=== PATIENT | male | born 1945 | race Caucasian/White ===

== ENCOUNTER 2019-02-20 10:28 | Inpatient (IN) | payer MEDICARE, BC ==
--- NOTE | 2019-02-20 13:01 | PCM.HP.2 ---
H&P History of Present Illness - General Date of Service: 02/20/19 Admit Problem/Dx: Left Shoulder Arthroplasty, Rehab with PT/OT Source of Information: Patient History Limitations: Reports: No Limitations - History of Present Illness Initial Comments - Free Text/Narative: Patient is here for SW[facility] admission for PT/OT after left shoulder reverse arthroplasty. He is here and has no complaints of pain. He is to wear immobilizer until further notice. No lifting with his left arm. He had an exacerbation of his Heart Failure while in the hospital. This may be related to the increased sedentary lifestyle since surgery. He is having increased fluid on lower extremities. We will monitor this as well as BP for elevation. - Related Data Allergies/Adverse Reactions: Allergies Allergy/AdvReac Type Severity Reaction Status Date / Time No Known Allergies Allergy Verified 02/20/19 12:22 Home Medications: Home Meds Acetaminophen [Acetaminophen Extra Strength] 1,000 mg PO Q6HR PRN 02/20/19 [ History] Bumetanide [Bumex] 2 mg PO BID@08,14 02/20/19 [History] Calcium Carbonate [Calcium] 600 mg PO DAILY 02/20/19 [History] Cholecalciferol (Vitamin D3) [Vitamin D3] 400 unit PO DAILY 02/20/19 [History] Cyanocobalamin (Vitamin B-12) [Vitamin B-12] 100 mcg PO DAILY 02/20/19 [History] Ferrous Sulfate 325 mg PO DAILY 02/20/19 [History] Folic Acid 1 mg PO DAILY 02/20/19 [History] Levothyroxine 150 mcg PO ACBREAKFAST 02/20/19 [History] Omeprazole 40 mg PO DAILY 02/20/19 [History] Sennosides/Docusate Sodium [Senna-Docusate Sodium Tablet] 1 each PO BID [History] Spironolactone [Aldactone] 100 mg PO DAILY 02/20/19 [History] Past Medical History Cardiovascular History: Reports: Heart Failure, Hypertension Gastrointestinal History: Reports: Cirrhosis, GI Bleed, Other (See Below) Other Gastrointestinal History: gastric varices Musculoskeletal History: Reports: Back Pain, Chronic, Osteoarthritis, Other ( See Below) Other Musculoskeletal History: closed compressed fracture of thoracic vertebra Psychiatric History: Reports: Addiction, Other (See Below) Other Psychiatric History: alcohol abuse Endocrine/Metabolic History: Reports: Hypothyroidism, Obesity/BMI 30+, Osteopenia Hematologic History: Reports: Anemia, Other (See Below) Other Hematologic History: thrombocytopenia - Past Surgical History HEENT Surgical History: Reports: Cataract Surgery GI Surgical History: Reports: Appendectomy, Colonoscopy, EGD Musculoskeletal Surgical History: Reports: Other (See Below) Other Musculoskeletal Surgeries/Procedures:: left ankle open reduction internal fixation H&P Review of Systems - Review of Systems: Review Of Systems: See Below General: Reports: No Symptoms HEENT: Reports: No Symptoms Pulmonary: Reports: No Symptoms (He states he had a dry cough in the hospital, but this has resolved) Cardiovascular: Reports: Edema Gastrointestinal: Reports: Constipation (Had constipation in hospital, probably secondary to narcotic pain medication use. We will watch this.) Genitourinary: Reports: No Symptoms Musculoskeletal: Reports: Shoulder Pain (occasional) Skin: Reports: Wound Psychiatric: Reports: No Symptoms Neurological: Reports: No Symptoms Hematologic/Lymphatic: Reports: No Symptoms Immunologic: Reports: No Symptoms Exam - Exam Exam: See Below - Vital Signs Vital Signs: Last Vital Signs Temp 98.2 F 02/20/19 12:22 Pulse 91 02/20/19 12:22 Resp 20 02/20/19 12:22 BP 134/74 02/20/19 12:22 Pulse Ox 98 02/20/19 12:22 Weight: 254 lb 3.088 oz - Exam General: Alert, Oriented, Cooperative HEENT: Conjunctiva Clear, EACs Clear, Mucosa Moist & [place], Pupils Equal, Pupils Reactive Neck: Supple, Trachea Midline Lungs: Clear to Auscultation, Normal Respiratory Effort Cardiovascular: Regular Rate, Regular Rhythm GI/Abdominal Exam: Normal Bowel Sounds, Soft, Non-Tender (Male) Exam: Deferred Rectal (Males) Exam: Deferred Back Exam: Normal Inspection, Full Range of Motion Extremities: Normal Capillary Refill, Pedal Edema (3+, not wearing compression stockings at time of exam), Limited Range of Motion (to left arm/immobilized) Skin: Warm, Dry, Wound Neuro Extensive - Mental Status: Alert, Oriented x3, Normal Mood/Affect Psychiatric: Alert, Normal Affect, Normal Mood - Problem List (1) Status post reverse arthroplasty of left shoulder SNOMED Code(s): [id number], [id number] ICD Code: Z96.612 - PRESENCE OF LEFT ARTIFICIAL SHOULDER JOINT Status: Acute Current Visit: Yes Problem Details: Patient to wear immobilizer at all times until follow up appointment on 03/05. He is not having any pain to area at this time. Incision is healing and intact. No drainage/redness noted. Dressing will be kept in place and changed per [facility] instructions (2) Heart failure SNOMED Code(s): 81299338 ICD Code: I50.9 - HEART FAILURE, UNSPECIFIED Status: Acute Current Visit : Yes Problem Details: patient received a new diagnosis of heart failure when in hospital. He will follow a HF diet, monitor weight and pedal edema. BP will be monitored as well. (3) Hypertension SNOMED Code(s): 64991338 ICD Code: I10 - ESSENTIAL (PRIMARY) HYPERTENSION Status: Acute Current Visit: Yes Problem Details: Patient is having increased pedal edema due to HF. We will monitor BP. He was switched from Lasix to Bumex in the hospital. Monitor weight daily, pedal edema and increased SOB. Problem List Initiated/Reviewed/Updated: Yes
--- OUTSIDE RECORDS SUMMARY | 2019-02-20 14:36 | XMSREPORT ---
:[address] [facility] Address [address] [place] [address] Care Team Providers Name Role Phone Martir Robles MD Primary Care Provider Martir Robles MD Attributed Provider Reason for Visit Reason Comments Auth/Cert (Routine) Status Reason Specialty Diagnoses / Referred By Referred To Procedures Contact Contact Continuity of Care Diagnoses Unspecified rotator cuff tear or rupture of left shoulder, not specified as traumatic Other specific arthropathies, not elsewhere classified, left shoulder Se Hernandez, Procedures ARTHROPLASTY GLENOHUMERAL JOINT TOTAL URSULAR [address] [place] [address] Encounter Details Date Type Department Care Team Description 02/07/2019 - Hospital Encounter [facility] Se Hernandez MD [address] [place] [address] [phone] Low back pain 02/20/2019 Center [facility] Surgical Cesar Stanley MD [address] [place], [place] [id number] [address] [place] [address] Malorie Schroeder MD [address] [place], [place] [id number] [place], [place] [id number] Allergies No Known Allergiesdocumented as of this encounter (statuses as of 02/20/2019) Medications Medication Sig Dispensed Refills Start Date End Date Status cyanocobalamin, Take 1 90 tablet 4 05/19/2016 Active vitamin B-12, 100 mcg tablet (100 tabletIndications: mcg total) Anemia, unspecified by mouth 1 type time per day acetaminophen Take 1,000 0 Active (TYLENOL) 500 mg mg by mouth tablet every 6 hours as needed for mild pain vitamin D3, Take 400 0 Active cholecalciferol, 400 Units by units tablet mouth 1 time per day calcium 600 MG TABS Take 600 mg 0 Active tablet by mouth 1 time per day levothyroxine 150 mcg Take 1 30 tablet 0 02/02/2019 Active tabletIndications: tablet (150 Acquired mcg total) hypothyroidism by mouth 1 time per day ferrous sulfate (65 Take 325 mg 0 Active MG FE PER 325 MG by mouth 1 TABLET) 325 mg tablet time a day in the morning folic acid 1 mg Take 1 mg by 0 Active tablet mouth 1 time a day in the morning omeprazole (PRILOSEC) Take 40 mg 0 Active 40 mg capsule by mouth 1 time a day in the morning spironolactone Take 100 mg 0 Active (ALDACTONE) 100 mg by mouth 1 tablet time a day in the morning senna-docusate sodium Take 1 20 tablet 0 02/20/2019 Active (SENOKOT-S;PERICOLACE tablet by ) 8.6-50 MG mouth 2 tabletIndications: times a day Constipation, unspecified constipation type bumetanide (BUMEX) 2 Take 1 180 tablet 4 02/20/2019 Active mg tabletIndications: tablet (2 0 Chronic diastolic mg) by mouth heart failure (HCC) two times a day (in the morning and mid-afternoo n). Thiamine HCl Take 1 90 tablet 3 02/13/2015 Discontinued (THIAMINE, VITAMIN tablet by 9 B-1,) 100 mg tablet mouth 1 time per day. omeprazole (PRILOSEC) TAKE 1 180 capsule 0 08/30/2018 Discontinued 40 mg CAPSULE 2 9 capsuleIndications: TIMES DAILY Gastroesophageal BEFORE MEALS reflux disease without esophagitis furosemide (LASIX) 40 Take 1 90 tablet 0 10/17/2018 Discontinued mg tabletIndications: tablet (40 9 Chronic diastolic mg) by mouth heart failure (HCC), 1 time per Alcoholic cirrhosis day of liver without ascites (HCC) folic acid 1 mg TAKE (1) 90 tablet 0 11/10/2018 Discontinued tabletIndications: TABLET BY 9 History of alcohol MOUTH DAILY. abuse levothyroxine 150 mcg Take 1 90 tablet 0 11/10/2018 Discontinued tabletIndications: tablet (150 9 Acquired mcg total) hypothyroidism by mouth 1 time per day spironolactone TAKE 1 90 tablet 0 11/10/2018 Discontinued (ALDACTONE) 100 mg TABLET BY 9 tabletIndications: MOUTH DAILY. Chronic diastolic heart failure (HCC), Alcoholic cirrhosis of liver without ascites (HCC) ferrous sulfate (65 TAKE (1) 90 tablet 0 01/02/2019 Discontinued MG FE PER 325 MG TABLET BY 9 TABLET) 325 mg MOUTH DAILY. tabletIndications: Anemia, unspecified type folic acid 1 mg TAKE (1) 30 tablet 0 02/02/2019 Discontinued tabletIndications: TABLET BY 9 History of alcohol MOUTH DAILY. abuse furosemide (LASIX) 40 Take 1 90 tablet 4 02/02/2019 Discontinued mg tabletIndications: tablet (40 9 Chronic diastolic mg) by mouth heart failure (HCC), 1 time per Alcoholic cirrhosis day of liver without ascites (HCC) documented as of this encounter (statuses as of 02/20/2019) Active Problems Problem Noted Date Obesity, morbid, BMI 40.0-49.9 02/07/2019 Thrombocytopenia 02/07/2019 H/O compression fracture of spine 10/31/2017 Overview: Hx of chronic compression fracture to T8 10/19/2017 s/p vertebroplasty to T [address] Mckinney Primary osteoarthritis of left shoulder 09/07/2017 IFG (impaired fasting glucose) 08/24/2017 Osteopenia 06/22/2017 Overview: Declined treatment - 06/2017 Treatment options complicated by recent GI bleed GI bleed 06/08/2017 Closed compression fracture of thoracic vertebra 04/30/2017 Gastric varices 05/06/2014 Chronic diastolic heart failure 04/11/2014 Anemia 01/17/2014 Cirrhosis of liver 01/09/2014 Alcohol abuse 12/12/2013 Acquired hypothyroidism Low back pain documented as of this encounter (statuses as of 02/20/2019) Resolved Problems Problem Noted Date Resolved Date Obesity (BMI 30-39.9) 08/23/2017 02/07/2019 Acute mid back pain 04/30/2017 06/22/2017 Pneumonia 03/31/2014 02/13/2015 Ascites 01/17/2014 05/19/2016 Encephalopathy acute 12/04/2013 02/13/2015 Asthma 09/03/2013 02/13/2015 Effusion of lower leg joint 07/27/2011 02/13/2015 documented as of this encounter (statuses as of 02/20/2019) Immunizations Name Dates Previously Given Next Due FLU VACCINE HIGH DOSE 65YR+(Fluzone) 03/31/2014 Pneumococcal Conj PCV13 08/06/2015 Pneumococcal Polysaccharide PPSV23 05/10/2017 TDAP 11/25/2009 Zoster Live(Zostavax) 06/22/2017 documented as of this encounter Social History Tobacco Use Types Packs/Day Years Used Date Former Smoker Quit: 06/20/1968 Smokeless Tobacco: Never Used Comments: Never bought a pack of cigarettes Alcohol Use Drinks/Week oz/Week Comments Yes 6 Cans of beer 3.6 6 per week Sexually Active Control Partners Comments Yes Female Sex Assigned at Date Recorded Not on file Job Start Date Occupation Industry Not on file Not on file Not on file Travel History Travel Start Travel End No recent travel history available. documented as of this encounter Last Filed Vital Signs Vital Sign Reading Time Taken Blood Pressure 120/38 02/20/2019 7:41 AM CDT Pulse 83 02/20/2019 7:41 AM CDT Temperature 36.8 C (98.2 F) 02/20/2019 7:41 AM CDT Respiratory Rate 18 02/20/2019 7:41 AM CDT Oxygen Saturation 95% 02/20/2019 7:41 AM CDT Inhaled Oxygen Concentration - - Weight 117.1 kg (258 lb 3.2 oz) 02/20/2019 3:27 AM CDT Height 167.6 cm (5' 6") 02/07/2019 9:06 AM CDT Body Mass Index 41.67 02/07/2019 9:06 AM CDT documented in this encounter Functional Status Functional Status Response Date of Assessment Is the person deaf or does he/she have serious difficulty No 01/31/2019 hearing? Is this person blind or does he/she have difficulty No 01/31/2019 seeing even when wearing glasses? Do you have difficulty with walking, balance, climbing Yes 01/31/2019 stairs, or had a fall in the last 3 months? Does the patient have difficulty dressing or bathing? No 01/31/2019 Because of a physical, mental, or emotional condition; No 01/31/2019 does this person have difficulty doing errands alone such as visiting a doctor's office or shopping? Cognitive Status Response Date of Assessment Because of a physical, mental, or emotional condition; No 01/31/2019 does this person have serious difficulty concentrating, remembering, or making decisions? documented as of this encounter Discharge Summaries Not on filedocumented in this encounter Discharge Instructions InstructionsJessica Callaway RN - 02/12/2019[facility] Nurse: or Heart Failure Discharge Instructions Diet: Diet as ordered Follow instructions from our dietitian if one visited you Activity: Plan time every day for walking or other activity. If you feel tired and short of breath, stop and rest. Continue activity when ready. Follow guidelines given by cardiac rehab and nursing staff. Treatments/Self Care: Weigh yourself daily at the same time of the day and with the same amount of clothing. Write down your weight every day and keep this record. Avoid NSAIDs or Non-Steroidal Anti-Inflammatory Drugs (ie: Advil, Ibuprofen, Motrin, etc.) Contact Your Doctor If You Have Any of These Symptoms: Sudden weight gain of 2 pounds in a day or 5 pounds in a week. This is a sign of fluid build-up. Increased swelling in feet, ankles or legs. Worsening shortness of breath or trouble breathing at rest Having to sleep with more pillows or sitting up Frequent or worsening cough A decrease in amount of urine. Chest pain Confusion Questions about medications or other problems Review the Living Well with Heart Failure booklet for more information on caring for yourself or your loved one at home. Shoulder Pain and Problems What are shoulder problems? Shoulder pain and problems are common. There are many types of shoulder problems that are caused by injuries and sudden (acute) or long-lasting (chronic ) inflammation of the shoulder joint. The shoulder is a complex joint that has great mobility. This ability to move also increases the chances that itcan be injured. The shoulder is made up of several layers, including the following: Bones. The collarbone (clavicle), the shoulder blade (scapula), and the upper arm bone (humerus). Joints. These help with movement, including the following: ? Sternoclavicular joint (where the clavicle meets the sternum) ? Acromioclavicular (AC) joint (where the clavicle meets the acromion) ? Shoulder joint (glenohumeral joint). A [id number] joint that aids forward , circular, and backward movement of the shoulder. Ligaments. A white, shiny, flexible band of fibrous tissue that binds joints together and connects bones and cartilage, including the following: ? Joint capsule. A group of ligaments that connect the humerus to the socket of the shoulder joint on the scapula to stabilize the shoulder and keep it from dislocating. ? Ligaments that attach the clavicle to the acromion ? Ligaments that connect the clavicle to the scapula by attaching to the coracoid process Acromion. The highest point (roof) of the shoulder that is formed by a part of the scapula. Tendons. The tough cords of tissue that connect muscles to bones. The rotator cuff tendons are a group of tendons that connect the deepest layer of muscles to the humerus. Muscles. These help support and rotate the shoulder in many directions. Bursa. A closed space between 2 moving surfaces that has a small amount of lubricating fluid inside. It is located between the rotator cuff muscle layer and the outer layer of large, bulky muscles. Rotator cuff. Made up of tendons, the rotator cuff (and related muscles) holds the ball of the glenohumeral joint at the top of the upper arm bone ( humerus). What causes shoulder problems? The shoulder is the most movable joint in the body. But it is also an unstable joint because of its range of motion. Because the ball of the upper arm is larger than the socket of the shoulder, it is at risk of injury. The shoulder joint is supported by soft tissues. These are the muscles, tendons, and ligaments. They are also subject to injury, overuse, and degeneration. Progressive diseases that break down tissues in the body over time may also play a role in shoulder problems. Or they may cause pain that travels along nerves to the shoulder. Common causes of shoulder problems include the following: Dislocation. The shoulder joint is the most often dislocated major joint of the body. This is often caused by a strong force that separates the shoulder joint's ball away from the joint's socket. The ball is the top rounded part of the upper arm bone (humerus). The socket is called the glenoid. Separation. The AC joint becomes when the ligaments attached to the collarbone (clavicle) are torn, or partly torn, away from the shoulder blade (scapula). Shoulder separation may be caused by a strong blow to the shoulder, or a fall. Bursitis. Bursitis often occurs when tendonitis and impingement syndrome cause inflammation of the bursa sac that protects the shoulder. Impingement syndrome. This is caused by the excessive squeezing or rubbing of the rotator cuff and shoulder blade. The pain is from an inflamed bursa ( lubricating sac) over the rotator cuff. Or it may be due to inflammation of the rotator cuff tendons. And it may be due to calcium deposits in tendons due to wear and tear. Impingement syndrome can lead to a torn rotator cuff. Tendinosis. Tendinosis of the shoulder is caused when the rotator cuff or biceps tendon become worn out and inflamed. This is often a result of being pinched by nearby tissues. The injury may vary from mild inflammation to most of the rotator cuff. When the rotator cuff tendon becomes inflamed and thickened , it may become trapped under the acromion. Rotator cuff tear. A rotator cuff tear involves 1 or more rotator cuff tendons becoming inflamed and torn from overuse, aging, a fall on an outstretched hand, or a collision. Adhesive capsulitis (frozen shoulder). This condition is often caused by injury that leads to lack of use due to pain. Not enough use may cause inflammation and scar tissue to grow between the jointsurfaces. This further limits motion. There is also a lack of synovial fluid to lubricate the gap between the arm bone and socket. This fluid normally helps the shoulder joint to move. Fracture. A fracture is a partial or total crack or break through a bone. It often occurs due to an impact injury. What are the symptoms of shoulder problems? Shoulder pain may be only in 1 area. Or it may spread to areas around the shoulder or down the arm. The location and type of symptoms depend on the injury or the location of the inflammation. Below aresymptoms of some common shoulder problems. A rotator cuff injury will often cause pain in the front or outside of the shoulder. The pain gets worse when you raise your arm or try to lift an object over your head. Rotator cuff pain can be severe. It can make even simple tasks impossible and wake you up at night. If you have shoulder instability, pain can start suddenly, for example just as you throw a ball. Youmay have numbness all the way down your arm. If the instability happens slowly, you may have mild pain only at certain times. Your shoulder might feel weak, sore when you move it, or loose in your joint. Shoulder instability is different than a shoulder dislocation. The symptoms of a dislocated shoulder include intense pain, inability to move the joint, a visibly out of place shoulder, and swelling or bruising. The dislocation can cause numbness, tingling, or weakness near the injury or down your arm. A dislocated shoulder requires immediate medical care. If shoulder pain is caused by inflammation, such as bursitis, it may feel stiff , achy, and hurt morewhen you move it. Sometimes it can look swollen or red. How are shoulder problems diagnosed? A healthcare provider will ask about health history. He or she will give you a physical exam. The exam is to look at the vajyw-nb-sglyps, area of pain, and level of joint stability. You may have tests such as: X-ray. This imaging test uses a small amount of radiation to make images of tissues, bones, and organs onto film. MRI. This imaging test uses large magnets, radio waves, and a computer to make detailed images oftissues in the body. It can often find damage or disease in around ligament, tendon, or muscle. CT scan. This imaging test uses a series of X-rays and a computer to make horizontal images of the body. A CT scan shows detailed images of any part of the body, including the bones, muscles, fat, and organs. CT scans are more detailed than general X-rays. Electromyogram (EMG). This is a test to evaluate nerve and muscle function. Ultrasound. This imaging test uses high-frequency sound waves to create an image of the internal organs. Laboratory tests. These can help to figure out if other problems may be the cause. Arthroscopy. This is a minimally-invasive procedure used for joint conditions. This procedure uses a small, lighted, optic tube (arthroscope) that is put into the joint through a small cut (incision). Images of the inside of the joint are projected onto a screen. It is used to look at any changes in the joint, to find bone diseases and tumors, and to figure out the cause of bone pain and inflammation. How are shoulder problems treated? The goals of treatment are to ease pain and restore your shoulder to normal function. To do this, a variety of treatments may be used such as: Changing how you do some daily activities (activity modification) Rest Physical therapy Medicines such as ibuprofen, naproxen, and other nonsteroidal anti- inflammatory medicines (NSAIDs) An injection of anti-inflammatory steroids Surgery (when other options fail or are not advised for the injury or condition) Herrera points about shoulder problems Shoulder pain and problems are common. The shoulder is the most movable joint in the body. But its ability to move increases the chancesthat it can be injured or damaged. Common causes of shoulder problems include dislocation, separation, and fracture. Shoulder pain may be localized in a specific area. Or it may spread to areas around the shoulder or down the arm. Treatment may include medicines, rest, physical therapy, surgery, and changing how you do some daily activities. Next steps Tips to help you get the most from a visit to your healthcare provider: Know the reason for your visit and what you want to happen. Before your visit, write down questions you want answered. Bring someone with you to help you ask questions and remember what your provider tells you. At the visit, write down the name of a new diagnosis, and any new medicines, treatments, or tests. Also write down any new instructions your provider gives you. Know why a new medicine or treatment is prescribed, and how it will help you. Also know what the side effects are. Ask if your condition can be treated in other ways. Know why a test or procedure is recommended and what the results could mean. Know what to expect if you do not take the medicine or have the test or procedure. If you have a follow-up appointment, write down the date, time, and purpose for that visit. Know how you can contact your provider if you have questions. [id number] [employer]. [address] [place] [address], [place] [address]. All rights reserved. This information is not intended as a substitute for professional medical care. Always follow your healthcare professional's instructions. documented in this encounter Medications at Time of Discharge Medication Sig Dispensed Refills Start Date End Date senna-docusate sodium Take 1 tablet by 20 tablet 0 02/20/2019 (SENOKOT-S;PERICOLACE) mouth 2 times a 8.6-50 MG day tabletIndications: Constipation, unspecified constipation type bumetanide (BUMEX) 2 mg Take 1 tablet (2 180 tablet 4 02/20/20192019 tabletIndications: Chronic mg) by mouth two diastolic heart failure times a day (in (HCC) the morning and mid-afternoon). ferrous sulfate (65 MG FE Take 325 mg by 0 PER 325 MG TABLET) 325 mg mouth 1 time a day tablet in the morning folic acid 1 mg tablet Take 1 mg by mouth 0 1 time a day in the morning omeprazole (PRILOSEC) 40 Take 40 mg by 0 mg capsule mouth 1 time a day in the morning spironolactone (ALDACTONE) Take 100 mg by 0 100 mg tablet mouth 1 time a day in the morning levothyroxine 150 mcg Take 1 tablet (150 30 tablet 0 02/02/2019 tabletIndications: mcg total) by Acquired hypothyroidism mouth 1 time per day calcium 600 MG TABS tablet Take 600 mg by 0 mouth 1 time per day acetaminophen (TYLENOL) Take 1,000 mg by 0 500 mg tablet mouth every 6 hours as needed for mild pain vitamin D3, Take 400 Units by 0 cholecalciferol, 400 units mouth 1 time per tablet day cyanocobalamin, vitamin Take 1 tablet (100 90 tablet 4 05/19/2016 B-12, 100 mcg mcg total) by tabletIndications: Anemia, mouth 1 time per unspecified type day documented as of this encounter Progress Notes Malorie Schroeder MD - 02/19/2019 3:21 PM CDT Hospital Progress Note Patient Name: Lazara Orozco Jr. 02/07/2019 02/19/2019 CSN: [id number] Date of service:02/19/2019 Interval History: Denies acute complaints. Pain well controlled. Having decent urine output. Creatinine slightly elevated from yesterday. Will continue Bumex. We'll monitor BMP. Plan for tomorrow. Assessment and Plan: Acute on chronic kidney disease stage III: Creatinine close to baseline. We'll monitor BMP with diuresis. Status post left reverse shoulder arthroplasty: Currently pain well controlled. Continue when necessary tramadol and scheduled Tylenol Will need outpatient follow-up with orthopedic surgery History of GI bleed: Continue PPI. Concern for alcohol withdrawal: Currently not having any withdrawals. Not needing benzodiazepine. Chronic diastolic CHF: Continue Bumex. Had volume overload requiring IV diuresis with Lasix drip which was stopped. Weight remains stable and slightly up from before. Continue low-sodium and fluid restricted diet. Hypothyroidism: Continue levothyroxine Constipation: Continue current bowel regimen Debility: Patient seen by therapy and plan for TCU placement. Case management on board. History of liver cirrhosis: Currently Lasix and spironolactone on hold. Plan to resume his for nocturnal discharge and switch Lasix to Bumex. Will need outpatient follow-up with GI. Propranolol on hold and reviewed previous EGD at 08/07 showing gastric varices Macrocytic anemia, thrombocytopenia: Chronic in nature. Secondary to underlying alcohol use. Review of Systems: Constitutional: No fever. No chills. HE: No headache. No red eye or discharge. Neck: No neck swelling. ENT: No ear discharge. No rhinorrhea. No trouble swallowing. Respiratory: No cough. No SOB. Cardiovascular: No chest pain, No palpitation. GI: No abdominal pain. No nausea or vomiting. : No dysuria. No testicular pain. Musc: No arthralgia, No back pain. Skin: No skin rash or pallor. Neuro: No headache. No dizziness. Pshyciatry: No confusion. No mood swings. Endo: No polyuria. No cold intolerance. Physical Exam: Current Vital Signs: Temp: 98 F (36.7 C) BP: 104/49 Pulse: 95 O2 Device: Room Air O2 Flow Rate (L/min): 2 l/min Resp: 20 Pain Ratin (out of 10) Weight: 117.3 kg (258 lb 11.2 oz) SpO2: 95 % Vitals Min/Max Last 24 Hours: Vital Signs Min/Max (last 24 hours) Flowsheet Row Name Min Max Temp 98 F (36.7 C) 98.5 F (36.9 C) BP: Systolic 98 117 BP: Diastolic 45 50 Pulse 72 95 Resp 16 20 SpO2 93 % 96 % MAP (mm Hg) 66 mm Hg 66 mm Hg Intake and Output Last 24 Hours: 02/18 0700 02/19 0659 In: 1290 Out: 1770 General: A obese male reclining in bed without any distress. HE: Head atraumatic, normocephalic. PERRLA. EOMI. No scleral icterus or conjunctival paleness present. Neck: No lymphadenopathy present ENT: No nasal discharge, sinus tenderness, ear discharge, palatal erythema present. No cyanosis present. Hearing intact. Chest: No chest wall deformity present. Symmetric chest wall movement present. Clear to auscultate bilaterally with vesicular breath sound. No rales or rhonchi present. Heart: Non displaced PMI.No thrill or heave present. Normal rate and regular rhythm S1,S2 present and no murmur, gallop or rub present. Abdomen: Soft, non tender, non distended. No organomegaly appreciated and bowel sounds normoactive in all four quadrants.No inguinal hernia present. Neuro: Alert, awake and oriented to time, place and person.Motor function 5/5 in all four extremities. Bilaterally plantar downgoing . Reflexes 1+. No clonus present. All sensory modalities intact. No cerebellar dysfunction present. Gait intact. Extremity: No gross deformity present. No joint swelling present. Bilateral brachialis and dorsalis pedis pulses intact. No evidence of bipedal edema. Skin: No skin rash present. Medications: Current Facility-Administered Medications Medication Dose Route Frequency bumetanide (BUMEX) tablet 2 mg 2 mg Oral 2 times a day diuretic tetrahydrozoline (VISINE) 0.05 % ophthalmic solution 1 drop 1 drop Both eyes Every 4 hours prn oxyCODONE (OXY-IR) tablet 5 mg 5 mg Oral Every 4 hours prn oxyCODONE (OXY-IR) tablet 10 mg 10 mg Oral Every 4 hours prn acetaminophen (TYLENOL) tablet 1,000 mg 1,000 mg Oral 3 times a day traMADol (ULTRAM) tablet 50 mg 50 mg Oral Every 6 hours albuterol (PROVENTIL) 0.5% (5 mg/mL) inhalation soln 10 mg 10 mg Nebulization Now folic acid tablet 1 mg 1 mg Oral Daily thiamine (vitamin B-1) tablet 100 mg 100 mg Oral Daily cyanocobalamin (vitamin B-12) (Vitamin B-12) tablet 250 mcg 250 mcg Oral Daily sodium chloride 0.9% flush (adult) 10 mL 10 mL IV 2 times a day and prn senna-docusate sodium (SENOKOT-S;PERICOLACE) tablet 1 tablet 1 tablet Oral 2 times a day polyethylene glycol (MIRALAX) packet 1 packet 1 packet Oral Daily ondansetron (ZOFRAN) injection solution 4 mg 4 mg IV Every 4 hours prn benzocaine-menthol (CEPACOL w/ BENZOCAINE) lozenge 1 lozenge 1 lozenge Mouth/Throat Every 4 hours prn levothyroxine tablet 150 mcg 150 mcg Oral 1 time a day before breakfast omeprazole (priLOSEC) capsule 40 mg 40 mg Oral Every morning vitamin D3 (cholecalciferol) tablet 400 Units 400 Units Oral daily artificial tears ophthalmic solution 2 drop 2 drop Both eyes Every 2 hours prn Labs: Labs and imaging reviewed Labs (Last day) 02/19/19650 - 02/19/19650 CHEMISTRY 02/19/19650 CHEMISTRY Glucose 70-100 (mg/dL) 120 Sodium 135-145 (meq/L) 134 Potassium 3.5-5.3 (meq/L) 4.2 Chloride 99-110 (meq/L) 99 CO2 20-29 (meq/L) 28 Anion Gap with K 6-20 (meq/L) 11 BUN 6-22 (mg/dL) 23 Creatinine 0.80-1.30 (mg/dL) 1.48 BUN/Creatinine Ratio 10.0-25.0 15.5 Calcium 8.5-10.5 (mg/dL) 8.5 Corrected Calcium 8.5-10.5 (mg/dL) 9.8 Phosphorus 2.5-4.5 (mg/dL) 3.3 Albumin 3.5-5.0 (g/dL) 2.4 eGFR >=60 (mL/min/1.73m2) 57 eGFR Non- >=60 (mL/min/1.73m2) 47 02/19/19650 - 02/19/19650 OTHER 02/19/19650 OTHER Age (Years) 73 Malorie Schroeder MD This note was prepared, at least in part, with the help of a voice recognition software. Attempts were made to mitigate any errors in appliance servicer. If any remain, they are purely incidental. Cesar Davalos MD - 02/18/2019 10:28 PM CDT Hospital Progress Note Lazara Orozco Jr. is a 73yr old male admitted on 02/07/2019. Assessment / Plan Active Problems: Acquired hypothyroidism Low back pain Alcohol abuse Cirrhosis of liver (HCC) Anemia Chronic diastolic heart failure (HCC) Gastric varices Closed compression fracture of thoracic vertebra (HCC) GI bleed Osteopenia Primary osteoarthritis of left shoulder Obesity, morbid, BMI 40.0-49.9 (HCC) Thrombocytopenia (HCC) Resolved Problems: * No resolved hospital problems. * 73-year-old male who presents to the hospital for an elective left shoulder reverse arthroplasty. Patient was doing very well but he does have a history of extensive alcohol use. When the patient wasseen in the hospital he was noted to have some leg edema. He does take chronic diuretics due to legedema and chronic diastolic heart failure. Postop unfortunately he developed acute kidney injury. It was felt that it was likely due to intraoperative hypotension , blood loss, Toradol. Patient was started on IV fluids. Initially the concern with hyperkalemia, the patient was transferred to [facility] in case he needed emergent dialysis. Fortunately the patient potassium did improve and he did significantly better. While at the [facility] it was noted that he did have some withdrawal symptoms and he was started on alcohol withdrawal protocol. Interval history 1. Anasarca is improving 2. Interesting standing weight has not improved- but patient has sling/ telemetry/clothes on while taking it. Clinically his edema has reduced 3. Lasix IV infusion stopped- switch to oral bumex. 4. Patient is adament about no fluid restriction - discussed this with patient Assessment plan Acute on chronic kidney injury - likely has stage 3: Patient's creatinine is stable Lab Results Component Value Date CREATSERUM 1.10 02/18/2019 Acute on chronic diastolic heart failure: bumex. Hyperkalemia secondary to acute kidney injury - improved. Lab Results Component Value Date POTASSIUM 4.1 02/18/2019 Thrombocytopenia this is chronic Lab Results Component Value Date PLTCOUNT 102 (L) 02/12/2019 Status post a left reverse shoulder arthroplasty. Pain well controlled History of GI bleed on PPI Hyponatremia: Chronic. Watch while on diuretics. Fluid restriction. Improved. Concern for alcohol withdrawal - this concern was brought by family. Patient is refusing any treatment options. Withdrawals are resolved. CIWA d/c. Plan for d/c to SNF HPI / History / ROS HPI Review of Systems Constitutional: Negative. HENT: Negative. Respiratory: Negative. Cardiovascular: Negative. Gastrointestinal: Negative. Endocrine: Positive for polyuria. Musculoskeletal: Positive for arthralgias, joint swelling and myalgias. Skin: Negative. Neurological: Positive for weakness. Hematological: Negative. Psychiatric/Behavioral: Negative. Physical / Results Physical Exam Constitutional: He is oriented to person, place, and time. HENT: Head: Normocephalic. Eyes: Pupils are equal, round, and reactive to light. Conjunctivae are normal. Cardiovascular: Normal rate. Pulmonary/Chest: Effort normal and breath sounds normal. Abdominal: Soft. Bowel sounds are normal. Musculoskeletal: He exhibits tenderness. He exhibits no edema. Neurological: He is alert and oriented to person, place, and time. Skin: He is not diaphoretic. Psychiatric: He has a normal mood and affect. Medical Decision Making I have: Independently visualized and interpreted an image, tracing or specimen previously or subsequently interpreted by another provider. Discussed results of laboratory, radiology or other diagnostic tests with the physician who performed or interpreted the study. Obtained/reviewed old records from [place] or elsewhere (details outlined elsewhere in note). Obtained history from a person other than the patient (details outlined elsewhere in note). Discussed case with another provider (details outlined elsewhere in note). A total of 35 minutes was spent with the patient or on the floor today, greater than 50% of which was spent in counseling regarding today's findings/assessment/ plan and in coordination of care, chart review, medical decision making, and documentation Cesar Davalos MD - 02/17/2019 11:18 AM CDT Hospital Progress Note Lazara Orozco Jr. is a 73yr old male admitted on 02/07/2019. Assessment / Plan Active Problems: Acquired hypothyroidism Low back pain Alcohol abuse Cirrhosis of liver (HCC) Anemia Chronic diastolic heart failure (HCC) Gastric varices Closed compression fracture of thoracic vertebra (HCC) GI bleed Osteopenia Primary osteoarthritis of left shoulder Obesity, morbid, BMI 40.0-49.9 (HCC) Thrombocytopenia (HCC) Resolved Problems: * No resolved hospital problems. * 73-year-old male who presents to the hospital for an elective left shoulder reverse arthroplasty. Patient was doing very well but he does have a history of extensive alcohol use. When the patient wasseen in the hospital he was noted to have some leg edema. He does take chronic diuretics due to legedema and chronic diastolic heart failure. Postop unfortunately he developed acute kidney injury. It was felt that it was likely due to intraoperative hypotension , blood loss, Toradol. Patient was started on IV fluids. Initially the concern with hyperkalemia, the patient was transferred to [facility] in case he needed emergent dialysis. Fortunately the patient potassium did improve and he did significantly better. While at the [facility] it was noted that he did have some withdrawal symptoms and he was started on alcohol withdrawal protocol. Interval history 1. ansarca improving 2. Weight is not changing - suspect bed weight 3. Diuresis continues aggressively 4. Edema improved 5. Replaced K 6. Walk in the hallway x 3 order placed 7. Complaining of back pain - provided pRN Assessment plan Acute on chronic kidney injury - likely has stage 3: Patient's creatinine is stable Lab Results Component Value Date CREATSERUM 1.21 02/17/2019 Acute on chronic diastolic heart failure: continue lasix infusoin. Has severe edema. Have severe edema/anasarca. Hyperkalemia secondary to acute kidney injury - improved. Now actually hypokalemic Lab Results Component Value Date POTASSIUM 3.3 (L) 02/17/2019 Thrombocytopenia this is chronic Lab Results Component Value Date PLTCOUNT 102 (L) 02/12/2019 Status post a left reverse shoulder arthroplasty. Pain well controlled History of GI bleed on PPI Hyponatremia: Chronic. Watch while on diuretics. Fluid restriction. Improved. Concern for alcohol withdrawal - this concern was brought by family. Patient is refusing any treatment options. Withdrawals are resolved. CIWA d/c. Intake/Output Summary (Last 24 hours) at 02/17/2019 1120 Last data filed at 02/17/2019 1000 Gross per 24 hour Intake 2286 ml Output 3550 ml Net -1264 ml HPI / History / ROS HPI Review of Systems Constitutional: Negative. HENT: Negative. Respiratory: Negative. Cardiovascular: Negative. Gastrointestinal: Negative. Endocrine: Positive for polyuria. Musculoskeletal: Positive for arthralgias, joint swelling and myalgias. Skin: Negative. Neurological: Positive for weakness. Hematological: Negative. Psychiatric/Behavioral: Negative. Physical / Results Physical Exam Constitutional: He is oriented to person, place, and time. HENT: Head: Normocephalic. Eyes: Pupils are equal, round, and reactive to light. Conjunctivae are normal. Cardiovascular: Normal rate. Pulmonary/Chest: Effort normal and breath sounds normal. Abdominal: Soft. Bowel sounds are normal. Musculoskeletal: He exhibits tenderness. He exhibits no edema. Neurological: He is alert and oriented to person, place, and time. Skin: He is not diaphoretic. Psychiatric: He has a normal mood and affect. Medical Decision Making I have: Independently visualized and interpreted an image, tracing or specimen previously or subsequently interpreted by another provider. Discussed results of laboratory, radiology or other diagnostic tests with the physician who performed or interpreted the study. Obtained/reviewed old records from [place] or elsewhere (details outlined elsewhere in note). Obtained history from a person other than the patient (details outlined elsewhere in note). Discussed case with another provider (details outlined elsewhere in note). A total of 35 minutes was spent with the patient or on the floor today, greater than 50% of which was spent in counseling regarding today's findings/assessment/ plan and in coordination of care, chart review, medical decision making, and documentation Cesar sellers MD - 02/16/2019 8:54 AM CDospital Progress Note Lazara Orozco Jr. is a 73yr old male admitted on 02/07/2019. Assessment / Plan Active Problems: Acquired hypothyroidism Low back pain Alcohol abuse Cirrhosis of liver (HCC) Anemia Chronic diastolic heart failure (HCC) Gastric varices Closed compression fracture of thoracic vertebra (HCC) GI bleed Osteopenia Primary osteoarthritis of left shoulder Obesity, morbid, BMI 40.0-49.9 (HCC) Thrombocytopenia (HCC) Resolved Problems: * No resolved hospital problems. * 73-year-old male who presents to the hospital for an elective left shoulder reverse arthroplasty. Patient was doing very well but he does have a history of extensive alcohol use. When the patient wasseen in the hospital he was noted to have some leg edema. He does take chronic diuretics due to legedema and chronic diastolic heart failure. Postop unfortunately he developed acute kidney injury. It was felt that it was likely due to intraoperative hypotension , blood loss, Toradol. Patient was started on IV fluids. Initially the concern with hyperkalemia, the patient was transferred to [facility] in case he needed emergent dialysis. Fortunately the patient potassium did improve and he did significantly better. While at the [facility] it was noted that he did have some withdrawal symptoms and he was started on alcohol withdrawal protocol. Interval history 1. Patient continues to have severe anasarca 2. Continue IV lasix infusion over the weekend. 3. K replaced. Assessment plan Acute on chronic kidney injury - likely has stage 3: Patient's creatinine is stable Acute on chronic diastolic heart failure: continue lasix infusoin. Has severe edema. Have severe edema/anasarca. Hyperkalemia secondary to acute kidney injury - improved. Now actually hypokalemic Thrombocytopeniathis is chronic Status post a left reverse shoulder arthroplasty. Pain well controlled History of GI bleed on PPI Hyponatremia: Chronic. Watch while on diuretics. Fluid restriction. Improved. Concern for alcohol withdrawal - this concern was brought by family. Patient is refusing any treatment options. Withdrawals are resolved. CIWA d/c. HPI / History / ROS HPI Review of Systems Constitutional: Negative. HENT: Negative. Respiratory: Negative. Cardiovascular: Negative. Gastrointestinal: Negative. Endocrine: Positive for polyuria. Musculoskeletal: Positive for arthralgias, joint swelling and myalgias. Skin: Negative. Neurological: Positive for weakness. Hematological: Negative. Psychiatric/Behavioral: Negative. Physical / Results Physical Exam Constitutional: He is oriented to person, place, and time. HENT: Head: Normocephalic. Eyes: Pupils are equal, round, and reactive to light. Conjunctivae are normal. Cardiovascular: Normal rate. Pulmonary/Chest: Effort normal and breath sounds normal. Abdominal: Soft. Bowel sounds are normal. Musculoskeletal: He exhibits tenderness. He exhibits no edema. Neurological: He is alert and oriented to person, place, and time. Skin: He is not diaphoretic. Psychiatric: He has a normal mood and affect. Medical Decision Making I have: Independently visualized and interpreted an image, tracing or specimen previously or subsequently interpreted by another provider. Discussed results of laboratory, radiology or other diagnostic tests with the physician who performed or interpreted the study. Obtained/reviewed old records from [place] or elsewhere (details outlined elsewhere in note). Obtained history from a person other than the patient (details outlined elsewhere in note). Discussed case with another provider (details outlined elsewhere in note). A total of 45 minutes was spent with the patient or on the floor today, greater than 50% of which was spent in counseling regarding today's findings/assessment/ plan and in coordination of care, chart review, medical decision making, and documentation Cesar Davalos MD - 02/15/2019 9:25 AM CDT Hospital Progress Note Lazara Orozco Jr. is a 73yr old male admitted on 02/07/2019. Assessment / Plan Active Problems: Acquired hypothyroidism Low back pain Alcohol abuse Cirrhosis of liver (HCC) Anemia Chronic diastolic heart failure (HCC) Gastric varices Closed compression fracture of thoracic vertebra (HCC) GI bleed Osteopenia Primary osteoarthritis of left shoulder Obesity, morbid, BMI 40.0-49.9 (HCC) Thrombocytopenia (HCC) Resolved Problems: * No resolved hospital problems. * 73-year-old male who presents to the hospital for an elective left shoulder reverse arthroplasty. Patient was doing very well but he does have a history of extensive alcohol use. When the patient wasseen in the hospital he was noted to have some leg edema. He does take chronic diuretics due to legedema and chronic diastolic heart failure. Postop unfortunately he developed acute kidney injury. It was felt that it was likely due to intraoperative hypotension , blood loss, Toradol. Patient was started on IV fluids. Initially the concern with hyperkalemia, the patient was transferred to [facility] in case he needed emergent dialysis. Fortunately the patient potassium did improve and he did significantly better. While at the [facility] it was noted that he did have some withdrawal symptoms and he was started on alcohol withdrawal protocol. Interval history 1. Patient continues to have severe anasarca 2. Stopped iV lasix - and started on IV lasix infusoin 3. Creatinine is stable, but elevated. Has a history of CKD 3 4. Discussed with nursing- want standing weights and strict IO Assessment plan Acute on chronic kidney injury - likely has stage 3: Patient's creatinine is stable Lab Results Component Value Date CREATSERUM 1.43 (H) 02/15/2019 Acute on chronic diastolic heart failure: now started on lasix infusoin. Has severe edema. Have severe edema/anasarca. Hyperkalemia secondary to acute kidney injury - improved. While on lasix infusion,will need to monitor K closely. Lab Results Component Value Date POTASSIUM 3.9 02/15/2019 Thrombocytopenia this is chronic Status post a left reverse shoulder arthroplasty. Patient is requesting a little bit more pain relief. I have adjusted his medications accordingly History of GI bleed on PPI Hyponatremia: Chronic. Watch while on diuretics. Fluid restriction. Improved. Concern for alcohol withdrawal - this concern was brought by family. Patient is refusing any treatment options. Withdrawals are resolved. CIWA d/c. HPI / History / ROS HPI Review of Systems Constitutional: Negative. HENT: Negative. Respiratory: Negative. Cardiovascular: Negative. Gastrointestinal: Negative. Endocrine: Positive for polyuria. Musculoskeletal: Positive for arthralgias, joint swelling and myalgias. Skin: Negative. Neurological: Positive for weakness. Hematological: Negative. Psychiatric/Behavioral: Negative. Physical / Results Physical Exam Constitutional: He is oriented to person, place, and time. HENT: Head: Normocephalic. Eyes: Pupils are equal, round, and reactive to light. Conjunctivae are normal. Cardiovascular: Normal rate. Pulmonary/Chest: Effort normal and breath sounds normal. Abdominal: Soft. Bowel sounds are normal. Musculoskeletal: He exhibits tenderness. He exhibits no edema. Neurological: He is alert and oriented to person, place, and time. Skin: He is not diaphoretic. Psychiatric: He has a normal mood and affect. Medical Decision Making I have: Independently visualized and interpreted an image, tracing or specimen previously or subsequently interpreted by another provider. Discussed results of laboratory, radiology or other diagnostic tests with the physician who performed or interpreted the study. Obtained/reviewed old records from [place] or elsewhere (details outlined elsewhere in note). Obtained history from a person other than the patient (details outlined elsewhere in note). Discussed case with another provider (details outlined elsewhere in note). A total of 45 minutes was spent with the patient or on the floor today, greater than 50% of which was spent in counseling regarding today's findings/assessment/ plan and in coordination of care, chart review, medical decision making, and documentation Cesar Davalos MD - 02/14/2019 4:32 AM CDT Hospital Progress Note Lazara Orozco Jr. is a 73yr old male admitted on 02/07/2019. Assessment / Plan Active Problems: Acquired hypothyroidism Low back pain Alcohol abuse Cirrhosis of liver (HCC) Anemia Chronic diastolic heart failure (HCC) Gastric varices Closed compression fracture of thoracic vertebra (HCC) GI bleed Osteopenia Primary osteoarthritis of left shoulder Obesity, morbid, BMI 40.0-49.9 (HCC) Thrombocytopenia (HCC) Resolved Problems: * No resolved hospital problems. * 73-year-old male who presents to the hospital for an elective left shoulder reverse arthroplasty. Patient was doing very well but he does have a history of extensive alcohol use. When the patient wasseen in the hospital he was noted to have some leg edema. He does take chronic diuretics due to legedema and chronic diastolic heart failure. Postop unfortunately he developed acute kidney injury. It was felt that it was likely due to intraoperative hypotension , blood loss, Toradol. Patient was started on IV fluids. Initially the concern with hyperkalemia, the patient was transferred to [facility] in case he needed emergent dialysis. Fortunately the patient potassium did improve and he did significantly better. While at the [facility] it was noted that he did have some withdrawal symptoms and he was started on alcohol withdrawal protocol. Interval history 1. Increased lasix today to 40 q 8 2. Pain is better controlled. 3. Creatinine and K are stable 4. Once stable, can consider discharge - hopefully /Tuesday Assessment plan Acute kidney injury: Patient's creatinine is improving. Patient is making urine output. Lab Results Component Value Date CREATSERUM 1.37 (H) 02/14/2019 Acute on chronic diastolic heart failure: acute pulm edema/lower extremity edema. Started on lasix q 8. Continues to have severe edema. Continue Hyperkalemia secondary to acute kidney injury - improved Lab Results Component Value Date POTASSIUM 4.4 02/14/2019 Thrombocytopenia this is chronic Status post a left reverse shoulder arthroplasty. Patient is requesting a little bit more pain relief. I have adjusted his medications accordingly History of GI bleed on PPI Hyponatremia: Chronic. Watch while on diuretics. Fluid restriction. Improved. Concern for alcohol withdrawal - this concern was brought by family. Patient is refusing any treatment options. Withdrawals are resolved. CIWA d/c. HPI / History / ROS HPI Review of Systems Constitutional: Negative. HENT: Negative. Respiratory: Negative. Cardiovascular: Negative. Gastrointestinal: Negative. Endocrine: Positive for polyuria. Musculoskeletal: Positive for arthralgias, joint swelling and myalgias. Skin: Negative. Neurological: Positive for weakness. Hematological: Negative. Psychiatric/Behavioral: Negative. Physical / Results Physical Exam Constitutional: He is oriented to person, place, and time. HENT: Head: Normocephalic. Eyes: Pupils are equal, round, and reactive to light. Conjunctivae are normal. Cardiovascular: Normal rate. Pulmonary/Chest: Effort normal and breath sounds normal. Abdominal: Soft. Bowel sounds are normal. Musculoskeletal: He exhibits tenderness. He exhibits no edema. Neurological: He is alert and oriented to person, place, and time. Skin: He is not diaphoretic. Psychiatric: He has a normal mood and affect. Medical Decision Making I have: Independently visualized and interpreted an image, tracing or specimen previously or subsequently interpreted by another provider. Discussed results of laboratory, radiology or other diagnostic tests with the physician who performed or interpreted the study. Obtained/reviewed old records from [place] or elsewhere (details outlined elsewhere in note). Obtained history from a person other than the patient (details outlined elsewhere in note). Discussed case with another provider (details outlined elsewhere in note). A total of 25 minutes was spent with the patient or on the floor today, greater than 50% of which was spent in counseling regarding today's findings/assessment/ plan and in coordination of care, chart review, medical decision making, and documentation Cesar Davalos MD - 02/13/2019 4:13 AM CDT Hospital Progress Note Lazara Orozco Jr. is a 73yr old male admitted on 02/07/2019. Assessment / Plan Active Problems: Acquired hypothyroidism Low back pain Alcohol abuse Cirrhosis of liver (HCC) Anemia Chronic diastolic heart failure (HCC) Gastric varices Closed compression fracture of thoracic vertebra (HCC) GI bleed Osteopenia Primary osteoarthritis of left shoulder Obesity, morbid, BMI 40.0-49.9 (HCC) Thrombocytopenia (HCC) Resolved Problems: * No resolved hospital problems. * 73-year-old male who presents to the hospital for an elective left shoulder reverse arthroplasty. Patient was doing very well but he does have a history of extensive alcohol use. When the patient wasseen in the hospital he was noted to have some leg edema. He does take chronic diuretics due to legedema and chronic diastolic heart failure. Postop unfortunately he developed acute kidney injury. It was felt that it was likely due to intraoperative hypotension , blood loss, Toradol. Patient was started on IV fluids. Initially the concern with hyperkalemia, the patient was transferred to [facility] in case he needed emergent dialysis. Fortunately the patient potassium did improve and he did significantly better. While at the [facility] it was noted that he did have some withdrawal symptoms and he was started on alcohol withdrawal protocol. Interval history 1. Patient is doing significantly better on IV lasix 2. Weight is trending lower 3. Creatinine is better 4. K has stabilized. Assessment plan Acute kidney injury: Patient's creatinine is improving. Patient is making urine output. Lab Results Component Value Date CREATSERUM 1.21 02/13/2019 Acute on chronic diastolic heart failure: acute pulm edema/lower extremity edema. Started on lasix BID. Continues to have severe edema. Continue Hyperkalemia secondary to acute kidney injury - improved Lab Results Component Value Date POTASSIUM 4.7 02/13/2019 Thrombocytopenia this is chronic Status post a left reverse shoulder arthroplasty. Patient is requesting a little bit more pain relief. I have adjusted his medications accordingly History of GI bleed on PPI Hyponatremia: Chronic. Watch while on diuretics. Fluid restriction. Improved. Concern for alcohol withdrawal - this concern was brought by family. Patient is refusing any treatment options. Withdrawals are resolved. CIWA d/c. HPI / History / ROS HPI Review of Systems Constitutional: Negative. HENT: Negative. Respiratory: Negative. Cardiovascular: Negative. Gastrointestinal: Negative. Endocrine: Positive for polyuria. Musculoskeletal: Positive for arthralgias, joint swelling and myalgias. Skin: Negative. Neurological: Positive for weakness. Hematological: Negative. Psychiatric/Behavioral: Negative. Physical / Results Physical Exam Constitutional: He is oriented to person, place, and time. HENT: Head: Normocephalic. Eyes: Pupils are equal, round, and reactive to light. Conjunctivae are normal. Cardiovascular: Normal rate. Pulmonary/Chest: Effort normal and breath sounds normal. Abdominal: Soft. Bowel sounds are normal. Musculoskeletal: He exhibits tenderness. He exhibits no edema. Neurological: He is alert and oriented to person, place, and time. Skin: He is not diaphoretic. Psychiatric: He has a normal mood and affect. Medical Decision Making I have: Independently visualized and interpreted an image, tracing or specimen previously or subsequently interpreted by another provider. Discussed results of laboratory, radiology or other diagnostic tests with the physician who performed or interpreted the study. Obtained/reviewed old records from [place] or elsewhere (details outlined elsewhere in note). Obtained history from a person other than the patient (details outlined elsewhere in note). Discussed case with another provider (details outlined elsewhere in note). A total of 25 minutes was spent with the patient or on the floor today, greater than 50% of which was spent in counseling regarding today's findings/assessment/ plan and in coordination of care, chart review, medical decision making, and documentation Cesar Davalos MD - 02/12/2019 10:57 PM CDT Hospital Progress Note Lazara Orozco Jr. is a 73yr old male admitted on 02/07/2019. Assessment / Plan Active Problems: Acquired hypothyroidism Low back pain Alcohol abuse Cirrhosis of liver (HCC) Anemia Chronic diastolic heart failure (HCC) Gastric varices Closed compression fracture of thoracic vertebra (HCC) GI bleed Osteopenia Primary osteoarthritis of left shoulder Obesity, morbid, BMI 40.0-49.9 (HCC) Thrombocytopenia (HCC) Resolved Problems: * No resolved hospital problems. * 73-year-old male who presents to the hospital for an elective left shoulder reverse arthroplasty. Patient was doing very well but he does have a history of extensive alcohol use. When the patient wasseen in the hospital he was noted to have some leg edema. He does take chronic diuretics due to legedema and chronic diastolic heart failure. Postop unfortunately he developed acute kidney injury. It was felt that it was likely due to intraoperative hypotension , blood loss, Toradol. Patient was started on IV fluids. Initially the concern with hyperkalemia, the patient was transferred to [facility] in case he needed emergent dialysis. Fortunately the patient potassium did improve and he did significantly better. While at the [facility] it was noted that he did have some withdrawal symptoms and he was started on alcohol withdrawal protocol. Assessment plan Acute kidney injury: Patient's creatinine is improving. Patient is making urine output. Holding fluids to prevent fluid overload. Lab Results Component Value Date CREATSERUM 1.30 02/12/2019 Acute on chronic diastolic heart failure: acute pulm edema/lower extremity edema. Started on lasix BID Hyperkalemia secondary to acute kidney injury - unclear why it is going up again. Looked through meds, not on anything that would cause it to jump up. This is also not a chronic issue. Will see how he does on lasix. ?hemolysis during lab draw. Lab Results Component Value Date POTASSIUM 5.9 (H) 02/12/2019 Thrombocytopenia this is chronic Status post a left reverse shoulder arthroplasty. Patient is requesting a little bit more pain relief. I have adjusted his medications accordingly History of GI bleed on PPI Hyponatremia: Chronic. Watch while on diuretics. Fluid restriction Concern for alcohol withdrawal - this concern was brought by family. Patient is refusing any treatment options. Withdrawals are resolved. CIWA d/c. HPI / History / ROS HPI Review of Systems Constitutional: Negative. HENT: Negative. Respiratory: Negative. Cardiovascular: Negative. Gastrointestinal: Negative. Endocrine: Positive for polyuria. Musculoskeletal: Positive for arthralgias, joint swelling and myalgias. Skin: Negative. Neurological: Positive for weakness. Hematological: Negative. Psychiatric/Behavioral: Negative. Physical / Results Vitals: 02/12/191947 BP: 117/43 Pulse: 65 Resp: 16 Temp: 97.2 F (36.2 C) SpO2: 94% Physical Exam Constitutional: He is oriented to person, place, and time. HENT: Head: Normocephalic. Eyes: Pupils are equal, round, and reactive to light. Conjunctivae are normal. Cardiovascular: Normal rate. Pulmonary/Chest: Effort normal and breath sounds normal. Abdominal: Soft. Bowel sounds are normal. Musculoskeletal: He exhibits tenderness. He exhibits no edema. Neurological: He is alert and oriented to person, place, and time. Skin: He is not diaphoretic. Psychiatric: He has a normal mood and affect. Medical Decision Making I have: Independently visualized and interpreted an image, tracing or specimen previously or subsequently interpreted by another provider. Discussed results of laboratory, radiology or other diagnostic tests with the physician who performed or interpreted the study. Obtained/reviewed old records from [place] or elsewhere (details outlined elsewhere in note). Obtained history from a person other than the patient (details outlined elsewhere in note). Discussed case with another provider (details outlined elsewhere in note). A total of 25 minutes was spent with the patient or on the floor today, greater than 50% of which was spent in counseling regarding today's findings/assessment/ plan and in coordination of care, chart review, medical decision making, and documentation Cesar Davalos MD - 02/11/2019 10:07 PM CDT Hospital Progress Note Lazara Orozco Jr. is a 73yr old male admitted on 02/07/2019. Assessment / Plan Active Problems: Acquired hypothyroidism Low back pain Alcohol abuse Cirrhosis of liver (HCC) Anemia Chronic diastolic heart failure (HCC) Gastric varices Closed compression fracture of thoracic vertebra (HCC) GI bleed Osteopenia Primary osteoarthritis of left shoulder Obesity, morbid, BMI 40.0-49.9 (HCC) Thrombocytopenia (HCC) Resolved Problems: * No resolved hospital problems. * 73-year-old male who presents to the hospital for an elective left shoulder reverse arthroplasty. Patient was doing very well but he does have a history of extensive alcohol use. When the patient wasseen in the hospital he was noted to have some leg edema. He does take chronic diuretics due to legedema and chronic diastolic heart failure. Postop unfortunately he developed acute kidney injury. It was felt that it was likely due to intraoperative hypotension , blood loss, Toradol. Patient was started on IV fluids. Initially the concern with hyperkalemia, the patient was transferred to [facility] in case he needed emergent dialysis. Fortunately the patient potassium did improve and he did significantly better. While at the [facility] it was noted that he did have some withdrawal symptoms and he was started on alcohol withdrawal protocol. Assessment plan Acute kidney injury: Patient's creatinine is improving. Patient is making urine output. Holding fluids to prevent fluid overload. History of chronic diastolic heart failure: Patient appears to be euvolemic however his weight has increased by 3 kg. I will keep a very close eye on this. Denies shortness of breath. No edema Hyperkalemia secondary to acute kidney injury this resolved- K is 5.5. Check K in the am. No nsaids/PRIETO/ARB- was given toradol prior. Thrombocytopenia this is chronic Status post a left reverse shoulder arthroplasty. Patient is requesting a little bit more pain relief. I have adjusted his medications accordingly History of GI bleed on PPI Hyponatremia: Chronic. Will hold off on IVF and monitor. Fluid restriction Concern for alcohol withdrawal - this concern was brought by family. Patient is refusing any treatment options. HPI / History / ROS HPI Review of Systems Constitutional: Negative. HENT: Negative. Respiratory: Negative. Cardiovascular: Negative. Gastrointestinal: Negative. Endocrine: Positive for polyuria. Musculoskeletal: Positive for arthralgias, joint swelling and myalgias. Skin: Negative. Neurological: Positive for weakness. Hematological: Negative. Psychiatric/Behavioral: Negative. Physical / Results Vitals: 02/11/192010 BP: 102/46 Pulse: 85 Resp: 16 Temp: 98.2 F (36.8 C) SpO2: 94% Physical Exam Constitutional: He is oriented to person, place, and time. HENT: Head: Normocephalic. Eyes: Pupils are equal, round, and reactive to light. Conjunctivae are normal. Cardiovascular: Normal rate. Pulmonary/Chest: Effort normal and breath sounds normal. Abdominal: Soft. Bowel sounds are normal. Musculoskeletal: He exhibits tenderness. He exhibits no edema. Neurological: He is alert and oriented to person, place, and time. Skin: He is not diaphoretic. Psychiatric: He has a normal mood and affect. Medical Decision Making I have: Independently visualized and interpreted an image, tracing or specimen previously or subsequently interpreted by another provider. Discussed results of laboratory, radiology or other diagnostic tests with the physician who performed or interpreted the study. Obtained/reviewed old records from [place] or elsewhere (details outlined elsewhere in note). Obtained history from a person other than the patient (details outlined elsewhere in note). Discussed case with another provider (details outlined elsewhere in note). A total of 25 minutes was spent with the patient or on the floor today, greater than 50% of which was spent in counseling regarding today's findings/assessment/ plan and in coordination of care, chart review, medical decision making, and documentation Cesar Davalos MD - 02/10/2019 12:23 PM CDT Hospital Progress Note Lazara Orozco Jr. is a 73yr old male admitted on 02/07/2019. Assessment / Plan Active Problems: Acquired hypothyroidism Low back pain Alcohol abuse Cirrhosis of liver (HCC) Anemia Chronic diastolic heart failure (HCC) Gastric varices Closed compression fracture of thoracic vertebra (HCC) GI bleed Osteopenia Primary osteoarthritis of left shoulder Obesity, morbid, BMI 40.0-49.9 (HCC) Thrombocytopenia (HCC) Resolved Problems: * No resolved hospital problems. * 73-year-old male who presents to the hospital for an elective left shoulder reverse arthroplasty. Patient was doing very well but he does have a history of extensive alcohol use. When the patient wasseen in the hospital he was noted to have some leg edema. He does take chronic diuretics due to legedema and chronic diastolic heart failure. Postop unfortunately he developed acute kidney injury. It was felt that it was likely due to intraoperative hypotension , blood loss, Toradol. Patient was started on IV fluids. Initially the concern with hyperkalemia, the patient was transferred to [facility] in case he needed emergent dialysis. Fortunately the patient potassium did improve and he did significantly better. While at the [facility] it was noted that he did have some withdrawal symptoms and he was started on alcohol withdrawal protocol. Assessment plan Acute kidney injury: Patient's creatinine is improving. Patient is making urine output. We will follow-up renal panel today. We will hold off and fluids and monitor History of chronic diastolic heart failure: Patient appears to be euvolemic however his weight has increased by 6 kg. I will keep a very close eye on this. He does not complain of shortness of breath. He does not have any edema. Hyperkalemia secondary to acute kidney injury this resolved Thrombocytopenia this is chronic Status post a left reverse shoulder arthroplasty. Patient is requesting a little bit more pain relief. I have adjusted his medications accordingly History of GI bleed on PPI Hyponatremia: Chronic. Will hold off on IVF and monitor. Fluid restriction Concern for alcohol withdrawal - this concern was brought by family. Patient does not seem to have severe withdrawals. Will monitor on CIWA. HPI / History / ROS HPI Review of Systems Constitutional: Negative. HENT: Negative. Respiratory: Negative. Cardiovascular: Negative. Gastrointestinal: Negative. Endocrine: Positive for polyuria. Musculoskeletal: Positive for arthralgias, joint swelling and myalgias. Skin: Negative. Neurological: Positive for weakness. Hematological: Negative. Psychiatric/Behavioral: Negative. Physical / Results Current Vital Signs Temp: 98.6 F (37 C) BP: 109/57 Weight: 121.3 kg (267 lb 6.4 oz) SpO2: 100 % Resp: 16 Pulse: 89 Current BMI (>50=increased risk): (!) 41.05 O2 Device: Room Air O2 Flow Rate (L/min): 2 l/min Pain Ratin(Pain while moving arm only) Physical Exam Constitutional: He is oriented to person, place, and time. HENT: Head: Normocephalic. Eyes: Pupils are equal, round, and reactive to light. Conjunctivae are normal. Cardiovascular: Normal rate. Pulmonary/Chest: Effort normal and breath sounds normal. Abdominal: Soft. Bowel sounds are normal. Musculoskeletal: He exhibits tenderness. He exhibits no edema. Neurological: He is alert and oriented to person, place, and time. Skin: He is not diaphoretic. Psychiatric: He has a normal mood and affect. Medical Decision Making I have: Independently visualized and interpreted an image, tracing or specimen previously or subsequently interpreted by another provider. Discussed results of laboratory, radiology or other diagnostic tests with the physician who performed or interpreted the study. Obtained/reviewed old records from [place] or elsewhere (details outlined elsewhere in note). Obtained history from a person other than the patient (details outlined elsewhere in note). Discussed case with another provider (details outlined elsewhere in note). A total of 45 minutes was spent with the patient or on the floor today, greater than 50% of which was spent in counseling regarding today's findings/assessment/ plan and in coordination of care, chart review, medical decision making, and documentation Ashkan Orozco MD - 02/09/2019 9:55 AM CDT DAILY PROGRESS NOTE Lazara Henry Orozco Jr. is a 73yr old male admitted on 02/07/2019 8:31 AM. Impression / Plan MALACHI - ivf. Hold diuretics. See below. Acute hyperkalemia - tx orders in, see below. Cirrhosis. We will have to carefully watch his Tylenol use. Thrombocytopenia, chronic. 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 Morbid obesity with BMI of 41. Leg edema, possibly secondary to CHF, liver disease and low albumin. status post left reverse shoulder reverse arthroplasty. Per orthopedics. Stable for d/c from [facility]. History of GI bleed. We will continue with empiric PPI. Chronic diastolic chf - Active Problems: Acquired hypothyroidism Low back pain Alcohol abuse Cirrhosis of liver (HCC) Anemia Chronic diastolic heart failure (HCC) Gastric varices Closed compression fracture of thoracic vertebra (HCC) GI bleed Osteopenia Primary osteoarthritis of left shoulder Obesity, morbid, BMI 40.0-49.9 (HCC) Thrombocytopenia (HCC) With worsening acute kidney injury and hyperkalemia, I believe patient will require transfer to medical floor. I have discussed this with orthopedic teams and they are supportive of that as well. Bam contacted [facility] to make the transfer later today. Meanwhile will provide IV fluids, IV insulin, Kayexalate, and nebulizers to treat his hyperkalemia. We will start him on telemetry. I have obtained an EKG and since it shows no T wave changes we will not give calcium gluconate. He will need a repeat BMP sometime later today after transfer. I suspect the etiology was IV Toradol dose and intraop hypotension as noted in Anesthesia record - as pt was having blood pressure around 90/50 for a while and required albumin infusion, and 1640 mcg of phenylephrine as an infusion and a dose ofephedrine, 40 mg intraoperatively by anesthesia. He also appeared to have dropped hgb considerably.I suspect that patient's blood pressure went down as part of his cirrhosis related vasodilation and from anesthetics, blood loss. Hopefully, this will recover with time. Another possibility is acute interstitial nephritis from something like Ancef that he received as well. We will get UA and urinary eosinophil to check for that possibility. Plan of care has been discussed with patient and he is in agreement with transfer. 35 minutes floor time, more than half spent in discussions with patient, orthopedics, case management Interval History HPI .Patient denies any concerns. He has been eating and drinking well. Pain controlled. Review of Systems Review of Systems Cardiovascular: Negative for chest pain. Gastrointestinal: Negative for abdominal pain. Musculoskeletal: Positive for arthralgias. Physical Exam Vital Signs: Temp: 97.3 F (36.3 C) | BP: 120/56 | Pulse: 88 | Resp: 16 | Pain Ratin (out of 10) | Weight: 117.6 kg (259 lb 4.2 oz) | O2 Device: Room Air O2 Flow Rate (L/min): 2 l/min | SpO2: 94 % Maximum Temperatures (last 24 hours) Temperature Maximum Max Temp 98.1 F (36.7 C) Intake and Output: 02/08 0700 - 02/09 0659 In: 1964 [Oral:500] Out: 800 [Urine:800] Physical Exam Constitutional: He is oriented to person, place, and time. He appears well- nourished. HENT: Head: Normocephalic. Cardiovascular: Normal rate. Pulmonary/Chest: Effort normal. No stridor. Abdominal: Soft. There is no tenderness. Musculoskeletal: Normal range of motion. Slight tremor hands Left shoulder covered by dressing Neurological: He is alert and oriented to person, place, and time. Skin: Skin is warm. Psychiatric: He has a normal mood and affect. Nursing note and vitals reviewed. Labs Labs (Last day) 02/09/19 0540 - 02/09/19 0540 CBC 02/09/19 0540 CBC WBC 4.0-11.0 (K/uL) 13.5 RBC 4.40-5.80 (M/uL) 2.38 Hemoglobin 13.5-17.5 (g/dL) 10.0 Hematocrit 40.0-50.0 (%) 28.2 MCV 80.0-98.0 (fL) 118.5 MCH 25.5-34.0 (pg) 42.0 MCHC 31.5-36.5 (g/dL) 35.5 RDW-CV 11.5-15.5 (%) 14.0 RDW-SD 35.5-50.0 (fl) 58.0 Platelet Count 140-400 (K/uL) 91 MPV 8.5-12.0 (fL) 10.2 02/09/19 0540 - 02/09/19 0540 CHEMISTRY 02/09/19 05 CHEMISTRY Glucose 70-100 (mg/dL) 180 Sodium 135-145 (meq/L) 132 Potassium 3.5-5.3 (meq/L) 5.8 Chloride 99-110 (meq/L) 104 CO2 20-29 (meq/L) 22 Anion Gap with K 6-20 (meq/L) 12 BUN 6-22 (mg/dL) 37 Creatinine 0.80-1.30 (mg/dL) 2.15 BUN/Creatinine Ratio 10.0-25.0 17.2 Calcium 8.5-10.5 (mg/dL) 8.3 eGFR >=60 (mL/min/1.73m2) 37 eGFR Non- >=60 (mL/min/1.73m2) 30 02/09/19 0540 - 02/09/19 05 DIFFERENTIAL 02/09/19539 DIFFERENTIAL Seg Neut Absolute 1.8-8.0 (K/uL) 11.2 Band Absolute 0.0-0.7 (K/uL) 0.5 Lymphocytes Absolute 0.8-4.1 (K/uL) 0.8 Monocytes Absolute 0.0-1.0 (K/uL) 0.9 Neutrophils Abs. (Segs and Bands) (/uL) 11,745 Neutrophils Percent (%) 83.0 Band Percent (%) 4.0 Lymphocytes Percent (%) 6.0 Monocytes Percent (%) 7.0 Platelet Estimate Decreased Platelet Morphology Normal Polychromasia 1+ 02/09/19 09 - 02/09/19900 ECG/EKG 02/09/19900 ECG/EKG EKG WAVEFORM Sinus rhythm with 1st degree A-V block Inferior infarct , age undetermined Cannot rule out Anterior infarct , age undetermined Abnormal ECG Ventricular Rate: 91 BPM Atrial Rate: 91 BPM P-R Interval: 230 ms QRS Duration: 96 ms Q-T Interval: 368 ms QTc Calculation(Bazett): 452 ms Calculated P Alexander: 31 degrees Calculated R Alexander: -15 degrees Calculated T Alexander: 4 degrees [birth year]1940 - 02/09/19 05 OTHER 02/09/19539 OTHER Age (Years) 73 Medical Decision making MDM Reviewed: vitals and nursing note Reviewed previous: labs Interpretation: labs Annie Reyna PA-C - 02/09/2019 7:54 AM CDT Orthopedic Daily Progress Note: Assessment: Lazara Orozco Jr. is a 73yr old male 2 Days Post-Op, S/P: Procedure(s): LEFT SHOULDER REVERSE ARTHROPLASTY by Dr. Hernandez on 02/07/19 Subjective: He is doing well. Pain is well controlled on oral medications, but patient states that the pain medications do make him sleepy. Feels ready to leave, but case management has been working ongetting TCU placement in [place] before transitioning home with his [place]. Patient upper extremity tremors were not observed today during exam. Appetite is good, urinating without difficulty, positive flatus, negative still for bowel movement since surgery. Denies: F/C, N/V, CP/SOB. Objective: Current Vital Signs Temp: 97.1 F (36.2 C) BP: 127/61 Pulse: 92 O2 Device: Room Air O2 Flow Rate (L/min): 2 l/min Resp: 16 Pain Ratin (out of 10) Weight: 117.6 kg (259 lb 4.2 oz) SpO2: 94 % Maximum Temperatures (last 24 hours) Temperature Maximum Max Temp 98.1 F (36.7 C) Dressing and incision clean, dry and intact. Closed with stratafix and covered with prineo mesh. Neurovascular intact. LUE and BLE, denies any calf pain, sensation intact to light touch. Lab Results Component Value Date HEMOGLOBIN 10.0 (L) 02/09/2019 , Lab Results Component Value Date INR 1.4 (L) 01/25/2019 PT 17.4 (H) 01/25/2019 Plan: Continue PT, Pain Meds. Okay to discharge to TCU later if ambulate well with PT and meeting OTgoals. Discussed calling the office with any problems. Ashkan Orozco MD - 02/08/2019 5:03 PM CDT DAILY PROGRESS NOTE Lazara Orozco Jr. is a 73yr old male admitted on 02/07/2019 8:31 AM. Impression / Plan MALACHI Cirrhosis. We will have to carefully watch his Tylenol use. Thrombocytopenia, chronic. 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 Morbid obesity with BMI of 41. Leg edema, possibly secondary to CHF, liver disease and low albumin. status post left reverse shoulder reverse arthroplasty. Per orthopedics. D/c IVF tonight. History of GI bleed. We will continue with empiric PPI. Chronic diastolic chf - d/c ivf soon. Resume diuretics. Active Problems: Acquired hypothyroidism Low back pain Alcohol abuse Cirrhosis of liver (HCC) Anemia Chronic diastolic heart failure (HCC) Gastric varices Closed compression fracture of thoracic vertebra (HCC) GI bleed Osteopenia Primary osteoarthritis of left shoulder Obesity, morbid, BMI 40.0-49.9 (HCC) Thrombocytopenia (HCC) With acute kidney injury of unclear etiology probably related to the stress of surgery, some blood loss with 3 g hemoglobin drop, will stophis diuretics and provide IV fluids with a creatinine recheck. We will also monitor his pain level and his mild upper extremity tremors. He might need another day in the hospital to improve on those issues. Plan of care has been discussed with patient his at the bedside. They had no concerns and are in agreement with the above plan. Interval History HPI Patient is complaining of some left shoulder pain. He did okay in occupational therapy though. He does complain of some hand shakes. He does not feel like it could be related to alcohol withdrawal as he stopped drinking about 3 weeks prior to surgery and reports not drinking at all lately. Review of Systems Review of Systems Cardiovascular: Negative for chest pain. Gastrointestinal: Negative for abdominal pain. Musculoskeletal: Positive for arthralgias. Physical Exam Vital Signs: Temp: 97.8 F (36.6 C) | BP: 123/35 | Pulse: 89 | Resp: 16 | Pain Ratin (out of 10) | Weight: 115.3 kg (254 lb 3.1 oz) | O2 Device: Room Air O2 Flow Rate (L/min): 2 l/min | SpO2: 93 % Maximum Temperatures (last 24 hours) Temperature Maximum Max Temp 98.2 F (36.8 C) Intake and Output: 02/07 0700 - 02/08 0659 In: 2220 [Oral:510] Out: 600 [Urine:200] Physical Exam Constitutional: He is oriented to person, place, and time. He appears well- nourished. HENT: Head: Normocephalic. Cardiovascular: Normal rate. Pulmonary/Chest: Effort normal. No stridor. Abdominal: Soft. There is no tenderness. Musculoskeletal: Normal range of motion. Slight tremor hands Left shoulder covered by dressing Neurological: He is alert and oriented to person, place, and time. Skin: Skin is warm. Psychiatric: He has a normal mood and affect. Nursing note and vitals reviewed. Labs Labs (Last day) 02/08/19601 - 02/08/19601 CBC 02/08/19601 CBC WBC 4.0-11.0 (K/uL) 8.9 RBC 4.40-5.80 (M/uL) 2.62 Hemoglobin 13.5-17.5 (g/dL) 10.9 Hematocrit 40.0-50.0 (%) 31.4 MCV 80.0-98.0 (fL) 119.8 MCH 25.5-34.0 (pg) 41.6 MCHC 31.5-36.5 (g/dL) 34.7 RDW-CV 11.5-15.5 (%) 13.7 RDW-SD 35.5-50.0 (fl) 59.0 Platelet Count 140-400 (K/uL) 88 MPV 8.5-12.0 (fL) 9.8 02/08/19601 - 02/08/19601 CHEMISTRY 02/08/1960102/08/19 0602 02/08/19601 CHEMISTRY Glucose 70-100 (mg/dL) 241 Sodium 135-145 (meq/L) 133 Potassium 3.5-5.3 (meq/L) 5.2 Chloride 99-110 (meq/L) 105 CO2 20-29 (meq/L) 22 Anion Gap with K 6-20 (meq/L) 11 BUN 6-22 (mg/dL) 26 Creatinine 0.80-1.30 (mg/dL) 1.66 BUN/Creatinine Ratio 10.0-25.0 15.7 Calcium 8.5-10.5 (mg/dL) 8.3 Corrected Calcium 8.5-10.5 (mg/dL) 9.5 Phosphorus 2.5-4.5 (mg/dL) 3.3 Magnesium 1.8-2.4 (mg/dL) 1.8 Bilirubin Total 0.2-1.2 (mg/dL) 3.3 Alkaline Phosphatase 30-150 (U/L) 81 ALT - SGPT 0-55 (U/L) 33 AST - SGOT 0-35 (U/L) 40 Protein Total 6.0-8.2 (g/dL) 6.4 Albumin 3.5-5.0 (g/dL) 2.5 eGFR >=60 (mL/min/1.73m2) 50 eGFR Non- >=60 (mL/min/1.73m2) 41 02/08/19 0602 - 02/08/19 0602 DIFFERENTIAL 02/08/19601 DIFFERENTIAL Seg Neut Absolute 1.8-8.0 (K/uL) 7.6 Lymphocytes Absolute 0.8-4.1 (K/uL) 0.8 Monocytes Absolute 0.0-1.0 (K/uL) 0.5 Eosinophils Absolute 0.0-0.7 (K/uL) 0.0 Basophil Absolute 0.0-0.2 (K/uL) 0.0 Neutrophils Abs. (Segs and Bands) (/uL) 7,600 Neutrophils Percent (%) 85.1 Lymphocytes Percent (%) 9.0 Monocytes Percent (%) 5.8 Eosinophils Percent (%) 0.0 Basophil Percent (%) 0.0 02/08/19 0602 - 02/08/19 0602 OTHER 02/08/19 06 OTHER Age (Years) 73 Medical Decision making MDM Reviewed: vitals and nursing note Reviewed previous: labs Interpretation: labs Se Sarkar MD - 02/08/2019 8:09 AM CDT Orthopedic Daily Progress note: UE: S: POD #1, s/p left reverse TSA doing well without complaints O: Current Vital Signs Temp: 98.2 F (36.8 C) BP: 119/71 Pulse: 90 O2 Device: Room Air O2 Flow Rate (L/min): 2 l/min Resp: 16 Pain Ratin (out of 10) Weight: 115.3 kg (254 lb 3.1 oz) SpO2: 92 % Pain Ratin Pain Location: Shoulder Specify: Left Pain character: Aches Intake/Output Summary (Last 24 hours) at 02/08/2019 08 Last data filed at 02/07/2019 2100 Gross per 24 hour Intake 2220 ml Output 600 ml Net 1620 ml Lab Results Component Value Date HEMOGLOBIN 10.9 (L) 02/08/2019 Lab Results Component Value Date NA 133 (L) 02/08/2019 Lab Results Component Value Date INR 1.4 (L) 01/25/2019 PT 17.4 (H) 01/25/2019 Lab review: labs are reviewed, up to date and normal, labs reviewed, I note that hgb is stable and the others will be addressed by hospitalists Awake and alert. Radial, ulnar and median nerve motor and sensory function functional. Assessment/Plan: 1 Day Post-Op, Procedure(s): LEFT SHOULDER REVERSE ARTHROPLASTY 1. Analgesia: on po analgesia 2. Disposition/Planning: start PT/OT today and d/c to home when cleared medically. Annie Reyna PA-C - 02/08/2019 7:46 AM CDT Orthopedic Daily Progress Note: Assessment: Lazara Orozco Jr. is a 73yr old male 1 Day Post-Op, S/P: Procedure(s): LEFT SHOULDER REVERSE ARTHROPLASTY by Dr. Hernandez on 02/07/19 Subjective: He is doing well. Pain is well controlled on oral medications. Feels he can go home today. Patient is resting comfortably in his immobilizer in bed. Patient states that his hands have started shaking since waking up from surgery, and his hands are observed with tremor-like movements. Patient does have a pertinent history of alcohol abuse and cirrhosis of the liver. Appetite is good, urinating without difficulty, positive flatus, negative for bowel movement. Objective: Current Vital Signs Temp: 97.8 F (36.6 C) BP: 112/62 Pulse: 80 O2 Device: Room Air O2 Flow Rate (L/min): 2 l/min Resp: 16 Pain Ratin (out of 10) Weight: 115.3 kg (254 lb 3.1 oz) SpO2: 100 % Maximum Temperatures (last 24 hours) Temperature Maximum Max Temp 98.6 F (37 C) Dressing and incision clean, dry and intact. Closed with stratafix and covered with prineo mesh. Neurovascular intact. LUE and BLE, denies any calf pain, sensation intact to light touch. Lab Results Component Value Date HEMOGLOBIN 10.9 (L) 02/08/2019 , Lab Results Component Value Date INR 1.4 (L) 01/25/2019 PT 17.4 (H) 01/25/2019 Plan: Continue PT, Pain Meds. Okay to discharge home later if ambulate well with PT and meeting OT goals. Discussed calling the office with any problems. documented in this encounter Plan of Treatment Date Type Specialty Care Team Description 03/05/2019 Office Visit Orthopedics Kenn Perry PA [address] [place] [address] [phone] 03/22/2019 Office Visit Orthopedics Se Hernandez MD [address] [place], [place] [phone] Name Priority Associated Diagnoses Order Schedule RENAL FUNCTION PANEL Routine Early AM draw for labs until discontinued starting 02/10/2019, 11 completed documented as of this encounter Implants Implanted Type Area Overhead Garage Door Hanger Device Shelf Model / Identifier Expiration Serial / Date Lot Screw Cncls Full Thrd 4x20mm N 206.020 Ea - Sn/A Ortho Other Left: FIBULA [employer] 206.020 / Implanted: Qty: 1 on 09/23/2014 by Jeffry Zamorano MD tydy N/A / N/A Screw Cncls Full Thrd 4x20mm N 206.020 Ea - Sn/A Ortho Other Left: [employer]A [employer] 206.020 / Implanted: Qty: 1 on 09/23/2014 by Jeffry Zamorano MD SYNTHES N/A / N/A Screw Cncls Full Thrd 4x20mm N 206.020 Ea - Sn/A Ortho Other Left: [employer]ULA [employer] 206.020 / Implanted: Qty: 1 on 09/23/2014 by Jeffry Zamorano MD SYNTHES N/A / N/A Screw Cncls Full Thrd 4x24mm N 206.024 Ea - Sn/A Ortho Other Left: [employer] 206.024 / Implanted: Qty: 1 on 09/23/2014 by Jeffry Zamorano MD SYNTHES N/A / N/A Screw Collin Slftp 3.5x14mm N 204.814 Ea - Sn/A Ortho Other Left: F[employer]ULA [employer] 204.814 / Implanted: Qty: 1 on 09/23/2014 by Jeffry Zamorano MD SYNTHES N/A / N/A Screw Collin Slftp 3.5x14mm N 204.814 Ea - Sn/A Ortho Other Left: F[employer]ULA [employer] 204.814 / Implanted: Qty: 1 on 09/23/2014 by Jeffry Zamorano MD SYNTHES N/A / N/A Screw Collin Slftp 3.5x14mm N 204.814 Ea - Sn/A Ortho Other Left: [employer]A [employer] 204.814 / Implanted: Qty: 1 on 09/23/2014 by Jeffry Zamorano MD SYNTHES N/A / N/A Plate Tublr Synt 7hl 81mm N 241.371 Ea - Sn/A Ortho Other Left: [employer]IBULA [employer] 241.371 / Implanted: Qty: 1 on 09/23/2014 by Jeffry Zamorano MD SYNTHES N/A / N/A Shldr Metaglene Depu N [id number] Ea1 - Sn/A Total Jt Left: [employer] 04/19/2023 [id number] / Implanted: Qty: 1 on 02/07/2019 by Se Hernandez MD Shoulder SHOULDER N/A / [id number] Shldr Screw Metaglene Lk4.5x36 N 130036 Ea1 - Sn/A Total Jt Left: [employer] 04/19/2023 [id number] / Implanted: Qty: 1 on 02/07/2019 by Se Hernandez MD Shoulder SHOULDER N/A / [id number] Shldr Screw Metaglene Lk4.5x36 N Ea1 - Sn/A Total Jt Left: [employer] 02/17/2023 / Implanted: Qty: 1 on 02/07/2019 by Se Hernandez MD Shoulder SHOULDER N/A / [id number] Shldr Screw Metaglene Nl4.5x18 N 018 Ea1 - Sn/A Total Jt Left: [employer] 03/19/2023 / Implanted: Qty: 1 on 02/07/2019 by Se Hernandez MD Shoulder SHOULDER N/A / [id number] Shldr Screw Metaglene Nl4.5x18 N Ea1 - Sn/A Total Jt Left: [employer] 03/19/2023 / Implanted: Qty: 1 on 02/07/2019 by Se Hernandez MD Shoulder SHOULDER N/A / [id number] Shldr Glenospher Std Depu 42mm N Ea1 - Sn/A Total Jt Left: [employer] 02/17/2023 / Implanted: Qty: 1 on 02/07/2019 by Se Hernandez MD Shoulder SHOULDER N/A / [id number] Shldr Epip Depu Lft Sz2 N Ea1 - Sn/A Total Jt Left: [employer] 03/19/2022 / Implanted: Qty: 1 on 02/07/2019 by Se Hernandez MD Shoulder SHOULDER N/A / [id number] Shldr Humr Stem Kraus 14mm N Ea1 - Sn/A Total Jt Left: [employer] 03/19/2023 / Implanted: Qty: 1 on 02/07/2019 by Se Hernandez MD Shoulder SHOULDER N/A / [id number] Shldr Humr Cup Depu +6 42mm N Ea1 - Sn/A Total Jt Left: [employer] 12/17/202242-206 / Implanted: Qty: 1 on 02/07/2019 by Se Hernandez MD Shoulder SHOULDER N/A / [id number] Vertaplex Hv-10/19/2017 VERTEBRAE 02/17/2019 [id number] / Implanted: Qty: 1 on 10/19/2017 by Jg Mckinney MD / [id number] documented as of this encounter Procedures Procedure Name Priority Date/Time Associated Comments Diagnosis RENAL FUNCTION PANEL Routine 02/20/2019 7:05 Results for this AM CDT procedure are in the results section. RENAL FUNCTION PANEL Routine 02/19/2019 6:51 Results for this AM CDT procedure are in the results section. RENAL FUNCTION PANEL Routine 02/18/2019 7:22 Results for this AM CDT procedure are in the results section. RENAL FUNCTION PANEL Routine 02/17/2019 5:58 Results for this AM CDT procedure are in the results section. RENAL FUNCTION PANEL Routine 02/16/2019 7:03 Results for this AM CDT procedure are in the results section. RENAL FUNCTION PANEL Routine 02/15/2019 7:36 Results for this AM CDT procedure are in the results section. RENAL FUNCTION PANEL Routine 02/14/2019 7:06 Results for this AM CDT procedure are in the results section. RENAL FUNCTION PANEL Routine 02/13/2019 6:34 Results for this AM CDT procedure are in the results section. RENAL FUNCTION PANEL Routine 02/12/2019 11:09 Results for this PM CDT procedure are in the results section. COMPLETE BLOOD COUNT Routine 02/12/2019 12:35 Results for this WITHOUT DIFFERENTIAL PM CDT procedure are in the results section. RENAL FUNCTION PANEL Routine 02/12/2019 9:05 Results for this AM CDT procedure are in the results section. RENAL FUNCTION PANEL Routine 02/11/2019 6:46 Results for this AM CDT procedure are in the results section. ANESTHESIA MISC Routine 02/10/2019 4:31 Results for this PROCEDURE PM CDT procedure are in the results section. RENAL FUNCTION PANEL Routine 02/10/2019 1:02 Results for this PM CDT procedure are in the results section. GLUCOSE BY METER, POCT Routine 02/10/2019 12:30 Results for this AM CDT procedure are in the results section. GLUCOSE BY METER, POCT Routine 02/09/2019 10:24 Results for this PM CDT procedure are in the results section. GLUCOSE BY METER, POCT Routine 02/09/2019 7:53 Results for this PM CDT procedure are in the results section. BASIC METABOLIC PANEL Routine 02/09/2019 6:12 Results for this PM CDT procedure are in the results section. GLUCOSE BY METER, POCT Routine 02/09/2019 5:57 Results for this PM CDT procedure are in the results section. GLUCOSE BY METER, POCT Routine 02/09/2019 4:24 Results for this PM CDT procedure are in the results section. GLUCOSE BY METER, POCT Routine 02/09/2019 3:06 Results for this PM CDT procedure are in the results section. GLUCOSE BY METER, POCT Routine 02/09/2019 11:25 Results for this AM CDT procedure are in the results section. GLUCOSE BY METER, POCT Routine 02/09/2019 10:12 Results for this AM CDT procedure are in the results section. EOSINOPHIL SMEAR, Routine 02/09/2019 9:50 Results for this NON-NASAL AM CDT procedure are in the results section. URINALYSIS MICROSCOPIC Routine 02/09/2019 9:50 Results for this AM CDT procedure are in the results section. EKG STAT 02/09/2019 9:01 Results for this AM CDT procedure are in the results section. LAB ONLY-MANUAL Routine 02/09/2019 5:40 Results for this DIFFERENTIAL AM CDT procedure are in the results section. LAB ONLY-COMPLETE Routine 02/09/2019 5:40 Results for this BLOOD COUNT WITH AM CDT procedure are in DIFFERENTIAL the results section. BASIC METABOLIC PANEL Routine 02/09/2019 5:40 Results for this AM CDT procedure are in the results section. COMPLETE BLOOD COUNT Routine 02/09/2019 5:40 Results for this WITH DIFFERENTIAL AM CDT procedure are in the results section. LAB ONLY-COMPLETE Routine 02/08/2019 6:02 Results for this BLOOD COUNT WITH AM CDT procedure are in DIFFERENTIAL the results section. PHOSPHORUS Routine 02/08/2019 6:02 Results for this AM CDT procedure are in the results section. MAGNESIUM Routine 02/08/2019 6:02 Results for this AM CDT procedure are in the results section. COMPREHENSIVE Routine 02/08/2019 6:02 Results for this METABOLIC PANEL AM CDT procedure are in the results section. COMPLETE BLOOD COUNT Routine 02/08/2019 6:02 Results for this WITH DIFFERENTIAL AM CDT procedure are in the results section. XRAY SHOULDER 1 VIEW Routine 02/07/2019 5:07 Results for this LT PM CDT procedure are in the results section. TISSUE EXAM Routine 02/07/2019 3:16 Left rotator cuff Results for this PM CDT tear arthropathy procedure are in the results section. ARTHROPLASTY SHOULDER 02/07/2019 10:40 Left rotator cuff AM CDT tear arthropathy Special Needs *X* POTASSIUM STAT 02/07/2019 9:04 AM CDT documented in this encounter Results RENAL FUNCTION PANEL (02/20/2019 7:05 AM CDT)Only the most recent of12 resultswithin the time period is included. Glucose 108 (H) 70 - 100 mg/dL [facility] BUN 21 6 - 22 mg/dL [facility] Creatinine 1.21 0.80 - 1.30 [facility] mg/dL [facility] BUN/Creatinine Ratio 17.4 10.0 - 25.0 [facility] Sodium 136 135 - 145 meq/L [facility] Potassium 3.5 3.5 - 5.3 meq/L [facility] Chloride 98 (L) 99 - 110 meq/L [facility] CO2 32 (H) 20 - 29 meq/L [facility] Anion Gap with K 10 6 - 20 meq/L [facility] Calcium 8.7 8.5 - 10.5 mg/dL [facility] Phosphorus 2.9 2.5 - 4.5 mg/dL [facility] Albumin 2.3 (L) 3.5 - 5.0 g/dL [facility] Corrected Calcium 10.1 8.5 - 10.5 mg/dL [facility] Age 73 Years [facility] eGFR Non- 59 (L) >=60 [facility] [place] mL/min/1.73m2 [facility] eGFR 72 >=60 [facility] mL/min/1.73m2 [facility] Specimen Blood Performing Organization Address City/State/Zipcode Phone Number [facility] [address] [place] [address] COMPLETE BLOOD COUNT WITHOUT DIFFERENTIAL (02/12/2019 12:35 PM CDT) Pathologist [facility] WBC 5.5 4.0 - 11.0 [facility] K/uL [facility] RBC 2.46 (L) 4.40 - 5.80 [facility] M/uL [facility] Hemoglobin 10.2 (L) 13.5 - 17.5 [facility] g/dL [facility] Hematocrit 29.2 (L) 40.0 - 50.0 % [facility] MCV 118.7 (H)Comment: 80.0 - 98.0 [facility] Macrocytosis present. [facility] MCH 41.5 (H) 25.5 - 34.0 [facility] MCHC 34.9 31.5 - 36.5 [facility] g/dL [facility] RDW-CV 15.0 11.5 - 15.5 % [facility] RDW-SD 63.4 (H) 35.5 - 50.0 [facility] Platelet Count 102 (L) 140 - 400 [facility] MPV 9.3 8.5 - 12.0 [facility] Specimen Blood Performing Organization Address [facility] Cent[facility] Phone Number [address] [address] MISC PROCEDURE (02/10/2019 4:31 PM CDT) Narrative Performed At Sujatha Mccallum APRN-CRNA 02/10/20194:31 PM [facility] PROCEDURE Comments: Title of Procedure: Difficult IV Start Date/Time Performed: 02/10/2019 4:31 PM Performed by: MARY GRACE Gutiérrez Anesthesia was contacted for placement of difficult IV start on Lazarabo Orozco Jr..A 20 ga IV was inserted after 3 attempts in right AC using aseptic technique.IV charted in LDA record. Complications: none GLUCOSE BY METER, POCT (02/10/2019 12:30 AM CDT)Only the most recent of8 resultswithin the time period is included. Pathologist [facility] Glucose POC 169 (H) 70 - 100 mg/dL [facility] Specimen Blood Performing Organization Address [facility] Cent[facility]ode Phone Number [address] [address] BASIC METABOLIC PANEL (02/09/2019 6:12 PM CDT)Only the most recent of2 resultswithin the time period is included. Glucose 153 (H) 70 - 100 mg/dL [facility] BUN 40 (H) 6 - 22 mg/dL [facility] Creatinine 1.92 (H) 0.80 - 1.30 [facility] mg/dL [facility] BUN/Creatinine Ratio 20.8 10.0 - 25.0 [facility] Sodium 128 (L) 135 - 145 meq/L [facility] Potassium 5.1 3.5 - 5.3 meq/L [facility] Chloride 99 99 - 110 meq/L [facility] CO2 22 20 - 29 meq/L [facility] Anion Gap with K 12 6 - 20 meq/L [facility] Calcium 8.3 (L) 8.5 - 10.5 [facility] mg/dL [facility] Age 73 Years [facility] eGFR Non- 35 (L) >=60 [facility] mL/min/1.73m2 [facility] eGFR 42 (L) >=60 [facility] mL/min/1.73m2 [facility] Specimen Blood Narrative Performed At For patients with a GFR <45 a referral to Nephrology is [facility] recommended. Performing Organization Address City/[facility]/Zipcode Phone Number [address] [phone] EOSINOPHIL SMEAR, NON-NASAL (02/09/2019 9:50 AM CDT) Eosin Smear Source Urine [facility] Epithelial Cells Smear Mod [facility] Eosin's Smear None seen None seen [facility] PMN's Smear Rare [facility] Specimen Not Applicable Performing Organization Address City/[facility]/Zipcode Phone Number [address] [phone] URINALYSIS MICROSCOPIC (02/09/2019 9:50 AM CDT) WBC Urine 0-5 /hpf Negative, 0-5 [facility] /hpf [facility] RBC Urine 0-2 /hpf Negative, 0-2 [facility] Squamous Epithelial Occ (0-10) Negative, Occ [facility] Cells /lpf (0-10) /lpf, Few [facility] (11-20) /lpf Bacteria Few (11-20) Negative [facility] /hpf (A) [place] Hyaline Cast 11-20 /lpf 0-2 /lpf [facility] (A) [place] Specimen Urine Performing Organization Address [facility]/Zipcode Phone Number [facility] [address] [place] [address] EKG (02/09/2019 9:01 AM CDT) EKG [facility] Sinus rhythm with 1st degree A-V block Inferior infarct , age undetermined Cannot rule out Anterior infarct , age undetermined Abnormal ECG Ventricular Rate: 91 BPM Atrial Rate: 91 BPM P-R Interval: 230 ms QRS Duration: 96 ms Q-T Interval: 368 ms QTc Calculation(Bazett): 452 ms Calculated P Alexander: 31 degrees Calculated R Alexander: -15 degrees Calculated T Alexander: 4 degrees Specimen Narrative Performed At Performing Organization Address [facility] Phone Number [facility] LAB ONLY-MANUAL DIFFERENTIAL (02/09/2019 5:40 AM CDT) Pathologist [facility] Neutrophils Abs. (Segs 11,745 /uL [facility]) [place] Seg Neut Absolute 11.2 (H) 1.8 - 8.0 K/uL [facility] Band Absolute 0.5 0.0 - 0.7 K/uL [facility] Lymphocytes Absolute 0.8 0.8 - 4.1 K/uL [facility] Monocytes Absolute 0.9 0.0 - 1.0 K/uL [facility] Neutrophils Percent 83.0 % [facility] Band Percent 4.0 % [facility] Lymphocytes Percent 6.0 % [facility] Monocytes Percent 7.0 % [facility] Platelet Estimate Decreased [facility] Platelet Morphology Normal [facility] Polychromasia 1+ [facility] Specimen Blood Performing Organization Address [facility]/Zipcode Phone Number [facility] [address] [place], [place] [phone] LAB ONLY-COMPLETE BLOOD COUNT WITH DIFFERENTIAL (02/09/2019 5:40 AM CDT)Only the most recent of2 resultswithin the time period is included. [facility] WBC 13.5 (H) 4.0 - 11.0 [facility] RBC 2.38 (L) 4.40 - 5.80 [facility] Hemoglobin 10.0 (L) 13.5 - 17.5 [facility] gdL [place] Hematocrit 28.2 (L) 40.0 - 50.0 % [facility] MCV 118.5 (H)Comment: 80.0 - 98.0 [facility] Macrocytosis [facility] present. MCH 42.0 (H) 25.5 - 34.[address] [facility] MCHC 35.5 31.5 - 36.5 [facility] gdL [place] RDW-CV 14.0 11.5 - 15.5 % [facility] RDW-SD 58.0 (H) 35.5 - 50.0 [facility] Platelet Count 91 (L) 140 - 400 [facility] MPV 10.2 8.5 - 12.[address] [facility] Specimen Blood Performing Organization Address City/State/Zipcode Phone Number [facility] [address] [place] [address] COMPREHENSIVE METABOLIC PANEL (02/08/2019 6:02 AM CDT) [facility] Glucose 241 (H) 70 - 100 mg/dL [facility] BUN 26 (H) 6 - 22 mg/dL [facility] Creatinine 1.66 (H) 0.80 - 1.30 [facility] mg/dL [place] BUN/Creatinine Ratio 15.7 10.0 - 25.0 [facility] Sodium 133 (L) 135 - 145 meq/L [facility] Potassium 5.2 3.5 - 5.3 meq/L [facility] Chloride 105 99 - 110 meq/L [facility] CO2 22 20 - 29 meq/L [facility] Anion Gap with K 11 6 - 20 meq/L [facility] Calcium 8.3 (L) 8.5 - 10.5 [facility] mg/dL [place] Protein Total 6.4 6.0 - 8.2 g/dL [facility] Albumin 2.5 (L) 3.5 - 5.0 g/dL [facility] Alkaline Phosphatase 81 30 - 150 U/L [facility] AST - SGOT 40 (H) 0 - 35 U/L [facility] ALT - SGPT 33 0 - 55 U/L [facility] Bilirubin Total 3.3 (H) 0.2 - 1.2 mg/dL [facility] Corrected Calcium 9.5 8.5 - 10.5 [facility] mg/dL [place] Age 73 Years [facility] eGFR Non- 41 (L) >=60 [facility] mL/min/1.73m2 [place] eGFR 50 (L) >=60 [facility] mL/min/1.73m2 [place] Specimen Blood Narrative Performed At For patients with a GFR <45 a referral to Nephrology is [facility] recommended. Performing Organization Address City/[facility]ercode Phone Number [facility] [address] [place] [address] PHOSPHORUS (02/08/2019 6:02 AM CDT) Phosphorus 3.3 2.5 - 4.5 mg/dL [facility] Specimen Blood Performing Organization Address City/[facility]/Zipcode Phone Number [facility] [address] [place] [address] MAGNESIUM (02/08/2019 6:02 AM CDT) Magnesium 1.8 1.8 - 2.4 mg/dL [facility] Specimen Blood Performing Organization Address [facility] [facility] Phone Number [facility] [address] [place] [address] XRAY SHOULDER 1 VIEW LT (02/07/2019 5:07 PM CDT) Specimen Narrative Performed At [facility] Patient Name: LAZARA OROZCO Date of :1945 Procedure: XRAY SHOULDER 1 VIEW LT Date of Service: 02/07/2019 EXAM: XRAY SHOULDER 1 VIEW LT INDICATION:S/P L reverse total shoulder COMPARISON(S): 01/08/2019 FINDINGS/IMPRESSION: Reverse total shoulder arthroplasty without evidence of immediate postoperative hardware complication. Finalized by: Shola Rogers MD on 02/08/2019 1:25 AM CDT Patient/Procedure Information: [facility] MRN/HEIDY: [id number] Order Number: [id number] Accession Number: [id number] Ordering Provider: ANNIE RIGGINS Authorizing Provider: ANNIE RIGGINS Procedure Note Milton Navarro - 02/08/2019 1:27 AM CDT Patient Name: LAZARA OROZCO Date of : 1945 Procedure: XRAY SHOULDER 1 VIEW LT Date of Service: 02/07/2019 EXAM: XRAY SHOULDER 1 VIEW LT INDICATION:S/P L reverse total shoulder COMPARISON(S): 01/08/2019 FINDINGS/IMPRESSION: Reverse total shoulder arthroplasty without evidence of immediate postoperative hardware complication. Finalized by: Shola Rogers MD on 02/08/2019 1:25 AM CDT Patient/Procedure Information: [facility] MRN/HEIDY: [id number] Order Number: [id number] Accession Number: [id number] Ordering Provider: ANNIE RIGGINS Authorizing Provider: ANNIE RIGGINS Performing Organization Address City/State/Zipcode Phone Number [facility] TISSUE EXAM (02/07/2019 3:16 PM CDT) FINAL DIAGNOSIS Left shoulder tissue and bone: [facility] :pf AM GROSS DESCRIPTION Received in formalin labeled "left shoulder tissue and bone " is a 5.7 x 5.1 x 2.2 cm intact humeral head with a smooth margin of resection. The articular surface is jang-yellow with large areas of eburna [facility] tion containing focal pitting. Marginal osteophyte formation is identified. Also within the container is a 5.5 x 3.5 x 1.5 cm additional fragment of bone with adherent jang-yellow soft tissue. [facility] cimen is for gross examination only; no tissue is submitted. SM:pf CASE REPORT Surgical Pathology Report Case: [id number] [facility] Authorizing Provider:Se Hernandez MD Collected: 02/07/2019 1516 CLINIC Ordering Location: [facility] Received: 02/07/2019 1712 Pathologist: Huong Hampton MD Specimen:Shoulder, Left shoulder tissue and bone EMBEDDED IMAGES [facility] Specimen Tissue Performing Organization Address City/State/Zipcode Phone Number [facility] [address] [place] [address] POTASSIUM (02/07/2019 9:04 AM CDT) Potassium 4.0 3.5 - 5.3 meq/L [facility] Specimen Blood Performing Organization Address City/State/Zipcode Phone Number [facility] [address] [place], [place] [address] documented in this encounter Visit Diagnoses Diagnosis Status post reverse total replacement of left shoulder - Primary Left rotator cuff tear arthropathy Constipation, unspecified constipation type Chronic diastolic heart failure (HCC) Chronic diastolic heart failure Low back pain Lumbago Gastric varices Varices of other sites Acquired hypothyroidism Unspecified hypothyroidism Alcohol abuse Alcohol abuse, unspecified Cirrhosis of liver (HCC) Cirrhosis of liver without mention of alcohol Anemia Anemia, unspecified Closed compression fracture of thoracic vertebra (HCC) GI bleed Hemorrhage of gastrointestinal tract, unspecified Osteopenia Disorder of bone and cartilage, unspecified Primary osteoarthritis of left shoulder Primary localized osteoarthrosis, shoulder region Obesity, morbid, BMI 40.0-49.9 (HCC) Thrombocytopenia (HCC) Thrombocytopenia, unspecified documented in this encounter Discharge Diagnoses Not on filedocumented in this encounter Administered Medications Medication Order MAR Action Action Date Dose Rate Site acetaminophen (TYLENOL) tablet Given 02/20/2019 9:20 AM CDT 1,000 mg 1,000 mg 1,000 mg, Oral, Three times a day, First dose on 02/10/19 at 1500, Until Discontinued, Total dose of acetaminophen from all acetaminophen containing products should not exceed 4 grams (4000 mg) per day., Given 02/19/2019 8:22 PM CDT 1,000 mg Given 02/19/2019 2:53 PM CDT 1,000 mg artificial tears ophthalmic solution 2 drop Given 02/17/2019 5:06 PM CDT 2 drops 2 drop, Both eyes, Every two hours prn, Starting 02/07/19 at 2135, Until Discontinued, dry eyes, 15 mL, To either or both eyes, Given 02/16/2019 9:49 PM CDT 2 drops Given 02/15/2019 7:48 AM CDT 2 drops bumetanide (BUMEX) tablet 2 mg Given 02/20/2019 9:19 AM CDT 2 mg 2 mg, Oral, Two times a day diuretic, First dose on 02/18/19 at 2235, Until Discontinued Given 02/19/2019 4:21 PM CDT 2 mg Given 02/19/2019 8:55 AM CDT 2 mg cyanocobalamin (vitamin B-12) (Vitamin Given 02/20/2019 9:20 AM CDT 250 mcg B-12) tablet 250 mcg 250 mcg, Oral, Daily, First dose on 02/10/19 at 0900, Until Discontinued, If alert and NOT vomiting, Given 02/19/2019 8:54 AM CDT 250 mcg Given 02/18/2019 10:07 AM CDT 250 mcg folic acid tablet 1 mg Given 02/20/2019 9:20 AM CDT 1 mg 1 mg, Oral, Daily, First dose on 02/10/19 at 0900, Until Discontinued, If alert and NOT vomiting, Given 02/19/2019 8:54 AM CDT 1 mg Given 02/18/2019 10:07 AM CDT 1 mg levothyroxine tablet 150 mcg Given 02/20/2019 5:43 AM CDT 150 mcg 150 mcg, Oral, One time a day before breakfast, First dose on Irene 02/08/19 at 0700, Until Discontinued Given 02/19/2019 4:17 AM CDT 150 mcg Given 02/18/2019 6:19 AM CDT 150 mcg omeprazole (priLOSEC) capsule 40 mg Given 02/20/2019 5:43 AM CDT 40 mg 40 mg, Oral, Every morning, First dose on Irene 02/08/19 at 0730, Until Discontinued, Swallow cap whole. Do not crush, chew or open., Given 02/19/2019 4:16 AM CDT 40 mg Given 02/18/2019 6:21 AM CDT 40 mg oxyCODONE (OXY-IR) tablet 5 mg Given 02/14/2019 6:40 AM CDT 5 mg 5 mg, Oral, Every four hours prn, Starting 02/10/19 at 1038, Until Discontinued, moderate pain, Post - Op, For patients with moderate pain, pain rating of 4-6, give Oxycodone 5mg PO every 4 hours PRN. For patients with severe pain, pain rating of 7-10, give Oxycodone 10mg PO every 4 hours PRN., polyethylene glycol (MIRALAX) packet 1 Given 02/13/2019 8:01 AM CDT 1 packet packet 1 packet, Oral, Daily, First dose on Irene 02/08/19 at 0900, Until Discontinued, Post - Op, Hold if 2 loose stools occur in the last 24 hours., Given 02/12/2019 9:08 AM CDT 1 packet Given 02/11/2019 9:42 AM CDT 1 packet senna-docusate sodium Given 02/20/2019 9:19 AM CDT 1 tablet (SENOKOT-S;PERICOLACE) tablet 1 tablet 1 tablet, Oral, Two times a day, First dose on Tue02/07/19 at 2100, Until Discontinued, Post - Op, Hold if 2 loose stools occur in the last 24 hours., Given 02/19/2019 8:23 PM CDT 1 tablet Given 02/19/2019 8:55 AM CDT 1 tablet tetrahydrozoline (VISINE) 0.05 % ophthalmic Given 02/18/2019 2:49 PM CDT 1 drop solution 1 drop 1 drop, Both eyes, Every four hours prn, Starting 02/17/19 at 0937, Until Discontinued, redness, 15 mL Given 02/18/2019 10:08 AM CDT 1 drop thiamine (vitamin B-1) tablet 100 mg Given 02/20/2019 9:22 AM CDT 100 mg 100 mg, Oral, Daily, First dose on 02/10/19 at 0900, Until Discontinued, If alert and NOT vomiting, Given 02/19/2019 8:58 AM CDT 100 mg Given 02/18/2019 10:07 AM CDT 100 mg traMADol (ULTRAM) tablet 50 mg 50 mg, Oral, Every six hours prn, Starting 02/19/19 at 1525, Until Discontinued, severe pain, Post - Op, Alternate with acetaminophen (TYLENOL). Recommended maximum daily dose of ubcCGFzj=078 mg. Recommended maximum daily dose in patients greater than 75 years of age=300 mg, vitamin D3 (cholecalciferol) tablet 400 Given 02/20/2019 9:20 AM CDT 400 Units Units 400 Units, Oral, DAILY, First dose on Irene 02/08/19 at 0900, Until Discontinued Given 02/19/2019 8:54 AM CDT 400 Units Given 02/18/2019 10:07 AM CDT 400 Units Medication Order MAR Action Action Date Dose Rate Site acetaminophen (TYLENOL) tablet Given 02/07/2019 9:32 AM CDT 1,000 mg 1,000 mg 1,000 mg, Oral, Pre-op, 1 dose, Tue02/07/19 at 0840, Pre - Op, Total dose of acetaminophen from all acetaminophen containing products should not exceed 4 grams (4000 mg) per day., acetaminophen (TYLENOL) tablet 650 mg Given 02/10/2019 6:55 AM CDT 650 mg 650 mg, Oral, Every six hours, First dose on Tue02/07/19 at 1800, Until Discontinued, Post - Op, Alternate with tramadol (ULTRAM); Total dose of acetaminophen from all acetaminophen containing products should not exceed 4 grams (4000 mg) per day., Given 02/10/2019 12:30 AM CDT 650 mg Given 02/09/2019 6:28 PM CDT 650 mg bisacodyl (DULCOLAX) enteric coated tablet 5 Given 02/08/2019 8:42 PM CDT 5 mg mg 5 mg, Oral, Two times a day prn, Starting Tue02/07/19 at 1727, Until 02/18/19 at 2227, constipation, Post - Op, SECOND choice or per patient preference, ceFAZolin (ANCEF) 2000 mg/20 mL sterile Given 02/08/2019 6:30 AM CDT 2,000 mg water IV syringe 2,000 mg, IV, Every eight hours, 2 doses, First dose on Tue02/07/19 at 2200, Last dose on Tue02/08/19 at 0600, 20 mL, PACU - Continue Post-Op, Administer as IV push over 4 minutes., Given 02/07/2019 9:36 PM CDT 2,000 mg dextrose 50% IV solution 50 mL Given 02/09/2019 10:13 AM CDT 50 mL 50 mL, IV, Now, 1 dose, Tue02/09/19 at 0940, 50 mL, Give immediately BEFORE insulin. Central line-preferred medication whenever possible In a life-threatening scenario, peripheral line administration is acceptable and a central route may be pursued within 24 hours (if therapy continues), fentaNYL 100 mcg/2 mL preservative free Given 02/07/2019 12:30 PM CDT 50 mcg injection solution 25-100 mcg 25-100 mcg, IV, Now, 1 dose, Tue02/07/19 at 1105, 2 mL, Pre - Op, Fentanyl 25-100 mcg q 5 min prn over the next 2 hours to a MAX of 300 mcg as needed for analgesia during procedure, furosemide (LASIX) 1 mg/mL in New Bag 02/18/2019 12:33 PM CDT 20 mg/hr 20 mL/hr sodium chloride 0.9% 100 mL IV continuous infusion 0-50 mg/hr (0-50 mL/hr), IV, at 0-50 mL/hr, Continuous, Starting Irene 02/15/19 at 1030, Until 02/18/19 at 1614, 100 mL, initiate infusion at 10 mg/hr Titrate by 5mg/hr every 6 hours to achieve a urine output of 150 ml/hr Document titrations in One Chart (MAR or I&O Flowsheet medication group)., New Bag 02/17/2019 8:30 PM CDT 20 mg/hr 20 mL/hr New Bag 02/17/2019 3:04 PM CDT 20 mg/hr 20 mL/hr furosemide (LASIX) injection solution 40 mg Given 02/13/2019 4:30 PM CDT 40 mg 40 mg, IV, Two times a day diuretic, First dose on Tue02/12/19 at 1600, Until Discontinued, 4 mL, If preference is to further dilute for IV administration: First draw up patient-specific dose, then dilute to 10 mL with 0.9% sodium chloride. Administer SLOW IV push., Given 02/13/2019 8:03 AM CDT 40 mg Given 02/12/2019 4:09 PM CDT 40 mg furosemide (LASIX) injection solution 40 mg Given 02/15/2019 3:49 AM CDT 40 mg 40 mg, IV, Every eight hours, First dose on Tue02/14/19 at 1200, Until Discontinued, 4 mL, If preference is to further dilute for IV administration: First draw up patient-specific dose, then dilute to 10 mL with 0.9% sodium chloride. Administer SLOW IV push., Given 02/14/2019 9:15 PM CDT 40 mg Given 02/14/2019 12:30 PM CDT 40 mg furosemide (LASIX) tablet 40 mg Given 02/08/2019 8:52 AM CDT 40 mg 40 mg, Oral, DAILY, First dose on Irene 02/08/19 at 0900, Until Discontinued gabapentin (NEURONTIN) capsule 600 mg Given 02/07/2019 9:32 AM CDT 600 mg 600 mg, Oral, Pre-op, 1 dose, Tue02/07/19 at 0840, Pre - Op, 1 dose prior to surgery, insulin regular (HumuLIN R; NovoLIN R) 10 Given 02/09/2019 10:13 AM CDT 10 Units Units in sodium chloride 0.9% (IV BOLUS DOSE) 10 Units, IV, Now, 1 dose, Tue02/09/19 at 0940, 6 mL, Administer over 1 - 5 minutes. Give immediately AFTER dextrose. Intravenous regular insulin dose will be prepared and sent from pharmacy. Prepared and dispensed by Pharmacy., ketorolac (TORADOL) intravenous injection 15 Given 02/07/2019 9:32 AM CDT 15 mg mg 15 mg, IV, Pre-op, 1 dose, Tue02/07/19 at 0840, 1 mL, Pre - Op, 1 dose prior to surgery If preference is to further dilute for IV administration: First draw up patient-specific dose, then dilute to 10 mL with 0.9% sodium chloride., lactated ringers IV solution New Bag 02/07/2019 3:18 PM CDT IV, at 25 mL/hr, Continuous, Starting Tue02/07/19 at 0940, Until Tue02/07/19 at 1640, 1,000 mL, Pre - Op New Bag/Tubing 02/07/2019 9:27 AM CDT 25 mL/hr lactated ringers IV solution Already Infusing 02/07/2019 4:32 PM CDT 125 mL/hr IV, at 125 mL/hr, Continuous, Starting Tue02/07/19 at 1625, Until Tue02/07/19 at 1717, 1,000 mL, PACU, TKO current fluids if patient is going to Day Unit / ARU and tolerating PO fluids without nausea., lidocaine 2%-EPINEPHrine 1:200,000 10 mL in Given 02/07/2019 12:30 PM CDT ropivacaine 0.75 % 20 mL Peripheral Nerve Block Injection Syringe Perineural, Now, 1 dose, Tue02/07/19 at 1105, 30 mL, Pre - Op, Inject 5-10 mL per administration as directed by Anesthesia with a total maximum of 40 mL, LORazepam (ATIVAN) 2 mg/mL injection solution Given 02/09/2019 6:28 PM CDT 1 mg 1 mg 1 mg, IV, One time, 1 dose, Tue02/09/19 at 1735, 1 mL, If preference is to further dilute for IV administration: First draw up patient-specific dose, then dilute with EQUAL VOLUME of 0.9% sodium chloride, midazolam (VERSED) injection solution 0.25-2 Given 02/07/2019 12:30 PM CDT 2 mg mg 0.25-2 mg, IV, Every five minutes prn, 6 doses, Starting Tue02/07/19 at 1100, Until Tue02/07/19 at 1640, sedation, 2 mL, Pre - Op, Midazolam 0.25-2 mg q 5 min prn to a MAX of 5 mg as needed for sedation during procedure., oxyCODONE (OXY-IR) tablet 5-10 mg Given 02/09/2019 2:32 PM CDT 5 mg 5-10 mg, Oral, Every four hours prn, Starting Tue02/07/19 at 1727, Until Tue02/10/19 at 1039, moderate pain, severe pain, Post - Op, For patients with moderate pain, pain rating of 4-6, give Oxycodone 5mg PO every 4 hours PRN. For patients with severe pain, pain rating of 7-10, give Oxycodone 10mg PO every 4 hours PRN., Given 02/08/2019 3:51 PM CDT 10 mg Given 02/08/2019 11:51 AM CDT 5 mg potassium chloride (KLOR-CON M20) CR tablet Given 02/17/2019 9:57 AM CDT 40 mEq 40 mEq 40 mEq, Oral, Daily, 3 doses, First dose on Irene 02/15/19 at 0925, Last dose on Tue02/17/19 at 0900, Tablet may be broken in half, but should not be crushed or chewed. Tablet may be dissolved in 4 oz of water., Given 02/16/2019 8:46 AM CDT 40 mEq Given 02/15/2019 11:03 AM CDT 40 mEq potassium chloride (KLOR-CON M20) CR tablet Given 02/19/2019 8:59 AM CDT 40 mEq 40 mEq 40 mEq, Oral, Daily, 3 doses, First dose on Tue02/17/19 at 1230, Last dose on Tue02/19/19 at 0900, Tablet may be broken in half, but should not be crushed or chewed. Tablet may be dissolved in 4 oz of water., Given 02/18/2019 10:07 AM CDT 40 mEq Given 02/17/2019 12:59 PM CDT 40 mEq sodium chloride 0.9% flush (adult) 10 mL Given 02/19/2019 8:23 PM CDT 10 mL 10 mL, IV, Two times a day and prn, First dose on Tue02/07/19 at 2100, Until Discontinued, 10 mL, Post - Op, Flush IV line as scheduled and as often as necessary before and after meds., Given 02/19/2019 9:00 AM CDT 10 mL Given 02/18/2019 8:25 PM CDT 10 mL sodium chloride 0.9% IV solution New Bag 02/08/2019 11:34 PM CDT 100 mL/hr IV, at 100 mL/hr, Continuous, Starting Tue02/07/19 at 1740, Until Tue02/09/19 at 0314, 1,000 mL, Post - Op Rate Change 02/08/2019 12:57 PM CDT 100 mL/hr New Bag/Tubing 02/07/2019 6:33 PM CDT 75 mL/hr sodium chloride 0.9% IV solution New Bag 02/10/2019 12:15 AM CDT 100 mL/hr IV, at 100 mL/hr, Continuous, Starting Tue02/09/19 at 1010, Until Tue02/10/19 at 1039, 1,000 mL, Post - Op Rate Change 02/09/2019 8:06 PM CDT 100 mL/hr New Bag 02/09/2019 2:33 PM CDT 125 mL/hr sodium polystyrene sulfonate (KAYEXALATE) Given 02/09/2019 10:10 AM CDT 15 g suspension (15 gm/60 mL) 15 g 15 g, Oral, Now, 1 dose, Tue02/09/19 at 0940, 60 mL, Do not delay giving Kayexalate if ordered WILDA/STAT. If other oral medications are ordered, consider altering their schedule with provider approval. Separate Kayexalate dose from other oral drugs (3 hours before and 3 hours after) to decrease the binding of other oral drugs., spironolactone (ALDACTONE) tablet 100 mg Given 02/08/2019 8:52 AM CDT 100 mg 100 mg, Oral, Every morning, First dose on Irene 02/08/19 at 0900, Until Discontinued traMADol (ULTRAM) tablet 100 mg Given 02/07/2019 9:32 AM CDT 100 mg 100 mg, Oral, Pre-op, 1 dose, Tue02/07/19 at 0840, Pre - Op, Recommended maximum daily dose of aklhijhu=998 mg. Recommended maximum daily dose in patients 75 years or zsrcb=666 mg., traMADol (ULTRAM) tablet 100 mg Given 02/09/2019 3:25 AM CDT 100 mg 100 mg, Oral, Every six hours, First dose on Tue02/07/19 at 2100, Until Discontinued, Post - Op, Alternate with acetaminophen (TYLENOL). Recommended maximum daily dose of vlgKRNbm=172 mg. Recommended maximum daily dose in patients greater than 75 years of txn=546 mg, Given 02/08/2019 8:43 PM CDT 100 mg Given 02/08/2019 3:05 PM CDT 100 mg traMADol (ULTRAM) tablet 50 mg Given 02/19/2019 8:55 AM CDT 50 mg 50 mg, Oral, Every six hours, First dose on Tue02/09/19 at 0900, Until Discontinued, Post - Op, Alternate with acetaminophen (TYLENOL). Recommended maximum daily dose of kwzRJKwf=849 mg. Recommended maximum daily dose in patients greater than 75 years of age=300 mg, Given 02/19/2019 4:17 AM CDT 50 mg Given 02/18/2019 8:24 PM CDT 50 mg documented in this encounter
[2019-02-20] MEDS: Bumetanide 1 MG Tab PO SCH (14:50)
[2019-02-20] MEDS: Acetaminophen 500 MG Tab PO PRN (23:28)
[2019-02-21] MEDS: Levothyroxine 150 MCG Tab PO SCH (07:31)
[2019-02-21] MEDS: Cyanocobalamin (Vitamin B12) 100 MCG Tab PO SCH (07:58)
[2019-02-21] MEDS: Spironolactone 25 MG Tab PO SCH (07:58)
[2019-02-21] MEDS: Cholecalciferol (Vitamin D3) 10 MCG Tab PO SCH (07:59)
[2019-02-21] MEDS: Omeprazole 20 MG Cap.CR PO SCH (07:59)
[2019-02-21] MEDS: Folic Acid 1 MG Tab PO SCH (08:00)
[2019-02-21] MEDS: Ferrous Sulfate 325 MG Tab PO SCH (08:00)
[2019-02-21] MEDS: Bumetanide 1 MG Tab PO SCH ×2 (08:00→14:24)
[2019-02-21] MEDS: Calcium Carbonate 750 MG Tab.Chew PO SCH (17:13)
[2019-02-21] MEDS: Acetaminophen 500 MG Tab PO PRN (18:59)
[2019-02-22] MEDS: Omeprazole 20 MG Cap.CR PO SCH (08:23)
[2019-02-22] MEDS: Bumetanide 1 MG Tab PO SCH ×2 (08:23→13:31)
[2019-02-22] MEDS: Spironolactone 25 MG Tab PO SCH (08:24)
[2019-02-22] MEDS: Acetaminophen 500 MG Tab PO PRN (08:24)
[2019-02-22] MEDS: Ferrous Sulfate 325 MG Tab PO SCH (08:25)
[2019-02-22] MEDS: Cyanocobalamin (Vitamin B12) 100 MCG Tab PO SCH (08:25)
[2019-02-22] MEDS: Levothyroxine 150 MCG Tab PO SCH (08:25)
[2019-02-22] MEDS: Cholecalciferol (Vitamin D3) 10 MCG Tab PO SCH (08:25)
[2019-02-22] MEDS: Folic Acid 1 MG Tab PO SCH (08:28)
[2019-02-22] MEDS ORDERED: Menthol/Methyl Salicylate 85 GM Tube TOP PRN (09:59)
[2019-02-22] MEDS: Magnesium Hydroxide 400 MG/5 ML Susp 30 ML Cup PO PRN (10:42)
[2019-02-22] MEDS: Calcium Carbonate 750 MG Tab.Chew PO SCH (17:10)
[2019-02-23] MEDS: Omeprazole 20 MG Cap.CR PO SCH (07:27)
[2019-02-23] MEDS: Levothyroxine 150 MCG Tab PO SCH (07:27)
[2019-02-23] MEDS: Cholecalciferol (Vitamin D3) 10 MCG Tab PO SCH (07:27)
[2019-02-23] MEDS: Bumetanide 1 MG Tab PO SCH (07:27)
[2019-02-23] MEDS: Cyanocobalamin (Vitamin B12) 100 MCG Tab PO SCH (07:27)
[2019-02-23] MEDS: Ferrous Sulfate 325 MG Tab PO SCH (07:27)
[2019-02-23] MEDS: Spironolactone 25 MG Tab PO SCH (07:27)
[2019-02-23] MEDS: Folic Acid 1 MG Tab PO SCH (07:27)
[2019-02-23] MEDS: Magnesium Hydroxide 400 MG/5 ML Susp 30 ML Cup PO PRN (07:33)
--- NOTE | 2019-02-23 11:49 | PCM.DCSUM1 ---
Discharge Summary - Hospital Course Free Text/Narrative:: Patient doing well. No complaints at this time. Will continue physical therapy as an outpatient in [place]. Will place that order. Denies pain. Diagnosis: Stroke: No - Discharge Data Discharge Date: 02/23/19 Discharge Disposition: Home, Self-Care 01 Condition: Good - Patient Summary/Data Consults: Consultations 02/20/19 13:01 OT Evaluation and Treatment [CONS] Routine PT Evaluation and Treatment [CONS] Routine - Patient Instructions Diet: Usual Diet as Tolerated Activity: As Tolerated (per PT recommendations) Driving: Do Not Drive (until physical therapy says its ok) Showering/Bathing: May Shower Wound/Incision Care: Keep Operative Site/Wound Site Clean and Dry Notify Provider of: Fever, Increased Pain, Swelling and Redness, Drainage - Discharge Plan *PRESCRIPTION DRUG MONITORING PROGRAM REVIEWED*: Not Applicable *COPY OF PRESCRIPTION DRUG MONITORING REPORT IN PATIENT CRISTO: Not Applicable Home Medications: Home Meds Acetaminophen [Acetaminophen Extra Strength] 1,000 mg PO Q6HR PRN 02/20/19 [ History] Bumetanide [Bumex] 2 mg PO BID@08,14 02/20/19 [History] Calcium Carbonate [Calcium] 600 mg PO DAILY 02/20/19 [History] Cholecalciferol (Vitamin D3) [Vitamin D3] 400 unit PO DAILY 02/20/19 [History] Cyanocobalamin (Vitamin B-12) [Vitamin B-12] 100 mcg PO DAILY 02/20/19 [History] Ferrous Sulfate 325 mg PO DAILY 02/20/19 [History] Folic Acid 1 mg PO DAILY 02/20/19 [History] Levothyroxine 150 mcg PO ACBREAKFAST 02/20/19 [History] Omeprazole 40 mg PO DAILY 02/20/19 [History] Sennosides/Docusate Sodium [Senna-Docusate Sodium Tablet] 1 each PO BID [History] Spironolactone [Aldactone] 100 mg PO DAILY 02/20/19 [History] Oxygen Therapy Mode: Room Air Referrals: Outpatient, Physical Therapy ([place]) [Other] (Patient to continue outpatient PT therapy for shoulder repair surgery. PT to help with increased strengthening and post op recovery and mobility. ) - Discharge Summary/Plan Comment DC Time >30 min.: No - General Info Date of Service: 02/23/19 - Review of Systems General: Reports: No Symptoms HEENT: Reports: No Symptoms Pulmonary: Reports: No Symptoms Cardiovascular: Reports: No Symptoms Gastrointestinal: Reports: No Symptoms Genitourinary: Reports: No Symptoms Musculoskeletal: Reports: No Symptoms Skin: Reports: No Symptoms Neurological: Reports: No Symptoms Psychiatric: Reports: No Symptoms - Patient Data Vitals - Most Recent: Last Vital Signs Temp 98.8 F 02/23/19 07:34 Pulse 90 02/23/19 07:34 Resp 16 02/23/19 07:34 BP 104/56 L 02/23/19 07:34 Pulse Ox 93 L 02/23/19 07:34 Weight - Most Recent: 257 lb 9.6 oz I&O - Last 24 hours: Intake & Output 02/22/19 02/23/19 02/23/19 22:59 06:59 14:59 Intake Total 1804 500 Output Total 650 500 Balance 1154 0 Med Orders - Current: Current Medications Acetaminophen (Tylenol Extra Strength) 1,000 mg PO Q6H PRN PRN Reason: Pain Last Admin: 02/22/19 08:24 Dose: 1,000 mg Bumetanide (Bumex) 2 mg PO BID@08,14 [facility] Last Admin: 02/23/19 07:27 Dose: 2 mg Calcium Carbonate/Glycine (Tums Extra Strength) 750 mg PO DAILY@1800 [facility] Last Admin: 02/22/19 17:10 Dose: 750 mg Cholecalciferol (Vitamin D3) 10 mcg PO DAILY [facility] Last Admin: 02/23/19 07:27 Dose: 10 mcg Cyanocobalamin (Vitamin B12) 100 mcg PO DAILY [facility] Last Admin: 02/23/19 07:27 Dose: 100 mcg Ferrous Sulfate (Ferrous Sulfate) 325 mg PO DAILY [facility] Last Admin: 02/23/19 07:27 Dose: 325 mg Folic Acid (Folic Acid) 1 mg PO DAILY [facility] Last Admin: 02/23/19 07:27 Dose: 1 mg Levothyroxine Sodium (Levothyroxine) 150 mcg PO ACBREAKFAST [facility] Last Admin: 02/23/19 07:27 Dose: 150 mcg Magnesium Hydroxide (Milk Of Magnesia) 30 ml PO DAILY PRN PRN Reason: Constipation Last Admin: 02/23/19 07:33 Dose: 30 ml Methyl Salicylate (Icy Hot Cream) 1 gm TOP QID PRN PRN Reason: Pain Last Admin: 02/22/19 15:16 Dose: 1 applic Omeprazole (Omeprazole) 40 mg PO DAILY [facility] Last Admin: 02/23/19 07:27 Dose: 40 mg Senna/Docusate Sodium (Senna Plus) 1 tab PO BID [facility] Last Admin: 02/23/19 07:27 Dose: 1 tab Spironolactone (Aldactone) 100 mg PO DAILY [facility] Last Admin: 02/23/19 07:27 Dose: 100 mg - Exam General: Reports: Alert, Oriented HEENT: Reports: Pupils Equal, Pupils Reactive, EOMI, Mucous Membr. Moist/[place]: Reports: Supple Lungs: Reports: Clear to Auscultation, Normal Respiratory Effort Cardiovascular: Reports: Regular Rate, Regular Rhythm GI/Abdominal Exam: Normal Bowel Sounds, Soft, Non-Tender, No Organomegaly, No Distention, No Abnormal Bruit, No Mass, Pelvis Stable (Male) Exam: Deferred Rectal (Males) Exam: Deferred Back Exam: Reports: Normal Inspection, Full Range of Motion Extremities: Normal Inspection, Normal Range of Motion, Non-Tender, No Pedal Edema, Normal Capillary Refill Skin: Reports: Warm, Dry, Intact Wound/Incisions: Reports: Healing Well Neurological: Reports: No New Focal Deficit Psy/Mental Status: Reports: Alert, Normal Affect, Normal Mood
== END 2019-02-23 12:10 | disposition home or self-care (01) | DRG 560 ==
LOC: LL.MS 12:03
PROVIDERS: ADMIT Nurse Practitioner; ATTEND Family Medicine
DX: Z47.1 Aftercare following joint replacement surgery (principal); Z68.41 Body mass index [BMI] 40.0-44.9, adult; Z96.612 Presence of left artificial shoulder joint; I50.9 Heart failure, unspecified; I11.0 Hypertensive heart disease with heart failure; G89.29 Other chronic pain; M54.9 Dorsalgia, unspecified; E03.9 Hypothyroidism, unspecified; E66.9 Obesity, unspecified; Z79.899 Other long term (current) drug therapy; Z98.49 Cataract extraction status, unspecified eye; Z90.49 Acquired absence of other specified parts of digestive tract
CPT/HCPCS: 97110-GP; 97116-GP; 97140-GP; 97161-GP; 97165-GO; 97530-GO; 97530-GP; 97535-GO; A9270-GY

== ENCOUNTER 2019-11-10 13:35 | Inpatient (IN) | payer MEDICARE, BC ==
--- NOTE | 2019-11-10 14:33 | PCM.HP.2 ---
H&P History of Present Illness - General Date of Service: 11/10/19 Admit Problem/Dx: Admission Diagnosis/Problem Admission Diagnosis/Problem Osteoarthritis Source of Information: Patient, Old Records ([facility] EMR. No paper hospital chart available.), Other ([facility]MR and [facility] transfer records) History Limitations: Reports: No Limitations - History of Present Illness Initial Comments - Free Text/Narative: The patient was brought to this facility via a transport vehicle from [facility] in [place] for admission into our swing bed program for further strengthening, PT, and OT. He does have a history of recurrent falls including about one week ago with hospitalization at [facility] for nonspecific diffuse arthralgias, etc. He does complain of intermittent 10/10 chronic low back, right shoulder, and right knee pain. The patient denies any chest pain/pressure , heart flutter, dizziness, orthostasis, orthopnea, diaphoresis, paresthesias, recent decreased exercise tolerance, or any other anginal-type symptoms. No recent history of abdominal pain, heartburn, nausea, diarrhea, melena, gross hematochezia, or any food intolerance, including fatty foods, etc.. He denies any gross hematuria, colic, or other UTI symptoms. The patient also denies any recent fever, cough, wheezing, dyspnea, etc.. No history of recent headaches, visual changes, diplopia, change in mental status, or other change in neurological status. He was tested negative for COVID-19 at [facility] in [place] during the above hospitalization per transfer records. Patient is a somewhat poor historian secondary to his previous alcohol abuse, etc. Onset of Symptoms: Reports: Gradual Duration of Symptoms: Reports: Improving Location: Reports: Back, Upper Extremity, Right, Lower Extremity, Right, Generalized Quality: Reports: Same as Previous Episode, Stabbing, Throbbing Severity: Severe Improves with: Reports: Rest Worsens with: Reports: Movement Context: Reports: Other (As above). Denies: Trauma Associated Symptoms: Reports: Weakness (Generalized). Denies: Confusion, Chest Pain, Cough, Diaphoresis, Fever/Chills, Headaches, Loss of Appetite, Malaise, Nausea/Vomiting, Shortness of Breath, Syncope - Related Data Allergies/Adverse Reactions: Allergies Allergy/AdvReac Type Severity Reaction Status Date / Time No Known Allergies Allergy Verified 02/20/19 12:22 Home Medications: Home Meds Bumetanide [Bumex] 2 mg PO BID@08,14 02/20/19 [History] Calcium Carbonate [Calcium] 600 mg PO DAILY 02/20/19 [History] Cholecalciferol (Vitamin D3) [Vitamin D3] 400 unit PO DAILY 02/20/19 [History] Cyanocobalamin (Vitamin B-12) [Vitamin B-12] 100 mcg PO DAILY 02/20/19 [History] Ferrous Sulfate 325 mg PO DAILY 02/20/19 [History] Folic Acid 1 mg PO DAILY 02/20/19 [History] Levothyroxine 150 mcg PO ACBREAKFAST 02/20/19 [History] Omeprazole 40 mg PO BID 02/20/19 [History] Lactulose [Cephulac] 15 ml PO TID 11/10/19 [History] Magnesium Oxide [Magnesium] 1 tab PO BID 11/10/19 [History] Spironolactone 1 tab PO DAILY 11/10/19 [History] Thiamine [Vitamin B-1] 1 tab PO DAILY 11/10/19 [History] traMADol [Ultram] 1 tab PO Q4HR PRN 11/10/19 [History] Past Medical History HEENT History: Reports: Cataract, Hard of Hearing Cardiovascular History: Reports: Arrhythmia, Cardiomyopathy, Heart Failure, Hypertension, Other (See Below). Denies: CT Other Cardiovascular History: Sinus tachycardia. Moderate left atrial enlargement with mild Bradford insufficiency and mild to moderate mitral valve insufficiency by echocardiogram. Respiratory History: Reports: Bronchitis, Recurrent, Intubation, Previous. 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 Upper GI bleed in May 2017. Colonic polyps of unknown character in the ascending and transverse colon. Ventral abdominal hernias. Genitourinary History: Reports: Acute Renal Failure, Chronic Renal Insuffiency, Other (See Below) Other Genitourinary History: History of acute care after left shoulder arthroplasty in January 2019. Musculoskeletal History: Reports: Arthritis, Back Pain, Chronic, Fracture, Neck Pain, Chronic, Osteoarthritis, Osteoporosis, Other (See Below) Other Musculoskeletal History: Multiple thoracic vertebral body compression fractures at various times from T7-T10 area; left ankle fracture in 2015 with surgery as below. Bilateral rotator cuff tears with left shoulder surgery as below. 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 Borderline alcohol encephalopathy. History of recurrent falls secondary to alcohol use and his arthritis. Psychiatric History: Reports: Addiction, Anxiety, Depression, Other (See Below) Other Psychiatric History: Alcohol abuse. Endocrine/Metabolic History: Reports: Hypomagnesemia, Hypothyroidism, Obesity/ BMI 30+, Osteopenia, Other (See Below). Denies: Diabetes, Gestational, Diabetes , Type I, Diabetes, Type II, Diabetes Mellitus, Type 3c Other Endocrine/Metabolic History: Hyperglycemia. Hematologic History: Reports: Anemia, B12 Deficiency, Blood Transfusion(s), Folic Acid, Iron Deficiency, Other (See Below) Other Hematologic History: Macrocytic anemia and thrombocytopenia. Immunologic History: Reports: Immunosuppression, Other (See Below) Other Immunologic History: Alcohol abuse - Infectious Disease History Infectious Disease History: Reports: Mumps. Denies: C-Difficile, Chicken Pox, Measles, Meningitis, Mononucleosis, MRSA, Novel Coronavirus, Pertussis ( Whooping Cough), Rheumatic Fever, Rubella, Scarlet Fever, Shingles, TB, VRE - Past Surgical History Head Surgeries/Procedures: Reports: None HEENT Surgical History: Reports: Cataract Surgery, Laser Surgery, Oral Surgery, Other (See Below) Other HEENT Surgeries/Procedures: Bilateral cataract surgery. Apparent laser treatment of posterior capsule subsequent to this surgery. Multiple teeth extractions. Cardiovascular Surgical History: Reports: None Respiratory Surgical History: Reports: None GI Surgical History: Reports: Appendectomy, Cholecystectomy, Colonoscopy, EGD, Polypectomy, Other (See Below) Other GI Surgeries/Procedures: Cholecystectomy per [facility] records. Appendectomy in 1962. EGD on 07/26/17, 06/07/17, and 04/03/14. Colonoscopy on with polypectomy 2 as above. Neurological Surgical History: Reports: None Musculoskeletal Surgical History: Reports: ORIF, Other (See Below) Other Musculoskeletal Surgeries/Procedures:: Left ankle ORIF on 09/23/14. Left shoulder arthroplasty on 02/07/19. Oncologic Surgical History: Reports: None Dermatological Surgical History: Reports: None, Skin Biopsy - Past Imaging History Past Imaging History: Reports: Cardiac Echo (Last on 11/09/19 with ejection fraction of 60% with previous evaluations on 03/31/14, 12/09/13, and 07/27/13.), CAT Scan (CT of the lumbar spine on 11/07/19 and 10/19/19. CT of the left shoulder on 01/09/19. Head CT on 12/01/13. CT of the thoracic spine and CT of the abdomen and pelvis with stone protocol on 04/27/17.), DEXA Scan (05/17/17.), MRI ( Thoracic spine on 10/06/17, 07/11/17, and 04/30/17.), PFT (07/31/13.), Ultrasound ( Abdominal on 06/06/17.), Venous Doppler (Right leg venous Doppler study on .) - History Comment History Comment: Patient is a poor historian with majority of history from medical records as above. Social & Family History - Family History Family Medical History: Noncontributory - Tobacco Use Smoking Status *Q: Former Smoker Tobacco Use Within Last Twelve Months: No Years of Tobacco use: 4 Packs/Tins Daily: 0.5 Packs/Tins Daily Comment: Between ages 19 and 23 Used Tobacco, but Quit: Yes Smoking Cessation Information Provided To Patient: No - Caffeine Use Caffeine Use: Reports: Soda (Occasional). Denies: Coffee - Alcohol Use Alcohol Use History: Yes Days Per Week of Alcohol Use: 3 Number of Drinks Per Day: 1 Number of Drinks Per Day Comment: Note alcohol abuse history, however Total Drinks Per Week: 3 Alcohol Use in Last Twelve Months: Yes - Recreational Drug Use Recreational Drug Use: No Drug Use in Last 12 Months: No Recreational Drug Type: Denies: Amphetamines (Speed), Cocaine, Heroin, Inhalants (Glues, Solvents, Aerosols), LSD (Acid), Marijuana/Hashish, Methamphetamine, Morphine, Oxycodone H&P Review of Systems - Review of Systems: Review Of Systems: Comprehensive ROS is negative, except as noted in HPI. Exam - Exam Exam: See Below - Exam Quality Assessment: DVT Prophylaxis, Skin Breakdown (Skin tears). No: Supplemental Oxygen, Central Line/PICC, Urinary Catheter, Restraints General: Alert, Oriented, Cooperative, Other (Mild alcoholic encephalopathy) HEENT: Conjunctiva Clear, EACs Clear, EOMI, Hearing Intact, Mucosa Moist & [place] , Nares Patent, Normal Nasal Septum, Posterior Pharynx Clear, Pupils Equal, Pupils Reactive, TMs Clear, PERRLA. No: Scleral Icterus Neck: Supple, Trachea Midline, Carotid Bruit (Mild bilateral carotid bruits versus transmitted heart sounds). No: Lymphadenopathy Lungs: Clear to Auscultation, Normal Respiratory Effort. No: Rub Cardiovascular: Regular Rate, Regular Rhythm, Normal S1, Normal S2, Systolic Murmur (Mild 1/6 MYLENE of the aortic and mitral valves). No: Rubs, Gallop/S3, Gallop/S4 GI/Abdominal Exam: Normal Bowel Sounds, Non-Tender, No Organomegaly, No Distention, No Abnormal Bruit, No Mass, Pelvis Stable, Splenomegaly, Other ( Obese). No: Guarding (Male) Exam: Deferred Rectal (Males) Exam: Deferred Back Exam: Decreased Range of Motion (Mild), Other (Mild kyphosis). No: CVA Tenderness (L), CVA Tenderness (R), Muscle Spasm, Paraspinal Tenderness, Vertebral Tenderness Extremities: Normal Capillary Refill, Pedal Edema (Moderate lymphedema of the lower extremities), Arm Pain (Mild to moderate left shoulder pain with range of motion), Leg Pain (Mild to moderate right knee pain with range of motion), Limited Range of Motion (Right shoulder), Other (Multiple areas of ecchymosis on his arms both proximally and distally bilaterally with 6 cm skin tear over the lateral right elbow with 2 cm skin tear over the left proximal radial region ). No: Joint Swelling, Mami's Sign Peripheral Pulses: 1+: Dorsalis Pedis (L), Dorsalis Pedis (R), 2+: Radial (L), Radial (R) Skin: Ecchymosis (As above), Wound (Skin tears as above). No: [place] Neuro Extensive - Mental Status: Alert, Oriented x3, Normal Mood/Affect, Other ( Moderate generalized weakness, needs assist to ambulate). No: Normal Cognition (Mild alcohol encephalopathy) Psychiatric: Anxious (Mild), Depressed (Mild). No: Agitated, Hallucinations, Withdrawal Symptoms - Patient Data Lab Results Last 24 hrs: To be conducted in the a.m. - Problem List (1) Weakness SNOMED Code(s): 43448486 ICD Code: R53.1 - WEAKNESS Status: Acute Priority: High Current Visit: Yes Problem Details: Generalized weakness with patient transferred to swing bed care for further PT and OT as above. Fall precautions, activity, etc. per their instructions (2) Osteoarthritis SNOMED Code(s): 488407164 ICD Code: M19.90 - UNSPECIFIED OSTEOARTHRITIS, UNSPECIFIED SITE Status: Chronic Priority: High Current Visit: Yes Problem Details: Overall poor control. Note chronic Ultram use. PT and OT as above. Qualifiers: Osteoarthritis location: multiple joints Osteoarthritis type: primary Qualified Code(s): M89.49 - Other hypertrophic osteoarthropathy, multiple sites (3) Hyperglycemia SNOMED Code(s): 52318786 ICD Code: R73.9 - HYPERGLYCEMIA, UNSPECIFIED Status: Chronic Priority: High Current Visit: Yes Problem Details: Note obesity. Glycosylated hemoglobin in the a.m. (4) Peptic reflux disease SNOMED Code(s): 418573642 ICD Code: K21.9 - GASTRO-ESOPHAGEAL REFLUX DISEASE WITHOUT ESOPHAGITIS Status: Chronic Priority: Medium Current Visit: Yes Problem Details: History of gastric varices secondary to his alcohol abuse. No current abdominal pain or evidence of GI bleed. (5) Mixed anxiety depressive disorder SNOMED Code(s): 606909491 ICD Code: F41.8 - OTHER SPECIFIED ANXIETY DISORDERS Status: Chronic Priority: Medium Current Visit: Yes Problem Details: Stable by history. Note history of alcohol abuse with persistent alcohol use at this time. Continue to observe closely. (6) Heart failure SNOMED Code(s): 96791646 ICD Code: I50.9 - HEART FAILURE, UNSPECIFIED Status: Chronic Priority: Medium Current Visit: Yes Problem Details: Mild valvular disease with recent echocardiogram on 11/09/19. Labs in the a.m. Observe for now. No chest pain or anginal type symptoms. Qualifiers: Heart failure type: combined systolic and diastolic (7) Hypertension SNOMED Code(s): 17348471 ICD Code: I10 - ESSENTIAL (PRIMARY) HYPERTENSION Status: Chronic Priority : Medium Current Visit: Yes Problem Details: Observe closely during his swing bed care. Qualifiers: Hypertension type: essential hypertension Qualified Code(s): I10 - Essential (primary) hypertension Problem List Initiated/Reviewed/Updated: Yes Orders Last 24hrs: Active Orders 24 hr Category Date Time Status Patient Status [ADT] Routine ADT 11/10/19 14:13 Ordered Antiembolic Devices [RC] .Routine Care 11/10/19 14:25 Ordered Antiembolic Devices [RC] PER UNIT ROUTINE Care 11/10/19 14:25 Ordered Communication Order [RC] ROUTINE Care 11/10/19 14:27 Ordered Communication, Vaccine [RC] PER UNIT ROUTINE Care 11/10/19 14:25 Ordered Height and Weight [RC] PER UNIT ROUTINE Care 11/10/19 14:14 Ordered Intake and Output [RC] ASDIRECTED Care 11/10/19 14:12 Ordered May Shower [RC] ASDIRECTED Care 11/10/19 14:12 Ordered Oxygen Therapy [RC] PRN Care 11/10/19 14:13 Ordered Pulse Oximetry [RC] ASDIRECTED Care 11/10/19 14:23 Ordered Up With Assistance [RC] ASDIRECTED Care 11/10/19 14:12 Ordered VTE/DVT Education [RC] PER UNIT ROUTINE Care 11/10/19 14:13 Ordered VTE/DVT Education [RC] PER UNIT ROUTINE Care 11/10/19 14:25 Ordered Vaccines to be Administered [RC] PER UNIT ROUTINE Care 11/10/19 14:25 Ordered Vital Signs [RC] PER UNIT ROUTINE Care 11/10/19 14:13 Ordered Consult to Case Management/Professional Skater [CONS] Cons 11/10/19 14:12 Ordered Routine OT Evaluation and Treatment [CONS] Routine Cons 11/10/19 14:12 Ordered PT Evaluation and Treatment [CONS] Routine Cons 11/10/19 14:12 Ordered Fluid Restriction [DIET] Diet 11/10/19 Lunch Ordered AMMONIA VENOUS [CHEM] Routine Lab 11/11/19 05:11 Ordered AMYLASE [CHEM] Routine Lab 11/11/19 05:11 Ordered CBC WITH AUTO DIFF [HEME] Routine Lab 11/11/19 05:11 Ordered COMPREHENSIVE METABOLIC PN,CMP [CHEM] Routine Lab 11/11/19 05:11 Ordered FERRITIN [CHEM] Routine Lab 11/11/19 05:11 Ordered INR,PT,PROTHROMBIN TIME [COAG] Routine Lab 11/11/19 05:11 Ordered IRON/TIBC [CHEM] Routine Lab 11/11/19 05:11 Ordered LIPASE [CHEM] Routine Lab 11/11/19 05:11 Ordered MAGNESIUM [CHEM] Routine Lab 11/11/19 05:11 Ordered PRO B-TYPE NATRIUR PEPT,BNPPRO [CHEM] Routine Lab 11/11/19 05:11 Ordered PTT,PARTIAL THROMBOPLSTIN TIME [COAG] Routine Lab 11/11/19 05:11 Ordered TROPONIN I [CHEM] Routine Lab 11/11/19 05:11 Ordered TSH ULTRASENSITIVE [CHEM] Routine Lab 11/11/19 05:11 Ordered URIC ACID [CHEM] Routine Lab 11/11/19 05:11 Ordered VITAMIN B12 [CHEM] Routine Lab 11/11/19 05:11 Ordered Acetaminophen [Tylenol] Med 11/10/19 14:24 Ordered 650 mg PO Q4H PRN Bumetanide [Bumex] Med 11/11/19 08:00 Ordered 2 mg PO BID@08,14 Calcium Carbonate [Calcium] Med 11/11/19 08:00 Ordered 600 mg PO DAILY Cholecalciferol (Vitamin D3) [Vitamin D3] Med 11/11/19 08:00 Ordered 400 unit PO DAILY Cyanocobalamin (Vitamin B12) [Vitamin B12] Med 11/11/19 08:00 Ordered 100 mcg PO DAILY Ferrous Sulfate Med 11/11/19 08:00 Ordered 325 mg PO DAILY Folic Acid Med 11/11/19 08:00 Ordered 1 mg PO DAILY Lactulose Med 11/10/19 18:00 Ordered 15 ml PO TID Levothyroxine Med 11/11/19 07:30 Ordered 150 mcg PO ACBREAKFAST Magnesium Oxide [Magnesium] Med 11/10/19 18:00 Ordered 1 tab PO BID Omeprazole [Omeprazole] Med 11/10/19 18:00 Ordered 40 mg PO BID Spironolactone [Spironolactone] Med 11/11/19 08:00 Ordered 1 tab PO DAILY Thiamine [Vitamin B-1] Med 11/11/19 08:00 Ordered 100 mg PO DAILY traMADol [Ultram] Med 11/10/19 14:11 Ordered 50 mg PO Q4HR PRN Anti-Embolism Stockings [place] [Antiembolic Hose] [OM.PC] Oth 11/10/19 14:19 Ordered Routine DVT/VTE Prophylaxis Reflex [OM.PC] Routine Oth 11/10/19 14:21 Ordered GM Immunization Reflex [OM.PC] Click To Edit Oth 11/10/19 14:21 Ordered Patient May [OM.PC] Click To Edit Oth 11/10/19 14:12 Ordered Resuscitation Status Routine Resus Stat 11/10/19 14:12 Ordered Medication Orders Acetaminophen (Tylenol) 650 mg PO Q4H PRN PRN Reason: Pain (Mild 1-3)/fever Bumetanide (Bumex) 2 mg PO BID@08,14 [facility] Cyanocobalamin (Vitamin B12) 100 mcg PO DAILY [facility] Ferrous Sulfate (Ferrous Sulfate) 325 mg PO DAILY [facility] Folic Acid (Folic Acid) 1 mg PO DAILY [facility] Levothyroxine Sodium (Levothyroxine) 150 mcg PO ACBREAKFAST [facility] Non-Formulary Medication (Calcium Carbonate [Calcium]) 600 mg PO DAILY [facility] Non-Formulary Medication (Cholecalciferol (Vitamin D3) [Vitamin D3]) 400 unit PO DAILY [facility] Non-Formulary Medication (Lactulose) 15 ml PO TID [facility] Non-Formulary Medication (Magnesium Oxide [Magnesium]) 1 tab PO BID [facility] Non-Formulary Medication (Omeprazole [Omeprazole]) 40 mg PO BID [facility] Non-Formulary Medication (Spironolactone [Spironolactone]) 1 tab PO DAILY [facility] Thiamine HCl (Vitamin B-1) 100 mg PO DAILY [facility] Tramadol HCl (Ultram) 50 mg PO Q4HR PRN PRN Reason: Pain (moderate 4-6) Assessment/Plan Comment:: As above. Extensive precautions were given to the patient, who is in agreement with the treatment plan. Continue swing bed care as per directions of physical therapy, occupational therapy, etc. - Mortality Measure Prognosis:: Poor
[2019-11-10] MEDS: Lactulose Soln 10 GM/15 ML 30 ML UD Cup PO SCH (17:00)
[2019-11-10] MEDS: Magnesium Oxide 400 MG Tab PO SCH (17:00)
[2019-11-10] MEDS: Omeprazole 20 MG Cap.CR PO SCH (17:00)
[2019-11-10] MEDS: Acetaminophen 325 MG Tab PO PRN (17:00)
[2019-11-11 07:46] LABS: HEMOGLOBIN A1C 4.5 % (4.3-5.7)
[2019-11-11 07:54] LABS: PTT,PARTIAL THROMBOPLSTIN TIME 30.7 SEC (24.5-32.8)
[2019-11-11] MEDS: Acetaminophen 325 MG Tab PO PRN ×2 (07:56→17:25)
[2019-11-11] MEDS: Thiamine 100 MG Tab PO SCH (07:56)
[2019-11-11] MEDS: Spironolactone 25 MG Tab PO SCH (07:57)
[2019-11-11] MEDS: Calcium Carbonate 500 MG Tab.Chew PO SCH (07:57)
[2019-11-11] MEDS: Bumetanide 1 MG Tab PO SCH ×2 (07:57→15:12)
[2019-11-11] MEDS: Cholecalciferol (Vitamin D3) 10 MCG Tab PO SCH (07:58)
[2019-11-11] MEDS: Folic Acid 1 MG Tab PO SCH (07:59)
[2019-11-11] MEDS: Cyanocobalamin (Vitamin B12) 100 MCG Tab PO SCH (07:59)
[2019-11-11] MEDS: Omeprazole 20 MG Cap.CR PO SCH ×2 (07:59→17:24)
[2019-11-11] MEDS: Magnesium Oxide 400 MG Tab PO SCH ×2 (07:59→17:25)
[2019-11-11] MEDS: Ferrous Sulfate 325 MG Tab PO SCH (08:00)
[2019-11-11] MEDS: Levothyroxine 150 MCG Tab PO SCH (08:00)
[2019-11-11] MEDS: Lactulose Soln 10 GM/15 ML 30 ML UD Cup PO SCH ×3 (08:01→17:26)
[2019-11-12] MEDS: Calcium Carbonate 500 MG Tab.Chew PO SCH (07:45)
[2019-11-12] MEDS: Thiamine 100 MG Tab PO SCH (07:46)
[2019-11-12] MEDS: Magnesium Oxide 400 MG Tab PO SCH ×2 (07:46→17:09)
[2019-11-12] MEDS: Cyanocobalamin (Vitamin B12) 100 MCG Tab PO SCH (07:46)
[2019-11-12] MEDS: Acetaminophen 325 MG Tab PO PRN ×3 (07:46→19:11)
[2019-11-12] MEDS: Bumetanide 1 MG Tab PO SCH ×2 (07:47→13:30)
[2019-11-12] MEDS: Omeprazole 20 MG Cap.CR PO SCH ×2 (07:47→17:09)
[2019-11-12] MEDS: Folic Acid 1 MG Tab PO SCH (07:47)
[2019-11-12] MEDS: Levothyroxine 150 MCG Tab PO SCH (07:48)
[2019-11-12] MEDS: Cholecalciferol (Vitamin D3) 10 MCG Tab PO SCH (07:48)
[2019-11-12] MEDS: Spironolactone 25 MG Tab PO SCH (07:48)
[2019-11-12] MEDS: Ferrous Sulfate 325 MG Tab PO SCH (07:48)
[2019-11-12] MEDS: Lactulose Soln 10 GM/15 ML 30 ML UD Cup PO SCH ×3 (07:49→17:10)
[2019-11-12] MEDS: Menthol/Methyl Salicylate 85 GM Tube TOP SCH ×2 (13:31→17:11)
[2019-11-12] MEDS: Menthol/Methyl Salicylate 85 GM Tube TOP PRN (19:10)
[2019-11-12] MEDS: traMADol 50 MG Tab PO PRN (19:11)
[2019-11-13] MEDS: Menthol/Methyl Salicylate 85 GM Tube TOP PRN (01:18)
[2019-11-13] MEDS: Omeprazole 20 MG Cap.CR PO SCH ×2 (08:15→18:03)
[2019-11-13] MEDS: Calcium Carbonate 500 MG Tab.Chew PO SCH (08:15)
[2019-11-13] MEDS: Lactulose Soln 10 GM/15 ML 30 ML UD Cup PO SCH ×3 (08:18→18:02)
[2019-11-13] MEDS: Menthol/Methyl Salicylate 85 GM Tube TOP SCH ×3 (08:19→18:06)
[2019-11-13] MEDS: Cholecalciferol (Vitamin D3) 10 MCG Tab PO SCH (08:20)
[2019-11-13] MEDS: Folic Acid 1 MG Tab PO SCH (08:20)
[2019-11-13] MEDS: Ferrous Sulfate 325 MG Tab PO SCH (08:20)
[2019-11-13] MEDS: Thiamine 100 MG Tab PO SCH (08:20)
[2019-11-13] MEDS: Cyanocobalamin (Vitamin B12) 100 MCG Tab PO SCH (08:21)
[2019-11-13] MEDS: Acetaminophen 325 MG Tab PO PRN (08:21)
[2019-11-13] MEDS: Bumetanide 1 MG Tab PO SCH ×2 (08:21→13:39)
[2019-11-13] MEDS: Levothyroxine 150 MCG Tab PO SCH (08:21)
[2019-11-13] MEDS: Spironolactone 25 MG Tab PO SCH (08:21)
[2019-11-13] MEDS: Magnesium Oxide 400 MG Tab PO SCH ×2 (08:21→18:03)
[2019-11-13] MEDS: traMADol 50 MG Tab PO PRN ×2 (13:40→18:04)
[2019-11-14] MEDS: Thiamine 100 MG Tab PO SCH (08:50)
[2019-11-14] MEDS: Spironolactone 25 MG Tab PO SCH (08:50)
[2019-11-14] MEDS: Cyanocobalamin (Vitamin B12) 100 MCG Tab PO SCH (08:50)
[2019-11-14] MEDS: Levothyroxine 150 MCG Tab PO SCH (08:51)
[2019-11-14] MEDS: Magnesium Oxide 400 MG Tab PO SCH ×2 (08:51→17:19)
[2019-11-14] MEDS: Bumetanide 1 MG Tab PO SCH ×2 (08:51→13:55)
[2019-11-14] MEDS: Folic Acid 1 MG Tab PO SCH (08:53)
[2019-11-14] MEDS: Calcium Carbonate 500 MG Tab.Chew PO SCH (08:54)
[2019-11-14] MEDS: Ferrous Sulfate 325 MG Tab PO SCH (08:54)
[2019-11-14] MEDS: Omeprazole 20 MG Cap.CR PO SCH ×2 (08:58→17:18)
[2019-11-14] MEDS: Lactulose Soln 10 GM/15 ML 30 ML UD Cup PO SCH ×3 (08:58→17:17)
[2019-11-14] MEDS: Cholecalciferol (Vitamin D3) 10 MCG Tab PO SCH (08:58)
[2019-11-14] MEDS: Menthol/Methyl Salicylate 85 GM Tube TOP SCH ×3 (08:59→17:18)
[2019-11-14] MEDS: Acetaminophen 325 MG Tab PO PRN (19:40)
[2019-11-14] MEDS: Menthol/Methyl Salicylate 85 GM Tube TOP PRN (20:34)
[2019-11-15] MEDS: Lactulose Soln 10 GM/15 ML 30 ML UD Cup PO SCH ×3 (07:31→17:21)
[2019-11-15] MEDS: Bumetanide 1 MG Tab PO SCH ×2 (07:33→13:21)
[2019-11-15] MEDS: Levothyroxine 150 MCG Tab PO SCH (07:33)
[2019-11-15] MEDS: Folic Acid 1 MG Tab PO SCH (07:33)
[2019-11-15] MEDS: Thiamine 100 MG Tab PO SCH (07:34)
[2019-11-15] MEDS: Calcium Carbonate 500 MG Tab.Chew PO SCH (07:34)
[2019-11-15] MEDS: Spironolactone 25 MG Tab PO SCH (07:34)
[2019-11-15] MEDS: Cholecalciferol (Vitamin D3) 10 MCG Tab PO SCH (07:34)
[2019-11-15] MEDS: Cyanocobalamin (Vitamin B12) 100 MCG Tab PO SCH (07:34)
[2019-11-15] MEDS: Omeprazole 20 MG Cap.CR PO SCH ×2 (07:35→17:17)
[2019-11-15] MEDS: Ferrous Sulfate 325 MG Tab PO SCH (07:35)
[2019-11-15] MEDS: Magnesium Oxide 400 MG Tab PO SCH (07:35)
[2019-11-15] MEDS: Menthol/Methyl Salicylate 85 GM Tube TOP SCH ×3 (07:36→17:23)
[2019-11-15] MEDS: Acetaminophen 325 MG Tab PO PRN (11:16)
[2019-11-15] MEDS ORDERED: Magnesium Oxide 400 MG Tab PO SCH (18:00)
[2019-11-15] MEDS ORDERED: Calcium Carbonate 500 MG Tab.Chew PO SCH (18:00)
[2019-11-15] MEDS ORDERED: Ferrous Sulfate 325 MG Tab PO SCH (18:00)
[2019-11-16] MEDS: Acetaminophen 325 MG Tab PO PRN (00:10)
[2019-11-16] MEDS: Bumetanide 1 MG Tab PO SCH (07:43)
[2019-11-16] MEDS: Spironolactone 25 MG Tab PO SCH (07:43)
[2019-11-16] MEDS: Cyanocobalamin (Vitamin B12) 100 MCG Tab PO SCH (07:49)
[2019-11-16] MEDS: Thiamine 100 MG Tab PO SCH (07:49)
[2019-11-16] MEDS: Cholecalciferol (Vitamin D3) 10 MCG Tab PO SCH (07:49)
[2019-11-16] MEDS: Omeprazole 20 MG Cap.CR PO SCH (07:49)
[2019-11-16] MEDS: Folic Acid 1 MG Tab PO SCH (07:49)
[2019-11-16] MEDS: Levothyroxine 150 MCG Tab PO SCH (07:49)
[2019-11-16] MEDS: Lactulose Soln 10 GM/15 ML 30 ML UD Cup PO SCH ×2 (07:50→11:35)
[2019-11-16] MEDS: Menthol/Methyl Salicylate 85 GM Tube TOP SCH (07:56)
--- NOTE | 2019-11-16 09:17 | PCM.DCSUM1 ---
Discharge Summary - Hospital Course HPI Initial Comments: See admission H&P Brief History: See admission H&P Diagnosis: Stroke: No Modified Aram Scale: No Symptoms at All Modified Aram Scale Score: 0 - Discharge Data Discharge Date: 11/16/19 Discharge Disposition: Home, W Home Health Agency 06 Condition: Fair - Referral to Home Health Date of Face to Face Encounter: 11/16/19 Reason for Homebound Status: Severe osteoarthritis affecting ADLs. Medication set up. Primary Care Physician: PCP None Skilled Need: As above with outpatient physical therapy and occupational therapy already ordered for the patient's home, etc., including home safety evaluation. - Discharge Diagnosis/Problem(s) (1) Weakness SNOMED Code(s): 58873886 ICD Code: R53.1 - WEAKNESS Status: Chronic Priority: High Current Visit : Yes Problem Details: Generalized weakness with patient transferred to swing bed care for further PT and OT, which was effective by patient history. Note that physical therapy and I will therapy will be continued on an outpatient basis including home safety evaluation. Severe osteoarthritis affecting his with home health also ordered. as above. Fall precautions, activity, etc. per their instructions. (2) Osteoarthritis SNOMED Code(s): 245878643 ICD Code: M19.90 - UNSPECIFIED OSTEOARTHRITIS, UNSPECIFIED SITE Status: Chronic Priority: High Current Visit: Yes Problem Details: Overall poor control. Note chronic Ultram use, which will only be prescribed through his regular providers in order to prevent substance abuse. No previous history of alcohol abuse. PT and OT as above. Otherwise, symptomatic relief as per discharge instructions. Qualifiers: Osteoarthritis location: multiple joints Osteoarthritis type: primary Qualified Code(s): M89.49 - Other hypertrophic osteoarthropathy, multiple sites (3) Hyperglycemia SNOMED Code(s): 71472077 ICD Code: R73.9 - HYPERGLYCEMIA, UNSPECIFIED Status: Chronic Priority: High Current Visit: Yes Problem Details: Note obesity. Glycosylated hemoglobin 4.5% on 11/10. Continue to observe closely by his regular provider. Weight loss in moderation is advisable. (4) Peptic reflux disease SNOMED Code(s): 717049220 ICD Code: K21.9 - GASTRO-ESOPHAGEAL REFLUX DISEASE WITHOUT ESOPHAGITIS Status: Chronic Priority: Medium Current Visit: Yes Problem Details: History of gastric varices secondary to his alcohol abuse. No current abdominal pain or evidence of GI bleed. Note iron deficiency anemia with improved hemoglobin prior to discharge. Continue close observation by his regular provider. Note normal iron level with mildly decreased TIBC likely secondary to his hypoalbuminemia. Observe for now. Iron supplementation has been changed to an every afternoon basis secondary to its affect on the absorption of his Synthroid. (5) Mixed anxiety depressive disorder SNOMED Code(s): 591346910 ICD Code: F41.8 - OTHER SPECIFIED ANXIETY DISORDERS Status: Chronic Priority: Medium Current Visit: Yes Problem Details: Stable by history. Note history of alcohol abuse with persistent alcohol use at this time. Continue to observe closely by his regular provider with no DTs or withdrawal- type symptoms during his swing bed care. (6) Heart failure SNOMED Code(s): 76363356 ICD Code: I50.9 - HEART FAILURE, UNSPECIFIED Status: Chronic Priority: Medium Current Visit: Yes Problem Details: Mild valvular disease with recent echocardiogram on 11/09/19. Labs in the a.m. Observe for now. No chest pain or anginal type symptoms. Mild persistent BNP elevation and secondary change in troponin I, which is still normal. Stable lymphedema of the lower extremities. No chest pain or anginal type symptoms. Qualifiers: Heart failure type: combined systolic and diastolic (7) Hypertension SNOMED Code(s): 87161656 ICD Code: I10 - ESSENTIAL (PRIMARY) HYPERTENSION Status: Chronic Priority : Medium Current Visit: Yes Problem Details: Blood Pressures under good control during his swing bed care. Qualifiers: Hypertension type: essential hypertension Qualified Code(s): I10 - Essential (primary) hypertension (8) Hyperbilirubinemia SNOMED Code(s): 70933288 ICD Code: E80.6 - OTHER DISORDERS OF BILIRUBIN METABOLISM Status: Acute Priority: High Current Visit: Yes Onset Date: 11/11/19 Problem Details: Mildly elevated direct bilirubin. Observe for now. Note previous history of alcohol abuse. Probable portal hypertension with history of hepatic cirrhosis and gastric varices as above. (9) First degree AV block SNOMED Code(s): 934829184 ICD Code: I44.0 - ATRIOVENTRICULAR BLOCK, FIRST DEGREE Status: Chronic Priority: Medium Current Visit: Yes Onset Date: 11/16/19 Problem Details: Observe for now. (10) Hypothyroidism (acquired) SNOMED Code(s): 684905896 ICD Code: E03.9 - HYPOTHYROIDISM, UNSPECIFIED Status: Chronic Priority: High Current Visit: Yes Problem Details: TSH mildly elevated on 11/10 likely secondary to interference with absorption from his iron, magnesium, and calcium supplements, which were changed to an every afternoon regimen. Close follow-up by regular provider as per discharge instructions. No change of his Synthroid for the time being. (11) PAC (premature atrial contraction) SNOMED Code(s): 244660582 ICD Code: I49.1 - ATRIAL PREMATURE DEPOLARIZATION Status: Acute Priority : Medium Current Visit: Yes Onset Date: 11/16/19 Problem Details: Observe for now. Nonsymptomatic. (12) Hypoalbuminemia SNOMED Code(s): 584037857 ICD Code: E88.09 - OTH DISORDERS OF PLASMA-PROTEIN METABOLISM, NEC Status: Chronic Priority: Medium Current Visit: Yes Onset Date: 11/11/19 Problem Details: Consider high-protein Glucerna supplements as snacks, however note obesity. Continue close observation by regular provider. (13) Hypomagnesemia SNOMED Code(s): 697816733 ICD Code: E83.42 - HYPOMAGNESEMIA Status: Chronic Priority: Medium Current Visit: Yes Onset Date: 11/11/19 Problem Details: Normal at discharge. Magnesium supplement change to an every afternoon basis secondary to interference with Synthroid absorption as above. Close follow-up by regular provider. (14) Anemia SNOMED Code(s): 013612315 ICD Code: D64.9 - ANEMIA, UNSPECIFIED Status: Chronic Priority: Medium Current Visit: Yes Problem Details: Improved hemoglobin as above. Qualifiers: Anemia type: iron deficiency Iron deficiency anemia type: unspecified iron deficiency Qualified Code(s): D50.9 - Iron deficiency anemia, unspecified (15) Chronic kidney disease, stage 3 (moderate) SNOMED Code(s): 670706335 ICD Code: N18.3 - CHRONIC KIDNEY DISEASE, STAGE 3 (MODERATE) Status: Chronic Priority: Medium Current Visit: Yes Problem Details: Stable during his swing bed care. (16) Hyperammonemia SNOMED Code(s): 9230645 ICD Code: E72.20 - DISORDER OF UREA CYCLE METABOLISM, UNSPECIFIED Status: Chronic Priority: High Current Visit: Yes Onset Date: 11/16/19 Problem Details: Somewhat progressive during his swing bed care however no significant symptoms at this time. Continue to observe closely by his regular provider. Note history of alcohol abuse and hepatic cirrhosis. He is already on lactulose. (17) Hypocalcemia SNOMED Code(s): 2066569 ICD Code: E83.51 - HYPOCALCEMIA Status: Acute Priority: Medium Current Visit: Yes Onset Date: 11/11/19 Problem Details: Normal at time of discharge. Note osteoporosis. Consider adjustment of medical therapy by regular providers. (18) Pulmonary nodule SNOMED Code(s): 761870134 ICD Code: R91.1 - SOLITARY PULMONARY NODULE Status: Acute Priority: High Current Visit: Yes Onset Date: 11/16/19 Problem Details: Possible right lower lobe pulmonary nodule by chest x-ray on 11/14 by my evaluation. Await radiological report with CT scan of the chest to be ordered by his regular provider as per discharge instructions. - Patient Summary/Data Operative Procedure(s) Performed: None Complications: None Consults: Consultations 11/10/19 14:12 Consult to Case Management/Senior Corporate Strategy Manager [CONS] Routine 11/16/19 09:09 Consult to Home Health [CONS] Routine 11/16/19 09:10 PT Evaluation and Treatment [CONS] Routine 11/16/19 09:11 OT Evaluation and Treatment [CONS] Routine Labs Pending at D/C: Final chest x-ray report from 11/16/19 Recommended Follow-up Testing/Procedures: As per discharge instructions Planned Operative Procedure(s) after DC: None Hospital Course: Patient was placed in swing bed unit with initiation of PT and OT as above. Multiple medication and supplement changes were required during his care secondary to multiple electrolyte imbalances as above. Patient did respond well to the above treatment measures with no complications during his care. - Patient Instructions Diet: Heart Healthy Diet, No Alcoholic Beverages, Fluid Restriction Diet, Other: Diverticulosis Fluid Restriction: 2000 mL Activity: As Tolerated (Strict fall precautions) Driving: Do Not Drive Showering/Bathing: May Shower Notify Provider of: Fever, Increased Pain, Nausea and/or Vomiting Other/Special Instructions: 1. Followup with your regular provider in 10-14 days as directed for reevaluation and recommended repeat CBC, comprehensive metabolic panel, ammonia level, indirect/direct bilirubin, and magnesium level. Bring these discharge instructions with you to that visit. 2. Discuss possible CT of the chest with your regular provider at the above follow-up visit secondary to possible lung nodule by today's x-ray. 3. OT, PT, and home health on an outpatient basis. 4. Recommend repeat TSH, TIBC panel, and iron levels in 4 weeks with additional repeat blood work as above per the discretion of your regular provider. 5. Immediately after this visit verify that your cellular telephone's voicemail has been activated and is empty. Also verify that your home telephone's answering machine is operating properly and has space to receive messages. Note that it is sometimes necessary for us to be able to contact you at a later date to discuss your medical care. 6. Please remember that we are ALWAYS here for you and want to answer any questions you may have. Feel free to call the hospital any time and we call you back WILDA. SYMPTOMS TO LOOK OUT FOR: You have been in swing bed care hospitalized for your arthritis and heart disease. You should look out for the following symptoms after discharge: 1. Make absolutely certain that you completely understand the reasons you are taking any of your new and/or old medications and /or supplements as discussed with you by the nurse at time of discharge. This includes possible side effects versus interactions between your medications and/ or supplements. Don't be afraid to take extra time to ask any questions or express any concerns, because that is what we are here for. It is very important to us that you understand your care. 2. Notify this facility, telephone number [phone], and/or your regular provider WILDA if you experience any of the following symptoms: a. Sudden chest pressure or pain especially with radiation to the neck, jaws, arms, mid back, etc. especially if these are associated with nausea, cold sweats, dizziness, racing heart, weakness , near fainting, etc. b. Any shortness of breath or decreased exercise tolerance that has changed since your hospital discharge and is not normal for you. c. Any persistent heartburn type symptoms that is not normal for you and is not relieved by any of your discharge medications or supplements. d. Any progressive weight gain especially more than 5 pounds of weight gain prior to your scheduled appointment with your regular provider. e. Any racing heart, dizziness, etc. not associated with the other symptoms as above. f. Any persistent fever equal to or greater than 100.5, which does not respond to recommended doses of Tylenol, ibuprofen, Aleve, or other previously prescribed fever medications - Discharge Plan *PRESCRIPTION DRUG MONITORING PROGRAM REVIEWED*: Not Applicable *COPY OF PRESCRIPTION DRUG MONITORING REPORT IN PATIENT CRISTO: Not Applicable Home Medications: Home Meds Bumetanide [Bumex] 2 mg PO BID@08,14 02/20/19 [History] Cholecalciferol (Vitamin D3) [Vitamin D3] 400 unit PO DAILY 02/20/19 [History] Cyanocobalamin (Vitamin B-12) [Vitamin B-12] 100 mcg PO DAILY 02/20/19 [History] Folic Acid 1 mg PO DAILY 02/20/19 [History] Levothyroxine 150 mcg PO ACBREAKFAST 02/20/19 [History] Omeprazole 40 mg PO BID 02/20/19 [History] Lactulose [Cephulac] 15 ml PO TID 11/10/19 [History] Spironolactone 1 tab PO DAILY 11/10/19 [History] Thiamine [Vitamin B-1] 1 tab PO DAILY 11/10/19 [History] traMADol [Ultram] 1 tab PO Q4HR PRN 11/10/19 [History] Acetaminophen [Tylenol] 650 mg PO Q4H PRN tablet 11/16/19 [Rx] Calcium Carbonate [Tums] 500 mg PO QPM tab.chew 11/16/19 [Rx] Ferrous Sulfate 325 mg PO QPM tablet 11/16/19 [Rx] Magnesium Oxide 800 mg PO QPM tablet 11/16/19 [Rx] Menthol/Methyl Salicylate [Icy Hot] 1 gm TOP TID@08,14,18 tube 11/16/19 [Rx] Oxygen Therapy Mode: Room Air - Discharge Summary/Plan Comment DC Time >30 min.: Yes (Coordination of care ) Discharge Summary/Plan Comment: As above. Extensive precautions were given to the patient, who is in agreement with the treatment plan. See Patient Instructions for further treatment and plan. - General Info Date of Service: 11/16/19 Admission Dx/Problem (Free Text: Admission Diagnosis/Problem Admission Diagnosis/Problem Osteoarthritis Functional Status: Reports: Pain Controlled, Tolerating Diet, Ambulating (With assist), Urinating. Denies: New Symptoms, Incentive Spirometry Numeric/FACES Score: 10 (Intermittent including right shoulder with overall good response to topical therapy) - Review of Systems General: Reports: Weakness (Improving). Denies: Fever, Fatigue, Malaise, Chills , Night Sweats, Appetite (Good) HEENT: Reports: No Symptoms. Denies: Dysphasia, Ear Pain, Eye Pain, Headaches, Post Nasal Drip, Sinus Congestion, Sore Throat, Rhinitis, Visual Changes Pulmonary: Reports: No Symptoms. Denies: Shortness of Breath, Pleuritic Chest Pain, Cough, Sputum, Hemoptysis, Wheezing Cardiovascular: Reports: Edema (Stable dependent). Denies: Chest Pain, Palpitations, Dyspnea on Exertion, Orthopnea, PND, Lightheadedness Gastrointestinal: Reports: No Symptoms, Other (Normal bowel movement yesterday) . Denies: Abdominal Pain, Constipation, Decreased Appetite, Diarrhea, Difficulty Swallowing, Flatus, Hematochezia, Melena, Nausea, Vomiting Genitourinary: Reports: No Symptoms. Denies: Dysuria, Frequency, Burning, Urgency, Hematuria, Retention, Flank Pain Musculoskeletal: Reports: Shoulder Pain (Shoulders bilaterally), Joint Pain ( Kneeright). Denies: Neck Pain, Back Pain, Leg Pain, Joint Swelling Skin: Reports: Bruising (Improving). Denies: Pallor, Diaphoresis Neurological: Reports: Difficulty Walking (Improved), Weakness. Denies: Confusion, Dizziness, Numbness, Paresthesia, Tingling Psychiatric: Reports: No Symptoms. Denies: Agitation, Cravings, Hallucinations - Patient Data Vitals - Most Recent: Last Vital Signs Temp 36.5 C 11/16/19 07:22 Pulse 84 11/16/19 07:22 Resp 20 11/16/19 07:22 BP 114/58 L 11/16/19 07:22 Pulse Ox 94 L 11/16/19 07:22 Vital Signs - 24 hr 11/15/19 11/16/19 19:42 07:22 Temperature [ 36.9 C 36.5 C Temporal] Pulse, 82 84 Peripheral [ Pulse Oximetry] Respiratory 18 20 Rate Blood Pressure 127/57 L [Left Arm] Blood Pressure 114/58 L [Right Upper Arm] O2 Sat by Pulse 96 94 L Oximetry Weight - Most Recent: 105.052 kg I&O - Last 24 hours: Intake & Output 11/15/19 11/16/19 11/16/19 22:59 06:59 14:59 Intake Total 540 120 Balance 540 120 Imaging Impressions - Last 24 hrs: Chest x-ray, PA and lateral, shows evidence of mild calcification of the aortic valve with prominence of the proximal aortic arch without aneurysm. Probable pulmonary obstructive disease with no significant pulmonary infiltrates, pneumothorax, etc. with only borderline probable pulmonary hypertension and/or mild centralized CHF. Possible new 2 cm right lower lobe new pulmonary nodule. Moderate kyphosis, osteoarthritis, and osteoporosis with multiple thoracic vertebral body compression fractures with possible previous vertebroplasty 2 and status post left shoulder arthroplasty. Moderate hiatal hernia. Final report pending. Lab Results - Last 24 hrs: Laboratory Results - last 24 hr 11/16/19 11/16/19 11/16/19 Range/Units 07:14 07:14 07:14 WBC 4.2 (4.0-10.2) K/uL RBC 2.72 L (4.33-5.41) M/uL Hgb 11.6 L (13.1-16.8) g/dL Hct 33.5 L (39.0-49.0) % MCV 123.2 H (84.0-98.0) fL MCH 42.6 H (28.2-33.3) pg MCHC 34.6 (31.7-36.0) g/dL RDW 12.8 (11.2-14.1) % Plt Count 70 L (150-350) K/uL Neut % (Auto) 43.0 L (45.0-80.0) % Lymph % (Auto) 43.8 (10.0-50.0) % [place] % (Auto) 10.9 (2.0-14.0) % Eos % (Auto) 2.1 (0.0-5.0) % Baso % (Auto) 0.2 (0.0-2.0) % Neut # (Auto) 1.81 (1.40-7.00) K/uL Lymph # (Auto) 1.85 (0.50-3.50) K/uL [place] # (Auto) 0.46 (0.00-1.00) K/uL Eos # (Auto) 0.09 (0.00-0.50) K/uL Baso # (Auto) 0.01 (0.00-0.20) K/uL Sodium 140 (136-145) mmol/L Potassium 3.8 (3.5-5.1) mmol/L Chloride 102 (98-107) mmol/L Carbon Dioxide 33.4 H (21.0-32.0) mmol/L BUN 23 H (7-18) mg/dL Creatinine 1.25 H (0.51-1.17) mg/dL Est Cr Clr Drug Dosing 58.63 mL/min Estimated GFR (MDRD) 57 mL/min Glucose 116 H (74-106) mg/dL Calcium 8.8 (8.5-10.1) mg/dL Magnesium 1.8 (1.8-2.4) mg/dL Total Bilirubin 3.0 H (0.2-1.0) mg/dL AST 55 H (15-37) U/L ALT 39 (12-78) U/L Alkaline Phosphatase 133 H (46-116) IU/L Ammonia 64 H (11-32) umol/L Troponin I 0.032 (0.000-0.056) ng/mL NT-Pro-B Natriuret Pep 343 H (0-125) pg/mL Total Protein 6.7 (6.4-8.2) g/dL Albumin 2.1 L (3.4-5.0) g/dL Laboratory Tests 11/11/19 11/11/19 11/11/19 Range/Units 07:30 07:30 07:30 WBC 3.2 L (4.0-10.2) K/uL RBC 2.54 L (4.33-5.41) M/uL Hgb 10.8 L (13.1-16.8) g/dL Hct 31.5 L (39.0-49.0) % MCV 124.0 H D (84.0-98.0) fL MCH 42.5 H (28.2-33.3) pg MCHC 34.3 (31.7-36.0) g/dL RDW 13.3 (11.2-14.1) % Plt Count 64 L (150-350) K/uL Neut % (Auto) 46.7 (45.0-80.0) % Lymph % (Auto) 37.2 (10.0-50.0) % [place] % (Auto) 13.0 (2.0-14.0) % Eos % (Auto) 2.8 (0.0-5.0) % Baso % (Auto) 0.3 (0.0-2.0) % Neut # (Auto) 1.51 (1.40-7.00) K/uL Lymph # (Auto) 1.20 (0.50-3.50) K/uL [place] # (Auto) 0.42 (0.00-1.00) K/uL Eos # (Auto) 0.09 (0.00-0.50) K/uL Baso # (Auto) 0.01 (0.00-0.20) K/uL PT 14.4 H (9.5-12.0) SEC INR 1.5 APTT 30.7 (24.5-32.8) SEC Sodium 139 D (136-145) mmol/L Potassium 3.9 (3.5-5.1) mmol/L Chloride 103 D (98-107) mmol/L Carbon Dioxide 31.4 (21.0-32.0) mmol/L BUN 19 H (7-18) mg/dL Creatinine 1.24 H (0.51-1.17) mg/dL Est Cr Clr Drug Dosing 59.10 mL/min Estimated GFR (MDRD) 57 mL/min Glucose 116 H (74-106) mg/dL Hemoglobin A1c (4.3-5.7) % Uric Acid 6.9 (2.6-7.2) mg/dL Calcium 8.3 L (8.5-10.1) mg/dL Magnesium 1.7 L (1.8-2.4) mg/dL Iron (50-175) ug/dL TIBC (250-450) ug/dL % Saturation Ferritin (8-388) ng/mL Total Bilirubin 2.9 H (0.2-1.0) mg/dL Direct Bilirubin (0.0-0.2) mg/dL Indirect Bilirubin AST 46 H (15-37) U/L ALT 35 (12-78) U/L Alkaline Phosphatase 139 H (46-116) IU/L Ammonia (11-32) umol/L Troponin I 0.038 (0.000-0.056) ng/mL NT-Pro-B Natriuret Pep 241 H (0-125) pg/mL Total Protein 6.3 L (6.4-8.2) g/dL Albumin 1.9 L (3.4-5.0) g/dL Amylase 47 (25-115) U/L Lipase 187 (73-393) U/L Vitamin B12 3199 H (193-986) pg/mL TSH, Ultra Sensitive 8.298 H (0.358-3.740) mIU/mL 11/11/19 11/11/19 11/11/19 Range/Units 07:30 07:30 07:30 WBC (4.0-10.2) K/uL RBC (4.33-5.41) M/uL Hgb (13.1-16.8) g/dL Hct (39.0-49.0) % MCV (84.0-98.0) fL MCH (28.2-33.3) pg MCHC (31.7-36.0) g/dL RDW (11.2-14.1) % Plt Count (150-350) K/uL Neut % (Auto) (45.0-80.0) % Lymph % (Auto) (10.0-50.0) % [place] % (Auto) (2.0-14.0) % Eos % (Auto) (0.0-5.0) % Baso % (Auto) (0.0-2.0) % Neut # (Auto) (1.40-7.00) K/uL Lymph # (Auto) (0.50-3.50) K/uL [place] # (Auto) (0.00-1.00) K/uL Eos # (Auto) (0.00-0.50) K/uL Baso # (Auto) (0.00-0.20) K/uL PT (9.5-12.0) SEC INR APTT (24.5-32.8) SEC Sodium (136-145) mmol/L Potassium (3.5-5.1) mmol/L Chloride (98-107) mmol/L Carbon Dioxide (21.0-32.0) mmol/L BUN (7-18) mg/dL Creatinine (0.51-1.17) mg/dL Est Cr Clr Drug Dosing mL/min Estimated GFR (MDRD) mL/min Glucose (74-106) mg/dL Hemoglobin A1c 4.5 (4.3-5.7) % Uric Acid (2.6-7.2) mg/dL Calcium (8.5-10.1) mg/dL Magnesium (1.8-2.4) mg/dL Iron 141 (50-175) ug/dL TIBC 162 L (250-450) ug/dL % Saturation [id number] Ferritin 845 H (8-388) ng/mL Total Bilirubin (0.2-1.0) mg/dL Direct Bilirubin (0.0-0.2) mg/dL Indirect Bilirubin AST (15-37) U/L ALT (12-78) U/L Alkaline Phosphatase (46-116) IU/L Ammonia 40 H (11-32) umol/L Troponin I (0.000-0.056) ng/mL NT-Pro-B Natriuret Pep (0-125) pg/mL Total Protein (6.4-8.2) g/dL Albumin (3.4-5.0) g/dL Amylase (25-115) U/L Lipase (73-393) U/L Vitamin B12 (193-986) pg/mL TSH, Ultra Sensitive (0.358-3.740) mIU/mL 11/16/19 11/16/19 11/16/19 Range/Units 07:14 07:14 07:14 WBC 4.2 (4.0-10.2) K/uL RBC 2.72 L (4.33-5.41) M/uL Hgb 11.6 L (13.1-16.8) g/dL Hct 33.5 L (39.0-49.0) % MCV 123.2 H (84.0-98.0) fL MCH 42.6 H (28.2-33.3) pg MCHC 34.6 (31.7-36.0) g/dL RDW 12.8 (11.2-14.1) % Plt Count 70 L (150-350) K/uL Neut % (Auto) 43.0 L (45.0-80.0) % Lymph % (Auto) 43.8 (10.0-50.0) % [place] % (Auto) 10.9 (2.0-14.0) % Eos % (Auto) 2.1 (0.0-5.0) % Baso % (Auto) 0.2 (0.0-2.0) % Neut # (Auto) 1.81 (1.40-7.00) K/uL Lymph # (Auto) 1.85 (0.50-3.50) K/uL [place] # (Auto) 0.46 (0.00-1.00) K/uL Eos # (Auto) 0.09 (0.00-0.50) K/uL Baso # (Auto) 0.01 (0.00-0.20) K/uL PT (9.5-12.0) SEC INR APTT (24.5-32.8) SEC Sodium 140 (136-145) mmol/L Potassium 3.8 (3.5-5.1) mmol/L Chloride 102 (98-107) mmol/L Carbon Dioxide 33.4 H (21.0-32.0) mmol/L BUN 23 H (7-18) mg/dL Creatinine 1.25 H (0.51-1.17) mg/dL Est Cr Clr Drug Dosing 58.63 mL/min Estimated GFR (MDRD) 57 mL/min Glucose 116 H (74-106) mg/dL Hemoglobin A1c (4.3-5.7) % Uric Acid (2.6-7.2) mg/dL Calcium 8.8 (8.5-10.1) mg/dL Magnesium 1.8 (1.8-2.4) mg/dL Iron (50-175) ug/dL TIBC (250-450) ug/dL % Saturation Ferritin (8-388) ng/mL Total Bilirubin 3.0 H (0.2-1.0) mg/dL Direct Bilirubin (0.0-0.2) mg/dL Indirect Bilirubin AST 55 H (15-37) U/L ALT 39 (12-78) U/L Alkaline Phosphatase 133 H (46-116) IU/L Ammonia 64 H (11-32) umol/L Troponin I 0.032 (0.000-0.056) ng/mL NT-Pro-B Natriuret Pep 343 H (0-125) pg/mL Total Protein 6.7 (6.4-8.2) g/dL Albumin 2.1 L (3.4-5.0) g/dL Amylase (25-115) U/L Lipase (73-393) U/L Vitamin B12 (193-986) pg/mL TSH, Ultra Sensitive (0.358-3.740) mIU/mL 11/16/19 Range/Units 07:14 WBC (4.0-10.2) K/uL RBC (4.33-5.41) M/uL Hgb (13.1-16.8) g/dL Hct (39.0-49.0) % MCV (84.0-98.0) fL MCH (28.2-33.3) pg MCHC (31.7-36.0) g/dL RDW (11.2-14.1) % Plt Count (150-350) K/uL Neut % (Auto) (45.0-80.0) % Lymph % (Auto) (10.0-50.0) % [place] % (Auto) (2.0-14.0) % Eos % (Auto) (0.0-5.0) % Baso % (Auto) (0.0-2.0) % Neut # (Auto) (1.40-7.00) K/uL Lymph # (Auto) (0.50-3.50) K/uL [place] # (Auto) (0.00-1.00) K/uL Eos # (Auto) (0.00-0.50) K/uL Baso # (Auto) (0.00-0.20) K/uL PT (9.5-12.0) SEC INR APTT (24.5-32.8) SEC Sodium (136-145) mmol/L Potassium (3.5-5.1) mmol/L Chloride (98-107) mmol/L Carbon Dioxide (21.0-32.0) mmol/L BUN (7-18) mg/dL Creatinine (0.51-1.17) mg/dL Est Cr Clr Drug Dosing mL/min Estimated GFR (MDRD) mL/min Glucose (74-106) mg/dL Hemoglobin A1c (4.3-5.7) % Uric Acid (2.6-7.2) mg/dL Calcium (8.5-10.1) mg/dL Magnesium (1.8-2.4) mg/dL Iron (50-175) ug/dL TIBC (250-450) ug/dL % Saturation Ferritin (8-388) ng/mL Total Bilirubin 2.9 H (0.2-1.0) mg/dL Direct Bilirubin 1.5 H (0.0-0.2) mg/dL Indirect Bilirubin 1.4 AST (15-37) U/L ALT (12-78) U/L Alkaline Phosphatase (46-116) IU/L Ammonia (11-32) umol/L Troponin I (0.000-0.056) ng/mL NT-Pro-B Natriuret Pep (0-125) pg/mL Total Protein (6.4-8.2) g/dL Albumin (3.4-5.0) g/dL Amylase (25-115) U/L Lipase (73-393) U/L Vitamin B12 (193-986) pg/mL TSH, Ultra Sensitive (0.358-3.740) mIU/mL EMILIANO Results - Last 24 hrs: None Med Orders - Current: Current Medications Acetaminophen (Tylenol) 650 mg PO Q4H PRN PRN Reason: Pain (Mild 1-3)/fever Last Admin: 11/16/19 00:10 Dose: 650 mg Bumetanide (Bumex) 2 mg PO BID@08,14 [facility] Last Admin: 11/16/19 07:43 Dose: Not Given Calcium Carbonate/Glycine (Tums) 500 mg PO QPM [facility] Last Admin: 11/15/19 17:17 Dose: 500 mg Cholecalciferol (Vitamin D3) 10 mcg PO DAILY [facility] [facility] Last Admin: 11/16/19 07:49 Dose: 10 mcg Cyanocobalamin (Vitamin B12) 100 mcg PO DAILY [facility] Last Admin: 11/16/19 07:49 Dose: 100 mcg Ferrous Sulfate (Ferrous Sulfate) 325 mg PO QPM [facility] Last Admin: 11/15/19 17:17 Dose: 325 mg Folic Acid (Folic Acid) 1 mg PO DAILY [facility] Last Admin: 11/16/19 07:49 Dose: 1 mg Lactulose (Cephulac) 10 gm PO TID [facility] Last Admin: 11/16/19 07:50 Dose: 10 gm Levothyroxine Sodium (Levothyroxine) 150 mcg PO ACBREAKFAST [facility] Last Admin: 11/16/19 07:49 Dose: 150 mcg Magnesium Oxide (Magnesium Oxide) 800 mg PO QPM [facility] Last Admin: 11/15/19 17:15 Dose: 800 mg Methyl Salicylate (Icy Hot Cream) 0 gm TOP TID@08,14,18 [facility] Last Admin: 11/16/19 07:56 Dose: 1 applic Methyl Salicylate (Icy Hot Cream) 0 gm TOP BID PRN PRN Reason: Muscle aches Last Admin: 11/14/19 20:34 Dose: 1 applic Omeprazole (Omeprazole) 40 mg PO BID [facility] Last Admin: 11/16/19 07:49 Dose: 40 mg Spironolactone (Aldactone) 50 mg PO DAILY [facility] Last Admin: 11/16/19 07:43 Dose: Not Given Thiamine HCl (Vitamin B-1) 100 mg PO DAILY [facility] Last Admin: 11/16/19 07:49 Dose: 100 mg Tramadol HCl (Ultram) 50 mg PO Q4HR PRN PRN Reason: Pain (moderate 4-6) Last Admin: 11/13/19 18:04 Dose: 50 mg Discontinued Medications Calcium Carbonate/Glycine (Tums) 500 mg PO DAILY [facility] Last Admin: 11/15/19 07:34 Dose: 500 mg Ferrous Sulfate (Ferrous Sulfate) 325 mg PO DAILY [facility] Last Admin: 11/15/19 07:35 Dose: 325 mg Magnesium Oxide (Magnesium Oxide) 400 mg PO BID [facility] Last Admin: 11/15/19 07:35 Dose: 400 mg - Exam Quality Assessment: Reports: DVT Prophylaxis. Denies: Supplemental Oxygen, Central Line/PICC, Urine Catheter, Skin Breakdown, Restraints General: Reports: Alert, Oriented, Cooperative, No Acute Distress HEENT: Reports: Pupils Equal, Pupils Reactive, EOMI, Mucous Membr. Moist/[place]. Denies: Scleral Icterus Neck: Reports: Supple, Trachea Midline, No JVD, No Thyromegaly, Carotid Bruit ( Mild bilateral carotid bruits versus transmitted heart sounds). Denies: Lymphadenopathy Lungs: Reports: Clear to Auscultation, Normal Respiratory Effort. Denies: Rub Cardiovascular: Reports: Regular Rate, Regular Rhythm, Murmurs (Mild 1/6 MYLENE of the aortic and mitral valves.). Denies: Gallops, Rubs GI/Abdominal Exam: Normal Bowel Sounds, Soft, Non-Tender, No Organomegaly, No Distention, No Abnormal Bruit, No Mass, Other (Obese). No: Guarding (Male) Exam: Deferred Rectal (Males) Exam: Deferred Back Exam: Reports: Full Range of Motion, Other (Moderate kyphosis). Denies: CVA Tenderness (L), CVA Tenderness (R), Muscle Spasm, Paraspinal Tenderness, Vertebral Tenderness Extremities: Normal Capillary Refill, Pedal Edema (Stable mild to moderate lymphedema of the lower extremities), Arm Pain (Shoulders bilaterally), Leg Pain (Right knee), Limited Range of Motion (Diffuse secondary to arthritis). No : Joint Swelling, Mami's Sign, Increased Warmth, Redness Skin: Reports: Ecchymosis (Improving ecchymosis on the arms bilaterally secondary to previous IV sites) Wound/Incisions: Reports: Healing Well (Including skin tears on the arms bilaterally with Addy wraps and dressing in place) Neurological: Reports: No New Focal Deficit Psy/Mental Status: Reports: Alert, Normal Affect, Normal Mood, Depressed (Mild) . Denies: Anxious, Agitated, Hallucinations, Withdrawal Symptoms EKG INTERPRETATION EKG Date: 11/16/19 Time: 07:57 Rhythm: Other (Normal sinus rhythm with occasional PACs) Rate (Beats/Min): 78 [place]: Normal (Left cardiac axis) P-Wave: Present QRS: Normal (0.09 seconds) ST-T: Normal QT: Normal CO/PQ Interval: 0.22 seconds representing a first degree AV block with extreme poor R-wave progression in the anterior leads Comparison: NA - No Prior EKG EKG Interpretation Comments: 1. No acute ischemic changes 2. First-degree AV block 3. PACs
== END 2019-11-16 13:10 | disposition home health service (06) | DRG 554 ==
LOC: UNDOADMIN 13:35 → LL.MS 13:35
PROVIDERS: ADMIT Emergency Medicine; ATTEND Emergency Medicine
DX: M89.49 Other hypertrophic osteoarthropathy, multiple sites (principal); E72.20 Disorder of urea cycle metabolism, unspecified; I13.0 Hypertensive heart and chronic kidney disease with heart failure and stage 1 through stage 4 chronic kidney disease, or unspecified chronic kidney disease; I42.9 Cardiomyopathy, unspecified; R53.1 Weakness; E80.6 Other disorders of bilirubin metabolism; I44.0 Atrioventricular block, first degree; E03.9 Hypothyroidism, unspecified; I49.1 Atrial premature depolarization; E88.09 Other disorders of plasma-protein metabolism, not elsewhere classified; E83.42 Hypomagnesemia; D50.9 Iron deficiency anemia, unspecified; Z96.612 Presence of left artificial shoulder joint; N18.3 Chronic kidney disease, stage 3 (moderate); E83.51 Hypocalcemia; R91.1 Solitary pulmonary nodule; I50.9 Heart failure, unspecified; M81.0 Age-related osteoporosis without current pathological fracture; F41.8 Other specified anxiety disorders; Z79.890 Hormone replacement therapy; Z79.899 Other long term (current) drug therapy; Z87.891 Personal history of nicotine dependence; Z98.41 Cataract extraction status, right eye; Z98.42 Cataract extraction status, left eye; Z90.49 Acquired absence of other specified parts of digestive tract
CPT/HCPCS: 36415; 71046; 80053; 82140; 82150; 82247; 82248; 82607; 82728; 83036; 83540; 83550; 83690; 83735; 83880; 84443; 84484; 84550; 85025; 85610; 85730; 93005; 97110-GO; 97110-GP; 97161-GP; 97165-GO; 97530-GO; 97530-GP; A9270-GY

== ENCOUNTER 2020-01-28 12:25 | Inpatient (IN) | payer MEDICARE, BC ==
[2020-01-30] MEDS: Sodium Chloride 0.9% 10 ML Syringe FLUSH SCH ×2 (17:36→18:18)
[2020-01-30] MEDS: cefTRIAXone 2 GM in Sodium Chloride 0.9% 100 ML IV SCH (17:36)
--- NOTE | 2020-01-30 18:18 | PCM.HP.2 ---
H&P History of Present Illness - General Date of Service: 01/30/20 Admit Problem/Dx: Admission Diagnosis/Problem Admission Diagnosis/Problem Infection of knee Source of Information: Patient, Other ([place] chart) History Limitations: Reports: No Limitations - History of Present Illness Initial Comments - Free Text/Narative: Patient sent for Swing Bed care/PT after developing infection of right knee joint. Also noted to have ETOH history. - Related Data Allergies/Adverse Reactions: Allergies Allergy/AdvReac Type Severity Reaction Status Date / Time No Known Allergies Allergy Verified 01/30/20 14:47 Home Medications: Home Meds RX: Bumetanide [Bumex] 2 mg PO BID@08,14 02/20/19 [History] RX: Cyanocobalamin (Vitamin B-12) [Vitamin B-12] 100 mcg PO DAILY 02/20/19 [History] RX: Folic Acid 1 mg PO DAILY 02/20/19 [History] RX: Levothyroxine 150 mcg PO ACBREAKFAST 02/20/19 [History] RX: Omeprazole 40 mg PO BIDAC 02/20/19 [History] RX: Lactulose [Cephulac] 15 ml PO TID 11/10/19 [History] RX: Spironolactone 1 tab PO DAILY 11/10/19 [History] RX: Thiamine [Vitamin B-1] 1 tab PO DAILY 11/10/19 [History] RX: traMADol [Ultram] 1 tab PO BID PRN 11/10/19 [History] Heparin Sodium [Heparin Lock Flush] 300 unit IVPUSH Q24H 01/30/20 [History] Heparin Sodium [Heparin Lock Flush] 300 units IVPUSH ASDIRECTED PRN 01/30/20 [History] RX: Acetaminophen 1,000 mg PO Q6HR PRN 01/30/20 [History] Sodium Chloride 0.9% [Saline Flush] 10 ml IV ASDIRECTED PRN 01/30/20 [History] Sodium Chloride 0.9% [Saline Flush] 10 ml IV DAILY 01/30/20 [History] cefTRIAXone [Rocephin] 2,000 mg IV DAILY 01/30/20 [History] Past Medical History HEENT History: Reports: Cataract, Hard of Hearing Cardiovascular History: Reports: Arrhythmia, Cardiomyopathy, Heart Failure, Hypertension, Other (See Below). Denies: CT Other Cardiovascular History: Sinus tachycardia. Moderate left atrial enlargement with mild [place] insufficiency and mild to moderate mitral valve insufficiency by echocardiogram. Respiratory History: Reports: Bronchitis, Recurrent, Intubation, Previous. 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 Upper GI bleed in May 2017. Colonic polyps of unknown character in the ascending and transverse colon. Ventral abdominal hernias. Genitourinary History: Reports: Acute Renal Failure, Chronic Renal Insuffiency, Other (See Below) Other Genitourinary History: History of acute care after left shoulder arthroplasty in January 2019. Musculoskeletal History: Reports: Arthritis, Back Pain, Chronic, Fracture, Neck Pain, Chronic, Osteoarthritis, Osteoporosis, Other (See Below) Other Musculoskeletal History: Multiple thoracic vertebral body compression fractures at various times from T7-T10 area; left ankle fracture in 2014 with surgery as below. Bilateral rotator cuff tears with left shoulder surgery as below. 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 Borderline alcohol encephalopathy. History of recurrent falls secondary to alcohol use and his arthritis. Psychiatric History: Reports: Addiction, Anxiety, Depression, Other (See Below) Other Psychiatric History: Alcohol abuse. Endocrine/Metabolic History: Reports: Hypomagnesemia, Hypothyroidism, Obesity/BMI 30+, Osteopenia, Other (See Below). Denies: Diabetes, Gestational, Diabetes, Type I, Diabetes, Type II, Diabetes Mellitus, Type 3c Other Endocrine/Metabolic History: Hyperglycemia. Hematologic History: Reports: Anemia, B12 Deficiency, Blood Transfusion(s), Folic Acid, Iron Deficiency, Other (See Below) Other Hematologic History: Macrocytic anemia and thrombocytopenia. Immunologic History: Reports: Immunosuppression, Other (See Below) Other Immunologic History: Alcohol abuse - Infectious Disease History Infectious Disease History: Reports: Mumps. Denies: C-Difficile, Chicken Pox, Measles, Meningitis, Mononucleosis, MRSA, Novel Coronavirus, Pertussis (Whooping Cough), Rheumatic Fever, Rubella, Scarlet Fever, Shingles, TB, VRE - Past Surgical History Head Surgeries/Procedures: Reports: None HEENT Surgical History: Reports: Cataract Surgery, Laser Surgery, Oral Surgery, Other (See Below) Other HEENT Surgeries/Procedures: Bilateral cataract surgery. Apparent laser treatment of posterior capsule subsequent to this surgery. Multiple teeth extractions. Cardiovascular Surgical History: Reports: None Respiratory Surgical History: Reports: None GI Surgical History: Reports: Appendectomy, Cholecystectomy, Colonoscopy, EGD, Polypectomy, Other (See Below) Other GI Surgeries/Procedures: Cholecystectomy per [place] records. Appendectomy in 1963. EGD on 07/26/17, 06/07/17, and 04/03/14. Colonoscopy on 04/03/14 with polypectomy 2 as above. Neurological Surgical History: Reports: None Musculoskeletal Surgical History: Reports: ORIF, Other (See Below) Other Musculoskeletal Surgeries/Procedures:: Left ankle ORIF on 09/23/14. Left shoulder arthroplasty on 02/07/19. Oncologic Surgical History: Reports: None Dermatological Surgical History: Reports: None, Skin Biopsy - Past Imaging History Past Imaging History: Reports: Cardiac Echo (Last on 11/09/19 with ejection fraction of 60% with previous evaluations on 03/31/14, 12/09/13, and 07/27/13.), CAT Scan (CT of the lumbar spine on 11/07/19 and 10/19/19. CT of the left shoulder on 01/09/19. Head CT on 12/01/13. CT of the thoracic spine and CT of the abdomen and pelvis with stone protocol on 04/27/17.), DEXA Scan (05/17/17.), MRI (Thoracic spine on 10/06/17, 07/11/17, and 04/30/17.), PFT (07/31/13.), Ultrasound (Abdominal on 06/06/17.), Venous Doppler (Right leg venous Doppler study on 11/26/14.) - History Comment History Comment: Patient is a poor historian with majority of history from medical records as above. Social & Family History - Family History Family Medical History: Noncontributory - Tobacco Use Smoking Status *Q: Unknown Ever Smoked - Caffeine Use Caffeine Use: Reports: Soda (Occasional). Denies: Coffee - Alcohol Use Alcohol Use History: Yes Alcohol Use in Last Twelve Months: Yes Alcohol Use Frequency: Daily - Recreational Drug Use Recreational Drug Use: No Drug Use in Last 12 Months: No H&P Review of Systems - Review of Systems: Review Of Systems: See Below General: Reports: Fatigue HEENT: Reports: No Symptoms (no acute changes) Pulmonary: Reports: No Symptoms Cardiovascular: Reports: No Symptoms Gastrointestinal: Reports: No Symptoms Genitourinary: Reports: No Symptoms Musculoskeletal: Reports: Neck Pain (chronic), Back Pain (chronic), Leg Pain (r ight knee infection). Denies: Other (lower leg edema) Skin: Reports: Other (no acute changes) Psychiatric: Reports: No Symptoms Neurological: Reports: No Symptoms Hematologic/Lymphatic: Reports: No Symptoms Exam - Exam Exam: See Below - Vital Signs Vital Signs: Last Vital Signs Temp Pulse Resp BP Pulse Ox 97 01/30/20 17:16 - Exam General: Alert, Oriented, Cooperative HEENT: Conjunctiva Clear, EACs Clear, EOMI, Hearing Intact, Mucosa Moist & [place], Nares Patent, Pupils Equal, Pupils Reactive Neck: Supple, Trachea Midline Lungs: Clear to Auscultation, Normal Respiratory Effort Cardiovascular: Regular Rate, Regular Rhythm GI/Abdominal Exam: Soft, Non-Tender, No Distention (Male) Exam: Deferred Rectal (Males) Exam: Deferred Back Exam: No: CVA Tenderness (L), CVA Tenderness (R), Muscle Spasm Extremities: Normal Capillary Refill, Other (significant lower leg edema left leg. Right leg has compression monae wrap in place. Mild edema noted. ) Skin: Warm, Dry Psychiatric: Alert, Normal Affect, Normal Mood Sepsis Event Note - Focused Exam Vital Signs: Vital Signs Pulse Ox 01/30/20 17:16 97 - Problem List (1) Right knee skin infection SNOMED Code(s): 740595863, [id number] ICD Code: L08.9 - LOCAL INFECTION OF THE SKIN AND SUBCUTANEOUS TISSUE, UNSP Status: Acute Priority: High Current Visit: Yes Problem Details: Recent inpatient treatment for joint infection of right knee. Receiving IV antibiotics and to start PT/OT. Transfer from [place]. (2) Chronic back pain SNOMED Code(s): 698163494 ICD Code: M54.9 - DORSALGIA, UNSPECIFIED; G89.29 - OTHER CHRONIC PAIN Status: Chronic Priority: Low Current Visit: Yes Problem Details: Stable per history Qualifiers: Back pain location: back pain in unspecified location Back pain laterality: unspecified Qualified Code(s): M54.9 - Dorsalgia, unspecified; G89.29 - Other chronic pain (3) Chronic neck pain SNOMED Code(s): 2417969995247 ICD Code: M54.2 - CERVICALGIA; G89.29 - OTHER CHRONIC PAIN Status: Chronic Priority: Low Current Visit: Yes Problem Details: Stable per history (4) Alcohol dependence SNOMED Code(s): 19025045 ICD Code: F10.20 - ALCOHOL DEPENDENCE, UNCOMPLICATED Status: Chronic Priority: Low Current Visit: Yes Problem Details: No recent DTs/detoxed while at [place] (5) Alcoholic hepatitis SNOMED Code(s): 485737859 ICD Code: K70.10 - ALCOHOLIC HEPATITIS WITHOUT ASCITES Status: Chronic Priority: Low Current Visit: Yes Problem Details: stable per history (6) Anemia SNOMED Code(s): 880438819 ICD Code: D64.9 - ANEMIA, UNSPECIFIED Status: Chronic Current Visit: No (7) Chronic diastolic (congestive) heart failure SNOMED Code(s): 412309598, 570860730 ICD Code: I50.32 - CHRONIC DIASTOLIC (CONGESTIVE) HEART FAILURE Status: Chronic Current Visit: No (8) Chronic kidney disease, stage 3 (moderate) SNOMED Code(s): 693953330 ICD Code: N18.3 - CHRONIC KIDNEY DISEASE, STAGE 3 (MODERATE) Status: Chronic Priority: Medium Current Visit: No Problem Details: Stable during his swing bed care. (9) Cirrhosis of liver SNOMED Code(s): 85438391 ICD Code: K74.60 - UNSPECIFIED CIRRHOSIS OF LIVER Status: Chronic Priority: Low Current Visit: Yes Problem Details: stable per history Qualifiers: Hepatic cirrhosis type: alcoholic cirrhosis (10) Hypertension SNOMED Code(s): 67050866 ICD Code: I10 - ESSENTIAL (PRIMARY) HYPERTENSION Status: Chronic Priority: Low Current Visit: No Problem Details: observe trends Qualifiers: Hypertension type: essential hypertension Qualified Code(s): I10 - Essential (primary) hypertension (11) Hypothyroid SNOMED Code(s): 90712939 ICD Code: E03.9 - HYPOTHYROIDISM, UNSPECIFIED Status: Chronic Priority: Low Current Visit: No Problem Details: stable per history Qualifiers: Hypothyroidism type: unspecified Qualified Code(s): E03.9 - Hypothyroidism, unspecified (12) Mixed anxiety depressive disorder SNOMED Code(s): 055083701 ICD Code: F41.8 - OTHER SPECIFIED ANXIETY DISORDERS Status: Chronic Priority: Medium Current Visit: No Problem Details: Stable by history. Note history of alcohol abuse with persistent alcohol use up to time of recent hospitalization (13) Osteoarthritis SNOMED Code(s): 425388730 ICD Code: M19.90 - UNSPECIFIED OSTEOARTHRITIS, UNSPECIFIED SITE Status: Chronic Priority: High Current Visit: No Problem Details: Overall poor control. No acute changes Qualifiers: Osteoarthritis location: multiple joints Osteoarthritis type: primary Qualified Code(s): M89.49 - Other hypertrophic osteoarthropathy, multiple sites (14) Peptic reflux disease SNOMED Code(s): 577436765 ICD Code: K21.9 - GASTRO-ESOPHAGEAL REFLUX DISEASE WITHOUT ESOPHAGITIS Status: Chronic Priority: Medium Current Visit: No Problem Details: History of gastric varices secondary to his alcohol abuse. (15) Recurrent falls SNOMED Code(s): 595587780 ICD Code: R29.6 - REPEATED FALLS Status: Chronic Priority: Low Current Visit: No Problem List Initiated/Reviewed/Updated: Yes Orders Last 24hrs: Active Orders 24 hr Category Date Time Status Patient Status [ADT] Routine ADT 01/30/20 17:14 Active Antiembolic Devices [RC] PER UNIT ROUTINE Care 01/30/20 17:16 Active Communication Order [RC] Mo@08 Care 01/30/20 10:16 Active Communication Order [RC] Mo@08 Care 01/30/20 10:21 Active Height and Weight [RC] UPON Care 01/30/20 17:14 Active May Shower [RC] ASDIRECTED Care 01/30/20 17:14 Active Oxygen Therapy [RC] PRN Care 01/30/20 17:16 Active Pulse Oximetry [RC] PRN Care 01/30/20 17:16 Active Up With Assistance [RC] ASDIRECTED Care 01/30/20 17:14 Active Vital Signs [RC] Q8HR Care 01/30/20 17:14 Active ALANINE AMINOTRANSFERASE,ALT [CHEM] WEEKLY Lab 02/04/20 05:11 Ordered ALANINE AMINOTRANSFERASE,ALT [CHEM] WEEKLY Lab 02/11/20 05:11 Ordered ALANINE AMINOTRANSFERASE,ALT [CHEM] WEEKLY Lab 02/18/20 05:11 Ordered CBC WITH AUTO DIFF [HEME] WEEKLY Lab 02/04/20 05:11 Ordered CBC WITH AUTO DIFF [HEME] WEEKLY Lab 02/11/20 05:11 Ordered CBC WITH AUTO DIFF [HEME] WEEKLY Lab 02/18/20 05:11 Ordered CREATININE W/GFR [CHEM] WEEKLY Lab 02/04/20 05:11 Ordered CREATININE W/GFR [CHEM] WEEKLY Lab 02/11/20 05:11 Ordered CREATININE W/GFR [CHEM] WEEKLY Lab 02/18/20 05:11 Ordered Sodium Chloride 0.9% [Saline Flush] Med 01/30/20 17:00 Active 10 ml FLUSH ASDIRECTED cefTRIAXone [Rocephin] 2 gm Med 01/30/20 16:15 Active Sodium Chloride 0.9% [Normal Saline] 100 ml IV Q24H Sequential Compression Device [OM.PC] Routine Oth 01/30/20 17:14 Ordered Medication Orders Ceftriaxone Sodium 2 gm/ (Sodium Chloride) 100 mls @ 200 mls/hr IV Q24H [facility] Last Admin: 01/30/20 17:36 Dose: 200 mls/hr Documented by: [id number] Sodium Chloride (Saline Flush) 10 ml FLUSH ASDIRECTED [facility] Last Admin: 01/30/20 17:36 Dose: 10 ml Documented by: [id number] Assessment/Plan Comment:: As above. Continue IV antibiotics as directed by Gilberto. PT/OT consult. - Mortality Measure Prognosis:: Good
[2020-01-30] MEDS: Omeprazole 20 MG Cap.CR PO SCH (19:43)
[2020-01-30] MEDS: Acetaminophen 500 MG Tab PO PRN (19:43)
[2020-01-30] MEDS: Lactulose Soln 10 GM/15 ML 30 ML UD Cup PO SCH (19:43)
[2020-01-30] MEDS ORDERED: LORazepam 0.5 MG Tab PO PRN (22:19)
[2020-01-31] MEDS: traMADol 50 MG Tab PO PRN ×2 (01:28→08:22)
[2020-01-31] MEDS ORDERED: cefTRIAXone 2 GM Vial IV SCH (08:00)
[2020-01-31] MEDS: Cyanocobalamin (Vitamin B12) 100 MCG Tab PO SCH (08:21)
[2020-01-31] MEDS: Thiamine 100 MG Tab PO SCH (08:21)
[2020-01-31] MEDS: Spironolactone 25 MG Tab PO SCH (08:21)
[2020-01-31] MEDS: Bumetanide 1 MG Tab PO SCH ×2 (08:21→14:55)
[2020-01-31] MEDS: Omeprazole 20 MG Cap.CR PO SCH ×2 (08:21→18:10)
[2020-01-31] MEDS: Folic Acid 1 MG Tab PO SCH (08:21)
[2020-01-31] MEDS: Acetaminophen 500 MG Tab PO PRN ×3 (08:23→21:24)
[2020-01-31] MEDS: Lactulose Soln 10 GM/15 ML 30 ML UD Cup PO SCH ×3 (08:24→18:03)
[2020-01-31] MEDS: Sodium Chloride 0.9% 10 ML Syringe IV SCH (08:25)
[2020-01-31] MEDS: Levothyroxine 150 MCG Tab PO SCH (08:26)
[2020-01-31] MEDS: cefTRIAXone 2 GM in Sodium Chloride 0.9% 100 ML IV SCH (16:17)
[2020-01-31] MEDS: Sodium Chloride 0.9% 10 ML Syringe FLUSH SCH (16:17)
[2020-01-31] MEDS: Temazepam 15 MG Cap PO PRN (21:24)
[2020-02-01] MEDS: Levothyroxine 150 MCG Tab PO SCH (07:14)
[2020-02-01] MEDS: Omeprazole 20 MG Cap.CR PO SCH ×2 (07:15→17:06)
[2020-02-01] MEDS: Spironolactone 25 MG Tab PO SCH (07:15)
[2020-02-01] MEDS: Bumetanide 1 MG Tab PO SCH ×2 (07:16→13:08)
[2020-02-01] MEDS: Folic Acid 1 MG Tab PO SCH (07:16)
[2020-02-01] MEDS: Cyanocobalamin (Vitamin B12) 100 MCG Tab PO SCH (07:16)
[2020-02-01] MEDS: Thiamine 100 MG Tab PO SCH (07:16)
[2020-02-01] MEDS: Lactulose Soln 10 GM/15 ML 30 ML UD Cup PO SCH ×3 (07:17→17:34)
[2020-02-01] MEDS: Sodium Chloride 0.9% 10 ML Syringe FLUSH SCH ×2 (07:18→16:36)
[2020-02-01] MEDS: Sodium Chloride 0.9% 10 ML Syringe IV SCH (07:53)
[2020-02-01] MEDS: traMADol 50 MG Tab PO PRN (07:56)
[2020-02-01] MEDS: Acetaminophen 500 MG Tab PO PRN ×2 (09:55→21:57)
--- OUTSIDE RECORDS SUMMARY | 2020-02-01 16:05 | XMSREPORT ---
:1945 Author Organization s Address [address] [place] [address] Care Team Providers Name Role Phone Baldemar Robles MD Primary Care Provider Baldemar Robles MD Attributed Provider Reason for Referral [facility] (Routine) Status Reason Specialty Diagnoses / Referred By Referred To Procedures Contact Contact New Request Orthopedics Diagnoses Septic arthritis of knee, right (HCC) Hannah Alexandra [facility] [place] [address] [place] [address] [address] Phone: [place], [place] [address] Phone: Fax: Scheduling Instructions This is an electronic referral. [facility] (Routine) Status Reason Specialty Diagnoses / Referred By Referred To Contact Procedures Contact New Request CARDIOLOGY Diagnoses Chronic diastolic heart failure (HCC) Hannah Alexandra [facility] [address] [place] [id number] Phone: Phone: Scheduling Instructions This is an electronic referral. [facility] (Routine) Status Reason Specialty Diagnoses / Referred By Referred To Procedures Contact Contact New Request Infectious Diagnoses Septic arthritis of knee, right (HCC) Dayanara Alexandra Infectious Diseases MD [facility] [place] [address] [place] [address] [place] [address] Phone: Fax: Fax: Scheduling Instructions This is an electronic referral. [facility] (Routine) Status Reason Specialty Diagnoses / Referred By Referred To Contact Procedures Contact New Request Nephrology Diagnoses MALACHI (acute kidney injury) ([facility]) Hannah Alexandra [facility]go Nephrology [facility] [address] [place] [address] [place] [address] Phone: Fax: Scheduling Instructions This is an electronic referral. Reason for Visit Reason Comments Knee Pain patient comes in via ambulan ce for right knee pain. pt reports chronic knee pain which worsened beginnin g last night. says he "may have twisted it in the bathroom last night". no rmally wears a brace on that knee. 100mcg intranasal fentanyl given en route by EMS Auth/Cert Status Reason Specialty Diagnoses / Procedures Referred By C ontact Referred To Contact Encounter Details Date Type Department Care Team Description 01/18/2020 - Hospital Encounter [facility] ncy Department [address] [place] [address] [phone] Septic arthritis of 01/30/2020 [facility] MED SURG Jean Austin MD [address] [place] [address] [phone] knee, right ([facility]) [facility] Franklin W, DO [address] [place] [address] [phone] [place] [address] Brady Jansen MD [address] [place] [address] [phone] Rosemarie Hastings MD [address] [place] [address] [phone] [place] [address] Cesar Stanley MD [address] [place] [address] [phone] Clemente Stacy MD [address] [place] [address] [phone] Hannah Alexandra MD [address] [place], [place] [id number] Allergies No Known Allergiesdocumented as of this encounter (statuses as of 01/30/2020) Medications Medication Sig Dispensed Refills Start End Status Date Date sodium chloride Administer 10 mL intravenous ly As often as necessary for other (Specify) (Flush infusion line before each antibiotic infusion and after each infusion completed) Flush infusion line before each antibiotic infusion and after each infusion completed. 0 01/20/20 Active 0.9% prefilled 10 Flush line with heparin 300 units/ 3 mL after the last saline flush 20 mL syringe 0.9% SOLNIndications: Septic arthritis of knee, right (HCC) hEParin 100 Administer 3 mL 0 01/20/20 Ac tive units/mL injection (300 Units) 20 solutionIndications intravenously As : Septic arthritis often as of knee, right necessary for (HCC) other (Specify) (heparin 300 units/3 mL IV FLUSH after completion of each antibiotic infusion (after saline flush)) heparin 300 units/3 mL IV FLUSH after completion of each antibiotic infusion (after saline flush) cefTRIAXone Administer 2,000 0 01/20/20 A ctive (ROCEPHIN) 2,000 mg mg intravenously 20 020 in sodium chloride Every 24 hours 0.9% 50 for 26 days mLIndications: Septic arthritis of knee, right (HCC) Thiamine HCl Take 1 tablet 0 01/30/20 Act [place] (THIAMINE, VITAMIN (100 mg) by mouth 20 B-1,) 100 mg 1 time per day tabletIndications: Alcohol abuse omeprazole TAKE 1 CAPSULE 2 60 capsule 1 01/30/20 A ctive (PRILOSEC) 40 mg TIMES DAILY 20 capsuleIndications: BEFORE MEALS- Gastroesophageal gerd reflux disease, esophagitis presence not specified levothyroxine 150 Take 1 tablet 90 tablet 3 01/30/20 Active mcg (150 mcg) by 20 tabletIndications: mouth 1 time per Acquired day hypothyroidism Hypothyroidism lactulose 10 Take 15 mL by 1892 mL 4 01/30/20 Act [place] GM/15ML oral mouth 3 times a 20 solutionIndications day : Hyperammonemia (HCC), Alcoholic cirrhosis, unspecified whether ascites present (HCC) folic acid 1 mg Take 1 tablet (1 90 tablet 3 01/30/20 Active tabletIndications: mg) by mouth 1 20 History of alcohol time per day abuse cyanocobalamin, Take 1 tablet 90 tablet 4 01/30/20 Active vitamin B-12, 100 (100 mcg) by 20 mcg mouth 1 time per tabletIndications: day Anemia, unspecified type bumetanide (BUMEX) Take 2 tablets (2 180 tablet 0 01/30/20 Active 1 mg mg) by mouth 2 20 tabletIndications: times a day Chronic diastolic heart failure (HCC) spironolactone Take 1 tablet (50 90 tablet 0 01/30/20 Active (ALDACTONE) 50 mg mg) by mouth 1 20 tabletIndications: time per day Chronic diastolic heart failure (HCC) acetaminophen Take 2 tablets 0 01/30/20 A ctive (TYLENOL) 500 mg (1,000 mg) by 20 tablet mouth every 6 hours as needed for mild pain or moderate pain traMADol (ULTRAM) Take 1 tablet (50 10 tablet 0 01/30/20 Active 50 mg mg) by mouth 2 20 tabletIndications: times a day as Primary needed for severe osteoarthritis of pain right knee, Primary osteoarthritis of left shoulder cyanocobalamin, Take 1 tablet 90 tablet 4 05/19/20 Discontinued vitamin B-12, 100 (100 mcg total) 16 020 (Reorder) mcg by mouth 1 time tabletIndications: per day Anemia, unspecified type vitamin D3, Take 400 Units by 0 Discontinued cholecalciferol, mouth 1 time per 020 (Stop Taking at 400 units tablet day Dis charge) calcium 600 MG TABS Take 600 mg by 0 01/29 Discontinued tablet mouth 1 time per 020 (St op Taking at day Discharge) folic acid 1 mg [The details of 90 tablet 3 04/09/20 Discontinued tabletIndications: the medication (Reorder) History of alcohol are not available abuse because there are pending changes by a home health clinician.] levothyroxine 150 Take 1 tablet 90 tablet 3 04/09/20 Discontinued mcg (150 mcg total) (Reo rder) tabletIndications: by mouth 1 time Acquired per day hypothyroidism bumetanide (BUMEX) Take 1 tablet (1 180 tablet 0 11/10/1905/21 Discontinued 1 mg mg) by mouth 2 (Reor tita) tabletIndications: times a day Chronic diastolic heart failure (HCC) Thiamine HCl Take 1 tablet 0 11/10/19 Dis continued (THIAMINE, VITAMIN (100 mg) by mouth (Reorder) B-1,) 100 mg 1 time per day tabletIndications: Alcohol abuse acetaminophen Take 650 mg by 0 D iscontinued (TYLENOL) 325 mg mouth every 4 to 020 (Stop Taking at tablet 6 hours as needed Di rabia) ferrous fumarate Take 325 mg by 0 Discontinued 325 (106 Fe) MG mouth 1 time per 020 (Stop Taking at TABS day Discharge) magnesium oxide Take 800 mg by 0 Discontinued (MAG-OX 400) 400 mg mouth 1 time per 020 (Stop Taking at tablet day Discharge) Menthol-Methyl Apply topically 0 Discontinued Salicylate (PAIN 020 (St op Taking at RELIEVING RUB) Disch arge) 10-15 % CREA traMADol (ULTRAM) Take 1 tablet (50 60 tablet 0 11/30/1901/18/2 Discontinued 50 mg mg) by mouth 3 (Reor tita) tabletIndications: times a day as Primary needed for severe osteoarthritis of pain right knee, Primary osteoarthritis of left shoulder omeprazole TAKE 1 CAPSULE 2 60 capsule 1 11/30/19 D iscontinued (PRILOSEC) 40 mg TIMES DAILY ( Reorder) capsuleIndications: BEFORE MEALS Gastroesophageal reflux disease, esophagitis presence not specified lactulose 10 Take 15 mL by 1892 mL 4 12/05/19 Dis continued GM/15ML oral mouth 3 times a 020 ( Reorder) solutionIndications day : Hyperammonemia (HCC), Alcoholic cirrhosis, unspecified whether ascites present (HCC) spironolactone Take 1 tablet (50 90 tablet 0 12/28/19 Discontinued (ALDACTONE) 50 mg mg) by mouth 1 020 (Reorder) tabletIndications: time per day Chronic diastolic heart failure (HCC) documented as of this encounter (statuses as of 01/30/2020) Active Problems Problem Noted Date Septic arthritis 01/19/2020 Septic arthritis of knee, right 01/18/2020 Hyperammonemia 11/08/2019 Repeated falls 11/08/2019 Knee pain, right 11/08/2019 H/O alcohol abuse 11/08/2019 Frequent falls 11/08/2019 Status post reverse total shoulder replacement, left 0 03/06/2019 Acquired valgus deformity knee, right 03/06/2019 Primary osteoarthritis of right knee 03/06/2019 Obesity, morbid, BMI 40.0-49.9 02/07/2019 Thrombocytopenia 02/07/2019 H/O compression fracture of spine 10/31/2017 Overview: Hx of chronic compression fracture to T8 10/19/2017 s/p vertebroplasty to T [address] Mckinney Primary osteoarthritis of left shoulder 09/07/2017 IFG (impaired fasting glucose) 08/24/2017 Osteopenia 06/22/2017 Overview: Declined treatment - 06/2017 Treatment options complicated by recent GI bleed GI bleed 06/08/2017 Closed compression fracture of thoracic vertebra 04/30 Gastric varices 05/06/2014 Chronic diastolic heart failure 04/11/2014 Anemia 01/17/2014 Cirrhosis of liver 01/09/2014 Alcohol abuse 12/12/2013 Acquired hypothyroidism Low back pain documented as of this encounter (statuses as of 01/30/2020) Resolved Problems Problem Noted Date Resolved Date Obesity (BMI 30-39.9) 08/23/2017 02/07/2019 Acute mid back pain 04/30/2017 06/22/2017 Pneumonia 03/31/2014 02/13/2015 Ascites 01/17/2014 05/19/2016 Encephalopathy acute 12/04/2013 02/13/2015 Asthma 09/03/2013 02/13/2015 Effusion of lower leg joint 07/27/2011 02/13/2015 documented as of this encounter (statuses as of 01/30/2020) Immunizations Name Administration Dates Next Due FLU VACCINE HIGH DOSE 65YR+(Fluzone) 03/31/2014, 03/31/2014 Pneumococcal Conj PCV13 08/06/2015 Pneumococcal Polysaccharide PPSV23 05/10/2017 TDAP 11/25/2009 Zoster Live(Zostavax) 06/22/2017 documented as of this encounter Social History Tobacco Use Types Packs/Day Years Used Date Former Smoker Quit: 06/20/18 71 Smokeless Tobacco: Never Used Comments: Never bought a pack of cigaret kristian Alcohol Use Drinks/Week oz/Week Comments Yes 6 Cans of beer 6.0 6 per week Alcohol Habits Answer Date Recorded How often do you have a drink containing 4 or more times a w tribal 01/18/2020 alcohol? How many drinks containing alcohol do you have 3 or 4 01/18/2020 on a typical day when you are drinking? How often do you have six or more drinks on one Not asked occasion? Sexually Active Control Partners Comments Yes Female Sex Assigned at Date Recorded Not on file Job Start Date Occupation Industry Not on file Not on file Not on file Travel History Travel Start Travel End No recent travel history available. documented as of this encounter Last Filed Vital Signs Vital Sign Reading Time Taken Comments Blood Pressure 118/48 01/30/2020 11:40 AM CDT Pulse 95 01/30/2020 11:40 AM CDT Temperature 36.6 C (97.8 F) 01/30/2020 11:40 AM CDT Respiratory Rate 16 01/30/2020 11:40 AM CDT Oxygen Saturation 96% 01/30/2020 11:40 AM CDT Inhaled Oxygen Concentration - - Weight 97.5 kg (215 lb) 01/18/2020 10:47 AM CDT Height 182.9 cm (6') 01/18/2020 10:47 AM CDT Body Mass Index 29.16 01/18/2020 10:47 AM CDT documented in this encounter Functional Status Functional Status Response Date of Assessment Is the person deaf or does he/she have serious difficulty No 01/18/2020 hearing? Is this person blind or does he/she have difficulty No 01/18/2020 seeing even when wearing glasses? Do you have difficulty with walking, balance, climbing Yes 01/18/2020 stairs, or had a fall in the last 3 months? Does the patient have difficulty dressing or bathing? Yes 01/18/2020 Because of a physical, mental, or emotional condition; Yes 01/18/2020 does this person have difficulty doing errands alone such as visiting a doctor's office or shopping? Cognitive Status Response Date of Assessment Because of a physical, mental, or emotional condition; Yes 01/18/2020 does this person have serious difficulty concentrating, remembering, or making decisions? documented as of this encounter Discharge Summaries Not on filedocumented in this encounter Discharge Instructions Jazmyne Bejarano RN - 01/19/2020 My [place] Nurse: or Discharge Instructions for Heart Failure The heart is a muscle that pumps oxygen-rich blood to all parts of the body. When you have heart failure, the heart is not able to pump as well as it should. Blood and fluid may back up into the lungs (congestive heart failure). Some parts of the body dont get enough oxygen-rich blood to work normally. These problems lead to the symptoms of heart failure. Heart failure can occur due to an injury to the heart or from natural processes.You can control symptoms of heart failure with some lifestylechanges and by following your doctor's advice. Activity Ask your healthcare provider about an exercise program. You can benefit from simple activities such as walking or gardening. Exercising most days of the week can make you feel better. Don't be discouraged if your progress is slow at first. Rest as needed. Stop activity if you get symptoms such as chest pain, lightheadedness, or significant shortness of breath. Find activities that you enjoy, such as brisk walking, dancing, swimming, or gardening. These will help you stay active and strengthen your heart. Ask your healthcare provider about cardiac rehab. This is a program that helps you to exercise safely. Diet Follow a heart healthy diet. And make sure to limit the salt (sodium) in your diet. Salt causes yourbody to hold water. This makes your heart work harder as there is more fluid for the heart to pump. Limit your salt as directed by your healthcare provider by doing the following : Limit canned, dried, packaged, and fast foods. Don't add salt to your food. Season foods with herbs instead of salt. Watch how much liquids you drink. Drinking too much can make heart failure worse. Talk with your healthcare provider about how much you should drink each day. Limit the amount of alcohol you drink. It may harm your heart. Women should have no more than 1 drink a day. Men should have no more than 2 a day. When you eat out, ask that your meals have no added salt. Tobacco If you smoke, it's newsome to quit. Smoking increases your chances of having a heart attack by harming the blood vessels that provide oxygen to your heart. This makes heart failure worse. Quitting smoking is the number one thing you can do to improve your health. Enroll in a stop-smoking program to improve your chances of success. Talk with your healthcare providerabout medicines or nicotine replacement therapy. Ask your healthcare provider about smoking cessation support groups. Medicine Take your medicines exactly as prescribed. Learn the names and purpose of each of your medicines. Keep an accurate medicine list and current dosages with you at all times. Don't skip doses. If you hipolito dose of your medicine, take it as soon as you remember. If you miss a dose andit's almost time for your next dose, just wait and take your next dose at the normal time. Don't take a double dose. Ifyou are unsure, call your doctor's office. Make sure not to mix up your medicines or forget what you've taken the same day. Refill your prescriptions before you run out of medicine. Talk with your healthcare provider if you have trouble with the cost of your medicines. Weight monitoring Weigh yourself every day. A sudden weight gain can mean your heart failure is getting worse. Weigh yourself at the same time of day and in the same kind of clothes. Ideally, weigh yourself first thing in the morning after you empty your bladder, but before you eat breakfast. Your healthcare provider will show you how to track your weight. He or she will also tell you when you should call if you have a sudden, unexpected increase in your weight. In general, your healthcare provider may ask you to report if your weight goes up by more than 2 pounds (0.9 kg) in 1 day,5 pounds (2.27 kg) in 1 week, or whatever weight gain you were told by your doctor. This is a sign that you are retaining more fluid than you should be. Clues to weight gain include checking your ankles for swelling, or noticing you are short of breath when you lie down. Follow-up care Have follow-up appointment. Depending on the type and severity of heart failure you have, you may need follow-up as early as 7 days from hospital discharge. Keep appointments for checkups and lab teststhat are needed to check your medicines and condition. Recognize that your health and even survival depend on you following your medical recommendations. Symptoms Heart failure can cause a variety of symptoms, including: Shortness of breath Trouble breathing at night, especially when you lie down Swelling in the legs and feet or in the belly (abdomen) Becoming easily tired Irregular or rapid heartbeat Weakness or lightheadedness Swelling of the neck veins It's important to know what to do if symptoms get worse or if you develop signs of worsening heart failure. Keep track of how you feel each day. Report any changes to your healthcare provider. When to call your healthcare provider Call your healthcare provider right away if you have any of these signs of worsening heart failure: Sudden weight gain (more than 2 pounds in 1 day or 5pounds in 1 week, or whatever weight gain you were told to report by your doctor) Trouble breathing not related to being active New or increased swelling of your legs or ankles Swelling or pain in your abdomen Breathing trouble at night (waking up short of breath, needing more pillows to breathe) Frequent coughing that doesn't go away Feeling much more tired than usual Call 911 right away if you have: Severe shortness of breath, such that you can't catch your breath even whileresting Severe chest pain that does not resolve with rest or nitroglycerin [place], foamy mucus with cough and shortness of breath An ongoing rapid or irregular heartbeat Passing out or fainting Stroke symptoms such as sudden numbness or weakness on one side of your face, arm, or leg or sudden confusion, trouble speaking or vision changes [employer] last reviewed this educational content on 09/18/201819993272-1633 [employer]. [address] [place] [address], [place] [address]. All rights reserved. This information is not intended as a substitute for professional medical care. Always follow your healthcare professional's instructions. documented in this encounter Medications at Time of Discharge Medication Sig Dispensed Refills Start Date End Date Thiamine HCl (THIAMINE, Take 1 tablet (100 0 01/18 VITAMIN B-1,) 100 mg mg) by mouth 1 time tabletIndications: per day Alcohol abuse omeprazole (PRILOSEC) TAKE 1 CAPSULE 2 60 capsule 1 08/12/20 20 40 mg TIMES DAILY BEFORE capsuleIndications: MEALS- gerd Gastroesophageal reflux disease, esophagitis presence not specified levothyroxine 150 mcg Take 1 tablet (150 90 tablet 3 2019 tabletIndications: mcg) by mouth 1 time Acquired hypothyroidism per day Hypothyroidism lactulose 10 GM/15ML Take 15 mL by mouth 3 1892 mL 4 01/18 oral times a day solutionIndications: Hyperammonemia (HCC), Alcoholic cirrhosis, unspecified whether ascites present ([facility]) folic acid 1 mg Take 1 tablet (1 mg) 90 tablet 3 01/30/2020 tabletIndications: by mouth 1 time per History of alcohol day abuse cyanocobalamin, vitamin Take 1 tablet (100 90 tablet 4 01/18 B-12, 100 mcg mcg) by mouth 1 time tabletIndications: per day Anemia, unspecified type bumetanide (BUMEX) 1 mg Take 2 tablets (2 mg) 180 tablet 0 0 01/30/2020 tabletIndications: by mouth 2 times a Chronic diastolic heart day failure ([facility]) spironolactone Take 1 tablet (50 mg) 90 tablet 0 01/30/2020 (ALDACTONE) 50 mg by mouth 1 time per tabletIndications: day Chronic diastolic heart failure ([facility]) acetaminophen (TYLENOL) Take 2 tablets (1,000 0 0 01/30/2020 500 mg tablet mg) by mouth every 6 hours as needed for mild pain or moderate pain traMADol (ULTRAM) 50 mg Take 1 tablet (50 mg) 10 tablet 0 0 01/30/2020 tabletIndications: by mouth 2 times a Primary osteoarthritis day as needed for of right knee, Primary severe pain osteoarthritis of left shoulder sodium chloride 0.9% Administer 10 mL intravenous ly As often as necessary for other (Specify) (Flush infusion line before each antibiotic infusion and after each infusion completed) Flush infusion line before each antibiotic infusion and after each infusion completed. 0 01/20/2020 prefilled 10 mL syringe Flush line with heparin 300 units/ 3 mL after the last saline flush 0.9% SOLNIndications: Septic arthritis of knee, right (HCC) hEParin 100 units/mL Administer 3 mL (300 0 01/19 injection Units) intravenously solutionIndications: As often as necessary Septic arthritis of for other (Specify) knee, right (HCC) (heparin 300 units/3 mL IV FLUSH after completion of each antibiotic infusion (after saline flush)) heparin 300 units/3 mL IV FLUSH after completion of each antibiotic infusion (after saline flush) cefTRIAXone (ROCEPHIN) Administer 2,000 mg 0 07/201902/15/2020 2,000 mg in sodium intravenously Every chloride 0.9% 50 24 hours for 26 days mLIndications: Septic arthritis of knee, right (HCC) documented as of this encounter Progress Notes Hannah Alexandra MD - 01/29/2020 6:25 PM CDT Hospital Progress Note Lazara Orozco Jr. is a 74yr old male admitted on 01/18/2020. Assessment / Plan Patient is a 74-year-old male with past medical history of alcoholic liver cirrhosis, chronic diastolic heart failure, CKD, esophageal/gastric varices who was admitted on 01/17 with right knee pain Orthopedics was consulted and arthrocentesis was performed which revealed frankly purulent fluid cell count was 64,000 no crystals were seen he was taken immediately by orthopedics to the OR for irrigation and debridement. Gus pus was encountered on entering the knee it was washed out and sent for culture. Patient was started on vancomycin and Rocephin Infectious disease was consulted on 01/18 for antibiotic recommendations. The cultures grew E. coli.Which is not a frequent cause of monoarticular arthritis but he is alcoholic liver disease so that could have contributed to increased risk of infection with unusual microbiology. Infectious disease recommended 4 weeks of IV Rocephin through 02/15/2020. Patient also developed nonoliguric MALACHI on CKD due to septic ATN and vancomycin toxicity. His baseline creatinine is 1.1-1.2. Peak creatinine was at 3.48 Vanco level peaked at 32. Urine protein creatinine ratio was 240 The renal ultrasound showed right kidney 10 cm left kidney 8.5 cm. Nephrology was consulted and vancomycin was stopped and diuretics were held and gentle hydration was done With the stopping of diuretics and hydration his legs swelled up and he had 3+ edema. He was started back on Bumex and spironolactone on 01/27 Venous duplex done which was negative for any DVT Continue input output charting and avoid nephrotoxins He has chronic hyponatremia which is stable likely secondary to alcohol dependence and cirrhosis Plan of care discussed with patient and his at bedside CODE STATUS full code Likely discharge Tuesday if renal panel stable/improving HPI / History / ROS HPI Leg swelling +++ Right knee pain + Review of Systems Constitutional: Positive for fatigue. Respiratory: Negative for shortness of breath. Cardiovascular: Positive for leg swelling. Negative for chest pain. Gastrointestinal: Negative for abdominal pain. Musculoskeletal: Positive for arthralgias, back pain, gait problem and joint swelling. Neurological: Positive for weakness. Hematological: Bruises/bleeds easily. Physical / Results Current Vital Signs Temp: 97.7 F (36.5 C) BP: 120/46 Weight: 97.5 kg (215 lb) SpO2: 97 % Resp: 20 Pulse: 86 Current BMI (>50 = increased risk): 29.15 O2 Device: Room Air O2 Flow Rate (L/min): 1 l/min Pain Ratin Physical Exam Constitutional: No distress. Cardiovascular: Regular rhythm. Pulmonary/Chest: Effort normal. Musculoskeletal: B/l LE edema +++ Neurological: He is alert. brace dressing noted right knee/ leg Picture uploaded under media tab Kimmie Quigley APRN-BUSINESS INTELLIGENCE ARCHITECT - 01/29/2020 8:34 AM CDT ORTHOPEDIC POST OPERATIVE PROGRESS NOTE January 29, 2020 POD # 11 Right knee septic arthritis s/p I&D right knee Patient of Dr. Nicole S: Lazara Orozco Jr. is a 74yr male recovering from surgery, denies CP, SOB, N/V, Fever or Chills, numbness/tingling. Reports a good appetite. PT/OT: Progressing towards goals Pain: Currently rating pain at 5/10, states pain medications are allowing pain to be tolerable Has had multiple BMs noted since surgery. Is passing flatus. Urinating without difficulty. O: Temp Readings from Last 1 Encounters: 01/29/20 97.8 F (36.6 C) BP Readings from Last 1 Encounters: 01/29/20 108/58 Pulse Readings from Last 1 Encounters: 01/29/20 92 Gen: Sitting up in bed, alert and orientated, no apparent distress Incision: No drainage. Dressing C/D/I. No erythema, fluctuance, or induration noted surroundingdressing.. right LEG: Warm, well perfused. Brisk capillary refill noted. Sensation intact to light touch distally. Homans negative, no calf pain bilaterally. Compartments soft and compressible. DP and PT pulses assessed via doppler. Motor grossly intact, able to PF/DF ankle and wiggle toes. 3+ edema noted to right foot. Lab Results Component Value Date WBC 6.0 01/29/2020 NUCRBC 0 01/29/2020 RBC 2.19 (L) 01/29/2020 HEMOGLOBIN 8.5 (L) 01/29/2020 HEMATOCRIT 26.2 (L) 01/29/2020 MCV 119.6 (H) 01/29/2020 MCH 38.8 (H) 01/29/2020 MCHC 32.4 01/29/2020 PLTCOUNT 118 (L) 01/29/2020 NEUTROPCT 67.7 01/29/2020 BANDPCT 4.0 02/09/2019 LYMPHSPCT 18.2 01/29/2020 MONOSPCT 10.4 01/29/2020 EOSPCT 2.5 01/29/2020 BASOPHILPCT 0.7 01/29/2020 Lab Results Component Value Date INR 2.1 01/19/2020 A/P: 1. s/p Right Knee I&D: DVT prophylaxis: Heparin managed per Internal Medicine Pain control: Continue current regimen Wound care: Change mepilex dressing every 7 days or sooner if drainage and prior to discharge; Remove ADDY wrap every 8 hours to assess skin PT/OT: continue; Activity: as tolerated; Weight bearing as tolerated to right lower extremity, work on range of motion Disposition/planning: continue cares; Follow up: [address] Nicole 2. Acute Blood loss Anemia: Expected [facility] T Hannah Alexandra MD - 01/28/2020 5:49 PM CDT Hospital Progress Note Lazara Orozco Jr. is a 74yr old male admitted on 01/18/2020. Assessment / Plan Patient is a 74-year-old male with past medical history of alcoholic liver cirrhosis, chronic diastolic heart failure, CKD, esophageal/gastric varices who was admitted on 01/17 with right knee pain Orthopedics was consulted and arthrocentesis was performed which revealed frankly purulent fluid cell count was 64,000 no crystals were seen he was taken immediately by orthopedics to the OR for irrigation and debridement. Gus pus was encountered on entering the knee it was washed out and sent for culture. Patient was started on vancomycin and Rocephin Infectious disease was consulted on 01/18 for antibiotic recommendations. The cultures grew E. coli.Which is not a frequent cause of monoarticular arthritis but he is alcoholic liver disease so that could have contributed to increased risk of infection with unusual microbiology. Infectious disease recommended 4 weeks of IV Rocephin through 02/15/2020. Patient also developed nonoliguric MALACHI on CKD due to septic ATN and vancomycin toxicity. His baseline creatinine is 1.1-1.2. Peak creatinine was at 3.48 Vanco level peaked at 32. Urine protein creatinine ratio was 240 The renal ultrasound showed right kidney 10 cm left kidney 8.5 cm. Nephrology was consulted and vancomycin was stopped and diuretics were held and gentle hydration was done With the stopping of diuretics and hydration his legs swelled up and he had 3+ edema. He was started back on Bumex and spironolactone on 01/27 after consultation with nephrology, will trend BMP for a day or 2 to make sure it continues to improve Venous duplex done which was negative for any DVT Continue input output charting and avoid nephrotoxins He has chronic hyponatremia which is stable likely secondary to alcohol dependence and cirrhosis Plan of care discussed with patient and his at bedside CODE STATUS full code Likely discharge Tuesday HPI / History / ROS HPI Leg swelling +++ Right knee pain + Sitting on a recliner BM today Review of Systems Constitutional: Positive for fatigue. Respiratory: Negative for shortness of breath. Cardiovascular: Positive for leg swelling. Negative for chest pain. Gastrointestinal: Negative for abdominal pain. Musculoskeletal: Positive for arthralgias, back pain, gait problem and joint swelling. Neurological: Positive for weakness. Hematological: Bruises/bleeds easily. Physical / Results Current Vital Signs Temp: 97.7 F (36.5 C) BP: 120/46 Weight: 97.5 kg (215 lb) SpO2: 97 % Resp: 20 Pulse: 86 Current BMI (>50 = increased risk): 29.15 O2 Device: Room Air O2 Flow Rate (L/min): 1 l/min Pain Ratin Physical Exam Constitutional: No distress. Cardiovascular: Regular rhythm. Pulmonary/Chest: Effort normal. Musculoskeletal: B/l LE edema +++ Neurological: He is alert. brace dressing noted right knee/ leg Picture uploaded under media tab Minesh Luis MD - 01/28/2020 2:42 PM CDT Hospital Progress Note Lazara Orozco Jr. is a 74yr old male admitted on 01/18/2020. No new complaints, able to ambulate more. Assessment / Plan Principal Problem: Septic arthritis of knee, right (HCC) Active Problems: Septic arthritis (HCC) Resolved Problems: * No resolved hospital problems. * 74-year-old gentleman with history of alcoholic liver cirrhosis, gastric varices, chronic diastolic heart failure, and mild chronic kidney disease who presented with right knee pain.He does have a history of severe degenerative joint disease,but not a surgical candidate due to multiple medical co morbidities. On presentation he was found to have swollen, painful knee. He underwent arthrocentesis which revealed purulent discharge,and subsequently started on vancomycin and ceftriaxone. His knee aspirate is growing E. coli at this point. His presenting creatinine was 1.18, however over the last couple of days it has gradually increased to 3.48. Non-oliguric MALACHI on CKD III due to septic ATN+/-Vanco toxicity -baseline creatinine 1.1-1.2 -renal US 01/21: R kidney 10 cm, L kidney 8.5 cm -Peak creatinine 3.48 -Vanco level 32 -urine pr/cr 240 -on eosinophils on smear Hyponatremia -chronic likely due to cirrhosis, stable Plan: MALACHI resolving, but still much higher than baseline Ok to restart diuretics Daily renal panel HPI / History / ROS HPI Review of Systems Constitutional: Negative. HENT: Negative. Respiratory: Negative. Cardiovascular: Positive for leg swelling. Gastrointestinal: Negative. Genitourinary: Negative. Musculoskeletal: Negative. Neurological: Negative. Physical / Results Current Vital Signs Temp: 97.6 F (36.4 C) BP: 108/55 Weight: 97.5 kg (215 lb) SpO2: 98 % Resp: 20 Pulse: 87 Current BMI (>50 = increased risk): 29.15 O2 Device: Room Air O2 Flow Rate (L/min): 1 l/min Pain Ratin Physical Exam Constitutional: He appears well-developed and well-nourished. No distress. HENT: Head: Normocephalic and atraumatic. Neck: Neck supple. Cardiovascular: Normal rate and regular rhythm. Pulmonary/Chest: Effort normal and breath sounds normal. Abdominal: Soft. Bowel sounds are normal. Musculoskeletal: Normal range of motion. He exhibits edema. Right knee immobilizer Rosemarie Nino MD - 01/27/2020 1:11 PM CDTInternal Medicine Progress note: Exam date: 01/27/2020 Hospital day # 8 Impression and Plan: #Right knee septic arthritis, status post incision and drainage by orthopedics on 01/17. -culture: E. Coli cont ceftriaxone 4 weeks duration Schedule tylenol 1gm q 6 hrs for pain control Avoid narcotics to avoid recurrent encephalopathy as he appears to be very sensitive to those meds #MALACHI, slowly improving, stable today Monitor off IVF vanco was discontinued significant edema of both legs Appreciate Nephrology consult #Encephalopathy, improving Alcohol withdrawal, resolved #History of congestive heart failure. Stable -discontinued Bumex due to MALACHI Interval History: No acute changes Awake and alert, able to discuss the plan and ask questions Review of system: No chest pain No SOB Examination: General: No acute distress Respiratory: no retractions or cyanosis Cardiovascular: No JVD Abdomen: no abdominal distention Musculoskeletal: edema Skin: No rash Rosemarie Nino MD - 01/26/2020 8:17 PM CDTInternal Medicine Progress note: Exam date: 01/26/2020 Hospital day # 7 Impression and Plan: #Right knee septic arthritis, status post incision and drainage by orthopedics on 01/17. -culture: E. Coli cont ceftriaxone 4 weeks duration #MALACHI, slowly improving vanco was discontinued significant edema of both legs D/C IVF Appreciate Nephrology consult #Encephalopathy, improving Alcohol withdrawal, resolved #History of congestive heart failure. Stable -discontinued Bumex due to MALACHI Gentle hydration Interval History: Continues to be More awake and alert Updated his again at bedside Review of system: No chest pain No SOB Examination: General: No acute distress Respiratory: no retractions or cyanosis Cardiovascular: No JVD Abdomen: no abdominal distention Musculoskeletal: edema Skin: No rash Rosemarie Nino MD - 01/25/2020 5:27 PM [facility]: Exam date: 01/25/2020 Hospital day # 6 Impression and Plan: #Right knee septic arthritis, status post incision and drainage by orthopedics on 01/17. -culture: E. Coli cont ceftriaxone 4 weeks duration #MALACHI, slowly improving vanco was discontinued Gentle IVF Appreciate Nephrology consult #Encephalopathy, improving Alcohol withdrawal, resolved #History of congestive heart failure. Stable -discontinued Bumex due to MALACHI Gentle hydration Interval History: More awake and alert Updated his Plans for discharge to swing bed when bed available Review of system: Denies pain or SOB Examination: General: No acute distress Respiratory: no retractions or cyanosis Cardiovascular: No JVD Abdomen: no abdominal distention Musculoskeletal: edema Skin: No rash Minesh Luis MD - 01/25/2020 11:57 AM CDT Hospital Progress Note Lazara Orozco Jr. is a 74yr old male admitted on 01/18/2020. Seen with at bedside, both update on renal condition. No new complaints, seems to be in better spirit, Urine output remains minimal Assessment / Plan Principal Problem: Septic arthritis of knee, right (HCC) Active Problems: Septic arthritis (HCC) Resolved Problems: * No resolved hospital problems. * 74-year-old gentleman with history of alcoholic liver cirrhosis, gastric varices, chronic diastolic heart failure, and mild chronic kidney disease who presented with right knee pain.He does have a history of severe degenerative joint disease,but not a surgical candidate due to multiple medical co morbidities. On presentation he was found to have swollen, painful knee. He underwent arthrocentesis which revealed purulent discharge,and subsequently started on vancomycin and ceftriaxone. His knee aspirate is growing E. coli at this point. His presenting creatinine was 1.18, however over the last couple of days it has gradually increased to 3.48. Non-oliguric MALACHI on CKD III due to septic ATN+/-Vanco toxicity -baseline creatinine 1.1-1.2 -renal US 01/21: R kidney 10 cm, L kidney 8.5 cm -Peak creatinine 3.48 -Vanco level 32 -urine pr/cr 240 -on eosinophils on smear Hyponatremia -chronic likely due to cirrhosis Plan: MALACHI slowly resolving, no sig volume or electrolyte derangement Ok to d/c IVF if taking adequate orally Daily renal panel HPI / History / ROS HPI Review of Systems Constitutional: Negative. HENT: Negative. Respiratory: Negative. Cardiovascular: Positive for leg swelling. Gastrointestinal: Negative. Genitourinary: Negative. Musculoskeletal: Positive for arthralgias. Neurological: Positive for weakness. Physical / Results Current Vital Signs Temp: 97.8 F (36.6 C) BP: 129/46 Weight: 97.5 kg (215 lb) SpO2: 100 % Resp: 16 Pulse: 86 Current BMI (>50 = increased risk): 29.15 O2 Device: Room Air O2 Flow Rate (L/min): 1 l/min Pain Ratin Physical Exam Constitutional: He is oriented to person, place, and time. He appears well- developed and well-nourished. No distress. Neck: Neck supple. Cardiovascular: Normal rate and regular rhythm. Pulmonary/Chest: Effort normal and breath sounds normal. Abdominal: Soft. Bowel sounds are normal. Musculoskeletal: He exhibits edema. Right knee immobilizer in place Neurological: He is alert and oriented to person, place, and time. Vitals reviewed. Minesh Cam MD - 01/24/2020 2:44 PM CDT Hospital Progress Note Lazara Orozco Jr. is a 74yr old male admitted on 01/18/2020. BP fluctuations noted, urine output has been minimal Assessment / Plan Principal Problem: Septic arthritis of knee, right (HCC) Active Problems: Septic arthritis (HCC) Resolved Problems: * No resolved hospital problems. * 74-year-old gentleman with history of alcoholic liver cirrhosis, gastric varices, chronic diastolic heart failure, and mild chronic kidney disease who presented with right knee pain.He does have a history of severe degenerative joint disease, but not a surgical candidate due to multiple medical com orbidities. On presentation he was found to have swollen, painful knee. He underwent arthrocentesis which revealed purulent discharge,and subsequently started on vancomycin and ceftriaxone. [place] aspirate is growing E. coli at this point. His presenting creatinine was 1.18, however over the last couple of days it has gradually increased to 3.48. Non-oliguric MALACHI on CKD III due to septic ATN +/- Vanco toxicity -baseline creatinine 1.1-1.2 -renal US 01/21: R kidney 10 cm, L kidney 8.5 cm -Peak creatinine 3.48 -Vanco level 32 -urine pr/cr 240 -on eosinophils on smear Hyponatremia -chronic likely due to cirrhosis Plan: Creatinine slowly downtrending and electrolytes stable Daily renal panel Will continue to follow HPI / History / ROS HPI Review of Systems Constitutional: Negative. Respiratory: Negative. Cardiovascular: Positive for leg swelling. Gastrointestinal: Negative. Neurological: Negative. Physical / Results Current Vital Signs Temp: 98 F (36.7 C) BP: 96/55 Weight: 97.5 kg (215 lb) SpO2: 93 % Resp: 18 Pulse: 91 Current BMI (>50 = increased risk): 29.15 O2 Device: Room Air O2 Flow Rate (L/min): 1 l/min Pain Rating: Other (specify)(unable to rate pain, adult behavioral scale utilized ) Physical Exam Constitutional: No distress. Neck: Neck supple. Cardiovascular: Normal rate and regular rhythm. Pulmonary/Chest: Effort normal and breath sounds normal. Abdominal: Soft. Bowel sounds are normal. Musculoskeletal: Normal range of motion. He exhibits no edema. Neurological: He is alert. Vitals reviewed. Connie Hernandez, HIGH WIRE ARTIST-BUSINESS INTELLIGENCE ARCHITECT - 01/24/2020 8:32 AM CDT ORTHOPEDIC POST OPERATIVE PROGRESS NOTE January 24, 2020 POD # 6 Right Knee Septic Arthritis S/P I&D Right Knee Patient of Dr. Nicole S: Lazara Orozco Jr. is a 74yr male recovering from surgery, denies CP, SOB, N/V, Fever or Chills, numbness/tingling. Reports a good appetite. PT/OT: Following Pain: denies pain at this time BM noted since surgery. Urinating without difficulty. O: Temp Readings from Last 1 Encounters: 01/24/20 97.5 F (36.4 C) BP Readings from Last 1 Encounters: 01/24/20 152/94 Pulse Readings from Last 1 Encounters: 01/24/20 99 Gen: patient resting comfortably in bed eating breakfast, alert and orientated to self, no apparent distress Incision: no drainage. Dressing C/D/I. right KNEE: Warm, well perfused. Brisk capillary refill noted. Sensation intact to light touch.Homans negative, no calf pain bilaterally. Compartments soft and compressible. DP and PT pulses assessed via doppler. Motor grossly intact, able to PF/DF ankle and wiggle toes. +3 edema to foot. Lab Results Component Value Date WBC 7.9 01/22/2020 NUCRBC 0 01/22/2020 RBC 2.36 (L) 01/22/2020 HEMOGLOBIN 9.3 (L) 01/22/2020 HEMATOCRIT 26.1 (L) 01/22/2020 MCV 110.6 (H) 01/22/2020 MCH 39.4 (H) 01/22/2020 MCHC 35.6 01/22/2020 PLTCOUNT 73 (L) 01/22/2020 NEUTROPCT 75.3 01/22/2020 BANDPCT 4.0 02/09/2019 LYMPHSPCT 12.3 01/22/2020 MONOSPCT 10.0 01/22/2020 EOSPCT 1.0 01/22/2020 BASOPHILPCT 0.3 01/22/2020 Lab Results Component Value Date INR 2.1 01/19/2020 A/P: 1. s/p Right knee I&D: DVT prophylaxis: Lovenox, managed per Internal Medicine Pain control: Continue current regimen; Wound care: change prior to discharge PT/OT: continue; Activity: as tolerated; WBAT RLE, work on range of motion Disposition/planning: continue cares; Per Ortho, patient clear for discharge to appropriate setting when pain is well controlled and patient is cleared per therapy and medicine. Follow up: [address] Corey Catalan. Acute Blood loss Anemia: Expected [facility] Pager #[phone] Rosemarie Chong MD - 01/24/2020 7:32 AM CDTInternal Medicine Progress note: Exam date: 01/24/2020 Hospital day # 5 Impression and Plan: #Right knee septic arthritis, status post incision and drainage by orthopedics on 01/17. -culture: E. Coli cont ceftriaxone 4 weeks duration #MALACHI, slowly improving vanco was discontinued Gentle IVF Appreciate Nephrology consult #Encephalopathy, Alcohol withdrawal -CIWA Resolving #History of congestive heart failure. Stable -discontinued Bumex due to MALACHI Gentle hydration Total time spent in care of this patient 35 minutes with greater than 50 percent of the time spent in counseling and coordination of care. Interval History: Improved delirium Discussed with and updated the daughter on the phone Review of system: Denies pain or SOB Examination: General: No acute distress Respiratory: no retractions or cyanosis Cardiovascular: No JVD Abdomen: no abdominal distention Musculoskeletal: edema Skin: No rash Minesh Luis MD - 01/23/2020 1:26 PM CDT Hospital Progress Note Lazara Orozco Jr. is a 74yr old male admitted on 01/18/2020. Pt is somnolent, but answers some questions. BP has been stable, urine output not accurate as pt is incontinent at times. Assessment / Plan Principal Problem: Septic arthritis of knee, right (HCC) Active Problems: Septic arthritis (HCC) Resolved Problems: * No resolved hospital problems. * 74-year-old gentleman with history of alcoholic liver cirrhosis, gastric varices, chronic diastolic heart failure, and mild chronic kidney disease who presented with right knee pain. He does have a history of severe degenerative joint disease, but not a surgical candidate due to multiple medical comor bidities. On presentation he was found to have swollen, painful knee. He underwent arthrocentesis which revealed purulent discharge, and subsequently started on vancomycin and ceftriaxone. His knee aspirate is growing E. coli at this point. His presenting creatinine was 1.18, however over the lastcouple of days it has gradually increased to 3.48. Non-oliguric MALACHI on CKD III due to septic ATN +/- Vanco toxicity -baseline creatinine 1.1-1.2 -renal US 01/21: R kidney 10 cm, L kidney 8.5 cm -Peak creatinine 3.48 -Vanco level 32 -urine pr/cr 240 -on eosinophils on smear Hyponatremia -chronic likely due to cirrhosis Plan: MALACHI slowly resolving Electrolytes stable Continue gentle hydration Daily renal panel HPI / History / ROS HPI Review of Systems Unable to perform ROS: Other Physical / Results Current Vital Signs Temp: 97.4 F (36.3 C) BP: 106/74 Weight: 97.5 kg (215 lb) SpO2: (!) 63 % Resp: 16 Pulse: 112 Current BMI (>50 = increased risk): 29.15 O2 Device: NC - no humidity O2 Flow Rate (L/min): 1 l/min Pain Ratin Physical Exam Neck: Neck supple. Cardiovascular: Normal rate and regular rhythm. Pulmonary/Chest: Effort normal and breath sounds normal. Abdominal: Soft. Bowel sounds are normal. Musculoskeletal: He exhibits edema. Neurological: He is alert. Vitals reviewed. Rosemarie Nino MD - 01/23/2020 10:27 AM [facility] Medicine Progress note: Exam date: 01/23/2020 Hospital day # 4 Impression and Plan: #Right knee septic arthritis, status post incision and drainage by orthopedics on 01/17. -culture: E. Coli cont ceftriaxone 4 weeks duration #MALACHI vanco was discontinued Improving slowly Gentle IVF Workup per Nephrology #Encephalopathy, Alcohol withdrawal -CIWA -Ativan D/C Gabapentin due to encephalopathy #History of congestive heart failure. Stable -discontinued Bumex due to MALACHI Gentle hydration Discussed with nursing staff Interval History: Delirious No acute changes Review of system: Unable to provide Examination: General: No acute distress Respiratory: no retractions or cyanosis Cardiovascular: No JVD Abdomen: no abdominal distention Musculoskeletal: edema Skin: No rash enedict, Kimmie Fernanda, SYL-BUSINESS INTELLIGENCE ARCHITECT - 01/22/2020 11:38 AM CDT ORTHOPEDIC POST OPERATIVE PROGRESS NOTE January 22, 2020 POD # 4 Right knee septic arthritis s/p I&D right knee Patient of Dr. Nicole S: Lazara Orozco Jr. is a 74yr male who is a poor historian this AM due to somnolence. Per nursing, he had increased agitation overnight related to alcohol withdrawal and is receiving ativan PRNfor CIWA scores. He is recovering from surgery, denies CP, SOB, N/V, Fever or Chills, numbness/tingling. Reports an okay appetite. PT/OT: Following Pain: Denies pain at this time No BM noted since surgery. Is passing flatus. Urinating without difficulty. O: Temp Readings from Last 1 Encounters: 01/22/20 97.7 F (36.5 C) BP Readings from Last 1 Encounters: 01/22/20 106/54 Pulse Readings from Last 1 Encounters: 01/22/20 88 Gen: Somnolent, lying in bed, no apparent distress Incision: No drainage. Dressing C/D/I. Incision well approximated with some ecchymosis surrounding it. No erythema, fluctuance, or induration noted. right KNEE: Warm, well perfused. Brisk capillary refill noted. Sensation intact to light touchdistally. Homans negative, no calf pain bilaterally. Compartments soft and compressible. DP and PT pulses are assessed and present with use of doppler. Motor grossly intact, able to PF/DF ankle and wiggle toes. 3+ edema to right foot. Lab Results Component Value Date WBC 7.4 01/21/2020 NUCRBC 0 01/21/2020 RBC 2.28 (L) 01/21/2020 HEMOGLOBIN 8.8 (L) 01/21/2020 HEMATOCRIT 25.1 (L) 01/21/2020 MCV 110.1 (H) 01/21/2020 MCH 38.6 (H) 01/21/2020 MCHC 35.1 01/21/2020 PLTCOUNT 69 (L) 01/21/2020 NEUTROPCT 69.7 01/21/2020 BANDPCT 4.0 02/09/2019 LYMPHSPCT 16.9 01/21/2020 MONOSPCT 11.2 01/21/2020 EOSPCT 1.2 01/21/2020 BASOPHILPCT 0.3 01/21/2020 Lab Results Component Value Date INR 2.1 01/19/2020 A/P: 1. s/p Right knee I&D: DVT prophylaxis: Lovenox, managed per Internal Medicine Pain control: Continue current regimen; Wound care: Dressing clean, dry, and intact PT/OT: continue; Activity: as tolerated; Weight bearing as tolerated to right lower extremity; work on range of motion Disposition/planning: continue cares; Follow up: [address] Nicole 2. Acute Blood loss Anemia: Expected, hemoglobin 9.3 this AM [facility] Rosemarie Gaona MD - 01/22/2020 10:03 AM [facility]: Exam date: 01/22/2020 Hospital day # 3 Impression and Plan: Right knee septic arthritis, status post incision and drainage by orthopedics on 01/17. -culture: E. Coli cont ceftriaxone Pain control Added Gabapentin MALACHI vanco was discontinued IVF Nephrology consult Discussed with #Encephalopathy, Alcohol withdrawal -CIWA -Ativan -decrease gabapentin dose #History of congestive heart failure. Stable -discontinued Bumex due to MALACHI Gentle hydration I discussed plan of care with patient Discussed with nursing staff Interval History: Delirious No acute changes Review of system: Respiratory: No cough. Cardiovascular: No chest pain Abdomen: No abdominal pain Examination: General: No acute distress Respiratory: no retractions or cyanosis Cardiovascular: No JVD Abdomen: no abdominal distention Musculoskeletal: edema Skin: No rash Rosemarie Nino MD - 01/21/2020 9:59 PM CDTInternal Medicine Progress note: Exam date: 01/21/2020 Hospital day # 2 Impression and Plan: 1. Right knee septic arthritis, status post incision and drainage by orthopedics on 01/17. -culture: E. Coli -Antibiotics: DC vancomycin and cont ceftriaxone - Will need a PICC line and 4-6 weeks of antibiotic treatment. Pain control Added Gabapentin 1.1 Vancomycin induced MALACHI -creat up to 2.4 -vanc level 32 vanco was discontinued IVF 1.2 Encephalopathy, Alcohol withdrawal -CIWA -Ativan 2. History of congestive heart failure. Stable -discontinued Bumex due to MALACHI Gentle hydration I discussed plan of care with patient Discussed with nursing staff Interval History: Confused I visited with his Review of system: Respiratory: No cough. Cardiovascular: No chest pain Abdomen: No abdominal pain Examination: General: No acute distress Respiratory: no retractions or cyanosis Cardiovascular: No JVD Abdomen: no abdominal distention Musculoskeletal: edema Skin: No rash Thuy Gilbert PA - 01/21/2020 12:37 PM CDT ORTHOPEDIC POST OPERATIVE PROGRESS NOTE January 21, 2020 POD # 3 Right septic arthritis of knee s/p I&D Patient of Dr. Nicole S: Lazara Orozco Jr. is a 74yr male recovering from surgery, denies CP, SOB, N/V, Fever or Chills, numbness/tingling. Reports an ok appetite. Pt is sitting in chair. Pain is controlled at rest. Increase in pain with any movement. BM noted since surgery. Is passing flatus. Urinating without difficulty. O: Temp Readings from Last 1 Encounters: 01/21/20 98.4 F (36.9 C) BP Readings from Last 1 Encounters: 01/21/20 107/51 Pulse Readings from Last 1 Encounters: 01/21/20 101 Gen: resting in chair, alert, no apparent distress Incision: no drainage. Dressing C/D/I. right KNEE: Addy wrap intact. Knee immobilizer in place. Swelling to the left foot. Warm, well perfused. Brisk capillary refill noted. No calf pain bilaterally. Compartments soft and compressible. DP and PT pulses by doppler. Motor grossly intact, able to PF/DF ankle and wiggle toes. Lab Results Component Value Date WBC 7.9 01/20/2020 NUCRBC 0 01/20/2020 RBC 2.33 (L) 01/20/2020 HEMOGLOBIN 9.0 (L) 01/20/2020 HEMATOCRIT 26.0 (L) 01/20/2020 MCV 111.6 (H) 01/20/2020 MCH 38.6 (H) 01/20/2020 MCHC 34.6 01/20/2020 PLTCOUNT 62 (L) 01/20/2020 NEUTROPCT 72.7 01/20/2020 BANDPCT 4.0 02/09/2019 LYMPHSPCT 14.2 01/20/2020 MONOSPCT 10.9 01/20/2020 EOSPCT 1.3 01/20/2020 BASOPHILPCT 0.3 01/20/2020 Lab Results Component Value Date INR 2.1 01/19/2020 A/P: 1. s/p Right septic arthritis of knee s/p I&D: DVT prophylaxis: Lovenox Pain control: Continue Wound care: Dressing changed yesterday. May change as needed. PT/OT: continue; WBAT RLE Activity: as tolerated Disposition/planning: continue cares Follow up: 2 weeks with NISSA and [address] Corey Catalan. Acute Blood loss Anemia: Expected MARRY Salomon-C Pediatric Orthopedic Surgery Pager #[phone] taEfra singh MD - 01/20/2020 9:01 PM CDT Orthopedic Surgery Progress Note SUBJECTIVE: Rapid response yesterday for concern of stroke. Doing ok today. Still painful. Denies fevers, chills, N/V. OBJECTIVE: Vitals: 01/20/20 1111 01/20/20 1555 01/20/20 1701 01/20/20 1910 BP: 128/61 93/44 118/52 94/55 Pulse: 92 98 96 96 Resp: 16 18 18 14 Temp: 97.8 F (36.6 C) 98.3 F (36.8 C) 98.3 F (36.8 C) 98.3 F (36.8 C) SpO2: 98% 96% 96% 96% Weight: Height: Physical Exam: General: NAD, appears comfortable, lying in hospital bed. RLE: Dressing clean, dry, and intact. Knee still swollen, a little warm, no erythema No drainage Drain with 160cc SS output Motor intact to +EHL/FHL/TA/GS SILT WWP. Capillary refill <2 seconds. Labs: Lab Results Component Value Date WBC 7.9 01/20/2020 HEMOGLOBIN 9.0 (L) 01/20/2020 PLTCOUNT 62 (L) 01/20/2020 INR 2.1 01/19/2020 CRP 133.9 (H) 01/20/2020 Imaging: Reviewed ASSESSMENT/PLAN: 74yr male who is 2 Days Post-Op s/p Procedure(s): I AND D RIGHT KNEE SEPTIC ARTHRITIS - Drain was removed - Pain control - Dressing changes PRN with mepelex or dry gauze and tape - Diet: regular - WBS: WBAT, encourage ROM of the knee - DVT: SCDs, LVX - ABX: Rocephin per ID. - PT/OT - Will continue to monitor clinically. No further plans for OR Juanita Fernandez MD Orthopaedic Surgery PGY-2 01/20/20 9:01 PM Brady Leo MD - 01/20/2020 11:22 AM CDT DAILY PROGRESS NOTE Lazara Orozco Jr. is a 74yr old male admitted on 01/18/2020. ASSESSMENT & PLAN This is a 74-year-old male who has a history of degenerative joint disease and presented with acute septic arthritis of the right knee. He underwent incision and drainage. Cell count more than 60,000. Culture results are pending and he is currently on vancomycin, ceftriaxone. IMPRESSION AND PLAN: 1. Right knee septic arthritis, status post incision and drainage by orthopedics on 01/17. -culture: E. Coli -Antibiotics: DC vancomycin and cont ceftriaxone - Will need a PICC line and 4-6 weeks of antibiotic treatment. 1.1 Vancomycin induced MALACHI -creat up to 2.4 -vanc level 32 -DC vanco -Pt fluid overloaded and does not need intensive hydration for this type of MALACHI -expect to improve in 2-3 days 1.2 Encephalopathy, most likely alcohol related delirium -confused overnight -CIWA -chronic alcohol use confirmed by daughter 2. History of congestive heart failure. -discontinue Bumex -IV fluids, low volume -quite edematous, will need bumex as soon as MALACHI resolves 3. Pain management. -satisfactory 4. Bowel regimen with Senokot, lactulose, MiraLax. 5. Hypothyroidism. Continue levothyroxine 150 mcg. 6. DVT prophylaxis with enoxaparin 40 mg daily. SUBJECTIVE No CP or SOB Review of Systems General ROS: negative Constitutional ROS: negative Respiratory ROS: no cough, shortness of breath, or wheezing Cardiovascular ROS: no chest pain or dyspnea on exertion Gastrointestinal ROS: no abdominal pain, change in bowel habits, or black or bloody stools Neurological ROS: no TIA or stroke symptoms Dermatological ROS: negative OBJECTIVE Current Vital Signs Temp: 97.8 F (36.6 C) BP: 128/61 Pulse: 92 O2 Device: NC - no humidity O2 Flow Rate (L/min): 1 l/min Resp: 16 Pain Ratin (out of 10) Weight: 97.5 kg (215 lb) SpO2: 98 % Intake and Output Last 24 Hours 01/18 0700 - 01/19 0659 In: 1994.4 Out: 709 Lines and Drains Patient Lines/Drains/Airways Status Active Lines Name: Placement date: Placement time: Site: Days: Peripheral IV 01/18/20 Antecubital Left 01/18/20 1131 Antecubital 1 Peripheral IV 01/18/20 Wrist Left 01/18/20 2107 Wrist 1 Hemovac 01/18/20 Right Knee 01/18/20 Knee 2 Incision 01/18/20 Right Knee Incision 01/18/20 Knee 2 Physical Exam General Appearance: alert, well appearing, and in no distress Mental Status: alert, oriented to person, place, and time Chest: clear to auscultation, no wheezes, rales or rhonchi, symmetric air entry Heart: normal rate, regular rhythm, normal S1, S2, no murmurs, rubs, clicks or gallops Abdomen: soft, nontender, nondistended, no masses or organomegaly Neurological: alert, oriented, normal speech, no focal findings or movement disorder noted Extremities: peripheral pulses normal, no pedal edema, no clubbing or cyanosis Skin: normal coloration and turgor, no rashes, no suspicious skin lesions noted Diagnostics and Labs Reviewed Lionel Denson MD - 01/20/2020 10:48 AM CDT INFECTIOUS DISEASES INPATIENT PROGRESS NOTE 01/20/2020 DIAGNOSIS: #1 Right knee septic arthritis with E coli s/p I&D on 01/18/2020 #2 Alcoholism with alcoholic liver disease #3 Severe osteoarthritis #4 Acute renal failure ASSESSMENT AND PLAN: Doing well postop except for kidney injury. We will stop Vancomycin and continue Ceftriaxone. E coliis not a frequent cause of monoarticular arthritis but he has alcoholic liver disease and that couldhave contributed to increased risk of infection with unusual microbiology. I have reviewed his entire medication history since 2011 in our chart and it does not appear that he has received any injection in his knee since 04/2019. He will need 4 weeks of IV Ceftriaxone through 02/15/2020 and will therefore need placement once his kidney function improves. I have completed IV antibiotic orders for alf discharge. He is agreeable to go to swing bed / SNF. Discussed with primary service. FINAL ANTIBIOTIC RECOMMENDATIONS: 1. Antibiotics (with dose, route and Frequency): Ceftriaxone 2 gm IV Q 24 2. Total Duration: 4 Weeks 3. Stop Date: 02/15/2020 4. Weekly Labs (to be obtained on Tuesday or Tuesday) : CBC, ALT, Cre 5. Please fax lab results to: [phone]. Attn: Lionel Jones MD 6. Weekly PICC line dressing changes 7. PICC line to be removed at the end of IV antibiotic therapy Lionel Jones MD BACKGROUND: Patient is a 74yr old male who is being followed for right knee septic arthritis. He is currently ontreatment with Vancomycin and Ceftriaxone. He had debridement performed on 01/18/2020. INTERVAL HISTORY: The patient is now seen in follow-up. No new overnight events. Tolerating antibiotics. No new rash or fever. No diarrhea. However, has had a bump in renal function. REVIEW OF SYSTEMS: Pertinent positives and negatives as outlined in Interval History. Rest negative MEDICATIONS: Reviewed in EMR PHYSICAL EXAM Vital Signs: BP: 126/48; Pulse: 95; Temp: 97.5 F (36.4 C); Resp: 16; SpO2: 99 %;O2 Device: NC - no humidity O2 Flow Rate (L/min): 1 l/min; Maximum Temperatures (last 24 hours) Temperature Maximum Max Temp 98.3 F (36.8 C) General: No acute distress Skin: No new rashes or lesions Chest: Clear to auscultation Cardiovascular: Regular rate and rhythm. No murmurs, rubs or gallop Abdomen: Soft and non tender. No organomegaly Musculoskeletal: Right knee surgical incision CDI. No large joint swelling, tenderness or redness Neurological: Alert and oriented x 3. No gross motor deficits REVIEW AND INTERPRETATION OF LAB AND IMAGING DATA: Microbiology: Blood Culture - 01/18 - negative thus far Synovial fluid cultures - 01/17 - E coli Lab Results Component Value Date WBC 7.9 01/20/2020 HEMOGLOBIN 9.0 (L) 01/20/2020 PLTCOUNT 62 (L) 01/20/2020 CREATSERUM 2.44 (H) 01/20/2020 ALKPHOS 66 01/19/2020 AST 49 (H) 01/19/2020 ALT 20 01/19/2020 VANCOTROUGH 32.0 (H) 01/20/2020 Jackie Castellon [facility] - 01/20/2020 8:15 AM CDT Mr. Orozco continues on Vancomycin per pharmacy protocol for septic arthritis. The patient is on day 3 of receiving Vancomycin and current dose is (dose/interval): 1500 mg every 12 hours. Labs: WBC Date/Time Value Ref Range Status 01/20/2020 02:26 AM 8.2 4.0 - 11.0 K/uL Final 01/19/2020 11:59 PM 8.5 4.0 - 11.0 K/uL Final 01/19/2020 10:28 AM 16.7 (H) 4.0 - 11.0 K/uL Final 02/09/2019 05:40 AM 13.5 (H) 4.0 - 11.0 K/uL Final 02/08/2019 06:02 AM 8.9 4.0 - 11.0 K/uL Final 01/26/2018 05:53 PM 6.1 4.0 - 11.0 K/uL Final 02/13/2015 10:51 AM 5.5 4.0 - 11.0 K/uL Final 09/18/2014 09:54 AM 4.7 4.0 - 11.0 K/uL Final 03/31/2014 03:59 AM 6.9 4.0 - 11.0 K/uL Final Lab Results Component Value Date CREATSERUM 1.92 (H) 01/19/2020 CREATSERUM 1.92 (H) 01/19/2020 CREATSERUM 1.20 01/19/2020 Vancomycin Trough Date/Time Value Ref Range Status 01/20/2020 02:26 AM 32.0 (H) 10.0 - 20.0 ug/mL Final Cultures: Lab Results Component Value Date CULTGROWTH No growth 01/19/2020 Max Temperature: Temp (24hrs), Av.9 F (36.6 C), Min:97.5 F (36.4 C), Max:98.3 F (36.8 C) Estimated CrCl: Estimated Creatinine Clearance: 38.2 mL/min (A) (based on SCr of 1.92 mg/dL (H)). ml/min Intake/Output: Intake/Output Summary (Last 24 hours) at 01/20/2020 0815 Last data filed at 01/20/2020 0510 Gross per 24 hour Intake 1658.41 ml Output 709 ml Net 949.41 ml Other Active Antimicrobials: Antibiotics (From admission, onward) Start Stop Route Frequency Ordered 01/20/20 0807 vancomycin therapy reminder -- [facility] [place] Upon permission 01/20/20 0808 01/19/20 0300 vancomycin (VANCOCIN) 1,500 mg in sodium chloride 0.9% 250 mL (Locked) (Vancomycin IV: Initial Pharmacy Panel) Status: Discontinued 08/02 0807 IV Every twelve hours 01/18/20 1736 01/18/20 1700 cefTRIAXone (ROCEPHIN) 2000 mg/20 mL IV syringe in sterile water -- IV Every twenty four hours 01/18/20 1648 01/18/20 1440 vancomycin (VANCOCIN) 1,500 mg in sodium chloride 0.9% 250 mL (Locked) 01/17 1653 IV Now 01/18/20 1435 01/18/20 1435 vancomycin in dextrose 200 mL IV piggyback (premix) 1,000 mg Status: Discontinued 01/17 1536 IV Now 01/18/20 1431 Assessment/Plan: The trough level is 32 mcg/mL, which is higher than the desired goal of 10-20 mg/L. Vancomycin will be changed to dosing per random levels. Pharmacy will continue to monitor per the pharmacokinetic service policy. Jackie Dos Santos RPh Kenn Holman PA - 01/19/2020 2:27 PM CDT Orthopedic Daily Progress note: S: 1 Day Post-Op, Procedure(s): I AND D RIGHT KNEE SEPTIC ARTHRITIS O: A/O, Pain moderately controlled. Hypotensive, nurse concerned about continuing FIELD MARKETING REPRESENTATIVE. Will D/C. Dressing C/D/I, Denies CP, SOB, F/C, N/V Positive DF, PF and EHL function, Sensation: intact to light touch in foot Chronic bilat LE edema: continue ADDY wraps daily Current Vital Signs Temp: 97.8 F (36.6 C) BP: 108/66 Pulse: 112 O2 Device: Room Air O2 Flow Rate (L/min): 1 l/min Resp: 18 Pain Ratin (out of 10) Weight: 97.5 kg (215 lb) SpO2: 93 % Pain Ratin Pain Location: Leg Specify: Right Pain character: Intermittent;Stabbing Intake/Output Summary (Last 24 hours) at 01/19/2020 1427 Last data filed at 01/19/2020 0846 Gross per 24 hour Intake 1417 ml Output 1330 ml Net 87 ml Lab Results Component Value Date HEMOGLOBIN 11.3 (L) 01/19/2020 Lab Results Component Value Date NA 133 (L) 01/19/2020 Lab Results Component Value Date INR 2.1 01/19/2020 PT 22.8 (H) 01/19/2020 Lab Results Component Value Date BUN 26 (H) 01/19/2020 Lab Results Component Value Date CREATSERUM 1.20 01/19/2020 Initial Cx from arthrocentesis has shown few E. Choli Few Bacteria on UA, waiting for culture results Assessment/Plan: 1. 1 Day Post-Op, Procedure(s):I AND D RIGHT KNEE SEPTIC ARTHRITIS 2. PT/OT: Out of bed, weight bearing status: WBAT Right lower 3. DVT prophylaxis: lovenox 4. Disposition/Planning: INF DZ following. Monitor labs, vitals. continue with current cares and IV antibiotics JANAK Pascual, PA-C Brady Leo MD - 01/19/2020 10:42 AM CDT DAILY PROGRESS NOTE Lazara Orozco Jr. is a 74yr old male admitted on 01/18/2020. ASSESSMENT & PLAN This is a 74-year-old male who has a history of degenerative joint disease and presented with acute septic arthritis of the right knee. He underwent incision and drainage. Cell count more than 60,000. Culture results are pending and he is currently on vancomycin, ceftriaxone. IMPRESSION AND PLAN: 1. Right knee septic arthritis, status post incision and drainage by orthopedics on 01/17. Antibiotics vancomycin and ceftriaxone, continue the same. Await blood cultures and arthrocentesis cultures from ER. Will need a PICC line and 4-6 weeks of antibiotic treatment. 2. History of congestive heart failure. I think at this moment we can discontinue Bumex since heis on fluids. I do not think he needs that much fluids as well. His vital signs are very decent. Might need to restart Bumex in a day or 2 depending on the clinical scenario. 3. Pain management. Currently on Dilaudid FIELD MARKETING REPRESENTATIVE, continue the same. Might switch to subcu injections. 4. Bowel regimen with Senokot, lactulose, MiraLax. 5. Hypothyroidism. Continue levothyroxine 150 mcg. 6. DVT prophylaxis with enoxaparin 40 mg daily. Receipt: [id number] Trans ID: [id number] ASSISTANT PROFESSOR OF SPANISH ASSISTANT PROFESSOR OF SPANISH SUBJECTIVE No CP or SOB Review of Systems General ROS: negative Constitutional ROS: negative Respiratory ROS: no cough, shortness of breath, or wheezing Cardiovascular ROS: no chest pain or dyspnea on exertion Gastrointestinal ROS: no abdominal pain, change in bowel habits, or black or bloody stools Neurological ROS: no TIA or stroke symptoms Dermatological ROS: negative OBJECTIVE Current Vital Signs Temp: 97.6 F (36.4 C) BP: 119/52 Pulse: 93 O2 Device: NC - no humidity O2 Flow Rate (L/min): 1 l/min Resp: 16 Pain Ratin (out of 10) Weight: 97.5 kg (215 lb) SpO2: 96 % Intake and Output Last 24 Hours 01/17 0700 - 01/18 0659 In: 600 Out: 1080 Lines and Drains Patient Lines/Drains/Airways Status Active Lines Name: Placement date: Placement time: Site: Days: Peripheral IV 01/18/20 Antecubital Left 01/18/20 1131 Antecubital less than 1 Peripheral IV 01/18/20 Wrist Left 01/18/20 2107 Wrist less than 1 Hemovac 01/18/20 Right Knee 01/18/20 Knee 1 Incision 01/18/20 Right Knee Incision 01/18/20 Knee 1 Physical Exam General Appearance: alert, well appearing, and in no distress Mental Status: alert, oriented to person, place, and time Chest: clear to auscultation, no wheezes, rales or rhonchi, symmetric air entry Heart: normal rate, regular rhythm, normal S1, S2, no murmurs, rubs, clicks or gallops Abdomen: soft, nontender, nondistended, no masses or organomegaly Neurological: alert, oriented, normal speech, no focal findings or movement disorder noted Extremities: peripheral pulses normal, no pedal edema, no clubbing or cyanosis Skin: normal coloration and turgor, no rashes, no suspicious skin lesions noted Diagnostics and Labs Reviewed Charlette Wharton, PHARM D - 01/18/2020 5:37 PM CDT Vancomycin Initial Consult Note Mr. Orozco was admitted on 01/18/2020 and today has been initiated on Vancomycin per pharmacy protocol for septic arthritis. Labs: No results found for: JOANNE WBC Date/Time Value Ref Range Status 01/18/2020 11:39 AM 9.0 4.0 - 11.0 K/uL Final 02/09/2019 05:40 AM 13.5 (H) 4.0 - 11.0 K/uL Final 02/13/2015 10:51 AM 5.5 4.0 - 11.0 K/uL Final Lab Results Component Value Date CREATSERUM 1.18 01/18/2020 Max Temperature: Temp (24hrs), Av.5 F (36.9 C), Min:98.5 F (36.9 C), Max:98.5 F (36.9 C) Estimated CrCl: Estimated Creatinine Clearance: 62.1 mL/min (based on SCr of 1.18 mg/dL). ml/min Intake/Output: No intake or output data in the 24 hours ending 01/18/20 1737 Other Active Antimicrobial Agents: ceftriaxone Plan: We have initiated intravenous Vancomycin therapy at a dose of 1500 mg every 12 hours. The goal trough range will be ~15 mcg/ml. Pharmacy will monitor and if indicated, adjust dose and/or frequency per the Pharmacy and Therapeutics Committee approved pharmacokinetic service policy. Charlette Wharton, PHARM D documented in this encounter Plan of Treatment Date Type Specialty Care Team Description 02/07/2020 Office Visit Orthopedics Se Hernandez MD [address] [place] [id number] [phone] 02/13/2020 Office Visit Orthopedics Ayo Nicole M D [address] [place] [address] [phone] 02/14/2020 Office Visit Infectious Diseases Thee Kirk, BUSINESS INTELLIGENCE ARCHITECT [address] [place], [place] [id number] Name Type Priority Associated Date/Time Diagnoses CULTURE, ACID FAST MICROBIOLOGY REPORT Routine Septic arthriti s of 01/18/2020 9:25 BACILLUS WITH STAIN knee, right (HCC) PM CDT CULTURE FUNGAL, MICROBIOLOGY REPORT Routine Septic arthritis o f 01/18/2020 9:25 OTHER knee, right (HCC) PM CDT CULTURE BACTERIAL, MICROBIOLOGY REPORT Routine Septic arthriti s of 01/18/2020 9:25 ORTHOPEDIC EXTENDED knee, right (HCC) PM CDT INCUBATION WITH GRAM STAIN Name Type Priority Associated Order Schedule Diagnoses CULTURE FUNGAL, MICROBIOLOGY REPORT Routine Septic arthritis O NCE for 1 OTHER of knee, right Occurrences s tarting (HCC) 01/18/2020, 1 completed BASIC METABOLIC Lab Routine Early AM michaela w for PANEL labs until discontinued starting 2019, 2 completed MAGNESIUM Lab Routine Early AM draw f or labs until discontinued starting 2019, 1 completed BASIC METABOLIC Lab Routine Septic arthritis Expected : 02/06/2020 PANEL of knee, right (Approximate) , (HCC) Expires: 2020 Name Type Priority Associated Diagnoses Order S chedule CLINIC REFERRAL Referral Routine MALACHI (acute kidney Ordered : 01/30/2020 NEPHROLOGY ONE CHART injury) ([facility]) CLINIC REFERRAL Referral Routine Septic arthritis of Order ed: 01/30/2020 INFECTIOUS DISEASE ONE knee, right (HCC) CHART CLINIC REFERRAL HEART Referral Routine Chronic diastolic h eart Ordered: 01/30/2020 FAILURE PROGRAM ONE failure ([facility]) CHART CLINIC REFERRAL Referral Routine Septic arthritis of Order ed: 01/30/2020 ORTHOPEDICS ONE CHART knee, right (HCC) documented as of this encounter Implants Implanted Type Area Escrow Agent Device Shelf Model / Identifier Expiration Serial / Date Lot Screw Cncls Full Thrd 4x20mm N 206.020 Ea - Sn/A Ortho Left: J [employer]J DEPUY 206.020 / Implanted: Qty: 1 on 09/23/2014 by Jeffry Peck MD at Other FIBULA [employer] N/A / N/A Description:Implant verified by Dr. Umang silverman and OR staff Screw Cncls Full Thrd 4x20mm N 206.020 Ea - Sn/A Ortho Other Left: FIBULA J&J DEPUY SYNTHES 206.020 / Implanted: Qty: 1 on 09/23/2014 by Jeffry Peck MD at N/A / N/A Description:Implant verified by Dr. Umang silverman and OR staff Screw Cncls Full Thrd 4x20mm N 206.020 Ea - Sn/A Ortho Other Left: FIBULA J[employer]J DEPUY SYNTHES 206.020 / Implanted: Qty: 1 on 09/23/2014 by Jeffry Peck MD at N/A / N/A Description:Implant veriried by Dr. Umang silverman and OR staff Screw Cncls Full Thrd 4x24mm N 206.024 Ea - Sn/A Ortho Other Left: FIBULA J[employer]J DEPUY SYNTHES 206.024 / Implanted: Qty: 1 on 09/23/2014 by Jeffry Peck MD at N/A / N/A Description:Implant verified by Dr. Umang silverman and OR staff Screw Collin Slftp 3.5x14mm N 204.814 Ea - Sn/A Ortho Other Le ft: FIBULA J[employer]J DEPUY SYNTHES 204.814 / Implanted: Qty: 1 on 09/23/2014 by Jeffry Peck MD at N/A / N/A Description:Implant verified by Dr. Umang silverman and OR staff Screw Collin Slftp 3.5x14mm N 204.814 Ea - Sn/A Ortho Other Le ft: FIBULA J[employer]J DEPUY SYNTHES 204.814 / Implanted: Qty: 1 on 09/23/2014 by Jeffry Peck MD at N/A / N/A Description:Implant verified by Dr. Umang silverman and OR staff Screw Collin Slftp 3.5x14mm N 204.814 Ea - Sn/A Ortho Other Le ft: FIBULA J[employer]J DEPUY SYNTHES 204.814 / Implanted: Qty: 1 on 09/23/2014 by Jeffry Peck MD at N/A / N/A Description:Implant verified by Dr. Umang silverman and OR staff Plate Tublr Synt 7hl 81mm N 241.371 Ea - Sn/A Ortho Other Le ft: FIBULA J[employer]J DEPUY SYNTHES 241.371 / Implanted: Qty: 1 on 09/23/2014 by Jeffry Peck MD at N/A / N/A Description:Implant verified by Dr. Umang silverman and OR staff Shldr Metaglene Depu N 1307-60-000 Ea1 - Sn/A Total Jt Le ft: SHOULDER J&J DEPUY, 04/19/2023 1307-60-000 / Implanted: Qty: 1 on 02/07/2019 by Se Hernandez MD at [employer] N/A / [id number] Description:Ordered and verified by Dr. Hernandez. Verified by surgical team. Shldr Screw Metaglene Lk4.5x36 N 1307-90-036 Ea1 - Sn/A Total Jt Left: SHOULDER J&J DEPUY, 04/19/2023 1307-90-036 / Implanted: Qty: 1 on 02/07/2019 by Se Hernandez MD at [employer] N/A / [id number] Description:Ordered and verified by Dr. Hernandez. Verified by surgical team. Shldr Screw Metaglene Lk4.5x36 N 130-036 Ea1 - Sn/A Total Jt Left: SHOULDER J&J DEPUY, 02/17/2023 13090-036 / Implanted: Qty: 1 on 02/07/2019 by Se Hernandez MD at [employer] N/A / [id number] Description:Ordered and verified by Dr. Hernandez. Verified by surgical team. Shldr Screw Metaglene Nl4.5x18 N 1307-70-018 Ea1 - Sn/A Total Jt Left: SHOULDER J&J DEPUY, 03/19/2023 1307-70-018 / Implanted: Qty: 1 on 02/07/2019 by Se Hernandez MD at [employer] N/A / [id number] Description:Ordered and verified by Dr. Hernandez. Verified by surgical team. Shldr Screw Metaglene Nl4.5x18 N 1307-70-018 Ea1 - Sn/A Total Jt Left: SHOULDER J&J DEPUY, 03/19/2023 1307-70-018 / Implanted: Qty: 1 on 02/07/2019 by Se Hernandez MD at [facility] N/A / [id number] Description:Ordered and verified by Dr. Hernandez. Verified by surgical team. Shldr Glenospher Std Depu 42mm N [id number] Ea1 - Sn/A Total Jt Left: SHOULDER J&J DEPUY, 02/17/2023 [id number] / Implanted: Qty: 1 on 02/07/2019 by Se Hernandez MD at Shoulder [facility] N/A / [id number] Description:Ordered and verified by Dr. Hernandez. Verified by surgical team. Shldr Epip Depu Lft Sz2 N Ea1 - Sn/A Total Jt Left: SHOULDER J&J DEPUY, 03/19/2022 / Implanted: Qty: 1 on 02/07/2019 by Se Hernandez MD at [facility] N/A / [id number] Description:Ordered and verified by Dr. Hernandez. Verified by surgical team. Shldr Humr Stem Kraus 14mm N [id number] Ea1 - Sn/A Total Jt Left: SHOULDER J&J DEPUY, 03/19/2023 130 / Implanted: Qty: 1 on 02/07/2019 by Se Hernandez MD at [facility] N/A / [id number] Description:Ordered and verified by Dr. Hernandez. Verified by surgical team. Shldr Humr Cup Depu +6 42mm N 130 Ea1 - Sn/A Total Jt Left: SHOULDER J&J DEPUY, 12/17/2022 130 / Implanted: Qty: 1 on 02/07/2019 by Se Hernandez MD at [facility] N/A / [id number] Description:Ordered and verified by Dr. Hernandez. Verified by surgical team. Vertaplex Hv-10/19/2017 VERTEBRAE 02/18/20 19 [id number] / Implanted: Qty: 1 on 10/19/2017 by Jg Mckinney MD / [id number] Description:Used for T9 and T10 vertebro plasties documented as of this encounter Procedures Procedure Name Priority Date/Time Associated Comments Diagnosis SARS-COV-2 RNA, STAT 01/30/2020 6:28 Results for this QUALITATIVE REAL-TIME AM CDT proced ure are in RT-PCR the results section. LAB ONLY-COMPLETE Routine 01/30/2020 5:43 Result s for this BLOOD COUNT WITH AM CDT procedure a re in DIFFERENTIAL the results section. MAGNESIUM Routine 01/30/2020 5:43 Results for this AM CDT procedure are i n the results section. BASIC METABOLIC PANEL Routine 01/30/2020 5:43 Re sults for this AM CDT procedure are i n the results section. LAB ONLY-COMPLETE Routine 01/30/2020 5:43 Result s for this BLOOD COUNT WITH AM CDT procedure a re in DIFFERENTIAL the results section. LAB ONLY-COMPLETE Routine 01/29/2020 8:30 Result s for this BLOOD COUNT WITH AM CDT procedure a re in DIFFERENTIAL the results section. TSH REFLEX Routine 01/29/2020 8:30 Results for this AM CDT procedure are i n the results section. FREE T4 Routine 01/29/2020 8:30 Results for this AM CDT procedure are i n the results section. MAGNESIUM Routine 01/29/2020 8:30 Results for this AM CDT procedure are i n the results section. BASIC METABOLIC PANEL Routine 01/29/2020 8:30 Re sults for this AM CDT procedure are i n the results section. LAB ONLY-COMPLETE Routine 01/29/2020 8:30 Result s for this BLOOD COUNT WITH AM CDT procedure a re in DIFFERENTIAL the results section. US VENOUS DUPLEX Routine 01/28/2020 3:26 Results for this LOWER EXTREMITY JILLIAN PM CDT procedur e are in the results section. BASIC METABOLIC PANEL Routine 01/28/2020 6:43 Re sults for this AM CDT procedure are i n the results section. BASIC METABOLIC PANEL Routine 01/27/2020 10:59 Re sults for this AM CDT procedure are i n the results section. BASIC METABOLIC PANEL Routine 01/26/2020 12:15 Re sults for this PM CDT procedure are i n the results section. BASIC METABOLIC PANEL Routine 01/25/2020 8:14 Re sults for this AM CDT procedure are i n the results section. BASIC METABOLIC PANEL Routine 01/23/2020 11:07 Re sults for this AM CDT procedure are i n the results section. EOSINOPHIL SMEAR, Routine 01/22/2020 5:38 Result s for this NON-NASAL PM CDT procedure are i n the results section. PROTEIN / CREATININE Routine 01/22/2020 5:38 Res ults for this INDEX, URINE PM CDT procedure are i n the results section. UREA NITROGEN, URINE Routine 01/22/2020 5:38 Res ults for this PM CDT procedure are i n the results section. LAB ONLY-COMPLETE Routine 01/22/2020 12:22 Result s for this BLOOD COUNT WITH PM CDT procedure a re in DIFFERENTIAL the results section. COMPLEMENT C4 Routine 01/22/2020 12:22 Results fo r this PM CDT procedure are i n the results section. COMPLEMENT C3 Routine 01/22/2020 12:22 Results fo r this PM CDT procedure are i n the results section. URIC ACID Routine 01/22/2020 12:22 Results for this PM CDT procedure are i n the results section. BASIC METABOLIC PANEL STAT 01/22/2020 12:22 Re sults for this PM CDT procedure are i n the results section. LAB ONLY-COMPLETE Routine 01/22/2020 12:22 Result s for this BLOOD COUNT WITH PM CDT procedure a re in DIFFERENTIAL the results section. US RENAL JILLIAN Routine 01/22/2020 10:59 Results for this AM CDT procedure are i n the results section. LAB ONLY-COMPLETE Routine 01/21/2020 10:58 Result s for this BLOOD COUNT WITH PM CDT procedure a re in DIFFERENTIAL the results section. BASIC METABOLIC PANEL Routine 01/21/2020 10:58 Re sults for this PM CDT procedure are i n the results section. LAB ONLY-COMPLETE Routine 01/21/2020 10:58 Result s for this BLOOD COUNT WITH PM CDT procedure a re in DIFFERENTIAL the results section. LAB ONLY-COMPLETE WILDA 01/20/2020 9:32 Result s for this BLOOD COUNT WITH AM CDT procedure a re in DIFFERENTIAL the results section. C-REACTIVE PROTEIN WILDA 01/20/2020 9:32 Resul ts for this (INFLAMMATION) AM CDT procedure are in the results section. RENAL FUNCTION PANEL WILDA 01/20/2020 9:32 Res ults for this AM CDT procedure are i n the results section. LAB ONLY-COMPLETE WILDA 01/20/2020 9:32 Result s for this BLOOD COUNT WITH AM CDT procedure a re in DIFFERENTIAL the results section. BRAIN NATRIURETIC Routine 01/20/2020 9:32 Result s for this PEPTIDE AM CDT procedure are i n the results section. LAB ONLY-COMPLETE Routine 01/20/2020 2:26 Result s for this BLOOD COUNT WITH AM CDT procedure a re in DIFFERENTIAL the results section. VANCOMYCIN TROUGH Timed Routine 01/20/2020 2:26 Resul ts for this AM CDT procedure are i n the results section. LAB ONLY-COMPLETE Routine 01/20/2020 2:26 Result s for this BLOOD COUNT WITH AM CDT procedure a re in DIFFERENTIAL the results section. GLUCOSE BY METER, Routine 01/20/2020 12:02 Result s for this POCT AM CDT procedure are i n the results section. LAB ONLY-COMPLETE STAT 01/19/2020 11:59 Result s for this BLOOD COUNT WITH PM CDT procedure a re in DIFFERENTIAL the results section. COLLECT AND HOLD Routine 01/19/2020 11:59 Results for this GREEN TOP TUBE PM CDT procedure are in the results section. COLLECT AND HOLD BLUE Routine 01/19/2020 11:59 Re sults for this (NACIT) TOP TUBE PM CDT procedure a re in the results section. LAB ONLY-COMPLETE STAT 01/19/2020 11:59 Result s for this BLOOD COUNT WITH PM CDT procedure a re in DIFFERENTIAL the results section. TROPONIN I STAT 01/19/2020 11:11 Results for this PM CDT procedure are i n the results section. MAGNESIUM STAT 01/19/2020 11:11 Results for this PM CDT procedure are i n the results section. COMPREHENSIVE STAT 01/19/2020 11:11 Results fo r this METABOLIC PANEL PM CDT procedure ar e in the results section. BASIC METABOLIC PANEL Routine 01/19/2020 11:11 Re sults for this PM CDT procedure are i n the results section. EKG WILDA 01/19/2020 9:27 Results for this PM CDT procedure are i n the results section. CULTURE, BLOOD WILDA 01/19/2020 11:01 Results f or this AM CDT procedure are i n the results section. CULTURE, BLOOD WILDA 01/19/2020 10:44 Results f or this AM CDT procedure are i n the results section. LAB ONLY-COMPLETE WILDA 01/19/2020 10:28 Result s for this BLOOD COUNT WITH AM CDT procedure a re in DIFFERENTIAL the results section. C-REACTIVE PROTEIN WILDA 01/19/2020 10:28 Resul ts for this (INFLAMMATION) AM CDT procedure are in the results section. RENAL FUNCTION PANEL WILDA 01/19/2020 10:28 Res ults for this AM CDT procedure are i n the results section. LAB ONLY-COMPLETE WILDA 01/19/2020 10:28 Result s for this BLOOD COUNT WITH AM CDT procedure a re in DIFFERENTIAL the results section. BRAIN NATRIURETIC Routine 01/19/2020 10:28 Result s for this PEPTIDE AM CDT procedure are i n the results section. TRANSFUSE RED BLOOD STAT 01/19/2020 7:02 CELLS IN UNITS AM CDT PREPARE AND HOLD RED STAT 01/19/2020 3:00 Res ults for this BLOOD CELLS IN UNITS AM CDT procedu re are in - BLOOD BANK the results section. LAB ONLY-COMPLETE STAT 01/19/2020 2:22 Result s for this BLOOD COUNT WITH AM CDT procedure a re in DIFFERENTIAL the results section. PTT STAT 01/19/2020 2:22 Results for this AM CDT procedure are i n the results section. PROTIME/INR STAT 01/19/2020 2:22 Results for this AM CDT procedure are i n the results section. CREATININE Routine 01/19/2020 2:22 Results for this AM CDT procedure are i n the results section. COMPREHENSIVE STAT 01/19/2020 2:22 Results fo r this METABOLIC PANEL AM CDT procedure ar e in the results section. LAB ONLY-COMPLETE STAT 01/19/2020 2:22 Result s for this BLOOD COUNT WITH AM CDT procedure a re in DIFFERENTIAL the results section. TYPE AND SCREEN STAT 01/19/2020 2:17 Results for this AM CDT procedure are i n the results section. LAB ONLY-URINE Routine 01/19/2020 1:51 Results f or this MICROSCOPIC REFLEX AM CDT procedure are in the results section. URINE DIP, REFLEX TO Routine 01/19/2020 1:51 Res ults for this MICROSCOPIC, REFLEX AM CDT procedur e are in TO CULTURE the results section. CULTURE BACTERIAL, Routine 01/19/2020 1:51 Resul ts for this URINE AM CDT procedure are i n the results section. CULTURE BACTERIAL, Routine 01/18/2020 9:25 Septic arthritis ORTHOPEDIC EXTENDED PM CDT of knee, right INCUBATION WITH GRAM (HCC) STAIN CULTURE BACTERIAL, Routine 01/18/2020 9:25 Septic arthritis R esults for this OTHER WITH GRAM STAIN PM CDT of knee, right proc edure are in ([facility]) the results section. CULTURE, ACID FAST Routine 01/18/2020 9:25 Septic arthritis BACILLUS WITH STAIN PM CDT of knee, right ([facility]) DEBRIDEMENT LOWER 01/18/2020 8:18 Septic arthritis EXTREMITY PM CDT of knee, right ([facility]) LAB Routine 01/18/2020 3:03 Results for this ONLY-DIFFERENTIAL, PM CDT procedure are in SYNOVIAL FLUID the results section. LAB ONLY-CELL COUNT, STAT 01/18/2020 3:03 Res ults for this SYNOVIAL FLUID PM CDT procedure are in the results section. CELL COUNT AND DIFF, STAT 01/18/2020 3:03 Res ults for this SYNOVIAL FLUID PM CDT procedure are in the results section. CRYSTALS, SYNOVIAL STAT 01/18/2020 2:42 Resul ts for this FLUID PM CDT procedure are i n the results section. CULTURE BACTERIAL, STAT 01/18/2020 2:39 Resul ts for this OTHER WITH GRAM STAIN PM CDT proced ure are in the results section. CT EXTREMITY LOWER STAT 01/18/2020 1:35 Resul ts for this WITHOUT CONTRAST RT PM CDT procedur e are in the results section. XRAY KNEE 3 VIEWS RT WILDA 01/18/2020 12:04 Res ults for this PM CDT procedure are i n the results section. LAB ONLY-COMPLETE STAT 01/18/2020 11:39 Result s for this BLOOD COUNT WITH AM CDT procedure a re in DIFFERENTIAL the results section. C-REACTIVE PROTEIN STAT 01/18/2020 11:39 Resul ts for this (INFLAMMATION) AM CDT procedure are in the results section. COMPREHENSIVE STAT 01/18/2020 11:39 Results fo r this METABOLIC PANEL AM CDT procedure ar e in the results section. LAB ONLY-COMPLETE STAT 01/18/2020 11:39 Result s for this BLOOD COUNT WITH AM CDT procedure a re in DIFFERENTIAL the results section. PROTIME/INR STAT 01/18/2020 11:31 Results for this AM CDT procedure are i n the results section. JOINT Routine 01/18/2020 11:14 Results for this ASPIRATION/INJECTION AM CDT procedu re are in the results section. documented in this encounter Results SARS-COV-2 RNA, QUALITATIVE REAL-TIME RT-PCR (01/30/2020 6:28 AM CDT) [facility] SARS CoV RNA, RT Not Detected Not Detected [facility] Specimen Respiratory Narrative Performed At This test was performed by polymerase chain reaction ( PCR) [facility] on the [employer] MDX instrument. This assay is for in vitro diagnostic use under FDA Emergency Use Authorization only. Optimal performance of this test requires appropriate specimen collection, storage, and transport to the [facility] site. Detection of SARS-CoV-2 RNA may be affected by sample collection methods, patient factors (eg, presence of symptoms), and/or stage of infection. False-negative results may arise from degradation of v iral RNA during shipping/storage. Results should be interpreted by a trained professiona l in conjunction with the patient s history and clinical signs and symptoms, and epidemiological risk factors. Negative (Not Detected) results do not preclude infect ion with the SARS-CoV-2 virus and should not be the sole b asis of patient treatment/management or public health decis ion. Follow up testing should be performed according to the current CDC recommendations. Performing Organization Address City/State/Zipcode Phone Number [facility] [address] [place] [address] LAB ONLY-COMPLETE BLOOD COUNT WITH DIFFERENTIAL (01/30/2020 5:43 AM CDT) [facility] WBC 5.2 4.0 - 11.0 [facility]L [facility] RBC 2.01 (L) 4.40 - 5.80 [facility] M/uL [facility] Hemoglobin 8.0 (L) 13.5 - 17.5 [facility] g/dL [facility] Hematocrit 23.6 (L) 40.0 - 50.0 [facility] % [facility]IN[facility] MCV 117.4 (H)Comment: 80.0 - 98.0 [facility] Macrocytosis fL CLINIC present. MCH 39.8 (H) 25.5 - 34.0 [facility] pg [facility]IN[facility] MCHC 33.9 31.5 - 36.5 [facility] g/dL [facility]IN[facility] RDW-CV 18.1 (H) 11.5 - 15.5 [facility] % [facility]IN[facility] RDW-SD 78.9 (H) 35.5 - 50.0 [facility] fl [facility] Platelet Count 106 (L) 140 - 400 [place] [address] K/uL CLINIC MPV 10.6 8.5 - 12.[address] Seg Neut Absolute 3.4 1.8 - 8.0 [place] [address] K/uL CLINIC Lymphocytes 1.2 0.8 - 4.1 [place] [address] Absolute K/uL CLINIC Monocytes Absolute 0.5 0.0 - 1.0 [place] [address] K/uL CLINIC Eosinophils 0.1 0.0 - 0.7 [place] [address] Absolute K/uL CLINIC Basophil Absolute 0.0 0.0 - 0.2 [place] [address] K/uL CLINIC Immature 0.03 0.00 - 0.06 [place] [address] Granulocyte K/uL CLINIC Absolute Neutrophils Abs. 3,400 /uL [place] [address] (Segs and Bands) [facility] Neutrophils Percent 64.3 % [address] Lymphocytes Percent 22.3 % [address] Monocytes Percent 10.1 % [place] [address] CLINIC Immature 0.6 % [place] [address] Granulocyte Percent CLINIC Eosinophils Percent 2.1 % [address] Basophil Percent 0.6 % [place] [address] CLINIC Nucleated RBC 0 /[address] Specimen Blood Performing Organization Address [facility] Phone Number [address] [place] [phone] MAGNESIUM (01/30/2020 5:43 AM CDT) Pathologist Sig nature Magnesium 1.9 1.8 - 2.4 mg/dL [address] Specimen Blood Performing Organization Address [facility] Phone Number [address] [address] BASIC METABOLIC PANEL (01/30/2020 5:43 AM CDT) Pathologist Sig nature Glucose 117 (H) 70 - 100 mg/dL [address] BUN 58 (H) 6 - 22 mg/dL [address] Creatinine 2.42 (H) 0.80 - 1.[address] mg/dL BUN/Creatinine Ratio 24.0 10.0 - 25.[address] Sodium 133 (L) 135 - 145 meq/L [address] Potassium 4.1 3.5 - 5.3 meq/L [address] Chloride 101 99 - 110 meq/L [address] CO2 26 20 - 29 meq/L [address] Anion Gap with K 10 6 - 20 meq/L [address] Calcium 7.9 (L) 8.5 - 10.[address] mg/dL Age [address] eGFR Non- 26 (L) >=[address] [place] mL/min/1.73m2 eGFR 32 (L) >=[address] mL/min/1.73m2 Specimen Blood Performing Organization Address City/[facility]/Zipcode Phone Number [address] [place] [phone] FREE T4 (01/29/2020 8:30 AM CDT) Pathologist [facility] T4 Free 1.0 0.7 - 1.5 ng/dL [facility] Specimen Blood Performing Organization Address City/[facility] Phone Number [facility] [address] [place] [address] LAB ONLY-COMPLETE BLOOD COUNT WITH DIFFERENTIAL (01/29/2020 8:30 AM CDT) WBC 6.0 4.0 - 11.0 [place] [address] K/uL CLINIC RBC 2.19 (L) 4.40 - 5.80 [place] [address] M/uL CLINIC Hemoglobin 8.5 (L) 13.5 - 17.5 [place] [address] g/dL CLINIC Hematocrit 26.2 (L) 40.0 - 50.0 [place] [address] % [facility] MCV 119.6 (H)Comment: 80.0 - 98.0 [place] [address] Macrocytosis fL CLINIC present. MCH 38.8 (H) 25.5 - 34.0 [place] [address] pg CLINIC MCHC 32.4 31.5 - 36.5 [place] [address] g/dL CLINIC RDW-CV 18.6 (H) 11.5 - 15.5 [place] [address] % [facility] RDW-SD 84.2 (H) 35.5 - 50.0 [place] [address] fl CLINIC Platelet Count 118 (L) 140 - 400 [facility] K/uL CLINIC MPV 10.6 8.5 - 12.0 [facility] fL CLINIC Seg Neut Absolute 4.1 1.8 - 8.0 [place] K/uL CLINIC Lymphocytes 1.1 0.8 - 4.1 [place] Absolute K/uL CLINIC Monocytes Absolute 0.6 0.0 - 1.0 [place] [address] K/uL CLINIC Eosinophils 0.2 0.0 - 0.7 [place] [address] Absolute K/uL CLINIC Basophil Absolute 0.0 0.0 - 0.2 [place] [address] K/uL CLINIC Immature 0.03 0.00 - 0.06 [place] [address] Granulocyte K/uL CLINIC Absolute Neutrophils Abs. 4,100 /uL [place] [address] (Segs and Bands) CLINIC Neutrophils Percent 67.7 % [place] [address] CLINIC Lymphocytes Percent 18.2 % [address] Monocytes Percent 10.4 % [place] [address] CLINIC Immature 0.5 % [place] [address] Granulocyte Percent CLINIC Eosinophils Percent 2.5 % [place] [address] CLINIC Basophil Percent 0.7 % [place] [address] CLINIC Nucleated RBC 0 /[address] Specimen Blood Performing Organization Address [facility] Phone Number [address] [address] TSH REFLEX (01/29/2020 8:30 AM CDT) Pathologist Sig nature TSH 5.51 (H) 0.40 - 5.00 uIU/mL [address] Specimen Blood Performing Organization Address [facility] Phone Number [address] [address] MAGNESIUM (01/29/2020 8:30 AM CDT) Pathologist Sig nature Magnesium 2.1 1.8 - 2.4 mg/dL [address] Specimen Blood Performing Organization Address [facility] Phone Number [address] [address] BASIC METABOLIC PANEL (01/29/2020 8:30 AM CDT) Pathologist Sig nature Glucose 172 (H) 70 - 100 mg/dL [address] BUN 58 (H) 6 - 22 mg/dL [address] Creatinine 2.58 (H) 0.80 - 1.[address] mg/dL BUN/Creatinine Ratio 22.5 10.0 - 25.[address] Sodium 132 (L) 135 - 145 meq/L [address] Potassium 4.0 3.5 - 5.3 meq/L [address] Chloride 99 99 - 110 meq/L [address] CO2 27 20 - 29 meq/L [address] Anion Gap with K 10 6 - 20 meq/L [address] Calcium 7.9 (L) 8.5 - 10.[address] mg/dL Age [address] eGFR Non- 25 (L) >=[address] [place] mL/min/1.73m2 eGFR 30 (L) >=[address] mL/min/1.73m2 Specimen Blood Performing Organization Address City/State/Zipcode Phone Number [address] [place] [phone] US VENOUS DUPLEX LOWER EXTREMITY JILLIAN (01/28/2020 3:26 PM CDT) Specimen Narrative Performed At This result has an attachment that is no t available. Name: Lazara Orozco Jr. RADIOLOGY : 1945 Date of Service: 01/28/2020 EXAM: US VENOUS DUPLEX LOWER EXTREMITY JILLIAN INDICATION: swelling COMPARISON(S): 11-26-14 TECHNIQUE: Multiple real-time sonographic images obt ained using grayscale, color, and spectral Doppler. FINDINGS: RIGHT: Common Femoral Vein / Saphenofemoral Junction: Compressibility: Compresses Phasicity: Normal Augmentation: Normal Deep Femoral Vein Proximal: Compressibility: Compresses Phasicity: Normal Augmentation: Normal Femoral Vein Proximal: Compressibility: Compresses Phasicity: Normal Augmentation: Normal Femoral Vein Mid: Compressibility: Compresses Femoral Vein Distal: Compressibility: Compresses Great Saphenous Vein: Compressibility: Compresses Augmentation: Normal Popliteal Vein: Compressibility: Compresses Phasicity: Normal Augmentation: Normal Posterior Tibial Veins: Compressibility: Compresses Augmentation: Normal Peroneal Veins: Compressibility: Compresses Augmentation: Normal LEFT: Common Femoral Vein / Saphenofemoral Junction: Compressibility: Compresses Phasicity: Normal Augmentation: Normal Deep Femoral Vein Proximal: Compressibility: Compresses Phasicity: Normal Augmentation: Normal Femoral Vein Proximal: Compressibility: Compresses Phasicity: Normal Augmentation: Normal Femoral Vein Mid: Compressibility: Compresses Femoral Vein Distal: Compressibility: Compresses Great Saphenous Vein: Compressibility: Compresses Augmentation: Normal Popliteal Vein: Compressibility: Compresses Phasicity: Normal Augmentation: Normal Posterior Tibial Veins: Compressibility: Compresses Augmentation: Normal Peroneal Veins: Compressibility: Compresses Augmentation: Normal IMPRESSION: 1. No evidence of deep or superficial venous thrombosi s in bilateral lower extremities. Performing Organization Address City/[facility]/Zipcode Phone Number RADIOLOGY [address] [facility] [place] [address] BASIC METABOLIC PANEL (01/28/2020 6:43 AM CDT) Pathologist [facility] Glucose 121 (H) 70 - 100 mg/dL [place] [address] CLINIC BUN 57 (H) 6 - 22 mg/dL [address] Creatinine 2.53 (H) 0.80 - 1.[address] mg/dL BUN/Creatinine Ratio 22.5 10.0 - 25.[address] Sodium 134 (L) 135 - 145 meq/L [address] Potassium 4.0 3.5 - 5.3 meq/L [address] Chloride 102 99 - 110 meq/L [address] CO2 25 20 - 29 meq/L [address] Anion Gap with K 11 6 - 20 meq/L [address] Calcium 7.7 (L) 8.5 - 10.5 [place] [address] CLINIC mg/dL Age [address] eGFR Non- 25 (L) >=60 [place] [address] CLINIC [place] mL/min/1.73m2 eGFR 31 (L) >=[address] mL/min/1.73m2 Specimen Blood Performing Organization Address City/[facility]/Zipcode Phone Number [place] [address] CLINIC [address] [place] [address] BASIC METABOLIC PANEL (01/27/2020 10:59 AM CDT) Pathologist Sig [facility] Glucose 145 (H) 70 - 100 mg/dL [address] BUN 60 (H) 6 - 22 mg/dL [place] [address] CLINIC Creatinine 2.78 (H) 0.80 - 1.[address] mg/dL BUN/Creatinine Ratio 21.6 10.0 - 25.[address] Sodium 135 135 - 145 meq/L [address] Potassium 4.0 3.5 - 5.3 meq/L [address] Chloride 101 99 - 110 meq/L [address] CO2 25 20 - 29 meq/L [address] Anion Gap with K 13 6 - 20 meq/L [address] Calcium 7.9 (L) 8.5 - 10.[address] mg/dL Age [address] eGFR Non- 23 (L) >=[address] [place] mL/min/1.73m2 eGFR 27 (L) >=[address] mL/min/1.73m2 Specimen Blood Performing Organization Address City/State/Zipcode Phone Number [address] [place] [phone] BASIC METABOLIC PANEL (01/26/2020 12:15 PM CDT) Pathologist Sig [facility] Glucose 188 (H) 70 - 100 mg/dL [address] BUN 57 (H) 6 - 22 mg/dL [address] Creatinine 2.75 (H) 0.80 - 1.[address] mg/dL BUN/Creatinine Ratio 20.7 10.0 - 25.[address] Sodium 132 (L) 135 - 145 meq/L [address] Potassium 4.1 3.5 - 5.3 meq/L [address] Chloride 99 99 - 110 meq/L [place] [address] CLINIC CO2 22 20 - 29 meq/L [address] Anion Gap with K 15 6 - 20 meq/L [place] [address] CLINIC Calcium 7.7 (L) 8.5 - 10.[address] mg/dL Age [address] eGFR Non- 23 (L) >=[address] [place] mL/min/1.73m2 eGFR 28 (L) >=[address] mL/min/1.73m2 Specimen Blood Performing Organization Address [facility] Phone Number [address] [place] [phone] BASIC METABOLIC PANEL (01/25/2020 8:14 AM CDT) Pathologist Sig nature Glucose 139 (H) 70 - 100 mg/dL [address] BUN 56 (H) 6 - 22 mg/dL [address] Creatinine 2.88 (H) 0.80 - 1.[address] mg/dL BUN/Creatinine Ratio 19.4 10.0 - 25.[address] Sodium 132 (L) 135 - 145 meq/L [address] Potassium 3.5 3.5 - 5.3 meq/L [address] Chloride 100 99 - 110 meq/L [place] [address] CLINIC CO2 25 20 - 29 meq/L [address] Anion Gap with K 11 6 - 20 meq/L [address] Calcium 7.4 (L) 8.5 - 10.5 [place] [address] CLINIC mg/dL Age [address] eGFR Non- 22 (L) >=[address] [place] mL/min/1.73m2 eGFR 26 (L) >=60 [address] STRE[address] mL/min/1.73m2 Specimen Blood Performing Organization Address [facility] Phone Number [address] [place] [address] BASIC METABOLIC PANEL (01/23/2020 11:07 AM CDT) Pathologist Sig nature Glucose 145 (H) 70 - 100 mg/dL [place] [address] [facility] BUN 56 (H) 6 - 22 mg/dL [place] [address] [facility] Creatinine 3.23 (H) 0.80 - 1.30 [place] [address] [facility] mg/dL BUN/Creatinine Ratio 17.3 10.0 - 25.0 [place] [address] [facility] Sodium 132 (L) 135 - 145 meq/L [place] [address] [facility] Potassium 3.7 3.5 - 5.3 meq/L [address] Chloride 98 (L) 99 - 110 meq/L [address] CO2 26 20 - 29 meq/L [address] Anion Gap with K 12 6 - 20 meq/L [address] Calcium 7.5 (L) 8.5 - 10.[address] mg/dL Age [address] eGFR Non- 19 (L) >=[address] [place] mL/min/1.73m2 eGFR 23 (L) >=[address] mL/min/1.73m2 Specimen Blood Performing Organization Address [facility] Phone Number [address] [place] [address] EOSINOPHIL SMEAR, NON-NASAL (01/22/2020 5:38 PM CDT) Pathologist Sig nature Eosin Smear Source Urine [facility] C Eosin's Smear None seen None seen [facility] Specimen Not Applicable Performing Organization Address [facility] Phone Number [address] [address] UREA NITROGEN, URINE (01/22/2020 5:38 PM CDT) Pathologist Sig nature Urea Nitrogen Urine 428 mg/dL [facility] IC Specimen Urine Performing Organization Address [facility] Phone Number [address] [address] [phone] PROTEIN/CREATININE INDEX, URINE (01/22/2020 5:38 PM CDT) Pathologist Sig nature Protein Total Urine 15.3 mg/dL [address] Creatinine Urine 63.7 20.0 - 250.[address] mg/dL Protein/Creatinine 240 (H) 1 - 150 mg/g [address] Ratio Specimen Urine Performing Organization Address [facility] Phone Number [address] [place] [address], [place] [address] URIC ACID (01/22/2020 12:22 PM CDT) Pathologist Sig nature Uric Acid 8.9 (H) 3.5 - 8.5 mg/dL [address] Specimen Blood Performing Organization Address [facility] Phone Number [place] [address] [facility] [address] [place] [address] COMPLEMENT C4 (01/22/2020 12:22 PM CDT) Pathologist Sig nature C4 Complement 11.3 (L) 15.0 - 50.0 mg/dL [facility] Specimen Blood Performing Organization Address [facility] Phone Number [address] [phone] COMPLEMENT C3 (01/22/2020 12:22 PM CDT) Pathologist Sig nature C3 Complement 44 (L) 80 - 180 mg/dL [facility] Specimen Blood Performing Organization Address [facility] Phone Number [address] [address] LAB ONLY-COMPLETE BLOOD COUNT WITH DIFFERENTIAL (01/22/2020 12:22 PM CDT) WBC 7.9 4.0 - 11.0 [place] [facility] RBC 2.36 (L) 4.40 - 5.80 [place] [address] M/uL CLINIC Hemoglobin 9.3 (L) 13.5 - 17.5 [place] [address] g/dL CLINIC Hematocrit 26.1 (L) 40.0 - 50.0 [place] [address] % CLINIC MCV 110.6 (H)Comment: 80.0 - 98.0 [place] [address] Macrocytosis fL CLINIC present. MCH 39.4 (H) 25.5 - 34.0 [place] [address] pg CLINIC MCHC 35.6 31.5 - 36.5 [place] [facility] g[facility]dL CLIN[facility] RDW-CV 18.6 (H) 11.5 - 15.5 [place] [address] % CLINIC RDW-SD 75.7 (H) 35.5 - 50.0 [place] [address] fl CLINIC Platelet Count 73 (L) 140 - 400 [place] [facility] MPV 10.7 8.5 - 12.[address] CLINIC Seg Neut Absolute 5.9 1.8 - 8.0 [place] [facility] Lymphocytes 1.0 0.8 - 4.1 [place] [address] Absolute K/uL CLINIC Monocytes Absolute 0.8 0.0 - 1.0 [place] [address] K/uL CLINIC Eosinophils 0.1 0.0 - 0.7 [place] [address] Absolute K/uL CLINIC Basophil Absolute 0.0 0.0 - 0.2 [place] [address] K/uL CLINIC Immature 0.09 (H) 0.00 - 0.06 [place] [address] Granulocyte K/uL CLINIC Absolute Neutrophils Abs. 5,900 /uL [place] [address] (Segs and Bands) CLINIC Neutrophils Percent 75.3 % [address] Lymphocytes Percent 12.3 % [address] Monocytes Percent 10.0 % [address] Immature 1.1 % [place] [address] Granulocyte Percent CLINIC Eosinophils Percent 1.0 % [address] Basophil Percent 0.3 % [place] [address] CLINIC Nucleated RBC 0 /[address] Specimen Blood Performing Organization Address City/State/Zipcode Phone Number [address] [place] [address] BASIC METABOLIC PANEL (01/22/2020 12:22 PM CDT) Pathologist Sig nature Glucose 117 (H) 70 - 100 mg/dL [address] BUN 55 (H) 6 - 22 mg/dL [address] Creatinine 3.42 (H) 0.80 - 1.[address] mg/dL BUN/Creatinine Ratio 16.1 10.0 - 25.[address] Sodium 131 (L) 135 - 145 meq/L [address] Potassium 3.7 3.5 - 5.3 meq/L [address] Chloride 95 (L) 99 - 110 meq/L [address] CO2 27 20 - 29 meq/L [address] Anion Gap with K 13 6 - 20 meq/L [address] Calcium 7.7 (L) 8.5 - 10.5 [place] [address] CLINIC mg/dL Age [address] eGFR Non- 18 (L) >=[address] [place] mL/min/1.73m2 eGFR 22 (L) >=60 [facility] mL/min/1.73m2 Specimen Blood Performing Organization Address City/State/Zipcode Phone Number [address] [place] [address] US RENAL JILLIAN (01/22/2020 10:59 AM CDT) Specimen Narrative Performed At [facility] Patient Name: LAZARA OROZCO Date of : 1945 Procedure: US RENAL JILLIAN Date of Service: 01/22/2020 EXAM: US RENAL JILLIAN INDICATION: MALACHI COMPARISON(S): 06/06/2017 ultrasound FINDINGS: RIGHT KIDNEY: Difficult evaluation due to inability to hold breath or lie in the decubitus position. Size: 10 cm. Cortical Thickness: Normal. Parenchymal Echogenicity: Normal. Masses: None. Collecting System: No hydronephrosis. LEFT KIDNEY: Difficult evaluation due to inability to hold breath or lie in the decubitus position. Size: 8.5 cm. Cortical Thickness: Normal. Parenchymal Echogenicity: Normal. Masses: None. Collecting System: No hydronephrosis. BLADDER: Normal. Intraperitoneal ascites in the pelvis and adjacent the hyperechoic liver. Cirrhotic hepatic contour, limite d evaluation. IMPRESSION: 1. Difficult evaluation of the kidneys. 2. No hydronephrosis or discrete renal a bnormality. 3. Cirrhosis with intraperitoneal ascite s is noted, limited evaluation. Finalized by: Kathia Miranda MD on 01/22/2020 11:07 AM CDT Patient/Procedure Information: MRN/HEIDY: [id number] Order Number: [id number] Accession Number: [id number] Ordering Provider: ROSEMARIE CHONG Authorizing Provider: ROSEMARIE CHONG Procedure Note Interface, Neliares - 01/22/2020 11:09 AM CDT Patient Name: LAZARA OROZCO Date of : 1945 Procedure: US RENAL JILLIAN Date of Service: 01/22/2020 EXAM: US RENAL JILLIAN INDICATION: MALACHI COMPARISON(S): 06/06/2017 ultrasound FINDINGS: RIGHT KIDNEY: Difficult evaluation due t o inability to hold breath or lie in the decubitus position. Size: 10 cm. Cortical Thickness: Normal. Parenchymal Echogenicity: Normal. Masses: None. Collecting System: No hydronephrosis. LEFT KIDNEY: Difficult evaluation due to inability to hold breath or lie in the decubitus position. Size: 8.5 cm. Cortical Thickness: Normal. Parenchymal Echogenicity: Normal. Masses: None. Collecting System: No hydronephrosis. BLADDER: Normal. Intraperitoneal ascites in the pelvis an d adjacent the hyperechoic liver. Cirrhotic hepatic contour, limited evaluation. IMPRESSION: 1. Difficult evaluation of the kidneys. 2. No hydronephrosis or discrete renal a bnormality. 3. Cirrhosis with intraperitoneal ascite s is noted, limited evaluation. Finalized by: Kathia Miranda MD on 01/22/2020 11:07 AM CDT Patient/Procedure Information: MRN/HEIDY: [id number] Order Number: [id number] Accession Number: [id number] Ordering Provider: ROSEMARIE CHONG Authorizing Provider: ROSEMARIE CHONG Performing Organization Address City/State/Zipcode Phone Number [id number] LAB ONLY-COMPLETE BLOOD COUNT WITH DIFFERENTIAL (01/21/2020 10:58 PM CDT) WBC 7.4 4.0 - 11.0 [place] [facility] K/uL CLINIC RBC 2.28 (L) 4.40 - 5.80 [place] [facility] M/uL CLINIC Hemoglobin 8.8 (L) 13.5 - 17.5 [place] [facility] g/dL CLINIC Hematocrit 25.1 (L) 40.0 - 50.0 [place] [facility] % CLINIC MCV 110.1 (H)Comment: 80.0 - 98.0 [place] I- Macrocytosis fL CLINIC present. MCH 38.6 (H) 25.5 - 34.0 [place] [facility] pg CLINIC MCHC 35.1 31.5 - 36.5 [place] I[facility] g/dL CLINIC RDW-CV 18.6 (H) 11.5 - 15.5 [place] [facility] % CLINIC RDW-SD 76.6 (H) 35.5 - 50.0 [place] [facility] fl CLINIC Platelet Count 69 (L) 140 - 400 [place] [facility] K/uL CLINIC MPV 10.9 8.5 - 12.0 [place] [facility] fL CLINIC Seg Neut Absolute 5.1 1.8 - 8.0 [place] [facility] K/uL CLINIC Lymphocytes 1.2 0.8 - 4.1 [place] [address] Absolute K/uL CLINIC Monocytes Absolute 0.8 0.0 - 1.0 [place] [address] K/uL CLINIC Eosinophils 0.1 0.0 - 0.7 [place] [address] Absolute K/uL CLINIC Basophil Absolute 0.0 0.0 - 0.2 [place] [address] K/uL CLINIC Immature 0.05 0.00 - 0.06 [place] [address] Granulocyte K/uL CLINIC Absolute Neutrophils Abs. 5,100 /uL [place] [address] (Segs and Bands) CLINIC Neutrophils Percent 69.7 % [address] Lymphocytes Percent 16.9 % [place] [address] [facility]IN[facility] Monocytes Percent 11.2 % [place] [address] [facility]IN[facility] Immature 0.7 % [place] [address] Granulocyte Percent CLINIC Eosinophils Percent 1.2 % [address] Basophil Percent 0.3 % [place] [address] [facility]IN[facility] Nucleated RBC 0 /[address] Specimen Blood Performing Organization Address City/State/Zipcode Phone Number [address] [place] [address] BASIC METABOLIC PANEL (01/21/2020 10:58 PM CDT) Pathologist Sig nature Glucose 122 (H) 70 - 100 mg/dL [address] BUN 53 (H) 6 - 22 mg/dL [address] Creatinine 3.48 (H) 0.80 - 1.[address] mg/dL BUN/Creatinine Ratio 15.2 10.0 - 25.[address] Sodium 130 (L) 135 - 145 meq/L [address] Potassium 3.7 3.5 - 5.3 meq/L [address] Chloride 94 (L) 99 - 110 meq/L [address] CO2 26 20 - 29 meq/L [address] Anion Gap with K 14 6 - 20 meq/L [address] Calcium 7.6 (L) 8.5 - 10.5 [place] [address] [facility] mg/dL Age [address] eGFR Non- 17 (L) >=[address] [place] mL/min/1.73m2 eGFR 21 (L) >=60 [facility] [facility] mL/min/1.73m2 Specimen Blood Performing Organization Address City/State/Zipcode Phone Number [address] [place] [address] LAB ONLY-COMPLETE BLOOD COUNT WITH DIFFERENTIAL (01/20/2020 9:32 AM CDT) WBC 7.9 4.0 - 11.0 [place] I K/uL CLINIC RBC 2.33 (L) 4.40 - 5.80 [place] I M/uL CLINIC Hemoglobin 9.0 (L) 13.5 - 17.5 [place] I g/dL CLINIC Hematocrit 26.0 (L) 40.0 - 50.0 [place] [facility] % [facility]IN[facility] MCV 111.6 (H)Comment: 80.0 - 98.0 [facility] Macrocytosis fL CLINIC present. MCH 38.6 (H) 25.5 - 34.0 [facility] pg CLINIC MCHC 34.6 31.5 - 36.5 [place] I g/dL CLINIC RDW-CV 19.2 (H) 11.5 - 15.5 [place] [facility] % CLINIC RDW-SD 81.2 (H) 35.5 - 50.0 [place] [facility] fl CLINIC Platelet Count 62 (L) 140 - 400 [place] I K/uL CLINIC MPV 10.9 8.5 - 12.0 [place] [facility] fL CLINIC Seg Neut Absolute 5.7 1.8 - 8.0 [place] I K/uL CLINIC Lymphocytes 1.1 0.8 - 4.1 [facility] Absolute K/uL CLINIC Monocytes Absolute 0.9 0.0 - 1.0 [place] I K/uL CLINIC Eosinophils 0.1 0.0 - 0.7 [place] [address] Absolute K/uL CLINIC Basophil Absolute 0.0 0.0 - 0.2 [place] I K/uL CLINIC Immature 0.05 0.00 - 0.06 [place] I Granulocyte K/uL CLINIC Absolute Neutrophils Abs. 5,700 /uL [place] I (Segs and Bands) CLINIC Neutrophils Percent 72.7 % [place] I CLINIC Lymphocytes Percent 14.2 % [place] [address] CLINIC Monocytes Percent 10.9 % [place] [address] CLIN[facility] Immature 0.6 % [place] [address] Granulocyte Percent CLINIC Eosinophils Percent 1.3 % [place] [address] [facility]IN[facility] Basophil Percent 0.3 % [place] [address] [facility] Nucleated RBC 0 /[address] Specimen Blood Performing Organization Address [facility] Phone Number [address] [address] C-REACTIVE PROTEIN (INFLAMMATION) (01/20/2020 9:32 AM CDT) Pathologist Sig nature CRP 133.9 (H) 0.0 - 8.0 mg/L [address] Specimen Blood Performing Organization Address [facility] Phone Number [address] [address] BRAIN NATRIURETIC PEPTIDE (01/20/2020 9:32 AM CDT) Pathologist Sig nature BNP 127 (H) 0 - 100 pg/mL [address] Specimen Blood Performing Organization Address [facility] Phone Number [address] [address] RENAL FUNCTION PANEL (01/20/2020 9:32 AM CDT) Pathologist Sig nature Glucose 117 (H) 70 - 100 mg/dL [address] BUN 38 (H) 6 - 22 mg/dL [address] Creatinine 2.44 (H) 0.80 - 1.[address] mg/dL BUN/Creatinine Ratio 15.6 10.0 - 25.[address] Sodium 129 (L) 135 - 145 meq/L [address] Potassium 3.7 3.5 - 5.3 meq/L [address] Chloride 93 (L) 99 - 110 meq/L [address] CO2 29 20 - 29 meq/L [address] Anion Gap with K 11 6 - 20 meq/L [address] Calcium 7.1 (L) 8.5 - 10.[address] mg/dL Phosphorus 3.2 2.5 - 4.5 mg/dL [address] Albumin 1.7 (L) 3.5 - 5.0 g/dL [facility] Corrected Calcium 8.9 8.5 - 10.5 [place] I[facility] mg/dL Age 74 Years [place] [address] eGFR Non- 26 (L) >=60 [place] I[facility]IN[facility] [place] mL/min/1.73m2 eGFR 32 (L) >=60 [place] [facility] mL/min/1.73m2 Specimen Blood Performing Organization Address City/State/Zipcode Phone Number [place] [address] [address] LAB ONLY-COMPLETE BLOOD COUNT WITH DIFFERENTIAL (01/20/2020 2:26 AM CDT) WBC 8.2 4.0 - 11.0 [place] I K/uL CLINIC RBC 2.26 (L) 4.40 - 5.80 [place] [facility] Hemoglobin 8.8 (L) 13.5 - 17.5 [place] [facility] g/dL CLINIC Hematocrit 25.3 (L) 40.0 - 50.0 [place] I94 % CLINIC MCV 111.9 (H)Comment: 80.0 - 98.0 [place] [address] Macrocytosis fL CLINIC present. MCH 38.9 (H) 25.5 - 34.0 [place] [facility] pg CLINIC MCHC 34.8 31.5 - 36.5 [place] [facility] g/dL CLINIC RDW-CV 19.6 (H) 11.5 - 15.5 [place] [facility] % CLINIC RDW-SD 82.5 (H) 35.5 - 50.0 [place] [facility] fl CLINIC Platelet Count 59 (L) 140 - 400 [place] I K/uL CLINIC MPV 10.9 8.5 - 12.0 [place] [facility] Seg Neut Absolute 5.6 1.8 - 8.0 [place] [facility] K[facility]L CL[facility] Lymphocytes 1.5 0.8 - 4.1 [place] I94 Absolute K/uL CLINIC Monocytes Absolute 1.0 0.0 - 1.0 [place] [facility] K[facility]L [facility] Eosinophils 0.1 0.0 - 0.7 [place] I94 Absolute K/uL CLINIC Basophil Absolute 0.0 0.0 - 0.2 [place] [facility] K[facility] Immature 0.05 0.00 - 0.06 [place] [address] Granulocyte K/uL [facility] Absolute Neutrophils Abs. 5,600 /uL [place] [address] (Segs and Bands) [facility] Neutrophils Percent 68.0 % [address] Lymphocytes Percent 18.6 % [address] Monocytes Percent 11.9 % [address] Immature 0.6 % [place] [address] Granulocyte Percent CLINIC Eosinophils Percent 0.8 % [address] Basophil Percent 0.1 % [place] [address] CLINIC Nucleated RBC 0 /[address] Specimen Blood Performing Organization Address [facility] Phone Number [address] [place] [address], [place] [address] VANCOMYCIN TROUGH (01/20/2020 2:26 AM CDT) Pathologist [facility] Vancomycin Trough 32.0 (H) 10.0 - 20.[address] ug/mL Specimen Blood Performing Organization [facility] Number [address] [place] [address] GLUCOSE BY METER, POCT (01/20/2020 12:02 AM CDT) Pathologist Sig [facility] Glucose POC 124 (H) 70 - 100 mg/dL [facility] POINT OF CARE TESTING Specimen Blood Performing Organization [facility] Number POINT OF [address] [place] [address], [place] [address] CARE TESTING COLLECT AND HOLD GREEN TOP TUBE (01/19/2020 11:59 PM CDT) Collect and Hold Comment: RECEIVED [place] [address] Specimen Status CLINIC Specimen Blood Performing Organization Address [facility] Phone Number [address] [place] [address], [place] [address] COLLECT AND HOLD BLUE (NACIT) TOP TUBE (01/19/2020 11:59 PM CDT) Pathologist [facility] Collect and Hold Comment: RECEIVED [place] [address] Specimen Status CLINIC Specimen Blood Performing Organization Address [facility] Phone Number [address] [place] [address], [place] [address] LAB ONLY-COMPLETE BLOOD COUNT WITH DIFFERENTIAL (01/19/2020 11:59 PM CDT) Pathologist [facility] WBC 8.5 4.0 - 11.0 [place] I K/uL CLINIC RBC 2.31 (L) 4.40 - 5.80 [place] I- M/uL CLINIC Hemoglobin 9.0 (L) 13.5 - 17.5 [place] I g/dL CLINIC Hematocrit 25.9 (L) 40.0 - 50.0 [place] I % CLINIC MCV 112.1 (H)Comment: 80.0 - 98.0 [place] [address] Macrocytosis fL CLINIC present. MCH 39.0 (H) 25.5 - 34.0 [place] pg CLINIC MCHC 34.7 31.5 - 36.5 [place] g/dL CLINIC RDW-CV 19.3 (H) 11.5 - 15.5 [place] % CLINIC RDW-SD 82.3 (H) 35.5 - 50.0 [place] I fl CLINIC Platelet Count 66 (L) 140 - 400 [place] I K/uL CLINIC MPV 10.6 8.5 - 12.0 [facility] fL CLINIC Seg Neut Absolute 5.9 1.8 - 8.0 [place] I K/uL CLINIC Lymphocytes 1.3 0.8 - 4.1 [place] Absolute K/uL CLINIC Monocytes Absolute 1.1 (H) 0.0 - 1.0 [place] K/uL CLINIC Eosinophils 0.1 0.0 - 0.7 [place] Absolute K/uL CLINIC Basophil Absolute 0.0 0.0 - 0.2 [place] K/uL CLINIC Immature 0.05 0.00 - 0.06 [place] Granulocyte K/uL CLINIC Absolute Neutrophils Abs. 5,900 /uL [place] (Segs and Bands) CLINIC Neutrophils Percent 69.8 % [place] [facility] Lymphocytes Percent 15.7 % [facility] CLINIC Monocytes Percent 12.9 % [place] [address] CLINIC Immature 0.6 % [place] Granulocyte Percent CLINIC Eosinophils Percent 0.8 % [place] [facility] Basophil Percent 0.2 % [facility] CLINIC Nucleated RBC 0 /100 WBC's [facility] Specimen Blood Performing Organization Address City/State/Zipcode Phone Number [address] [place] [address], [place] [address] TROPONIN I (01/19/2020 11:11 PM CDT) Pathologist Sig nature Troponin I 0.038 (H) 0.000 - 0.028 ng/mL [address] Specimen Blood Performing Organization Address [facility] Phone Number [place] [address] [facility] [place] [address], [place] [address] MAGNESIUM (01/19/2020 11:11 PM CDT) Pathologist Sig nature Magnesium 1.5 (L) 1.8 - 2.4 mg/dL [address] Specimen Blood Performing Organization Address [facility] Phone Number [place] [address] [facility] [place] [address], [place] [address] COMPREHENSIVE METABOLIC PANEL (01/19/2020 11:11 PM CDT) Pathologist Sig nature Glucose 130 (H) 70 - 100 mg/dL [address] BUN 34 (H) 6 - 22 mg/dL [address] Creatinine 1.92 (H) 0.80 - 1.[address] mg/dL BUN/Creatinine Ratio 17.7 10.0 - 25.[address] Sodium 131 (L) 135 - 145 meq/L [address] Potassium 4.9 3.5 - 5.3 meq/L [address] Chloride 97 (L) 99 - 110 meq/L [address] CO2 22 20 - 29 meq/L [address] Anion Gap with K 17 6 - 20 meq/L [address] Calcium 7.3 (L) 8.5 - 10.[address] mg/dL Protein Total 5.0 (L) 6.0 - 8.2 g/dL [address] Albumin 1.6 (L) 3.5 - 5.0 g/dL [address] Alkaline Phosphatase 66 30 - 150 U/L [address] AST - SGOT 49 (H) 0 - 35 U/L [address] ALT - SGPT 20 0 - 55 U/L [address] Bilirubin Total 4.3 (H) 0.2 - 1.2 mg/dL [address] Corrected Calcium 9.2 8.5 - 10.[address] mg/dL Age [address] eGFR Non- 35 (L) >=[address] [place] mL/min/1.73m2 eGFR 42 (L) >=[address] mL/min/1.73m2 Specimen Blood Performing Organization Address [facility] Phone Number [address] [place] [address] BASIC METABOLIC PANEL (01/19/2020 11:11 PM CDT) Pathologist [facility] nature Glucose 130 (H) 70 - 100 mg/dL [address] BUN 34 (H) 6 - 22 mg/dL [address] Creatinine 1.92 (H) 0.80 - 1.[address] mg/dL BUN/Creatinine Ratio 17.7 10.0 - 25.[address] Sodium 131 (L) 135 - 145 meq/L [address] Potassium 4.9 3.5 - 5.3 meq/L [address] Chloride 97 (L) 99 - 110 meq/L [address] CO2 22 20 - 29 meq/L [address] Anion Gap with K 17 6 - 20 meq/L [address] Calcium 7.3 (L) 8.5 - 10.[address] mg/dL Age [address] eGFR Non- 35 (L) >=[address] [place] mL/min/1.73m2 eGFR 42 (L) >=[address] mL/min/1.73m2 Specimen Blood Performing Organization Address [facility] Phone Number [address] [place] [address] EKG (01/19/2020 9:27 PM CDT) EKG [employer] MICHELLE [employer] Sinus tachycardia with Melonie ture supraventricular complexes and with occasional Premature ventricular complexes Otherwise normal ECG When compared with ECG of 07-NOV-2019 10:35, Premature ventricular complexes are now Present [place] interval has decreased Ventricular Rate: 103 BPM Atrial Rate: 103 BPM P-R Interval: 200 ms QRS Duration: 90 ms Q-T Interval: 328 ms QTc Calculation(Bazett): 429 ms Calculated P [place]: 21 degrees Calculated R [place]: -14 degrees Calculated T [place]: 30 degrees Specimen Narrative Performed At This result has an attachment that is no t available. Performing Organization Address City/State/Zipcode Phone Number KATARINA MARTINEZ LLB CULTURE, BLOOD (01/19/2020 11:01 AM CDT)Only the most recent of2 resultswithin the time period is included. Pathologist Sig nature Culture Result No growth at 5 [facility] Specimen Blood Narrative Performed At [facility] Peripheral draw Performing Organization Address City/[facility]/Zipcode Phone Number [address] [address] LAB ONLY-COMPLETE BLOOD COUNT WITH DIFFERENTIAL (01/19/2020 10:28 AM CDT) WBC 16.7 (H) 4.0 - 11.0 [place] [facility] K/uL [facility] RBC 2.91 (L) 4.40 - 5.80 [place] [facility] M/uL [facility] Hemoglobin 11.3 (L) 13.5 - 17.5 [place] [facility] g/dL [facility] Hematocrit 32.0 (L) 40.0 - 50.0 [place] [facility] % [facility]INIC MCV 110.0 (H)Comment: 80.0 - 98.0 [place] [facility] Macrocytosis fL CLINIC present. MCH 38.8 (H) 25.5 - 34.0 [place] [facility] pg CLINIC MCHC 35.3 31.5 - 36.5 [place] [facility] g/dL [facility]IN[facility] RDW-CV 19.8 (H) 11.5 - 15.5 [place] [facility] % [facility]IN[facility] RDW-SD 81.1 (H) 35.5 - 50.0 [place] [facility] fl [facility]IN[facility] Platelet Count 71 (L) 140 - 400 [place] [facility] K/uL [facility]IN[facility] MPV 11.2 8.5 - 12.0 [place] [facility] fL [facility]IN[facility] Seg Neut Absolute 13.3 (H) 1.8 - 8.0 [place] [facility] K/uL [facility] Lymphocytes 1.4 0.8 - 4.1 [place] I[facility] Absolute K/uL CLINIC Monocytes Absolute 1.8 (H) 0.0 - 1.0 [place] [id number] K/uL CLINIC Eosinophils 0.0 0.0 - 0.7 [place] [id number] Absolute K/uL CLINIC Basophil Absolute 0.0 0.0 - 0.2 [place] [address] K/uL CLINIC Immature 0.17 (H) 0.00 - 0.06 [place] [address] Granulocyte K/uL CLINIC Absolute Neutrophils Abs. 13,300 /uL [place] [id number] (Segs and Bands) CLINIC Neutrophils Percent 79.4 % [place] [address] CLINIC Lymphocytes Percent 8.3 % [address] Monocytes Percent 11.0 % [address] Immature 1.0 % [place] [address] Granulocyte Percent CLINIC Eosinophils Percent 0.1 % [address] Basophil Percent 0.2 % [place] [address] CLINIC Nucleated RBC 0 /[address] Specimen Blood Performing Organization Address [facility] Phone Number [address] [address] BRAIN NATRIURETIC PEPTIDE (01/19/2020 10:28 AM CDT) Pathologist Sig nature BNP 329 (H) 0 - 100 pg/mL [address] Specimen Blood Performing Organization Address [facility] Phone Number [address] [place] [address] C-REACTIVE PROTEIN (INFLAMMATION) (01/19/2020 10:28 AM CDT) Pathologist Sig nature CRP 128.6 (H) 0.0 - 8.0 mg/L [address] Specimen Blood Performing Organization Address [facility] Phone Number [address] [address] RENAL FUNCTION PANEL (01/19/2020 10:28 AM CDT) Pathologist Sig nature Glucose 166 (H) 70 - 100 mg/dL [address] BUN 26 (H) 6 - 22 mg/dL [address] Creatinine 1.20 0.80 - 1.[address] mg/dL BUN/Creatinine Ratio 21.7 10.0 - 25.[address] Sodium 133 (L) 135 - 145 meq/L [address] Potassium 4.4 3.5 - 5.3 meq/L [address] Chloride 98 (L) 99 - 110 meq/L [address] CO2 23 20 - 29 meq/L [address] Anion Gap with K 16 6 - 20 meq/L [address] Calcium 7.6 (L) 8.5 - 10.5 mg/dL [address] Phosphorus 3.1 2.5 - 4.5 mg/dL [address] Albumin 1.9 (L) 3.5 - 5.0 g/dL [address] Corrected Calcium 9.3 8.5 - 10.5 mg/dL [address] Age [address] eGFR Non- 60 >=[address] [place] mL/min/1.73m2 eGFR 72 >=[address] mL/min/1.73m2 Specimen Blood Performing Organization Address City/[facility]/Zipcode Phone Number [address] [address] PREPARE AND HOLD RED BLOOD CELLS IN UNITS - BLOOD BANK, 1 Units (01/19/2020 3:00 AM CDT) BPA Product Code [id number] LAB [facility] Unit Number [id number] LAB Unit ABO Type A LAB Unit Rh Type NEG LAB XM Interp Compatible LAB [facility] Dispense Status TR LAB [facility] Blood [id number] LAB Expiration Date [facility] Coding System 06 LAB Product Code RBC, Leukoreduced LAB [id number] Unit ID [id number] LAB Product Status Transfused LAB Specimen Blood Performing Organization Address City/[facility] Phone Number LAB LAB ONLY-COMPLETE BLOOD COUNT WITH DIFFERENTIAL (01/19/2020 2:22 AM CDT) WBC 12.5 (H) 4.0 - 11.0 [place] [address] K/uL CLINIC RBC 2.70 (L) 4.40 - 5.80 [place] [address] M/uL CLINIC Hemoglobin 10.8 (L) 13.5 - 17.5 [place] [address] g/dL CLINIC Hematocrit 31.5 (L) 40.0 - 50.0 [place] I- % CLINIC MCV 116.7 (H)Comment: 80.0 - 98.0 [place] I Macrocytosis fL CLINIC present. MCH 40.0 (H) 25.5 - 34.0 [place] I- pg CLINIC MCHC 34.3 31.5 - 36.5 [place] I g/dL CLINIC RDW-CV 15.6 (H) 11.5 - 15.5 [place] I- % CLINIC RDW-SD 65.5 (H) 35.5 - 50.0 [place] I- fl CLINIC Platelet Count 90 (L) 140 - 400 [place] I- K/uL CLINIC MPV 10.8 8.5 - 12.0 [place] I- IL CLINIC Seg Neut Absolute 10.9 (H) 1.8 - 8.0 [place] I- K/uL CLINIC Lymphocytes 0.4 (L) 0.8 - 4.1 [place] I- Absolute K/uL CLINIC Monocytes Absolute 1.1 (H) 0.0 - 1.0 [place] I K/uL CLINIC Eosinophils 0.0 0.0 - 0.7 [place] I- Absolute K/uL CLINIC Basophil Absolute 0.0 0.0 - 0.2 [place] I- K/uL CLINIC Immature 0.08 (H) 0.00 - 0.06 [place] I- Granulocyte K/uL CLINIC Absolute Neutrophils Abs. 10,900 /uL [place] I (Segs and Bands) CLINIC Neutrophils Percent 87.3 % [place] I CLINIC Lymphocytes Percent 3.4 % [facility] CLINIC Monocytes Percent 8.5 % [place] I CLINIC Immature 0.6 % [place] I Granulocyte Percent CLINIC Eosinophils Percent 0.0 % [place] I- CLINIC Basophil Percent 0.2 % [place] I- CLINIC Nucleated RBC 0 /100 WBC's [facility] Specimen Blood Performing Organization Address City/[facility]/Zipcode Phone Number [address] [place] [address] PTT (01/19/2020 2:22 AM CDT) Pathologist Sig nature APTT 46 (H) 24 - 35 secs [place] [address] CLINIC Specimen Blood Performing Organization Address City/[facility] Phone Number [place] [address] CLINIC [address] [place] [address] PROTIME/INR (01/19/2020 2:22 AM CDT) Pathologist Sig nature Protime 22.8 (H) 12.0 - 14.[address] INR 2.1 2.0 - 3.[address] Specimen Blood Narrative Performed At Normal INR reference range (patients not on oral antic oagulants) [address] 0.9-1.1. INR Standard Intensity = (2.0 - 3.0) INR Higher Intensity = (2.5 - 3.5) Performing Organization Address [facility] Phone Number [address] [place] [address] COMPREHENSIVE METABOLIC PANEL (01/19/2020 2:22 AM CDT) Pathologist [facility] Glucose 164 (H) 70 - 100 mg/dL [address] BUN 22 6 - 22 mg/dL [address] Creatinine 1.23 0.80 - 1.[address] mg/dL BUN/Creatinine Ratio 17.9 10.0 - 25.[address] Sodium 133 (L) 135 - 145 meq/L [address] Potassium 3.8 3.5 - 5.3 meq/L [address] Chloride 94 (L) 99 - 110 meq/L [address] CO2 29 20 - 29 meq/L [address] Anion Gap with K 14 6 - 20 meq/L [address] Calcium 7.8 (L) 8.5 - 10.[address] mg/dL Protein Total 5.8 (L) 6.0 - 8.2 g/dL [address] Albumin 2.0 (L) 3.5 - 5.0 g/dL [address] Alkaline Phosphatase 88 30 - 150 U/L [address] AST - SGOT 34 0 - 35 U/L [address] ALT - SGPT 21 0 - 55 U/L [address] Bilirubin Total 5.3 (H) 0.2 - 1.2 mg/dL [address] Corrected Calcium 9.4 8.5 - 10.[address] mg/dL Age [address] eGFR Non- 58 (L) >=[address] [place] mL/min/1.73m2 eGFR 70 >=[address] mL/min/1.73m2 Specimen Blood Performing Organization Address [facility] Phone Number [address] [place] [address], [place] [address] CREATININE (01/19/2020 2:22 AM CDT) Pathologist Sig nature Creatinine 1.23 0.80 - 1.[address] mg/dL Age [address] eGFR Non- 58 (L) >=[address] [place] mL/min/1.73m2 eGFR 70 >=[address] mL/min/1.73m2 Specimen Blood Performing Organization Address [facility] Phone Number [address] [place] [address] TYPE AND SCREEN (01/19/2020 2:17 AM CDT) Pathologist Sig nature ABO Type A [address] BLOOD BANK Rh Type Negative [address] BLOOD BANK Antibody Screen Negative [address] Comment: BLOOD BANK Allogenic Red Cells Available 01/19/2020 8A Expiration Date 01/22/2020 23:[address] BLOOD BANK Specimen Blood Performing Organization Address [facility] Phone Number [address] BLOOD BANK [address] [place] [address] CULTURE BACTERIAL, URINE (01/19/2020 1:51 AM CDT) Pathologist Sig nature Culture Result No growth [facility] Specimen Urine Performing Organization Address [facility] Phone Number [facility] [address] [facility], [place] [phone] LAB ONLY-URINE MICROSCOPIC REFLEX (01/19/2020 1:51 AM CDT) WBC Urine 21-50 /hpf (A) Negative, 0-5 [place] [address] /hpf CLINIC RBC Urine >30 /hpf (A) Negative, 0-2 [place] I- /hpf CLINIC Squamous Epithelial Few (11-20) Negative, Occ [place] [address] Cells /lpf (0-10) /lpf, Few CLINIC (11-20) /lpf Bacteria Few (11-20) Negative [place] [address] /hpf (A) CLINIC Specimen Urine Narrative Performed At Urine Culture Reflexed [address] Performing Organization Address [facility] Phone Number [address] [place] [address] URINE DIP, REFLEX TO MICROSCOPIC, REFLEX TO CULTURE (01/19/2020 1:51 AM CDT) Color Urine Rafaela Rafaela, Dark [place] [address] Yellow, Straw, CLINIC Yellow, Colorless Clarity Urine Slightly Cloudy Clear [place] [address] (A) CLINIC Glucose Urine Negative Negative [address] Bilirubin Urine Moderate (2+) Negative [place] [address] (A) CLINIC Ketones Urine Negative Negative, 5 [place] [address] mg/dL, 10 mg/dL CLINIC Specific [place] 1.025 1.002 - 1.[address] Blood Urine Large (3+) (A) Negative [address] PH Urine 5.5 5.0, 5.5, 6.0, [place] [address] 6.5, 7.0, 7.5, CLINIC 8.0 Protein Urine Trace (10-20) Negative [place] [address] mg/dL (A) [facility] Urobilinogen < 2 mg/dL < 2 mg/dL [address] Nitrite Positive (A) Negative [address] Leukocyte Esterase Negative Negative [place] [address] Urine CLINIC Specimen Urine Narrative Performed At Microscopic Exam Reflexed [address] Performing Organization Address [facility] Phone Number [address] [facility] [place] [address] CULTURE BACTERIAL, OTHER WITH GRAM STAIN (01/18/2020 9:25 PM CDT)Only the most recent of2 resultswithin the time period is included. Culture Result Many Escherichia coli [facility] (!) CLINIC Gram Stain Many (>25/LPF) WBC's [facility] Gram Stain No epithelial cells [facility] seen CLINIC Gram Stain No organisms seen [facility] Gram Stain Gram stain to be [facility] reviewed by [facility] Rn Disease Management.Comment: Gram stain review completed Specimen Fluid Narrative Performed At Right knee fluid [facility] Organism Antibiotic Method Susceptibility Escherichia coli Amoxicillin/clavulanate EMILIANO 8 ug/mL : Sensitive Escherichia coli Ampicillin EMILIANO >=32 ug/mL: Res istant Escherichia coli Cefazolin EMILIANO <=4 ug/mL: Sens itive Escherichia coli Gentamicin EMILIANO <=1 ug/mL: Sens itive Escherichia coli Tobramycin EMILIANO <=1 ug/mL: Sens itive Performing Organization Address [facility] Phone Number [facility] [address] [place] [address] LAB ONLY-DIFFERENTIAL, SYNOVIAL FLUID (01/18/2020 3:03 PM CDT) Pathologist Sig nature % Polymorphonuclears SF 94 % [place] [address] CLIN IC % Mononuclears SF 6 % [address] Specimen Fluid Performing Organization Address [facility] Phone Number [address] [place] [address] LAB ONLY-CELL COUNT, SYNOVIAL FLUID (01/18/2020 3:03 PM CDT) Pathologist Sig nature Specimen Source RT Knee [place] [address] CLINIC SF Color Yellow [address] SF Cloudy [address] Clarity/Appearance SF Nucleated Cell 64,014 (H) 0 - 200 /uL [place] [address] CLINIC Count Specimen Fluid Performing Organization Address [facility] Phone Number [address] [place] [address] CRYSTALS, SYNOVIAL FLUID (01/18/2020 2:42 PM CDT) Crystals Synovial No Crystals Seen No Crystals Seen [place] [address] Fluid CLINIC Specimen Source RT Knee [address] Specimen Fluid Narrative Performed At [facility] tech slide review performed by MP . [address] Performing Organization Address [facility] Phone Number [address] [place] [address] CT EXTREMITY LOWER WITHOUT CONTRAST RT (01/18/2020 1:35 PM CDT) Specimen Narrative Performed At [facility] Patient Name: LAZARA OROZCO Date of : 1945 Procedure: CT EXTREMITY LOWER WITHOUT C ONTRAST RT Date of Service: 01/18/2020 EXAM: CT EXTREMITY LOWER WITHOUT CONTRAS T RT INDICATION: Knee pain, effusion or neg x ray TECHNIQUE: Noncontrast CT examination ri ght knee. COMPARISON(S): None Available FINDINGS: Tricompartmental degenerative change of the right knee. Large capsular distention. Severe lateral joint space narrow ing involving the knee. Articular sclerosis and subchondral cyst formati on at the lateral tibial plateau likely on the basis of degenerative conor nge rather than plateau fracture. Patella tracks neutrally. No evidenc e of acute fracture. IMPRESSION: Large joint effusion within the knee. No l ipohemarthrosis. No evidence of acute fracture. Tricompartmental degenerative change. Articular scle rosis and subchondral cyst formation at the lateral tibial plate au likely on the basis of degenerative change rather than plateau fracture. Finalized by: Jaden Edge DO on 2019 1:44 PM CDT Patient/Procedure Information: MRN/HEIDY: [id number] Order Number: [id number] Accession Number: [id number] Ordering Provider: JEAN AUSTIN Authorizing Provider: JEAN AUSTIN Procedure Note Interface, Radiantres - 01/18/2020 1:47 PM CDT Patient Name: LAZARA OROZCO Date of : 1945 Procedure: CT EXTREMITY LOWER WITHOUT C ONTRAST RT Date of Service: 01/18/2020 EXAM: CT EXTREMITY LOWER WITHOUT CONTRAS T RT INDICATION: Knee pain, effusion or neg x ray TECHNIQUE: Noncontrast CT examination ri t knee. COMPARISON(S): None Available FINDINGS: Tricompartmental degenerative change of the right knee. Large capsular distention. Severe lateral joint space narrowing involving the knee. Articular sclerosis and subchondral cyst formation at the lateral tibial plateau likely on the basis of de generative change rather than plateau fracture. Patella tracks neutrally. No evidence of acute fracture. IMPRESSION: Large joint effusion within the knee. No lipohemarthrosis. No evidence of acute fracture. Tricompartmental degenerative change. A rticular sclerosis and subchondral cyst formation at the lateral tibial plateau likely on the basis of degenerative change rather than plateau fracture. Finalized by: Jaden Edge DO on 2019 1:44 PM CDT Patient/Procedure Information: MRN/HEIDY: [id number] Order Number: [id number] Accession Number: [id number] Ordering Provider: JEAN AUSTIN Authorizing Provider: JEAN AUSTIN Performing Organization Address [facility] Phone Number [id number] XRAY KNEE 3 VIEWS RT (01/18/2020 12:04 PM CDT) Specimen Narrative Performed At [facility] Patient Name: LAZARA OROZCO Date of : 1945 Procedure: XRAY KNEE 3 VIEWS RT Date of Service: 01/18/2020 EXAM: XRAY KNEE 3 VIEWS RT INDICATION: Pain COMPARISON(S): None Available FINDINGS/IMPRESSION: Generalized demineralization. Pos sible remote fracture proximal fibula. Vascular calcifications in t he popliteal fossa. Large joint effusion suspected. No evidence of acute fracture, however given joint effusion, consider n oncontrast CT to better assess. Finalized by: Jaden Edge DO on 2019 12:19 PM CDT Patient/Procedure Information: MRN/HEIDY: [id number] Order Number: [id number] Accession Number: [id number] Ordering Provider: JEAN AUSTIN Authorizing Provider: JEAN AUSTIN Procedure Note Interface, Radiantres - 01/18/2020 12:21 PM CDT Patient Name: LAZARA OROZCO Date of : 1945 Procedure: XRAY KNEE 3 VIEWS RT Date of Service: 01/18/2020 EXAM: XRAY KNEE 3 VIEWS RT INDICATION: Pain COMPARISON(S): None Available FINDINGS/IMPRESSION: Generalized deminer alization. Possible remote fracture proximal fibula. Vascular calcifications in the popliteal fossa. Large joint effusion suspected. No evidence of acute fracture, however given joint effusion, consider noncontra st CT to better assess. Finalized by: Jaden Edge DO on 2019 12:19 PM CDT Patient/Procedure Information: MRN/HEIDY: [id number] Order Number: [id number] Accession Number: [id number] Ordering Provider: JEAN AUSTIN Authorizing Provider: JEAN AUSTIN Performing Organization Address City/State/Zipcode Phone Number [id number] LAB ONLY-COMPLETE BLOOD COUNT WITH DIFFERENTIAL (01/18/2020 11:39 AM CDT) WBC 9.0 4.0 - 11.0 [place] I-94 K/uL CLINIC RBC 3.06 (L) 4.40 - 5.80 [place] I-94 M/uL CLINIC Hemoglobin 12.5 (L) 13.5 - 17.5 [place] I-94 g/dL CLINIC Hematocrit 35.6 (L) 40.0 - 50.0 [place] I-94 % CLINIC MCV 116.3 (H)Comment: 80.0 - 98.0 [place] I Macrocytosis fL CLINIC present. MCH 40.8 (H) 25.5 - 34.0 [place] I pg CLINIC MCHC 35.1 31.5 - 36.5 [place] I g/dL CLINIC RDW-CV 15.3 11.5 - 15.5 [place] I % CLINIC RDW-SD 65.4 (H) 35.5 - 50.0 [place] I fl CLINIC Platelet Count 68 (L) 140 - 400 [place] I K/uL CLINIC MPV 11.1 8.5 - 12.0 [place] I- fL CLINIC Seg Neut Absolute 7.8 1.8 - 8.0 [place] I K/uL CLINIC Lymphocytes 0.3 (L) 0.8 - 4.1 [place] I Absolute K/uL CLINIC Monocytes Absolute 0.8 0.0 - 1.0 [place] I K/uL CLINIC Eosinophils 0.0 0.0 - 0.7 [place] I- Absolute K/uL CLINIC Basophil Absolute 0.0 0.0 - 0.2 [place] I K/uL CLINIC Immature 0.04 0.00 - 0.06 [place] I Granulocyte K/uL CLINIC Absolute Neutrophils Abs. 7,800 /uL [place] (Segs and Bands) CLINIC Neutrophils Percent 87.0 % [place] [facility] Lymphocytes Percent 3.6 % [place] I CLINIC Monocytes Percent 8.8 % [place] [facility] CLINIC Immature 0.4 % [place] [facility] Granulocyte Percent CLINIC Eosinophils Percent 0.1 % [place] [facility]- [facility]INIC Basophil Percent 0.1 % [place] I-94 CLINIC Nucleated RBC 0 /[address] Specimen Blood Performing Organization Address [facility] Phone Number [place] [address] CLINIC [address] [place] [address], [place] [address] C-REACTIVE PROTEIN (INFLAMMATION) (01/18/2020 11:39 AM CDT) Pathologist Sig nature CRP 101.6 (H) 0.0 - 8.0 mg/L [address] Specimen Blood Performing Organization Address [facility] Phone Number [place] [address] CLINIC [address] [place] [address] COMPREHENSIVE METABOLIC PANEL (01/18/2020 11:39 AM CDT) Pathologist Sig nature Glucose 159 (H) 70 - 100 mg/dL [address] BUN 20 6 - 22 mg/dL [address] Creatinine 1.18 0.80 - 1.[address] mg/dL BUN/Creatinine Ratio 16.9 10.0 - 25.[address] Sodium 131 (L) 135 - 145 meq/L [address] Potassium 3.7 3.5 - 5.3 meq/L [address] Chloride 93 (L) 99 - 110 meq/L [address] CO2 28 20 - 29 meq/L [address] Anion Gap with K 14 6 - 20 meq/L [address] Calcium 8.5 8.5 - 10.[address] mg/dL Protein Total 6.9 6.0 - 8.2 g/dL [address] Albumin 2.4 (L) 3.5 - 5.0 g/dL [address] Alkaline Phosphatase 111 30 - 150 U/L [address] AST - SGOT 45 (H) 0 - 35 U/L [address] ALT - SGPT 28 0 - 55 U/L [address] Bilirubin Total 7.2 (H) 0.2 - 1.2 mg/dL [address] Corrected Calcium 9.8 8.5 - 10.5 [place] [address] CLINIC mg/dL Age [address] eGFR Non- 61 >=[address] [place] mL/min/1.73m2 eGFR 74 >=[address] mL/min/1.73m2 Specimen Blood Performing Organization Address [facility] Phone Number [address] [place] [address] PROTIME/INR (01/18/2020 11:31 AM CDT) Pathologist Sig nature Protime 19.9 (H) 12.0 - 14.[address] INR 1.8 (L) 2.0 - 3.[address] Specimen Blood Narrative Performed At Normal INR reference range (patients not on oral antic oagulants) [address] 0.9-1.1. INR Standard Intensity = (2.0 - 3.0) INR Higher Intensity = (2.5 - 3.5) Performing Organization Address [facility] Phone Number [address] [address] JOINT ASPIRATION/INJECTION (01/18/2020 11:14 AM CDT) Narrative Performed At Jean Austin MD 01/18/2020 4:42 PM JOINT ASPIRATION/INJECTION Date/Time: 01/18/2020 2:32 PM Performed by: Jean Austin MD Authorized by: Jean Austin MD Consent: Verbal consent obtained. Celioitte n consent not obtained. Risks and benefits: risks, benefits and alternatives were discussed Consent given by: patient Indications: possible septic joint Body area: knee Joint: right knee Local anesthesia used: yes Anesthesia: Local anesthesia used: yes Local Anesthetic: lidocaine 1% without e pinephrine Anesthetic total: 5 mL Sedation: Patient sedated: no Preparation: Patient was prepped and draped in the usu al sterile fashion. Needle size: 18 G Ultrasound guidance: no Approach: lateral Aspirate: purulent and yellow Aspirate amount: 100 mL Patient tolerance: Patient tolerated the procedure wel l with no immediate complications documented in this encounter Visit Diagnoses Diagnosis Acute pain of right knee Pyogenic arthritis of right knee joint, due to unspecified organism (HCC) Alcohol abuse Alcohol abuse, unspecified Gastroesophageal reflux disease, esophag itis presence not specified Acquired hypothyroidism Unspecified hypothyroidism Hyperammonemia (HCC) Disorders of urea cycle metabolism Alcoholic cirrhosis, unspecified whether ascites present (HCC) History of alcohol abuse Nondependent alcohol abuse, in remission Anemia, unspecified type Chronic diastolic heart failure (HCC) Chronic diastolic heart failure Primary osteoarthritis of right knee Primary localized osteoarthrosis, lower leg Primary osteoarthritis of left shoulder Primary localized osteoarthrosis, should er region MALACHI (acute kidney injury) (HCC) Acute kidney failure, unspecified Septic arthritis (HCC) Pyogenic arthritis, site unspecified documented in this encounter Discharge Diagnoses Not on filedocumented in this encounter Administered Medications Medication Order MAR Action Action Date Dose Rate Site acetaminophen (TYLENOL) tablet Given 01/30/2020 1:20 PM CDT 1,0 00 mg 1,000 mg 1,000 mg, Oral, Every six hours prn, Starting 01/27/20 at 1020, Until Discontinued, mild pain, If inadequate response in 60 minutes, may proceed to next choice option or if no other options, contact provider. Adult patients: Total dose of acetaminophen from all acetaminophen containing products should not exceed 4 grams (4000 mg) per day. Pediatric Patients 0 - 3 months: Maximum of 60 mg/kg/24 hours of acetaminophen. Pediatric Patients older than 3 months: Maximum of 75 mg/kg/24 hours of acetaminophen (Never exceeding 4 grams/day)., Given 01/30/2020 5:48 AM CDT 1,000 mg Given 01/29/2020 4:15 PM CDT 1,000 mg bisacodyl (DULCOLAX) enteric coated tablet 5 Given 0 6:40 AM CDT 5 mg mg 5 mg, Oral, Two times a day prn, Starting 01/19/20 at 0017, Until Discontinued, constipation, Post - Op, SECOND choice or per patient preference, bumetanide (BUMEX) tablet 1 mg Given 01/30/2020 1:21 PM CDT 1 mg 1 mg, Oral, Two times a day diuretic, First dose on Tue01/28/20 at 1500, Until Discontinued Given 01/30/2020 5:39 AM CDT 1 mg Given 01/29/2020 1:50 PM CDT 1 mg cefTRIAXone (ROCEPHIN) 2000 mg/20 mL IV Given 01/29/2020 4:15 P M CDT 2,000 mg syringe in sterile water 2,000 mg, IV, Every twenty four hours, First dose on Tue01/18/20 at 1700, Until Discontinued, 20 mL, Administer over 5 minutes., Given 01/28/2020 5:06 PM CDT 2,000 mg Given 01/27/2020 5:29 PM CDT 2,000 mg cyanocobalamin (vitamin B-12) (Vitamin Given 01/30/2020 8:29 AM CDT 250 mcg B-12) tablet 250 mcg 250 mcg, Oral, Daily, First dose on 01/19/20 at 0900, Until Discontinued, If alert and NOT vomiting, Given 01/29/2020 9:00 AM CDT 250 mcg Given 01/28/2020 8:52 AM CDT 250 mcg cyanocobalamin (VITAMIN B-12) injection solution 250 mcg 250 mcg, Intramuscular, Daily, First dose on Sat 0 at 0900, Until Discontinued, 1 mL, If NOT alert and/or vomiting: Refi ll if injection needed, folic acid injection solution 1 mg 1 mg, IV, Daily, First dose on Sat 0 at 0900, Until Discontinued, 0.2 mL, If NOT alert and/or vomiting: Refill if injection needed, folic acid tablet 1 mg Given 01/30/2020 8:28 AM CDT 1 mg 1 mg, Oral, Daily, First dose on 01/19/20 at 0900, Until Discontinued, If alert and NOT vomiting, Given 01/29/2020 9:00 AM CDT 1 mg Given 01/28/2020 8:52 AM CDT 1 mg heparin (porcine) injection solution Given 01/30/2020 5:38 AM C DT 5,000 Units 5,000 Units 5,000 Units, Subcutaneous, Every eight hours, First dose on Tue01/23/20 at 2200, Until Discontinued, 1 mL Given 01/29/2020 9:14 PM CDT 5,000 Units Given 01/29/2020 1:50 PM CDT 5,000 Units hEParin 100 units/ mL injection for Given 01/30/2020 5:39 AM CD T 300 Units heplock FLUSH 300 Units (3 mL), IV, Two times a day and prn, First dose on Tue01/20/20 at 1700, Until Discontinued, 3 mL, Flush PICC lumen with 10 mL sodium chloride 0.9% followed by heparin 300 units (100 units/mL) twice daily at 9340-7342 and after each use, Given 01/29/2020 4:15 PM CDT 300 Units Given 01/29/2020 4:52 AM CDT 300 Units lactulose oral solution (10 gm/15 mL) 15 mL Given 01/30/2020 8:28 AM CDT 15 mL 15 mL, Oral, One time a day prn, Starting 01/29/20 at 0900, Until Discontinued, constipation, 15 mL levothyroxine tablet 150 mcg Given 01/30/2020 5:52 AM CDT 150 mcg 150 mcg, Oral, One time a day before breakfast, First dose on 01/19/20 at 0600, Until Discontinued Given 01/29/2020 5:42 AM CDT 150 mcg Given 01/28/2020 6:41 AM CDT 150 mcg magnesium hydroxide (MILK OF MAGNESIA) oral Given 01/30/2020 8:28 AM CDT 30 mL suspension 30 mL 30 mL, Oral, Two times a day prn, Starting 01/19/20 at 0017, Until Discontinued, constipation, 30 mL, Post - Op, FIRST choice or per patient preference. Exception: Nephrology/renal patients, melatonin tablet 3 mg Given 01/26/2020 1:38 AM CDT 3 mg 3 mg, Oral, Bedtime prn, Starting 01/18/20 at 1706, Until Discontinued, other (Specify), insomnia, If inadequate response in 60 minutes, may proceed to next choice option or, if no other options, contact provider., Given 01/24/2020 9:02 PM CDT 3 mg omeprazole (priLOSEC) capsule 40 mg Given 01/30/2020 5:39 AM CDT 40 mg 40 mg, Oral, Two times a day before meals, First dose on 01/18/20 at 1700, Until Discontinued, Swallow cap whole. Do not crush, chew or open., Given 01/29/2020 4:15 PM CDT 40 mg Given 01/29/2020 5:42 AM CDT 40 mg ondansetron (ZOFRAN ODT) dispersible tablet 4 Given 8:51 AM CDT 4 mg mg 4 mg, Oral, Every four hours prn, Starting 01/18/20 at 1706, Until Discontinued, nausea, vomiting, Use FIRST. If ineffective after 30 minutes use ondansetron IV, ondansetron (ZOFRAN) injection solution 4 mg Given 01/19/2020 10:35 AM CDT 4 mg 4 mg, IV, Every four hours prn, Starting Tue01/18/20 at 1706, Until Discontinued, nausea, vomiting, 2 mL, Use SECOND. If ineffective after 30 minutes and ondansetron ODT used, call physician for alternative. If preference is to further dilute for IV administration: First draw up patient-specific dose, then dilute to 10 mL with 0.9% sodium chloride., polyethylene glycol (MIRALAX) packet 1 p acket 1 packet, Oral, Bedtime prn, Starting Tue01/29/20 at 0 900, Until Discontinued, constipation, Post - Op, Hold if 2 loose stools occur in the last 24 hours., senna-docusate sodium Given 01/30/2020 8:28 AM CDT 1 tablet (SENOKOT-S;PERICOLACE) tablet 1 tablet 1 tablet, Oral, Two times a day, First dose on Tue01/19/20 at 0900, Until Discontinued, Post - Op, Hold if 2 loose stools occur in the last 24 hours., Given 01/29/2020 9:14 PM CDT 1 tablet Given 01/29/2020 9:00 AM CDT 1 tablet sodium chloride 0.9% flush (adult) 10 mL Given 01/30/2020 8:34 AM CDT 10 mL 10 mL, IV, Two times a day and prn, First dose on Tue01/18/20 at 2100, Until Discontinued, 10 mL, Flush IV line as scheduled and as often as necessary before and after meds., Given 01/29/2020 9:22 PM CDT 10 mL Given 01/29/2020 9:00 AM CDT 10 mL sodium chloride 0.9% prefilled 10 mL syringe Given 05/2020 5:41 AM CDT 10 mL (Materials Management Item) 10 mL 10 mL, IV, Two times a day and prn, First dose on Tue01/20/20 at 1700, Until Discontinued, 10 mL, Flush PICC lumen with 10 mL sodium chloride 0.9% followed by heparin 300 units (100 units/mL) twice daily at 4036-4938 and after each use, Given 01/29/2020 4:15 PM CDT 10 mL Given 01/29/2020 4:52 AM CDT 10 mL spironolactone (ALDACTONE) tablet 50 mg Given 01/30/2020 8:28 AM CDT 50 mg 50 mg, Oral, Daily, First dose on Tue01/28/20 at 1500, Until Discontinued Given 01/29/2020 9:00 AM CDT 50 mg Given 01/28/2020 4:42 PM CDT 50 mg thiamine (vitamin B-1) tablet 100 mg Given 01/30/2020 8:28 AM CDT 100 mg 100 mg, Oral, Daily, First dose on 01/19/20 at 0900, Until Discontinued, If alert and NOT vomiting, Given 01/29/2020 9:00 AM CDT 100 mg Given 01/28/2020 8:52 AM CDT 100 mg thiamine 100 mg in sodium chloride 0.9% 50 mL 100 mg, IV, Daily, First dose on Sat 01/18 at 0900, Until Discontinued, 50 mL, If NOT alert and/or vomiting: Refill if injection needed, thiamine 100 mg/1 mL injection solution 100 mg 100 mg, Intramuscular, Daily, First dose on 01/19/20 at 0900, Until Discontinued, 2 mL, If NOT alert and/or vomiting: Refill if injectio n needed, Medication Order MAR Action Action Date Dose Rate Site acetaminophen (TYLENOL) tablet Given 01/27/2020 6:04 AM CDT 650 mg 650 mg 650 mg, Oral, Every four hours prn, Starting Tue01/18/20 at 1706, Until 01/27/20 at 1016, mild pain, If inadequate response in 60 minutes, may proceed to next choice option or if no other options, contact provider. Adult patients: Total dose of acetaminophen from all acetaminophen containing products should not exceed 4 grams (4000 mg) per day. Pediatric Patients 0 - 3 months: Maximum of 60 mg/kg/24 hours of acetaminophen. Pediatric Patients older than 3 months: Maximum of 75 mg/kg/24 hours of acetaminophen (Never exceeding 4 grams/day)., Given 01/27/2020 1:50 AM CDT 650 mg Given 01/26/2020 9:46 PM CDT 650 mg bumetanide (BUMEX) tablet 1 mg Given 01/19/2020 6:05 AM CDT 1 mg 1 mg, Oral, Two times a day diuretic, First dose on Tue01/18/20 at 1800, Until Discontinued enoxaparin (LOVENOX) subcutaneous injection Given 01/22/2020 8:04 PM CDT 30 mg solution 30 mg 30 mg, Subcutaneous, Bedtime, First dose on Tue01/22/20 at 2100, Until Discontinued, To avoid the loss of drug when using the 30 mg and 40 mg prefilled syringes, do not expel the air bubble from the syringe before the injection. For ADULT patients: Administration should be alternated between the left and right anterolateral and left and right posterolateral abdominal wall. The whole length of the needle should be introduced into a skin fold held between the thumb and forefinger; the skin fold should be held throughout the injection. To minimize bruising, do not rub the injection site after completion of the injection. For PEDIATRIC patients: Administration should be alternated between appropriate sites for patient age/weight (infants/small children = upper thigh; older children/adolescents = left and right anterolateral and left and right posterolateral abdominal wall). During administration to infants/smaller children sometimes the whole length of the needle is not "introduced" during the injection. Administer injection into a skin fold held between the thumb and forefinger; the skin fold should be held throughout the injection. To minimize bruising, do not rub the injection site after completion of the injection., enoxaparin (LOVENOX) subcutaneous injection Given 01/21/2020 9:46 PM CDT 40 mg solution 40 mg 40 mg, Subcutaneous, Bedtime, First dose on Tue01/18/20 at 2100, Until Discontinued, To avoid the loss of drug when using the 30 mg and 40 mg prefilled syringes, do not expel the air bubble from the syringe before the injection. For ADULT patients: Administration should be alternated between the left and right anterolateral and left and right posterolateral abdominal wall. The whole length of the needle should be introduced into a skin fold held between the thumb and forefinger; the skin fold should be held throughout the injection. To minimize bruising, do not rub the injection site after completion of the injection. For PEDIATRIC patients: Administration should be alternated between appropriate sites for patient age/weight (infants/small children = upper thigh; older children/adolescents = left and right anterolateral and left and right posterolateral abdominal wall). During administration to infants/smaller children sometimes the whole length of the needle is not "introduced" during the injection. Administer injection into a skin fold held between the thumb and forefinger; the skin fold should be held throughout the injection. To minimize bruising, do not rub the injection site after completion of the injection., Given 01/20/2020 9:49 PM CDT 40 mg Given 01/19/2020 8:08 PM CDT 40 mg fentaNYL 100 mcg/2 mL preservative free Given 01/18/2020 11:06 P M CDT 50 mcg injection solution 50 mcg 50 mcg, IV, Every five minutes prn, 6 doses, Starting Tue01/18/20 at 2233, Until Tue01/18/20 at 2326, other (Specify), moderate pain scale 4-6 or severe pain above 7 if hydromorphone not ordered (max dose of 300 mcg), 1 mL, PACU, Use only anesthesia's orders for moderate or severe pain while in PACU or recovery care, gabapentin (NEURONTIN) capsule 100 mg Given 01/22/2020 9:21 AM CDT 100 mg 100 mg, Oral, Three times a day, First dose on Tue01/21/20 at 1500, Until Discontinued Given 01/21/2020 9:46 PM CDT 100 mg Given 01/21/2020 2:15 PM CDT 100 mg gabapentin (NEURONTIN) capsule 100 mg Given 01/23/2020 8:48 AM CDT 100 mg 100 mg, Oral, Two times a day, First dose on Tue01/22/20 at 2100, Until Discontinued Given 01/22/2020 8:03 PM CDT 100 mg HYDROmorphone (DILAUDID) injection solution Given 12/20 11:33 AM CDT 0.5 mg (conc: 0.5 mg/0.5mL) 0.5 mg 0.5 mg, IV, Now, 1 dose, Tue01/18/20 at 1120, 0.5 mL HYDROmorphone (DILAUDID) injection solution Given 12/20 6:49 PM CDT 0.25 mg (conc: 1 mg/mL) 0.25 mg 0.25 mg, IV, Every two hours prn, Starting Tue01/18/20 at 1648, Until Tue01/19/20 at 0016, breakthrough pain, 0.25 mL HYDROmorphone FIELD MARKETING REPRESENTATIVE (DILAUDID) 0.4 mg/mL in Rate Verify 01/19/2020 7:2 5 AM CDT 0.9% sodium chloride syringe IV, Continuous, Starting Tue01/18/20 at 2340, Until 01/19/20 at 1427, 25 mL, FIELD MARKETING REPRESENTATIVE Dose: 0.2 mg Lockout Interval: 8 minutes Continuous Dose: None mg/hr Max Limit in 4h: 4 mg Loading Dose: None mg Do not give loading dose if pain score 6 or less Document on FIELD MARKETING REPRESENTATIVE flowsheet. If pain control is inadequate (defined as pain unrelieved per patient report after 3 doses), change to: FIELD MARKETING REPRESENTATIVE Dose: 0.3 mg Lockout Interval: 8 minutes Continuous Dose: None mg/hr NEVER use extension tubing with a FIELD MARKETING REPRESENTATIVE for MRI. Instead call the provider to obtain prn pain meds or to consider a sedated MRI., New Bag/Tubing 01/18/2020 10:57 PM CDT lactated ringers IV solution Already Infusing 01/18/2020 10:20 PM CDT 50 mL/hr IV, at 50 mL/hr, Continuous, Starting Tue01/18/20 at 2235, Until Tue01/18/20 at 2326, 1,000 mL, PACU, TKO current fluids if patient is going to Day Unit / ARU and tolerating PO fluids without nausea., lactulose oral solution (10 gm/15 mL) 15 mL Given 01/20/2020 10:12 AM CDT 15 mL 15 mL, Oral, Three times a day, First dose on Tue01/18/20 at 2100, Until Discontinued, 15 mL Given 01/19/2020 8:07 PM CDT 15 mL Given 01/19/2020 2:24 PM CDT 15 mL lactulose oral solution (10 gm/15 mL) 15 mL Given 01/28/2020 8:40 PM CDT 15 mL 15 mL, Oral, Two times a day, First dose on Tue01/20/20 at 1300, Until Discontinued, 15 mL Given 01/28/2020 8:52 AM CDT 15 mL Given 01/27/2020 8:59 PM CDT 15 mL lidocaine 1% preservative free (XYLOCAIN E-MPF) injection solution 1 dose, Starting Tue01/18/20 at 1415, Un til Tue01/18/20 at 1420, [place]: cabinet override, lidocaine PF (XYLOCAINE-MPF) 1 % Given 01/18/2020 2:20 PM CDT 5 mL Right Knee preservative free injection solution 5 mL 5 mL, Intradermal, Now, 1 dose, Tue01/18/20 at 1420, 5 mL LORazepam (ATIVAN) 2 mg/mL injection solution Given 4:38 AM CDT 1 mg 1-4 mg 1-4 mg, IV, Every one hour prn, Starting 01/19/20 at 0458, Until Tue01/23/20 at 1027, other (Specify), CIWA-Ar score greater than or equal to 8, 2 mL, Call physician when total dose exceeds 30 mg in 24 hours. CIWA-Ar score - total number of points Less than 8: medication not indicated 8-14: LORazepam (ATIVAN) 1 mg 15-20: LORazepam (ATIVAN) 2 mg 21-30: LORazepam (ATIVAN) 3 mg Greater than 30: LORazepam (ATIVAN) 4 mg If preference is to further dilute for IV administration: First draw up patient-specific dose, then dilute with EQUAL VOLUME of 0.9% sodium chloride, Given 01/21/2020 11:26 PM CDT 1 mg Given 01/21/2020 6:18 PM CDT 1 mg LORazepam (ATIVAN) tablet 1-4 mg Given 01/21/2020 4:59 PM CDT 1 mg 1-4 mg, Oral, Every one hour prn, Starting 01/19/20 at 0458, Until Tue01/23/20 at 1027, other (Specify), CIWA-Ar score greater than or equal to 8, Call physician when total dose exceeds 30 mg in 24 hours. CIWA-Ar score - total number of points Less than 8: medication not indicated 8-14: LORazepam (ATIVAN) 1 mg 15-20: LORazepam (ATIVAN) 2 mg 21-30: LORazepam (ATIVAN) 3 mg Greater than 30: LORazepam (ATIVAN) 4 mg, Given 01/21/2020 2:15 PM CDT 1 mg Given 01/19/2020 9:34 PM CDT 1 mg magnesium sulfate 2 gm/50 mL IV solution 2 g Given 01/20/2020 12:44 AM CDT 2 g 2 g, IV, Now, 1 dose, 01/20/20 at 0030, 50 mL ondansetron (ZOFRAN) injection solution 4 mg Given 01/18/2020 11:33 AM CDT 4 mg 4 mg, IV, Now, 1 dose, Tue01/18/20 at 1120, 2 mL, If preference is to further dilute for IV administration: First draw up patient-specific dose, then dilute to 10 mL with 0.9% sodium chloride., oxyCODONE (OXY-IR) tablet 5 mg Given 01/19/2020 3:00 PM CDT 5 mg 5 mg, Oral, Every four hours prn, Starting Tue01/18/20 at 1648, Until Tue01/23/20 at 1027, moderate pain Given 01/19/2020 10:35 AM CDT 5 mg polyethylene glycol (MIRALAX) packet 1 Given 01/28/2020 8:52 AM CDT 1 packet packet 1 packet, Oral, Daily, First dose on 01/19/20 at 0900, Until Discontinued, Post - Op, Hold if 2 loose stools occur in the last 24 hours., Given 01/27/2020 8:48 AM CDT 1 packet Given 01/26/2020 8:23 AM CDT 1 packet sodium chloride 0.9% (bolus) IV Given 01/23/2020 5:02 PM CDT 50 0 mL 500 mL/hr solution 500 mL 500 mL, IV, at 500 mL/hr, Bolus, 1 dose, Tue01/23/20 at 1700, 500 mL sodium chloride 0.9% IV solution flush b ag New Bag 01/19/2020 4:55 AM CDT 500 mL IV, Continuous, Starting 01/19/20 at 0400, Until 01/19/20 at 1045, 1,000 mL, IV line carrier for line flush with blood product infusion., sodium chloride 0.9% IV solution New Bag 01/19/2020 8:33 AM CDT 100 mL/hr IV, at 100 mL/hr, Continuous, Starting Tue01/18/20 at 2330, Until 01/19/20 at 1045, 1,000 mL, Post - Op New Bag/Tubing 01/18/2020 11:00 PM CDT 100 mL/hr sodium chloride 0.9% IV solution Rate Change 01/20/2020 3:15 AM CDT 100 mL/hr IV, at 100 mL/hr, Continuous, Starting 01/20/20 at 0030, Until 01/20/20 at 1010, 1,000 mL New Bag 01/20/2020 1:25 AM CDT 75 mL/hr sodium chloride 0.9% IV solution New Bag 01/26/2020 5:50 AM CDT 50 mL/hr IV, at 50 mL/hr, Continuous, Starting 01/21/20 at 2300, Until 01/26/20 at 1041, 1,000 mL New Bag 01/25/2020 10:38 AM CDT 50 mL/hr New Bag 01/24/2020 4:39 PM CDT 50 mL/hr sodium phosphates (FLEET ADULT) enema 1 Given 01/30/2020 11:39 A M CDT 1 enema enema 1 enema, Rectal, One time, 1 dose, 01/30/20 at 1210, 133 mL, Using more than one Fleet enema in 24 hours can be harmful due to the phosphate contents of the enema., spironolactone (ALDACTONE) tablet 50 mg Given 01/19/2020 8:35 AM CDT 50 mg 50 mg, Oral, DAILY, First dose on 01/19/20 at 0900, Until Discontinued vancomycin (VANCOCIN) 1,500 mg in sodium Given 01/18/2020 2 :53 PM CDT 1,500 mg chloride 0.9% 250 mL (Locked) 1,500 mg, IV, Now, 1 dose, 01/18/20 at 1440, 250 mL, Vanco Dose 1500 mg- Total Volume: 295 mL @ 148 mL/hr x 2 hours, vancomycin (VANCOCIN) 1,500 mg in sodium Given 01/20/2020 2 :28 AM CDT 1,500 mg chloride 0.9% 250 mL (Locked) 1,500 mg, IV, Every twelve hours, First dose on 01/19/20 at 0300, Until Discontinued, 250 mL, Vanco Dose 1500 mg- Total Volume: 295 mL @ 148 mL/hr x 2 hours, Given 01/19/2020 2:24 PM CDT 1,500 mg Given 01/19/2020 2:22 AM CDT 1,500 mg documented in this encounter
[2020-02-01] MEDS: cefTRIAXone 2 GM in Sodium Chloride 0.9% 100 ML IV SCH (16:36)
[2020-02-01] MEDS ORDERED: Menthol/Methyl Salicylate 85 GM Tube TOP PRN (18:33)
[2020-02-01] MEDS: Temazepam 15 MG Cap PO PRN (22:00)
[2020-02-02] MEDS: traMADol 50 MG Tab PO PRN (07:25)
[2020-02-02] MEDS: Acetaminophen 500 MG Tab PO PRN (07:26)
[2020-02-02] MEDS: Spironolactone 25 MG Tab PO SCH (07:28)
[2020-02-02] MEDS: Omeprazole 20 MG Cap.CR PO SCH (07:28)
[2020-02-02] MEDS: Levothyroxine 150 MCG Tab PO SCH (07:28)
[2020-02-02] MEDS: Thiamine 100 MG Tab PO SCH (07:28)
[2020-02-02] MEDS: Cyanocobalamin (Vitamin B12) 100 MCG Tab PO SCH (07:28)
[2020-02-02] MEDS: Folic Acid 1 MG Tab PO SCH (07:28)
[2020-02-02] MEDS: Sodium Chloride 0.9% 10 ML Syringe IV SCH (07:28)
[2020-02-02] MEDS: Bumetanide 1 MG Tab PO SCH (07:28)
[2020-02-02] MEDS: Sodium Chloride 0.9% 10 ML Syringe FLUSH SCH ×3 (10:28→13:07)
[2020-02-02] MEDS: Sodium Chloride 0.9% 10 ML Syringe IV PRN ×2 (10:28→11:04)
[2020-02-02] MEDS: Lactulose Soln 10 GM/15 ML 30 ML UD Cup PO SCH ×2 (10:51→11:03)
[2020-02-02] MEDS ORDERED: Morphine 4 MG/ML Syringe IVPUSH ONE (11:58)
[2020-02-02] MEDS ORDERED: Ondansetron 4 MG/2 ML SDV IVPUSH ONE (11:58)
--- NOTE | 2020-02-02 12:27 | PCM.DCSUM1 ---
Discharge Summary - Hospital Course Brief History: Patient admitted for IV antibiotics to treat right knee infection/physical therapy Diagnosis: Stroke: No - Discharge Data Discharge Date: 02/02/20 Discharge Disposition: DC/Tfer to Acute Hospital 02 Condition: Good - Referral to Home Health Primary Care Physician: Martir Robles MD - Discharge Diagnosis/Problem(s) (1) Right knee skin infection SNOMED Code(s): 595982509, 128464310 ICD Code: L08.9 - LOCAL INFECTION OF THE SKIN AND SUBCUTANEOUS TISSUE, UNSP Status: Acute Priority: High Current Visit: Yes Problem Details: Recent inpatient treatment for E.Coli joint infection of right knee at [facility] (2) Edema of both lower legs SNOMED Code(s): 587845434 ICD Code: R60.0 - LOCALIZED EDEMA Status: Chronic Priority: Medium Current Visit: Yes Problem Details: Significant issues with lower leg edema, usually left worse than right per patient. Has gotten noticably worse since admission this past week. Weeping noted through skin. Has been wearing SCDs. (3) Alcoholic hepatitis SNOMED Code(s): 734833581 ICD Code: K70.10 - ALCOHOLIC HEPATITIS WITHOUT ASCITES Status: Chronic Priority: Low Current Visit: Yes Problem Details: Patient's ammonia level 89 today. Has been refusing Lactulose as he does not like the associated diarrhea. AST 86. Total Bili 2.4 (4) Cirrhosis of liver SNOMED Code(s): 97220505 ICD Code: K74.60 - UNSPECIFIED CIRRHOSIS OF LIVER Status: Chronic Priority: Low Current Visit: Yes Problem Details: see above Qualifiers: Hepatic cirrhosis type: alcoholic cirrhosis (5) Anemia SNOMED Code(s): 093257006 ICD Code: D64.9 - ANEMIA, UNSPECIFIED Status: Chronic Priority: Medium Current Visit: No Problem Details: Gradual drop in hemeglobin noted based upon review of [facility] chart. 7.7 today. Was 8 at [facility] before discharge. (6) Chronic back pain SNOMED Code(s): 823032395 ICD Code: M54.9 - DORSALGIA, UNSPECIFIED; G89.29 - OTHER CHRONIC PAIN Status: Chronic Priority: Low Current Visit: Yes Problem Details: Stable per history Qualifiers: Back pain location: back pain in unspecified location Back pain laterality: unspecified Qualified Code(s): M54.9 - Dorsalgia, unspecified; G89.29 - Other chronic pain (7) Chronic neck pain SNOMED Code(s): 6195887456894 ICD Code: M54.2 - CERVICALGIA; G89.29 - OTHER CHRONIC PAIN Status: Chronic Priority: Low Current Visit: Yes Problem Details: Stable per history (8) Alcohol dependence SNOMED Code(s): 20431396 ICD Code: F10.20 - ALCOHOL DEPENDENCE, UNCOMPLICATED Status: Chronic Priority: Low Current Visit: Yes Problem Details: No recent DTs/detoxed while at [facility] (9) Chronic diastolic (congestive) heart failure SNOMED Code(s): 572029004, 384869027 ICD Code: I50.32 - CHRONIC DIASTOLIC (CONGESTIVE) HEART FAILURE Status: Chronic Priority: Medium Current Visit: Yes (10) Hypertension SNOMED Code(s): 85016943 ICD Code: I10 - ESSENTIAL (PRIMARY) HYPERTENSION Status: Chronic Priority: Low Current Visit: No Problem Details: observe trends. Stable during stay Qualifiers: Hypertension type: essential hypertension Qualified Code(s): I10 - Essential (primary) hypertension (11) Hypothyroid SNOMED Code(s): 13953190 ICD Code: E03.9 - HYPOTHYROIDISM, UNSPECIFIED Status: Chronic Priority: Low Current Visit: No Problem Details: stable per history Qualifiers: Hypothyroidism type: unspecified Qualified Code(s): E03.9 - Hypothyroidism, unspecified (12) Mixed anxiety depressive disorder SNOMED Code(s): 519200800 ICD Code: F41.8 - OTHER SPECIFIED ANXIETY DISORDERS Status: Chronic Priority: Medium Current Visit: No Problem Details: Stable by history. Note history of alcohol abuse with persistent alcohol use up to time of recent hospitalization (13) Osteoarthritis SNOMED Code(s): 310999955 ICD Code: M19.90 - UNSPECIFIED OSTEOARTHRITIS, UNSPECIFIED SITE Status: Chronic Priority: High Current Visit: No Problem Details: Overall poor control. No acute changes Qualifiers: Osteoarthritis location: multiple joints Osteoarthritis type: primary Qualified Code(s): M89.49 - Other hypertrophic osteoarthropathy, multiple sites (14) Peptic reflux disease SNOMED Code(s): 603016391 ICD Code: K21.9 - GASTRO-ESOPHAGEAL REFLUX DISEASE WITHOUT ESOPHAGITIS Status: Chronic Priority: Medium Current Visit: No Problem Details: History of gastric varices secondary to his alcohol abuse. (15) Recurrent falls SNOMED Code(s): 687080673 ICD Code: R29.6 - REPEATED FALLS Status: Chronic Priority: Low Current Visit: No (16) Chronic kidney disease, stage 3 (moderate) SNOMED Code(s): 799757900 ICD Code: N18.3 - CHRONIC KIDNEY DISEASE, STAGE 3 (MODERATE) Status: Chronic Priority: Medium Current Visit: No Problem Details: BUN 60/Cr 2.35 today. Overall stable when compared to [facility] inpatient information sent with patient. - Patient Summary/Data Consults: Consultations 01/30/20 20:02 Consult to Physical Therapy [PT Evaluation and Treatment] [CONS] Routine 01/31/20 08:32 Consult to Case Management/Tailoring Teacher [CONS] Routine OT Evaluation and Treatment [CONS] Routine Hospital Course: Patient admitted to Swing Bed 3 days ago. Has been receiving IV Rocephin and recommended meds as per [facility] transfer orders. Noted to have gradually worsen ing edema during course of stay. Both lower extremities much more swollen today when compared to admission. Weeping fluid. Picc line site noted to be weeping fluid also by nursing staff. Patient complaining of increased pain in legs. He appears weaker, having significantly more difficulty transferring even with assist of two nurses. Labs performed. Hgb now down to 7.7. Was 8 at [facility]. He has history of chronic anemia. No evidence of acute GI bleed noted during stay. Renal function remains compromised but is stable. Lactic acid elevated at 3.4. No fevers noted. 4 pound weight increase since admission. Given patient's history of cirrhosis, CHF, chronic renal disease it was felt that it would be in his best interest to have him return to [facility] for re- evaluation. Internal Medicine/GI/ID/Nephrology available to consult. Call placed to [facility] and patient accepted by Hospitalist . Once best strategy to address edema/increased weakness/pain management is developed can accept patient back to [facility] Bed. Patient's code status discussed with patient//daughter. Given all of his chronic medical conditions/overall poor hall supervisor prognosis they were encouraged to consider a more comfort- oriented hall supervisor plan. - Discharge Plan Home Medications: Home Meds Bumetanide [Bumex] 2 mg PO BID@08,14 02/20/19 [History] Cyanocobalamin (Vitamin B-12) [Vitamin B-12] 100 mcg PO DAILY 02/20/19 [History] Folic Acid 1 mg PO DAILY 02/20/19 [History] Levothyroxine 150 mcg PO ACBREAKFAST 02/20/19 [History] Omeprazole 40 mg PO BIDAC 02/20/19 [History] Lactulose [Cephulac] 15 ml PO TID 11/10/19 [History] Spironolactone 1 tab PO DAILY 11/10/19 [History] Thiamine [Vitamin B-1] 1 tab PO DAILY 11/10/19 [History] traMADol [Ultram] 1 tab PO BID PRN 11/10/19 [History] Acetaminophen 1,000 mg PO Q6HR PRN 01/30/20 [History] Heparin Sodium [Heparin Lock Flush] 300 unit IVPUSH Q24H 01/30/20 [History] Heparin Sodium [Heparin Lock Flush] 300 units IVPUSH ASDIRECTED PRN 01/30/20 [History] Sodium Chloride 0.9% [Saline Flush] 10 ml IV ASDIRECTED PRN 01/30/20 [History] Sodium Chloride 0.9% [Saline Flush] 10 ml IV DAILY 01/30/20 [History] cefTRIAXone [Rocephin] 2,000 mg IV DAILY 01/30/20 [History] - Discharge Summary/Plan Comment DC Time >30 min.: Yes (Waiting for bed [facility]) - General Info Date of Service: 02/02/20 Admission Dx/Problem (Free Text: Admission Diagnosis/Problem Admission Diagnosis/Problem Infection of knee Subjective Update: Worsening pain and swelling of both legs per patient. Functional Status: Reports: Tolerating Diet. Denies: Ambulating, New Symptoms Numeric/FACES Score: 10 - Review of Systems General: Reports: Weakness, Fatigue. Denies: Fever, Chills, Night Sweats HEENT: Denies: Dysphasia, Headaches, Sinus Congestion, Sore Throat, Rhinitis, Visual Changes Pulmonary: Denies: Shortness of Breath, Pleuritic Chest Pain, Cough, Sputum, Hemoptysis, Wheezing Cardiovascular: Reports: Edema. Denies: Chest Pain, Palpitations, Lightheadedness Gastrointestinal: Reports: Diarrhea (is using Lactulose). Denies: Abdominal Pain, Hematochezia, Nausea, Vomiting Genitourinary: Denies: Dysuria, Frequency, Burning, Hematuria, Flank Pain Musculoskeletal: Reports: Other (chronic neck pain/back pain/osteoarthritis) Skin: Denies: Cyanosis, Mottled, Bruising, Pruritis Neurological: Reports: Difficulty Walking (weak). Denies: Dizziness, Headache, Trouble Speaking, Change in Speech Psychiatric: Reports: No Symptoms - Patient Data Vitals - Most Recent: Last Vital Signs Temp 37.0 C 02/02/20 08:00 Pulse 81 02/02/20 08:00 Resp 14 02/02/20 08:00 BP 106/53 L 02/02/20 08:00 Pulse Ox 96 02/02/20 08:00 Weight - Most Recent: 117.027 kg I&O - Last 24 hours: Intake & Output 02/01/20 02/02/20 02/02/20 22:59 06:59 14:59 Intake Total 100 540 Output Total 775 290 Balance -675 540 -290 Lab Results - Last 24 hrs: Laboratory Results - last 24 hr 02/02/20 02/02/20 02/02/20 Range/Units 10:35 10:35 10:35 WBC 5.8 (4.0-10.2) K/uL RBC 1.92 L (4.33-5.41) M/uL Hgb 7.7 L D (13.1-16.8) g/dL Hct 23.1 L* (39.0-49.0) % MCV 120.3 H (84.0-98.0) fL MCH 40.1 H (28.2-33.3) pg MCHC 33.3 (31.7-36.0) g/dL RDW 18.1 H (11.2-14.1) % Plt Count 113 L (150-350) K/uL Neut % (Auto) 71.0 (45.0-80.0) % Lymph % (Auto) 15.3 (10.0-50.0) % [place] % (Auto) 10.9 (2.0-14.0) % Eos % (Auto) 1.9 (0.0-5.0) % Baso % (Auto) 0.9 (0.0-2.0) % Neut # (Auto) 4.12 (1.40-7.00) K/uL Lymph # (Auto) 0.89 (0.50-3.50) K/uL [place] # (Auto) 0.63 (0.00-1.00) K/uL Eos # (Auto) 0.11 (0.00-0.50) K/uL Baso # (Auto) 0.05 (0.00-0.20) K/uL Sodium 132 L (136-145) mmol/L Potassium 4.3 (3.5-5.1) mmol/L Chloride 98 (98-107) mmol/L Carbon Dioxide 25.0 (21.0-32.0) mmol/L BUN 60 H D (7-18) mg/dL Creatinine 2.35 H (0.51-1.17) mg/dL Est Cr Clr Drug Dosing 31.23 mL/min Estimated GFR (MDRD) 27 mL/min Glucose 153 H (74-106) mg/dL Lactic Acid (0.4-2.0) mmol/L Calcium 8.4 L (8.5-10.1) mg/dL Magnesium 1.8 (1.8-2.4) mg/dL Total Bilirubin 2.4 H (0.2-1.0) mg/dL AST 86 H (15-37) U/L ALT 48 (12-78) U/L Alkaline Phosphatase 127 H (46-116) IU/L Ammonia 89 H (11-32) umol/L C-Reactive Protein 6.2 H (<=0.9) mg/dL NT-Pro-B Natriuret Pep 1055 H (0-125) pg/mL Total Protein 6.7 (6.4-8.2) g/dL Albumin 1.4 L (3.4-5.0) g/dL 02/02/20 Range/Units 10:35 WBC (4.0-10.2) K/uL RBC (4.33-5.41) M/uL Hgb (13.1-16.8) g/dL Hct (39.0-49.0) % MCV (84.0-98.0) fL MCH (28.2-33.3) pg MCHC (31.7-36.0) g/dL RDW (11.2-14.1) % Plt Count (150-350) K/uL Neut % (Auto) (45.0-80.0) % Lymph % (Auto) (10.0-50.0) % [place] % (Auto) (2.0-14.0) % Eos % (Auto) (0.0-5.0) % Baso % (Auto) (0.0-2.0) % Neut # (Auto) (1.40-7.00) K/uL Lymph # (Auto) (0.50-3.50) K/uL [place] # (Auto) (0.00-1.00) K/uL Eos # (Auto) (0.00-0.50) K/uL Baso # (Auto) (0.00-0.20) K/uL Sodium (136-145) mmol/L Potassium (3.5-5.1) mmol/L Chloride (98-107) mmol/L Carbon Dioxide (21.0-32.0) mmol/L BUN (7-18) mg/dL Creatinine (0.51-1.17) mg/dL Est Cr Clr Drug Dosing mL/min Estimated GFR (MDRD) mL/min Glucose (74-106) mg/dL Lactic Acid 3.4 H (0.4-2.0) mmol/L Calcium (8.5-10.1) mg/dL Magnesium (1.8-2.4) mg/dL Total Bilirubin (0.2-1.0) mg/dL AST (15-37) U/L ALT (12-78) U/L Alkaline Phosphatase (46-116) IU/L Ammonia (11-32) umol/L C-Reactive Protein (<=0.9) mg/dL NT-Pro-B Natriuret Pep (0-125) pg/mL Total Protein (6.4-8.2) g/dL Albumin (3.4-5.0) g/dL Med Orders - Current: Current Medications Acetaminophen (Tylenol Extra Strength) 1,000 mg PO Q6HR PRN PRN Reason: Pain (moderate 4-6) Last Admin: 02/02/20 07:26 Dose: 1,000 mg Documented by: Bumetanide (Bumex) 2 mg PO BID@08,14 [facility] Last Admin: 02/02/20 07:28 Dose: 2 mg Documented by: Cyanocobalamin (Vitamin B12) 100 mcg PO DAILY [facility] Last Admin: 02/02/20 07:28 Dose: 100 mcg Documented by: Folic Acid (Folic Acid) 1 mg PO DAILY [facility] Last Admin: 02/02/20 07:28 Dose: 1 mg Documented by: Heparin Sodium (Porcine) (Heparin Lock Flush 100 Units/Ml) 300 units IVPUSH ASDIRECTED PRN PRN Reason: Keep Vein Open Last Admin: 02/02/20 11:04 Dose: 300 units Documented by: Heparin Sodium (Porcine) (Heparin Lock Flush 100 Units/Ml) 300 units IVPUSH DAILY@1645 [facility] Ceftriaxone Sodium 2 gm/ (Sodium Chloride) 100 mls @ 200 mls/hr IV Q24H [facility] Stop: 02/24/20 16:44 Last Admin: 02/01/20 16:36 Dose: 200 mls/hr Documented by: Lactulose (Cephulac) 15 gm PO TID [facility] Last Admin: 02/02/20 11:03 Dose: 15 gm Documented by: Levothyroxine Sodium (Levothyroxine) 150 mcg PO ACBREAKFAST [facility] Last Admin: 02/02/20 07:28 Dose: 150 mcg Documented by: Methyl Salicylate (Icy Hot Cream) 0 gm TOP QID PRN PRN Reason: Pain (mild 1-3) Omeprazole (Omeprazole) 20 mg PO BIDAC [facility] Last Admin: 02/02/20 07:28 Dose: 20 mg Documented by: Sodium Chloride (Saline Flush) 10 ml FLUSH ASDIRECTED [facility] Last Admin: 02/02/20 11:04 Dose: 10 ml Documented by: Sodium Chloride (Saline Flush) 10 ml IV ASDIRECTED PRN PRN Reason: IV Use Last Admin: 02/02/20 11:04 Dose: 10 ml Documented by: Sodium Chloride (Saline Flush) 10 ml IV DAILY [facility] Last Admin: 02/02/20 07:28 Dose: 10 ml Documented by: Spironolactone (Aldactone) 50 mg PO DAILY [facility] Last Admin: 02/02/20 07:28 Dose: 50 mg Documented by: Temazepam (Restoril) 15 mg PO BEDTIME PRN PRN Reason: Insomnia Last Admin: 02/01/20 22:00 Dose: 15 mg Documented by: Thiamine HCl (Vitamin B-1) 100 mg PO DAILY [facility] Last Admin: 02/02/20 07:28 Dose: 100 mg Documented by: Tramadol HCl (Ultram) 50 mg PO BID PRN PRN Reason: Pain (severe 7-10) Last Admin: 02/02/20 07:25 Dose: 50 mg Documented by: Discontinued Medications Heparin Sodium (Porcine) (Heparin Lock Flush 100 Units/Ml) Confirm Administered Dose 500 units .ROUTE .STK-MED ONE Stop: 01/30/20 18:14 Last Admin: 01/30/20 18:20 Dose: 300 units Documented by: Heparin Sodium (Porcine) (Heparin Lock Flush 100 Units/Ml) 300 units IVPUSH Q24H [facility] Last Admin: 02/01/20 17:06 Dose: 300 units Documented by: Lorazepam (Ativan) 0.5 mg PO BEDTIME PRN PRN Reason: Restlessness Last Admin: 01/30/20 22:32 Dose: 0.5 mg Documented by: Morphine Sulfate (Morphine) 4 mg IVPUSH ONETIME ONE Stop: 02/02/20 11:59 Omeprazole (Omeprazole) 40 mg PO BIDAC [facility] Last Admin: 01/31/20 08:21 Dose: 40 mg Documented by: Ondansetron HCl (Zofran) 4 mg IVPUSH ONETIME ONE Stop: 02/02/20 11:59 - Exam General: Reports: Alert, Cooperative, No Acute Distress HEENT: Reports: Pupils Equal, Pupils Reactive, Mucous Membr. Moist/[place] Neck: Reports: Supple Lungs: Reports: Clear to Auscultation, Normal Respiratory Effort Cardiovascular: Reports: Regular Rate, Regular Rhythm GI/Abdominal Exam: Soft, Non-Tender (Male) Exam: Deferred Rectal (Males) Exam: Deferred Back Exam: Denies: Muscle Spasm Extremities: Other (significant bilateral lower leg edema) Skin: Reports: Warm, Other (weeping fluid right anterior trejo) Neurological: Reports: No New Focal Deficit Psy/Mental Status: Reports: Alert, Other (easily irritated)
== END 2020-02-02 13:45 | DRG 549 ==
LOC: UNDOADMIN 01-30 15:10 → LL.MS 01-30 15:10
PROVIDERS: ADMIT Emergency Medicine; ATTEND Emergency Medicine
DX: M00.861 Arthritis due to other bacteria, right knee (principal); I50.32 Chronic diastolic (congestive) heart failure; F10.288 Alcohol dependence with other alcohol-induced disorder; I13.0 Hypertensive heart and chronic kidney disease with heart failure and stage 1 through stage 4 chronic kidney disease, or unspecified chronic kidney disease; K70.10 Alcoholic hepatitis without ascites; K70.30 Alcoholic cirrhosis of liver without ascites; D64.9 Anemia, unspecified; M54.9 Dorsalgia, unspecified; G89.29 Other chronic pain; F10.20 Alcohol dependence, uncomplicated; E03.9 Hypothyroidism, unspecified; F41.8 Other specified anxiety disorders; K21.9 Gastro-esophageal reflux disease without esophagitis; N18.3 Chronic kidney disease, stage 3 (moderate); M89.49 Other hypertrophic osteoarthropathy, multiple sites; Z98.49 Cataract extraction status, unspecified eye; Z90.49 Acquired absence of other specified parts of digestive tract
CPT/HCPCS: 80053; 82140; 83605; 83735; 83880; 85025; 86140; 97110-GO; 97110-GP; 97163-GP; 97165-GO; 97530-GO; 97535-GO; A9270-GY; J0696; J1642; J2270; J2405; J7050

== ENCOUNTER 2020-02-12 14:00 | Inpatient (IN) | payer MEDICARE, BC, MEDICAID ==
[2020-02-13] MEDS ORDERED: Bisacodyl 5 MG Tab PO PRN (14:04)
--- NOTE | 2020-02-13 14:18 | PCM.HP.2 ---
H&P History of Present Illness - General Date of Service: 02/13/20 Admit Problem/Dx: Admission Diagnosis/Problem Admission Diagnosis/Problem Septic arthritis Source of Information: Patient, Old Records History Limitations: Reports: No Limitations - History of Present Illness Initial Comments - Free Text/Narative: Pt here for swing bed admit after being treated for septic arthritis of right knee Here for IV antibiotics and PT/OT Onset of Symptoms: Reports: Gradual Duration of Symptoms: Reports: Week(s): - Related Data Allergies/Adverse Reactions: Allergies Allergy/AdvReac Type Severity Reaction Status Date / Time No Known Allergies Allergy Verified 01/30/20 14:47 Home Medications: Home Meds Bumetanide [Bumex] 0.5 mg PO DAILY 02/20/19 [History] Cyanocobalamin (Vitamin B-12) [Vitamin B-12] 100 mcg PO DAILY 02/20/19 [History] Folic Acid 1 mg PO DAILY 02/20/19 [History] Levothyroxine 150 mcg PO ACBREAKFAST 02/20/19 [History] Omeprazole 20 mg PO BIDAC 02/20/19 [History] Lactulose [Cephulac] 15 ml PO TID 11/10/19 [History] Spironolactone 50 mg PO DAILY 11/10/19 [History] Thiamine [Vitamin B-1] 100 mg PO DAILY 11/10/19 [History] traMADol [Ultram] 50 mg PO BID PRN 11/10/19 [History] Acetaminophen 1,000 mg PO Q6HR PRN 01/30/20 [History] Heparin Sodium [Heparin Lock Flush] 300 unit IVPUSH DAILY@202901/30/20 [History] Heparin Sodium [Heparin Lock Flush] 300 units IVPUSH ASDIRECTED PRN 01/30/20 [History] Sodium Chloride 0.9% [Saline Flush] 10 ml IV ASDIRECTED PRN 01/30/20 [History] Sodium Chloride 0.9% [Saline Flush] 10 ml IV DAILY@199901/30/20 [History] cefTRIAXone [Rocephin] 2,000 mg IV DAILY@199901/30/20 [History] Temazepam [Restoril] 15 mg PO BEDTIME PRN 02/13/20 [History] Past Medical History HEENT History: Reports: Cataract, Hard of Hearing Cardiovascular History: Reports: Arrhythmia, Cardiomyopathy, Heart Failure, Hypertension, Other (See Below). Denies: [place] Other Cardiovascular History: Sinus tachycardia. Moderate left atrial enlargement with mild [place] insufficiency and mild to moderate mitral valve insufficiency by echocardiogram. Respiratory History: Reports: Bronchitis, Recurrent, Intubation, Previous. 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 Upper GI bleed in May 2017. Colonic polyps of unknown character in the ascending and transverse colon. Ventral abdominal hernias. Genitourinary History: Reports: Acute Renal Failure, Chronic Renal Insuffiency, Other (See Below) Other Genitourinary History: History of acute care after left shoulder arthroplasty in January 2019. Musculoskeletal History: Reports: Arthritis, Back Pain, Chronic, Fracture, Neck Pain, Chronic, Osteoarthritis, Osteoporosis, Other (See Below) Other Musculoskeletal History: Multiple thoracic vertebral body compression fractures at various times from T7-T10 area; left ankle fracture in 2014 with surgery as below. Bilateral rotator cuff tears with left shoulder surgery as below. 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 Borderline alcohol encephalopathy. History of recurrent falls secondary to alcohol use and his arthritis. Psychiatric History: Reports: Addiction, Anxiety, Depression, Other (See Below) Other Psychiatric History: Alcohol abuse. Endocrine/Metabolic History: Reports: Hypomagnesemia, Hypothyroidism, Obesity/BMI 30+, Osteopenia, Other (See Below). Denies: Diabetes, Gestational, Diabetes, Type I, Diabetes, Type II, Diabetes Mellitus, Type 3c Other Endocrine/Metabolic History: Hyperglycemia. Hematologic History: Reports: Anemia, B12 Deficiency, Blood Transfusion(s), Folic Acid, Iron Deficiency, Other (See Below) Other Hematologic History: Macrocytic anemia and thrombocytopenia. Immunologic History: Reports: Immunosuppression, Other (See Below) Other Immunologic History: Alcohol abuse - Infectious Disease History Infectious Disease History: Reports: Mumps. Denies: C-Difficile, Chicken Pox, Measles, Meningitis, Mononucleosis, MRSA, Novel Coronavirus, Pertussis (Whooping Cough), Rheumatic Fever, Rubella, Scarlet Fever, Shingles, TB, VRE - Past Surgical History Head Surgeries/Procedures: Reports: None HEENT Surgical History: Reports: Cataract Surgery, Laser Surgery, Oral Surgery, Other (See Below) Other HEENT Surgeries/Procedures: Bilateral cataract surgery. Apparent laser treatment of posterior capsule subsequent to this surgery. Multiple teeth extractions. Cardiovascular Surgical History: Reports: None Respiratory Surgical History: Reports: None GI Surgical History: Reports: Appendectomy, Cholecystectomy, Colonoscopy, EGD, Polypectomy, Other (See Below) Other GI Surgeries/Procedures: Cholecystectomy per [place] records. Appendectomy in 1963. EGD on 07/26/17, 06/07/17, and 04/03/14. Colonoscopy on 04/03/14 with polypectomy 2 as above. Neurological Surgical History: Reports: None Musculoskeletal Surgical History: Reports: ORIF, Other (See Below) Other Musculoskeletal Surgeries/Procedures:: Left ankle ORIF on 09/23/14. Left shoulder arthroplasty on 02/07/19. Oncologic Surgical History: Reports: None Dermatological Surgical History: Reports: None, Skin Biopsy - Past Imaging History Past Imaging History: Reports: Cardiac Echo (Last on 11/09/19 with ejection fraction of 60% with previous evaluations on 03/31/14, 12/09/13, and 07/27/13.), CAT Scan (CT of the lumbar spine on 11/07/19 and 10/19/19. CT of the left shoulder on 01/09/19. Head CT on 12/01/13. CT of the thoracic spine and CT of the abdomen and pelvis with stone protocol on 04/27/17.), DEXA Scan (05/17/17.), MRI (Thoracic spine on 10/06/17, 07/11/17, and 04/30/17.), PFT (07/31/13.), Ultrasound (Abdominal on 06/06/17.), Venous Doppler (Right leg venous Doppler study on 11/26/14.) - History Comment History Comment: Patient is a poor historian with majority of history from medical records as above. Social & Family History - Family History Family Medical History: Noncontributory - Caffeine Use Caffeine Use: Reports: Coffee, Soda Caffeine Use Comment: 1 cup coffee daily H&P Review of Systems - Review of Systems: Review Of Systems: See Below Pulmonary: Reports: Shortness of Breath Cardiovascular: Reports: Dyspnea on Exertion, Edema Musculoskeletal: Reports: Other (Septic arthritis right knee) Exam - Exam Exam: See Below - Exam Neck: Supple Lungs: Decreased Breath Sounds Cardiovascular: Regular Rate GI/Abdominal Exam: Soft Extremities: Pedal Edema, Other (Right knee with dressing in place) Neuro Extensive - Mental Status: Alert, Oriented x3, Normal Mood/Affect Problem List Initiated/Reviewed/Updated: Yes Orders Last 24hrs: Active Orders 24 hr Category Date Time Status Patient Status [ADT] Routine ADT 02/13/20 14:05 Ordered Ambulate [RC] ASDIRECTED Care 02/13/20 14:04 Ordered Antiembolic Devices [RC] PER UNIT ROUTINE Care 02/13/20 14:10 Ordered Central Line Assessment [RC] DAILY Care 02/13/20 14:13 Ordered Height and Weight [RC] PER UNIT ROUTINE Care 02/13/20 14:08 Ordered Oxygen Therapy [RC] PRN Care 02/13/20 14:05 Ordered Up With Assistance [RC] ASDIRECTED Care 02/13/20 14:04 Ordered VTE/DVT Education [RC] PER UNIT ROUTINE Care 02/13/20 14:05 Ordered Vital Signs [RC] PER UNIT ROUTINE Care 02/13/20 14:05 Ordered OT Evaluation and Treatment [CONS] Routine Cons 02/13/20 14:04 Ordered PT Evaluation and Treatment [CONS] Routine Cons 02/13/20 14:04 Ordered Regular Diet [DIET] Diet 02/13/20 Dinner Ordered Acetaminophen [Tylenol Extra Strength] Med 02/13/20 14:10 Ordered 1,000 mg PO Q6HR PRN Bumetanide [Bumex] Med 02/14/20 08:00 Ordered 0.5 mg PO DAILY Cyanocobalamin (Vitamin B12) [Vitamin B12] Med 02/14/20 08:00 Ordered 100 mcg PO DAILY Folic Acid Med 02/14/20 08:00 Ordered 1 mg PO DAILY Heparin Sodium [Heparin Lock Flush 100 Units/ML] Med 02/13/20 14:10 Ordered 300 units IVPUSH ASDIRECTED PRN Heparin Sodium [Heparin Lock Flush 100 Units/ML] Med 02/13/20 20:30 Ordered 300 units IVPUSH DAILY@2029 Lactulose Med 02/13/20 18:00 Ordered 15 ml PO TID Levothyroxine Med 02/14/20 07:30 Ordered 150 mcg PO ACBREAKFAST Omeprazole [Omeprazole] Med 02/13/20 17:30 Ordered 20 mg PO BIDAC Sodium Chloride 0.9% [Saline Flush] Med 02/13/20 14:10 Ordered 10 ml IV ASDIRECTED PRN Sodium Chloride 0.9% [Saline Flush] Med 02/13/20 20:00 Ordered 10 ml IV DAILY@1999 Spironolactone [Spironolactone] Med 02/14/20 08:00 Ordered 50 mg PO DAILY Temazepam [Restoril] Med 02/13/20 14:10 Ordered 15 mg PO BEDTIME PRN Thiamine [Vitamin B-1] Med 02/14/20 08:00 Ordered 100 mg PO DAILY bisacodyL [Dulcolax] Med 02/13/20 14:04 Ordered 5 mg PO DAILY PRN cefTRIAXone [Rocephin] Med 02/13/20 20:00 Ordered 2 gm IV DAILY@1999 traMADol [Ultram] Med 02/13/20 14:10 Ordered 50 mg PO BID PRN Antiembolic Hose [OM.PC] Routine Oth 02/13/20 14:04 Ordered Resuscitation Status Routine Resus Stat 02/13/20 14:04 Ordered Medication Orders Acetaminophen (Tylenol Extra Strength) 1,000 mg PO Q6HR PRN PRN Reason: Pain (moderate 4-6) Bisacodyl (Dulcolax) 5 mg PO DAILY PRN PRN Reason: Constipation Bumetanide (Bumex) 0.5 mg PO DAILY [facility] Ceftriaxone Sodium (Rocephin) 2 gm IV DAILY@1999 [facility] Cyanocobalamin (Vitamin B12) 100 mcg PO DAILY [facility] Folic Acid (Folic Acid) 1 mg PO DAILY [facility] Heparin Sodium (Porcine) (Heparin Lock Flush 100 Units/Ml) 300 units IVPUSH DAILY@2029 [facility] Heparin Sodium (Porcine) (Heparin Lock Flush 100 Units/Ml) 300 units IVPUSH ASDIRECTED PRN PRN Reason: Keep Vein Open Levothyroxine Sodium (Levothyroxine) 150 mcg PO ACBREAKFAST [facility] Non-Formulary Medication (Lactulose) 15 ml PO TID [facility] Non-Formulary Medication (Omeprazole [Omeprazole]) 20 mg PO BIDAC [facility] Non-Formulary Medication (Spironolactone [Spironolactone]) 50 mg PO DAILY [facility] Sodium Chloride (Saline Flush) 10 ml IV ASDIRECTED PRN PRN Reason: IV Use Sodium Chloride (Saline Flush) 10 ml IV DAILY@1999 [facility] Temazepam (Restoril) 15 mg PO BEDTIME PRN PRN Reason: Insomnia Thiamine HCl (Vitamin B-1) 100 mg PO DAILY [facility] Tramadol HCl (Ultram) 50 mg PO BID PRN PRN Reason: Pain (severe 7-10) Assessment/Plan Comment:: Imp: Septic arthritis right knee Plan: Continue Rocephin PT/OT consults
[2020-02-13] MEDS: traMADol 50 MG Tab PO PRN (14:50)
[2020-02-13] MEDS: Acetaminophen 500 MG Tab PO PRN (16:28)
[2020-02-13] MEDS: Omeprazole 20 MG Cap.CR PO SCH (18:11)
[2020-02-13] MEDS: Lactulose Soln 10 GM/15 ML 30 ML UD Cup PO SCH (18:11)
[2020-02-13] MEDS ORDERED: cefTRIAXone 2 GM Vial IV SCH (20:00)
[2020-02-13] MEDS: Sodium Chloride 0.9% 10 ML Syringe IV SCH (20:25)
[2020-02-13] MEDS: cefTRIAXone 2 GM in Sodium Chloride 0.9% 100 ML IV SCH (20:25)
[2020-02-13] MEDS: Sodium Chloride 0.9% 10 ML Syringe IV PRN (20:26)
[2020-02-14] MEDS: Omeprazole 20 MG Cap.CR PO SCH ×2 (09:02→17:18)
[2020-02-14] MEDS: Cyanocobalamin (Vitamin B12) 100 MCG Tab PO SCH (09:03)
[2020-02-14] MEDS: Folic Acid 1 MG Tab PO SCH (09:03)
[2020-02-14] MEDS: Thiamine 100 MG Tab PO SCH (09:03)
[2020-02-14] MEDS: Bumetanide 1 MG Tab PO SCH (09:03)
[2020-02-14] MEDS: Acetaminophen 500 MG Tab PO PRN ×2 (09:03→15:02)
[2020-02-14] MEDS: Levothyroxine 150 MCG Tab PO SCH (09:03)
[2020-02-14] MEDS: Spironolactone 25 MG Tab PO SCH (09:04)
[2020-02-14] MEDS: traMADol 50 MG Tab PO PRN ×2 (09:04→19:52)
[2020-02-14] MEDS: Lactulose Soln 10 GM/15 ML 30 ML UD Cup PO SCH ×3 (09:04→17:18)
--- OUTSIDE RECORDS SUMMARY | 2020-02-14 12:05 | XMSREPORT ---
:1945 Author Organization [facility] s Address [address] [place] [address] Care Team Providers Name Role Phone Baldemar Robles MD Primary Care Provider Baldemar Robles MD Attributed Provider Reason for Visit Auth/Cert Status Reason Specialty Diagnoses / Procedures Referred By Jose fernándezact Referred To Contact Encounter Details Date Type Department Care Team Description 02/02/2020 - Hospital Encounter [facility] Procedure Fluid overload 02/13/2020 [facility] Saran Navarro MD [address] [place] [address] [phone] [place] [address] Rudolph Ho MD [address] [place] [address] [place] [address] Celestino Lee MD [address] [place] [address] [phone] Vik Escalante MD [address] [place] [address] [phone] Jeyson Le MD [address] [place] [address] [phone] Tawanda Estrada MD [address] [place] [address] [phone] Alexander Jackson MD [address] [place] [address] [phone] Allergies No Known Allergiesdocumented as of this encounter (statuses as of 02/13/2020) Medications Medication Sig Dispensed Refills Start End [...] of each antibiotic infusion (after saline flush) Thiamine HCl Take 1 tablet 0 01/30/20 Act [place] (THIAMINE, VITAMIN (100 mg) by mouth 20 B-1,) 100 mg 1 time per day tabletIndications: Alcohol abuse omeprazole Take 20 mg by 60 capsule 1 01/30/20 Acti ve (PRILOSEC) 20 mg mouth 2 times a 20 capsuleIndications: day before meals Gastroesophageal reflux disease, esophagitis presence not specified [...] time per tabletIndications: day Anemia, unspecified type spironolactone Take 1 tablet (50 90 tablet [...] right knee, Primary osteoarthritis of left shoulder temazepam Take 15 mg by 0 Active (RESTORIL) 15 mg mouth at bedtime capsule as needed for insomnia cefTRIAXone Administer 2,000 2 Dose 0 02/14/20 A ctive (ROCEPHIN) 2,000 mg mg intravenously 20 020 in sodium chloride Every 24 hours 0.9% 50 for 2 doses mLIndications: Septic arthritis of knee, right (HCC) bumetanide (BUMEX) Take 1 tablet 30 tablet 0 02/14/20 Active 0.5 mg (0.5 mg) by mouth 20 020 tabletIndications: 1 time per day Hypervolemia, unspecified hypervolemia type cefTRIAXone Administer 2,000 0 01/20/20 D iscontinued (ROCEPHIN) 2,000 mg mg intravenously 20 020 (Reorder) in sodium chloride Every 24 hours 0.9% 50 for 26 days mLIndications: Septic arthritis of knee, right (HCC) bumetanide (BUMEX) Take 2 tablets (2 180 tablet 0 01/30/20 Discontinued 1 mg mg) by mouth 2 20 020 (Stop Taking at tabletIndications: times a day Discharge) Chronic diastolic heart failure (HCC) documented as of this encounter (statuses as of 02/13/2020) Active Problems Problem Noted Date Fluid overload 02/02/2020 Septic arthritis of knee, right 01/18/2020 Hyperammonemia [...] Treatment options complicated by recent GI bleed Closed compression fracture of thoracic vertebra 04/30 Gastric varices 05/06/2014 Chronic diastolic heart failure 04/11/2014 Anemia 01/17/2014 Cirrhosis of liver 01/09/2014 Alcohol abuse 12/12/2013 Acquired hypothyroidism Low back pain documented as of this encounter (statuses as of 02/13/2020) Resolved Problems Problem Noted Date Resolved Date Obesity (BMI 30-39.9) 08/23/2017 02/07/2019 GI bleed 06/08/2017 02/03/2020 Acute mid back pain 04/30/2017 06/22/2017 Pneumonia 03/31/2014 02/13/2015 Ascites 01/17/2014 05/19/2016 Encephalopathy acute 12/04/2013 02/13/2015 Asthma 09/03/2013 02/13/2015 Effusion of lower leg joint 07/27/2011 02/13/2015 documented as of this encounter (statuses as of 02/13/2020) Immunizations Name Administration Dates Next Due FLU [...] containing 4 or more times a w [place] 01/18/2020 alcohol? How many drinks containing alcohol [...] Sign Reading Time Taken Comments Blood Pressure 147/126 02/13/2020 8:26 AM CDT Pulse 92 02/13/2020 8:26 AM CDT Temperature 36.8 C (98.2 F) 02/13/2020 8:26 AM CDT Respiratory Rate 18 02/13/2020 8:26 AM CDT Oxygen Saturation 97% 02/13/2020 8:26 AM CDT Inhaled Oxygen Concentration - - Weight 117 kg (258 lb) 02/12/2020 6:14 AM CDT Height 182.9 cm (6') 02/02/2020 4:00 PM CDT Body Mass Index 34.99 02/02/2020 4:00 PM CDT documented in this encounter Functional Status Functional Status Response Date of Assessment Is the person deaf or does he/she have serious difficulty No 02/02/2020 hearing? Is this person blind or does he/she have difficulty No 02/02/2020 seeing even when wearing glasses? Do you have difficulty with walking, balance, climbing Yes 02/04/2020 stairs, or had a fall in the [...] documented as of this encounter Discharge Summaries Tawanda Estrada MD - 02/13/2020 9:56 AM CDT Hospital Discharge Summary Attending Physician: Tawanda Estrada MD Attending Physician Specialty: Adult Hospitalist Admit Date: 02/02/2020 Discharge Date: 02/13/20 Primary Care Physician: Martir J Robles, MD Discharge Diagnoses Active Problems: Cirrhosis of liver (HCC) Anemia Chronic diastolic heart failure (HCC) Gastric varices Obesity, morbid, BMI 40.0-49.9 (HCC) Thrombocytopenia (HCC) Knee pain, right H/O alcohol abuse Septic arthritis of knee, right (HCC) Fluid overload Resolved Problems: * No resolved hospital problems. * . Anasarca with significant abdominal distention and bilateral pedal edema (anasarca) secondary to end-stage liver disease with severe hypoalbuminemia. - much improved Aggressive diuresis has been stopped PO diurses with PO bumetanide at a much lower dose than at home - DCed IV bumetanide . - Bumetanide 0.5mg daily. He was previously on bumetanide 4mg q12h. . 2. Chronic kidney disease, stage 3. - Creatinine back in October was 1.7, today 1.7 3. 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 - decompensated with fluid overload, improved - continue present management - Poss encephalopathy, patient is on lactulose,- patient has been stable 4. Recent right knee septic arthritis, status post incision and drainage, on ceftriaxone. Lastdate is for Ceftriaxone which they had been giving him in [place] 5. Pancytopenia secondary to underlying liver disease. Monitor for signs of bleeding. 6. Hypothyroidism. -Levothyroxine. 7. Deconditioning. Continue the PT and OT. 8. Acute hepatic encephalopathy. -Continue the lactulose. Hospital Course No notes on file This is a 74-year-old gentleman with medical history significant for alcoholic liver disease and recent right knee septic arthritis status post I&D on IV antibiotics who is admitted to the hospitalfor worsening lower extremity edema. Patient has alcoholic liver disease/cirrhosis. He continues to drink alcohol. He was admitted to the hospital on 01/18/2020 for right knee septic arthritis. He underwent I&D. Culture positive for E. coli. He was discharged to swing bed on IV Rocephin through 02/15/2020. During hospital stay hehad acute kidney injury likely secondary to septic ATN and vancomycin toxicity. He received IV fluids with mild improvement in creatinine. However, he soon developed pedal edema, and was started on diuretics. He was discharged to swing bed on diuretics. The patient had very good UOP and improvement of his anasarca with aggressive diuresis using bumetanide IV and metolazone. His clinical picture improved a lot. We were able to stop aggressive diuresis and convert him back to his PO spironolactone and bumetanide though at a reduced dose. He will require 2 more doses of ceftriaxone for a knee washout. He will be on bumetanide 0.5 mg PO daily He will return to [place] where he I am discharging him to. LabTests Pending at Discharge Follow-Up Scheduled Contact information for follow-up Health, [facility], [facility]OURCE [facility] [address] [facility] [address] Next Steps: Follow up Preliminary Discharge Medications This list of medications is preliminary and tentative. Please see the After Visit Summary for the final and accurate medication list. Discharge Medication List CONTINUE taking these medications which have CHANGED CONTINUE: bumetanide 0.5 mg tablet Commonly known as: BUMEX Dose: 0.5 mg Take 1 tablet (0.5 mg) by mouth 1 time per day Start taking on: February 14, 2020 What changed: medication strength how much to take when to take this CONTINUE taking these medications which have NOT CHANGED CONTINUE: acetaminophen 500 mg tablet Commonly known as: TYLENOL Dose: 1,000 mg Take 2 tablets (1,000 mg) by mouth every 6 hours as needed for mild pain or moderate pain CONTINUE: cefTRIAXone (ROCEPHIN) 2,000 mg in sodium chloride 0.9% 50 mL Dose: 2,000 mg Administer 2,000 mg intravenously Every 24 hours for 2 doses Start taking on: February 14, 2020 CONTINUE: cyanocobalamin (vitamin B-12) 100 mcg tablet Dose: 100 mcg Take 1 tablet (100 mcg) by mouth 1 time per day CONTINUE: folic acid 1 mg tablet Dose: 1 mg Take 1 tablet (1 mg) by mouth 1 time per day CONTINUE: hEParin 100 units/mL injection solution Dose: 300 Units Administer 3 mL (300 Units) intravenously As often as necessary for other (Specify) (heparin 300 units/3 mL IV FLUSH after completion of each antibiotic infusion (after saline flush)) heparin 300 units/3 mL IV FLUSH after completion of each antibiotic infusion (after saline flush) CONTINUE: lactulose 10 GM/15ML oral solution Dose: 15 mL Take 15 mL by mouth 3 times a day CONTINUE: levothyroxine 150 mcg tablet Dose: 150 mcg Take 1 tablet (150 mcg) by mouth 1 time per day Hypothyroidism CONTINUE: omeprazole 20 mg capsule Commonly known as: priLOSEC Dose: 20 mg Take 20 mg by mouth 2 times a day before meals CONTINUE: sodium chloride 0.9% prefilled 10 mL syringe 0.9% Soln Dose: 10 mL Administer 10 mL intravenously As often as necessary for other (Specify) (Flush infusion line beforeeach antibiotic infusion and after each infusion completed) Flush infusion line before each antibiotic infusion and after each infusion completed. Flush line with heparin 300 units/ 3 mL after the last saline flush CONTINUE: spironolactone 50 mg tablet Commonly known as: ALDACTONE Dose: 50 mg Take 1 tablet (50 mg) by mouth 1 time per day CONTINUE: temazepam 15 mg capsule Commonly known as: RESTORIL Dose: 15 mg Take 15 mg by mouth at bedtime as needed for insomnia CONTINUE: thiamine (vitamin B-1) 100 mg tablet Dose: 100 mg Take 1 tablet (100 mg) by mouth 1 time per day CONTINUE: traMADol 50 mg tablet Commonly known as: ULTRAM Dose: 50 mg Take 1 tablet (50 mg) by mouth 2 times a day as needed for severe pain You might also be taking other medications not listed above. If you have questions about any of your other medications, talk to the person who prescribed them or your Primary Care Provider. Where to Get Your Medications These medications were sent to [id number], [place] [address] bumetanide 0.5 mg tablet cefTRIAXone (ROCEPHIN) 2,000 mg in sodium chloride 0.9% 50 mL Physical Exam Constitutional: He is oriented to person, place, and time. He appears well- developed and well-nourished. HENT: Head: Normocephalic and atraumatic. Mouth/Throat: Oropharynx is clear and moist. Eyes: Pupils are equal, round, and reactive to light. Conjunctivae are normal. Neck: Normal range of motion. Neck supple. No JVD present. Cardiovascular: Normal rate, regular rhythm and intact distal pulses. No murmur heard. Pulmonary/Chest: Effort normal and breath sounds normal. He has no wheezes. Abdominal: Soft. Bowel sounds are normal. He exhibits distension. Genitourinary: Rectal exam shows guaiac negative stool. Musculoskeletal: Normal range of motion. He exhibits edema. He exhibits no deformity. Lymphadenopathy: He has no cervical adenopathy. Neurological: He is alert and oriented to person, place, and time. No cranial nerve deficit. Skin: Skin is warm and dry. Capillary refill takes less than 2 seconds. No rash noted. No erythema. Psychiatric: He has a normal mood and affect. Thought content normal. Procedures Performed and Findings Consultations Obtained NUTRITION REFERRAL CASE MANAGEMENT CONSULT Discharge Disposition documented in this encounter Discharge Instructions Jessica Espinosa RN - 02/05/2020[facility] Nurse: or Heart Failure Discharge Instructions Diet: [...] yourself or your loved one at home. Discharge Instructions for Acute Kidney Injury You have been diagnosed with acute kidney injury. This means that your kidneys are not working properly. When both kidneys are healthy, they help filter out fluid and waste from the blood and body.Acute kidney injury has many causes. These include urinary blockages, infection, lack of enough blood supply, and medicines that can injurekidneys. In some cases, acute kidney injury is short- term (temporary). This type lasts several days to a few months. This is because the kidney can repair itself. But acute kidney injury can also result in chronic kidney disease or end stage renal failure. Here aresome instructions for you to follow as you recover. Home care Follow any instructions for eating and drinking given to you by your healthcare provider. ? Drink less fluid, if instructed by your healthcare provider. ? Keep a record of everything you eat and drink. Measure the amount of urine and stool you have each day. Weigh yourself every day, at the same time of day, and in the same kind of clothes. Keep a daily record of your daily weights. Take your temperature every day. Keep a record of the results. Learn to take your own blood pressure (BP). Your healthcare provider can teach you how to correctly measure your BP. Keep a record of your results. Bring the record to your follow-up appointments. Ask your healthcare provider when you should seek emergency medical attention. Your provider will tellyou what blood pressure reading is dangerous. Stay away from people who have infections. This includes people with colds, bronchitis, or skin conditions. Practice good personalhygiene. Wash your hands often. This is especially important if you have a catheter in place when you leave the hospital. Doing so helps keep you safe from infection. Take your medicines exactly as directed. You may need frequent blood and urine tests. These are done to monitor your kidney function. Follow-up care Follow up with your healthcare provider, or as advised. When to call your healthcare provider Call yourhealthcare providerright away if you have any of these: Signs of bladder infection, such as urinating more often, burning or pain when you pee, pain above your pubic bone, blood in your urine, or trouble starting your urine stream Signs of infection around your catheter, such as redness, swelling, warmth, or fluid leaking Rapid weight loss or weight gain, such as 3pounds or more in 24 hours or 6 pounds or more in 7 days Fever above 100.4 F ( 38C ) or as directed by your healthcare provider Chills Muscle aches Night sweats Very little or no urine output Swelling of your hands, legs, or feet Back pain Abdominal pain Extreme tiredness [facility] last reviewed this educational content on 10/19/201919991602-7642 [employer]. [address] [place] [address], [place] [address]. All rights reserved. This information is not intended as a substitute for professional medical care. Always follow your healthcare professional's instructions. documented in this encounter Medications at Time of Discharge Medication Sig Dispensed Refills Start Date End Date cefTRIAXone (ROCEPHIN) Administer 2,000 mg 2 Dose 0 01/1902/16/2020 2,000 mg in sodium intravenously Every chloride 0.9% 50 24 hours for 2 doses mLIndications: Septic arthritis of knee, right (HCC) bumetanide (BUMEX) 0.5 Take 1 tablet (0.5 30 tablet 0 02/1303/15/2020 mg tabletIndications: mg) by mouth 1 time Hypervolemia, per day unspecified hypervolemia type temazepam (RESTORIL) 15 Take 15 mg by mouth 0 mg capsule at bedtime as needed for insomnia Thiamine HCl (THIAMINE, Take 1 tablet (100 0 01/18 VITAMIN B-1,) 100 mg mg) by mouth 1 time tabletIndications: per day Alcohol abuse omeprazole (PRILOSEC) Take 20 mg by mouth 2 60 capsule 1 05/2020 20 mg times a day before capsuleIndications: meals Gastroesophageal reflux disease, esophagitis presence not specified [...] time tabletIndications: per day Anemia, unspecified type spironolactone Take 1 tablet (50 mg) 90 tablet 0 01/30/2020 (ALDACTONE) 50 mg by mouth 1 time per tabletIndications: day Chronic diastolic heart failure (HCC) acetaminophen (TYLENOL) Take 2 tablets (1,000 0 [...] of each antibiotic infusion (after saline flush) documented as of this encounter Progress Notes Tawanda Estrada MD - 02/12/2020 6:05 PM CDT DAILY PROGRESS NOTE Lazara Orozco Jr. is a 74yr old male admitted on 02/02/2020 3:22 PM. Impression / Plan Active Problems: Cirrhosis of liver (HCC) Anemia Chronic diastolic heart failure (HCC) Gastric varices Obesity, morbid, BMI 40.0-49.9 (HCC) Thrombocytopenia (HCC) Knee pain, right H/O alcohol abuse Septic arthritis of knee, right (HCC) Fluid overload Resolved Problems: * No resolved hospital problems. * Plan: 1. Anasarca with significant abdominal distention and bilateral pedal edema (anasarca) secondary toend-stage liver disease with severe hypoalbuminemia. - much improved Aggressive diuresis has been stopped PO diurses with PO bumetanide at a much lower dose than at home - DCed IV bumetanide . - Bumetanide 0.5mg daily. He was previously on bumetanide 4mg q12h. . 2. Chronic kidney disease, stage 3. - Creatinine back in October was 1.7, today 1.7 3. 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 - decompensated with fluid overload, improved - continue present management - Poss encephalopathy, patient is on lactulose,- patient has been stable 4. Recent right knee septic arthritis, status post incision and drainage, on ceftriaxone. Last date is for Ceftriaxone which they had been giving him in [place] 5. Pancytopenia secondary to underlying liver disease. Monitor for signs of bleeding. 6. Hypothyroidism. - Levothyroxine. 7. Deconditioning. Continue the PT and OT. 8. Acute hepatic encephalopathy. - Continue the lactulose. FULL CODE DVTp SCDs. Due to thrombocytopenia. Disposition: Pt does not require any more IV diuresis. Is on PO diuresis. Can look to DC from acute care in the next 1-2 days back to [place]?? [place] was supposed to be today but COVID test result has not resulted even though I ordered it for early Tuesday. Interval History HPI Patient is pleasant. He has no complaints. Ordering lunch now I have encouraged increase in PO intake of food and fluids. [place] was supposed to be today but COVID test result has not resulted Review of Systems Review of Systems Constitutional: Negative for chills and fever. HENT: Negative for rhinorrhea, sore throat and trouble swallowing. Eyes: Negative for photophobia, pain and visual disturbance. Respiratory: Negative for cough, chest tightness and shortness of breath. Cardiovascular: Positive for leg swelling. Negative for chest pain. Gastrointestinal: Negative for abdominal distention, abdominal pain, blood in stool, diarrhea, nausea and vomiting. Endocrine: Negative for polydipsia and polyphagia. Genitourinary: Negative for difficulty urinating and frequency. Musculoskeletal: Negative for arthralgias and neck stiffness. Skin: Negative for color change, pallor and rash. Allergic/Immunologic: Negative for food allergies and immunocompromised state. Neurological: Negative for dizziness, syncope and headaches. Hematological: Negative for adenopathy. Does not bruise/bleed easily. Psychiatric/Behavioral: Negative for agitation and sleep disturbance. Physical Exam Vital Signs: Temp: 97.6 F (36.4 C) | BP: 141/67 | Pulse: 100 | Resp: 18 | Pain Ratin (out of 10) | Weight: 117 kg (258 lb) | O2 Device: Room Air | SpO2: 96 % Maximum Temperatures (last 24 hours) Temperature Maximum Max Temp 97.9 F (36.6 C) Intake and Output: 02/10 0700 - 02/11 0659 In: 200 [Oral:200] Out: 1575 [Urine:1575] Physical Exam Constitutional: He appears well-developed. No distress. HENT: Head: Normocephalic and atraumatic. Mouth/Throat: Oropharynx is clear and moist. Eyes: Pupils are equal, round, and reactive to light. Conjunctivae are normal. Neck: Normal range of motion. Neck supple. No JVD present. Cardiovascular: Normal rate, regular rhythm and intact distal pulses. No murmur heard. Pulmonary/Chest: Effort normal and breath sounds normal. He has no wheezes. Abdominal: Soft. Bowel sounds are normal. He exhibits distension. Genitourinary: Rectal exam shows guaiac negative stool. Musculoskeletal: Normal range of motion. He exhibits edema. He exhibits no deformity. Anasarca but much improved. Now it is mainly on sacral level. Lymphadenopathy: He has no cervical adenopathy. Neurological: He is alert. No cranial nerve deficit. person Skin: Skin is warm and dry. Capillary refill takes less than 2 seconds. No rash noted. No erythema. Psychiatric: He has a normal mood and affect. Thought content normal. Labs Labs (Last day) 02/12/20 0550 - 02/12/20 0550 CHEMISTRY 02/12/20 0550 CHEMISTRY Glucose 70-100 (mg/dL) 128 Sodium 135-145 (meq/L) 136 Potassium 3.5-5.3 (meq/L) 3.8 Chloride 99-110 (meq/L) 99 CO2 20-29 (meq/L) 32 Anion Gap with K 6-20 (meq/L) 9 BUN 6-22 (mg/dL) 38 Creatinine 0.80-1.30 (mg/dL) 1.70 BUN/Creatinine Ratio 10.0-25.0 22.4 Calcium 8.5-10.5 (mg/dL) 8.2 eGFR >=60 (mL/min/1.73m2) 48 eGFR Non- >=60 (mL/min/1.73m2) 40 02/12/20 0550 - 02/12/20 0550 OTHER 02/12/20 0550 OTHER Age (Years) 74 Medical Decision making Medical Decision Making Tawanda Carrington MD - 02/11/2020 5:21 PM CDT DAILY PROGRESS NOTE Lazara Orozco Jr. is a 74yr old male admitted on 02/02/2020 3:22 PM. Impression / Plan Active Problems: Cirrhosis of liver (HCC) Anemia Chronic diastolic heart failure (HCC) Gastric varices Obesity, morbid, BMI 40.0-49.9 (HCC) Thrombocytopenia (HCC) Knee pain, right H/O alcohol abuse Septic arthritis of knee, right (HCC) Fluid overload Resolved Problems: * No resolved hospital problems. * Plan: 1. Anasarca with significant abdominal distention and bilateral pedal edema (anasarca) secondary toend-stage liver disease with severe hypoalbuminemia. - much improved Aggressive diuresis has been stopped PO diurses with PO bumetanide at a much lower dose than at home - DCed IV bumetanide . - Bumetanide 0.5mg daily starting tomorrow. He was previously on bumetanide 4mg q12h. . 2. Chronic kidney disease, stage 3. - Creatinine back in October was 1.7, today 1.7 3. 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 - decompensated with fluid overload, improved - continue present management - Poss encephalopathy, patient is on lactulose,- patient has been stable 4. Recent right knee septic arthritis, status post incision and drainage, on ceftriaxone. Last date is for Ceftriaxone which they had been giving him in [place] 5. Pancytopenia secondary to underlying liver disease. Monitor for signs of bleeding. 6. Hypothyroidism. - Levothyroxine. 7. Deconditioning. Continue the PT and OT. 8. Acute hepatic encephalopathy. - Continue the lactulose. FULL CODE DVTp SCDs. Due to thrombocytopenia. Disposition: Pt does not require any more IV diuresis. Is on PO diuresis. Can look to DC from acute care in the next 1-2 days back to [place]?? [place] was supposed to be today but COVID test result has not resulted even though I ordered it for early Tuesday. Interval History HPI Patient is pleasant. He has no complaints. Ordering lunch now I have encouraged increase in PO intake of food and fluids. [place] was supposed to be today but COVID test result has not resulted Review of Systems Review of Systems Constitutional: Negative for chills and fever. HENT: Negative for rhinorrhea, sore throat and trouble swallowing. Eyes: Negative for photophobia, pain and visual disturbance. Respiratory: Negative for cough, chest tightness and shortness of breath. Cardiovascular: Positive for leg swelling. Negative for chest pain. Gastrointestinal: Negative for abdominal distention, abdominal pain, blood in stool, diarrhea, nausea and vomiting. Endocrine: Negative for polydipsia and polyphagia. Genitourinary: Negative for difficulty urinating and frequency. Musculoskeletal: Negative for arthralgias and neck stiffness. Skin: Negative for color change, pallor and rash. Allergic/Immunologic: Negative for food allergies and immunocompromised state. Neurological: Negative for dizziness, syncope and headaches. Hematological: Negative for adenopathy. Does not bruise/bleed easily. Psychiatric/Behavioral: Negative for agitation and sleep disturbance. Physical Exam Vital Signs: Temp: 97.8 F (36.6 C) | BP: 109/55 | Pulse: 92 | Resp: 16 | Pain Ratin (out of10) | Weight: 122.2 kg (269 lb 6.4 oz) | O2 Device: Room Air | SpO2: 97 % Maximum Temperatures (last 24 hours) Temperature Maximum Max Temp 98.4 F (36.9 C) Intake and Output: 02/09 0700 - 02/10 0659 In: 1245 [Oral:1230] Out: 575 [Urine:575] Physical Exam Constitutional: He appears well-developed. No distress. HENT: Head: Normocephalic and atraumatic. Mouth/Throat: Oropharynx is clear and moist. Eyes: Pupils are equal, round, and reactive to light. Conjunctivae are normal. Neck: Normal range of motion. Neck supple. No JVD present. Cardiovascular: Normal rate, regular rhythm and intact distal pulses. No murmur heard. Pulmonary/Chest: Effort normal and breath sounds normal. He has no wheezes. Abdominal: Soft. Bowel sounds are normal. He exhibits distension. Genitourinary: Rectal exam shows guaiac negative stool. Musculoskeletal: Normal range of motion. He exhibits edema. He exhibits no deformity. Anasarca but much improved. Now it is mainly on sacral level. Lymphadenopathy: He has no cervical adenopathy. Neurological: He is alert. No cranial nerve deficit. person Skin: Skin is warm and dry. Capillary refill takes less than 2 seconds. No rash noted. No erythema. Psychiatric: He has a normal mood and affect. Thought content normal. Labs Labs (Last day) No results found within the past day. Medical Decision making Medical Decision Making Tawanda Carrington MD - 02/10/2020 12:26 PM CDT DAILY PROGRESS NOTE Lazara Orozco Jr. is a 74yr old male admitted on 02/02/2020 3:22 PM. Impression / Plan Active Problems: Cirrhosis of liver (HCC) Anemia Chronic diastolic heart failure (HCC) Gastric varices Obesity, morbid, BMI 40.0-49.9 (HCC) Thrombocytopenia (HCC) Knee pain, right H/O alcohol abuse Septic arthritis of knee, right (HCC) Fluid overload Resolved Problems: * No resolved hospital problems. * Plan: 1. Anasarca with significant abdominal distention and bilateral pedal edema (anasarca) secondary toend-stage liver disease with severe hypoalbuminemia. - much improved Aggressive diuresis has been stopped PO diurses with PO bumetanide at a much lower dose than at home - DCed IV bumetanide . - Bumetanide 0.5mg daily starting tomorrow. He was previously on bumetanide 4mg q12h. . 2. Chronic kidney disease, stage 3. - Creatinine back in October was 1.7, today 1.7 3. 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 - decompensated with fluid overload, improved - continue present management - Poss encephalopathy, patient is on lactulose,- patient has been stable 4. Recent right knee septic arthritis, status post incision and drainage, on ceftriaxone. Last date is for Ceftriaxone which they had been giving him in [place] 5. Pancytopenia secondary to underlying liver disease. Monitor for signs of bleeding. 6. Hypothyroidism. - Levothyroxine. 7. Deconditioning. Continue the PT and OT. 8. Acute hepatic encephalopathy. - Continue the lactulose. FULL CODE DVTp SCDs. Due to thrombocytopenia. Disposition: Pt does not require any more IV diuresis. Is on PO diuresis. Can look to DC from acute care in the next 1-2 days back to [place]?? I have ordered a COVID Screen for active infection for tonight. Interval History HPI Patient is pleasant. He has no complaints. Ordering lunch now I have encouraged increase in PO intake of food and fluids. [place] Tuesday Review of Systems Review of Systems Constitutional: Negative for chills and fever. HENT: Negative for rhinorrhea, sore throat and trouble swallowing. Eyes: Negative for photophobia, pain and visual disturbance. Respiratory: Negative for cough, chest tightness and shortness of breath. Cardiovascular: Positive for leg swelling. Negative for chest pain. Gastrointestinal: Negative for abdominal distention, abdominal pain, blood in stool, diarrhea, nausea and vomiting. Endocrine: Negative for polydipsia and polyphagia. Genitourinary: Negative for difficulty urinating and frequency. Musculoskeletal: Negative for arthralgias and neck stiffness. Skin: Negative for color change, pallor and rash. Allergic/Immunologic: Negative for food allergies and immunocompromised state. Neurological: Negative for dizziness, syncope and headaches. Hematological: Negative for adenopathy. Does not bruise/bleed easily. Psychiatric/Behavioral: Negative for agitation and sleep disturbance. Physical Exam Vital Signs: Temp: 98.4 F (36.9 C) | BP: 114/51 | Pulse: 87 | Resp: 15 | Pain Ratin (out of 10) | Weight: 117.1 kg (258 lb 3.7 oz) | O2 Device: Room Air | SpO2: 100 % Maximum Temperatures (last 24 hours) Temperature Maximum Max Temp 98.4 F (36.9 C) Intake and Output: 02/08 0700 - 02/09 0659 In: 1100 [Oral:1100] Out: 800 [Urine:800] Physical Exam Constitutional: He appears well-developed. No distress. HENT: Head: Normocephalic and atraumatic. Mouth/Throat: Oropharynx is clear and moist. Eyes: Pupils are equal, round, and reactive to light. Conjunctivae are normal. Neck: Normal range of motion. Neck supple. No JVD present. Cardiovascular: Normal rate, regular rhythm and intact distal pulses. No murmur heard. Pulmonary/Chest: Effort normal and breath sounds normal. He has no wheezes. Abdominal: Soft. Bowel sounds are normal. He exhibits distension. Genitourinary: Rectal exam shows guaiac negative stool. Musculoskeletal: Normal range of motion. He exhibits edema. He exhibits no deformity. Anasarca but much improved. Now it is mainly on sacral level. Lymphadenopathy: He has no cervical adenopathy. Neurological: He is alert. No cranial nerve deficit. person Skin: Skin is warm and dry. Capillary refill takes less than 2 seconds. No rash noted. No erythema. Psychiatric: He has a normal mood and affect. Thought content normal. Labs Labs (Last day) 02/10/20529 - 02/10/20529 CHEMISTRY 02/10/20529 CHEMISTRY Glucose 70-100 (mg/dL) 135 Sodium 135-145 (meq/L) 135 Potassium 3.5-5.3 (meq/L) 3.8 Chloride 99-110 (meq/L) 98 CO2 20-29 (meq/L) 32 Anion Gap with K 6-20 (meq/L) 9 BUN 6-22 (mg/dL) 37 Creatinine 0.80-1.30 (mg/dL) 1.76 BUN/Creatinine Ratio 10.0-25.0 21.0 Calcium 8.5-10.5 (mg/dL) 8.1 Corrected Calcium 8.5-10.5 (mg/dL) 10.0 Phosphorus 2.5-4.5 (mg/dL) 3.2 Albumin 3.5-5.0 (g/dL) 1.6 eGFR >=60 (mL/min/1.73m2) 46 eGFR Non- >=60 (mL/min/1.73m2) 38 02/10/20529 - 02/10/20529 OTHER 02/10/20529 OTHER Age (Years) 74 Medical Decision making Medical Decision Making Tawanda Carrington MD - 02/09/2020 12:56 PM CDT DAILY PROGRESS NOTE Lazara Orozco Jr. is a 74yr old male admitted on 02/02/2020 3:22 PM. Impression / Plan Active Problems: Cirrhosis of liver (HCC) Anemia Chronic diastolic heart failure (HCC) Gastric varices Obesity, morbid, BMI 40.0-49.9 (HCC) Thrombocytopenia (HCC) Knee pain, right H/O alcohol abuse Septic arthritis of knee, right (HCC) Fluid overload Resolved Problems: * No resolved hospital problems. * Plan: 1. Anasarca with significant abdominal distention and bilateral pedal edema (anasarca) secondary toend-stage liver disease with severe hypoalbuminemia. - much improved I feel that we have reached a point where aggressive diuresis has been reached and we can start PO diuresis as his renal function continues to improve. We are actually below his Cr around October of last year. 1.6 Cr. - DCed IV bumetanide . - Bumetanide 0.5mg daily starting tomorrow. He was previously on bumetanide 4mg q12h. - BMP, renal function still improving very nicely. 2. Chronic kidney disease, stage 3. - Creatinine back in October was 1.7 - Today it is 1.6 3. 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 - decompensated with fluid overload, improved - continue present management - Poss encephalopathy, patient is on lactulose,- patient has been stable 4. Recent right knee septic arthritis, status post incision and drainage, on ceftriaxone. Last date is for Ceftriaxone which they had been giving him in [place] 5. Pancytopenia secondary to underlying liver disease. Monitor for signs of bleeding. 6. Hypothyroidism. - Levothyroxine. 7. Deconditioning. Continue the PT and OT. 8. Acute hepatic encephalopathy. - Continue the lactulose. - ammonia in AM FULL CODE DVTp SCDs. Due to thrombocytopenia. Disposition: Pt does not require any more IV diuresis. Is on PO diuresis. Can look to DC from acute care in the next 1-2 days back to [place]?? I have ordered a COVID Screen for active infection for tomorrow. Interval History HPI Patient is pleasant. He has no complaints. Amina is at the bedside and I was able to talk to them about overall improvement in patient's UOP, labs and general course. They seem to be satisfied with the patient's course. Will be looking to go back to [place], hopefully Tuesday Review of Systems Review of Systems Constitutional: Negative for chills and fever. HENT: Negative for rhinorrhea, sore throat and trouble swallowing. Eyes: Negative for photophobia, pain and visual disturbance. Respiratory: Negative for cough, chest tightness and shortness of breath. Cardiovascular: Positive for leg swelling. Negative for chest pain. Gastrointestinal: Negative for abdominal distention, abdominal pain, blood in stool, diarrhea, nausea and vomiting. Endocrine: Negative for polydipsia and polyphagia. Genitourinary: Negative for difficulty urinating and frequency. Musculoskeletal: Negative for arthralgias and neck stiffness. Skin: Negative for color change, pallor and rash. Allergic/Immunologic: Negative for food allergies and immunocompromised state. Neurological: Negative for dizziness, syncope and headaches. Hematological: Negative for adenopathy. Does not bruise/bleed easily. Psychiatric/Behavioral: Negative for agitation and sleep disturbance. Physical Exam Vital Signs: Temp: 97.9 F (36.6 C) | BP: 99/41 | Pulse: 86 | Resp: 12 | Pain Ratin (out of 10) | Weight: 116.3 kg (256 lb 6.3 oz) | O2 Device: Room Air | SpO2: 97 % Maximum Temperatures (last 24 hours) Temperature Maximum Max Temp 98.5 F (36.9 C) Intake and Output: 02/07 0700 - 02/08 0659 In: 1540 [Oral:1530] Out: 376 [Urine:375] Physical Exam Constitutional: He appears well-developed. No distress. HENT: Head: Normocephalic and atraumatic. Mouth/Throat: Oropharynx is clear and moist. Eyes: Pupils are equal, round, and reactive to light. Conjunctivae are normal. Neck: Normal range of motion. Neck supple. No JVD present. Cardiovascular: Normal rate, regular rhythm and intact distal pulses. No murmur heard. Pulmonary/Chest: Effort normal and breath sounds normal. He has no wheezes. Abdominal: Soft. Bowel sounds are normal. He exhibits distension. Genitourinary: Rectal exam shows guaiac negative stool. Musculoskeletal: Normal range of motion. He exhibits edema. He exhibits no deformity. Anasarca but much improved. Now it is mainly on sacral level. Lymphadenopathy: He has no cervical adenopathy. Neurological: He is alert. No cranial nerve deficit. person Skin: Skin is warm and dry. Capillary refill takes less than 2 seconds. No rash noted. No erythema. Psychiatric: He has a normal mood and affect. Thought content normal. Labs Labs (Last day) 02/09/20 0440 - 02/09/20439 CHEMISTRY 02/09/20 044 CHEMISTRY Glucose 70-100 (mg/dL) 116 Sodium 135-145 (meq/L) 133 Potassium 3.5-5.3 (meq/L) 3.9 Chloride 99-110 (meq/L) 96 CO2 20-29 (meq/L) 32 Anion Gap with K 6-20 (meq/L) 9 BUN 6-22 (mg/dL) 36 Creatinine 0.80-1.30 (mg/dL) 1.63 BUN/Creatinine Ratio 10.0-25.0 22.1 Calcium 8.5-10.5 (mg/dL) 8.2 eGFR >=60 (mL/min/1.73m2) 51 eGFR Non- >=60 (mL/min/1.73m2) 42 02/09/20 0632 - 02/08/20 2109 GLUCOSE POINT OF CARE 02/09/20 0632 02/08/20 2109 GLUCOSE POINT OF CARE Glucose POC 70-100 (mg/dL) 99 145 02/09/20 0440 - 02/09/20 0440 OTHER 02/09/20 0440 OTHER Age (Years) 74 Medical Decision making Medical Decision Making Tawanda Carrington MD - 02/08/2020 4:19 PM CDT DAILY PROGRESS NOTE Lazara Orozco Jr. is a 74yr old male admitted on 02/02/2020 3:22 PM. Impression / Plan Active Problems: Cirrhosis of liver (HCC) Anemia Chronic diastolic heart failure (HCC) Gastric varices Obesity, morbid, BMI 40.0-49.9 (HCC) Thrombocytopenia (HCC) Knee pain, right H/O alcohol abuse Septic arthritis of knee, right (HCC) Fluid overload Resolved Problems: * No resolved hospital problems. * Plan: 1. Anasarca with significant abdominal distention and bilateral pedal edema (anasarca) secondary toend-stage liver disease with severe hypoalbuminemia. - resolving steadily I feel that we have reached a point where aggressive diuresis has been reached and we can start PO diuresis as his renal function continues to improve. We are actually below his Cr around October of last year. 1.6 Cr. - DCed IV bumetanide . - Bumetanide 0.5mg q12h PO - Metolazone 2.5mg daily - BMP, renal function still improving very nicely. 2. Chronic kidney disease, stage 3. - Creatinine back in October was 1.17 - Today it is 1.6 3. 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 - decompensated with fluid overload, improving - continue present management - on empiric Ceftriaxone - Poss encephalopathy, patient is on lactulose,- patient has been stable 4. Recent right knee septic arthritis, status post incision and drainage, on ceftriaxone. Last date is for Abx 5. Pancytopenia secondary to underlying liver disease. Monitor for signs of bleeding. 6. Hypothyroidism. - Levothyroxine. 7. Deconditioning. Continue the PT and OT. 8. Acute hepatic encephalopathy. - Continue the lactulose. - ammonia in AM FULL CODE DVTp SCDs. Due to thrombocytopenia. Disposition: Pt does not require any more IV diuresis. Is on PO diuresis. Can look to DC from acute care in the next 1-2 days Interval History HPI Patient is pleasant. He has no complaints. I have updated daughter, Amina about overall improvement in patient's UOP, labs and general course of getting fluid off. She expressed understanding and was glad things were going well. Review of Systems Review of Systems Constitutional: Negative for chills and fever. HENT: Negative for rhinorrhea, sore throat and trouble swallowing. Eyes: Negative for photophobia, pain and visual disturbance. Respiratory: Negative for cough, chest tightness and shortness of breath. Cardiovascular: Positive for leg swelling. Negative for chest pain. Gastrointestinal: Negative for abdominal distention, abdominal pain, blood in stool, diarrhea, nausea and vomiting. Endocrine: Negative for polydipsia and polyphagia. Genitourinary: Negative for difficulty urinating and frequency. Musculoskeletal: Negative for arthralgias and neck stiffness. Skin: Negative for color change, pallor and rash. Allergic/Immunologic: Negative for food allergies and immunocompromised state. Neurological: Negative for dizziness, syncope and headaches. Hematological: Negative for adenopathy. Does not bruise/bleed easily. Psychiatric/Behavioral: Negative for agitation and sleep disturbance. Physical Exam Vital Signs: Temp: 98.3 F (36.8 C) | BP: 109/49 | Pulse: 95 | Resp: 16 | Pain Ratin (out of 10) | Weight: 116.3 kg (256 lb 6.3 oz) | O2 Device: Room Air | SpO2: 96 % Maximum Temperatures (last 24 hours) Temperature Maximum Max Temp 98.3 F (36.8 C) Intake and Output: 02/06 0700 - 02/07 0659 In: 1080 [Oral:1080] Out: 2550 [Urine:2550] Physical Exam Constitutional: He appears well-developed. No distress. HENT: Head: Normocephalic and atraumatic. Mouth/Throat: Oropharynx is clear and moist. Eyes: Pupils are equal, round, and reactive to light. Conjunctivae are normal. Neck: Normal range of motion. Neck supple. No JVD present. Cardiovascular: Normal rate, regular rhythm and intact distal pulses. No murmur heard. Pulmonary/Chest: Effort normal and breath sounds normal. He has no wheezes. Abdominal: Soft. Bowel sounds are normal. He exhibits distension. Large abdomen with fluid wave and pitting edema at costal bilaterally. Improving. Genitourinary: Rectal exam shows guaiac negative stool. Musculoskeletal: Normal range of motion. He exhibits edema. He exhibits no deformity. Anasarca to bilateral axillae. Lymphadenopathy: He has no cervical adenopathy. Neurological: He is alert. No cranial nerve deficit. person Skin: Skin is warm and dry. Capillary refill takes less than 2 seconds. No rash noted. No erythema. Psychiatric: He has a normal mood and affect. Thought content normal. Labs Labs (Last day) 02/08/20 0625 - 02/08/20 0625 CBC 02/08/20 0625 CBC WBC 4.0-11.0 (K/uL) 4.0 RBC 4.40-5.80 (M/uL) 1.94 Hemoglobin 13.5-17.5 (g/dL) 7.8 Hematocrit 40.0-50.0 (%) 22.8 MCV 80.0-98.0 (fL) 117.5 MCH 25.5-34.0 (pg) 40.2 MCHC 31.5-36.5 (g/dL) 34.2 RDW-CV 11.5-15.5 (%) 17.7 RDW-SD 35.5-50.0 (fl) 76.5 Platelet Count 140-400 (K/uL) 80 MPV 8.5-12.0 (fL) 10.4 02/08/20 06 - 02/08/20 0624 CHEMISTRY 02/08/20 0602 0602 06 CHEMISTRY Glucose 70-100 (mg/dL) 112 Sodium 135-145 (meq/L) 136 Potassium 3.5-5.3 (meq/L) 3.6 Chloride 99-110 (meq/L) 99 CO2 20-29 (meq/L) 32 Anion Gap with K 6-20 (meq/L) 9 BUN 6-22 (mg/dL) 38 Creatinine 0.80-1.30 (mg/dL) 1.68 BUN/Creatinine Ratio 10.0-25.0 22.6 Calcium 8.5-10.5 (mg/dL) 8.2 Corrected Calcium 8.5-10.5 (mg/dL) 10.1 Magnesium 1.8-2.4 (mg/dL) 1.9 Bilirubin Total 0.2-1.2 (mg/dL) 2.0 Alkaline Phosphatase 30-150 (U/L) 105 ALT - SGPT 0-55 (U/L) 30 AST - SGOT 0-35 (U/L) 46 Protein Total 6.0-8.2 (g/dL) 6.0 Albumin 3.5-5.0 (g/dL) 1.6 Ammonia 10-45 (uMol/L) 49 eGFR >=60 (mL/min/1.73m2) 49 eGFR Non- >=60 (mL/min/1.73m2) 40 08/1831 - 02/07/201831 ECG/EKG 02/07/201831 ECG/EKG EKG WAVEFORM Wide QRS tachycardia Consider Atrial flutter with 2 to 1 block Right bundle branch block Abnormal ECG Ventricular Rate: 137 BPM Atrial Rate: 129 BPM QRS Duration: 124 ms Q-T Interval: 364 ms QTc Calculation(Bazett): 549 ms Calculated R Cotter: -26 degrees Calculated T Cotter: -15 degrees 02/08/20626 - 02/08/20626 OTHER 02/08/20626 OTHER Age (Years) 74 Medical Decision making Medical Decision Making awanda Barrientos MD - 02/07/2020 10:09 AM CDT DAILY PROGRESS NOTE Lazara Orozco Jr. is a 74yr old male admitted on 02/02/2020 3:22 PM. Impression / Plan Active Problems: Cirrhosis of liver (HCC) Anemia Chronic diastolic heart failure (HCC) Gastric varices Obesity, morbid, BMI 40.0-49.9 (HCC) Thrombocytopenia (HCC) Knee pain, right H/O alcohol abuse Septic arthritis of knee, right (HCC) Fluid overload Resolved Problems: * No resolved hospital problems. * Plan: 1. Anasarca with significant abdominal distention and bilateral pedal edema secondary to end-stage liver disease with severe hypoalbuminemia. - resolving steadily - Changed Bumetanide 3mg IV to q12h (from q8h) - Added Metolazone 5mg PO daily, some contraction alkalosis but great UOP - Powell to accurately measure output - CMP, for electrolyte management and r-dosing or changeing in diuretics. - very good UOP of a negative balance 1.7, goal per day is ~1.5 negative fluid balance. 2. Chronic kidney disease, stage 3. - Creatinine back in October was 1.17 - Today it was 1.7, improvement 3. 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 - decompensated with fluid overload - continue present management - on empiric Ceftriaxone - Poss encephalopathy, patient is on lactulose, will get another ammonia in the AM. 4. Recent right knee septic arthritis, status post incision and drainage, on ceftriaxone. Last date is for Abx 5. Pancytopenia secondary to underlying liver disease. Monitor for signs of bleeding. 6. Hypothyroidism. - Levothyroxine. 7. Deconditioning. Continue the PT and OT. 8. Acute hepatic encephalopathy. - Continue the lactulose. - ammonia in AM FULL CODE DVTp SCDs. Due to thrombocytopenia. Interval History HPI Patient is pleasant. He has no complaints. I have updated daughter, Amina about overall improvement in patient's UOP, labs and general course of getting fluid off. She expressed understanding and was glad things were going well. Review of Systems Review of Systems Constitutional: Negative for chills and fever. HENT: Negative for rhinorrhea, sore throat and trouble swallowing. Eyes: Negative for photophobia, pain and visual disturbance. Respiratory: Negative for cough, chest tightness and shortness of breath. Cardiovascular: Positive for leg swelling. Negative for chest pain. Gastrointestinal: Negative for abdominal distention, abdominal pain, blood in stool, diarrhea, nausea and vomiting. Endocrine: Negative for polydipsia and polyphagia. Genitourinary: Negative for difficulty urinating and frequency. Musculoskeletal: Negative for arthralgias and neck stiffness. Skin: Negative for color change, pallor and rash. Allergic/Immunologic: Negative for food allergies and immunocompromised state. Neurological: Negative for dizziness, syncope and headaches. Hematological: Negative for adenopathy. Does not bruise/bleed easily. Psychiatric/Behavioral: Negative for agitation and sleep disturbance. Physical Exam Vital Signs: Temp: 97.7 F (36.5 C) | BP: 104/45 | Pulse: 95 | Resp: 16 | Pain Ratin (out of10) | Weight: 118 kg (260 lb 2.3 oz) | O2 Device: Room Air | SpO2: 95 % Maximum Temperatures (last 24 hours) Temperature Maximum Max Temp 98.8 F (37.1 C) Intake and Output: 02/05 0700 - 02/06 0659 In: 1040 [Oral:1040] Out: 2825 [Urine:2825] Physical Exam Constitutional: He appears well-developed. No distress. HENT: Head: Normocephalic and atraumatic. Mouth/Throat: Oropharynx is clear and moist. Eyes: Pupils are equal, round, and reactive to light. Conjunctivae are normal. Neck: Normal range of motion. Neck supple. No JVD present. Cardiovascular: Normal rate, regular rhythm and intact distal pulses. No murmur heard. Pulmonary/Chest: Effort normal and breath sounds normal. He has no wheezes. Abdominal: Soft. Bowel sounds are normal. He exhibits distension. Large abdomen with fluid wave and pitting edema at costal bilaterally. Improving. Genitourinary: Rectal exam shows guaiac negative stool. Musculoskeletal: Normal range of motion. He exhibits edema. He exhibits no deformity. Anasarca to bilateral axillae. Lymphadenopathy: He has no cervical adenopathy. Neurological: He is alert. No cranial nerve deficit. person Skin: Skin is warm and dry. Capillary refill takes less than 2 seconds. No rash noted. No erythema. Psychiatric: He has a normal mood and affect. Thought content normal. Labs Labs (Last day) 02/07/20647 - 02/07/20647 CBC 02/07/20647 CBC WBC 4.0-11.0 (K/uL) 3.8 RBC 4.40-5.80 (M/uL) 1.86 Hemoglobin 13.5-17.5 (g/dL) 7.6 Hematocrit 40.0-50.0 (%) 21.8 MCV 80.0-98.0 (fL) 117.2 MCH 25.5-34.0 (pg) 40.9 MCHC 31.5-36.5 (g/dL) 34.9 RDW-CV 11.5-15.5 (%) 17.9 RDW-SD 35.5-50.0 (fl) 77.6 Platelet Count 140-400 (K/uL) 81 MPV 8.5-12.0 (fL) 9.9 02/07/20647 - 02/07/20647 CHEMISTRY 02/07/20647 CHEMISTRY Glucose 70-100 (mg/dL) 134 Sodium 135-145 (meq/L) 138 Potassium 3.5-5.3 (meq/L) 3.6 Chloride 99-110 (meq/L) 100 CO2 20-29 (meq/L) 34 Anion Gap with K 6-20 (meq/L) 8 BUN 6-22 (mg/dL) 45 Creatinine 0.80-1.30 (mg/dL) 1.79 BUN/Creatinine Ratio 10.0-25.0 25.1 Calcium 8.5-10.5 (mg/dL) 8.0 Corrected Calcium 8.5-10.5 (mg/dL) 9.8 Bilirubin Total 0.2-1.2 (mg/dL) 2.4 Alkaline Phosphatase 30-150 (U/L) 112 ALT - SGPT 0-55 (U/L) 35 AST - SGOT 0-35 (U/L) 56 Protein Total 6.0-8.2 (g/dL) 6.1 Albumin 3.5-5.0 (g/dL) 1.7 eGFR >=60 (mL/min/1.73m2) 45 eGFR Non- >=60 (mL/min/1.73m2) 38 02/06/20 1139 - 02/06/20 1139 GLUCOSE POINT OF CARE 02/06/20 1139 GLUCOSE POINT OF CARE Glucose POC 70-100 (mg/dL) 158 02/07/20 0648 - 02/07/20 0648 OTHER 02/07/20 0648 OTHER Age (Years) 74 Medical Decision making Medical Decision Making Tawanda friedman MD - 02/06/2020 2:11 PM CDT DAILY PROGRESS NOTE Lazara Orozco Jr. is a 74yr old male admitted on 02/02/2020 3:22 PM. Impression / Plan Active Problems: Cirrhosis of liver (HCC) Anemia Chronic diastolic heart failure (HCC) Gastric varices Obesity, morbid, BMI 40.0-49.9 (HCC) Thrombocytopenia (HCC) Knee pain, right H/O alcohol abuse Septic arthritis of knee, right (HCC) Fluid overload Resolved Problems: * No resolved hospital problems. * Plan: 1. Anasarca with significant abdominal distention and bilateral pedal edema secondary to end-stage liver disease with severe hypoalbuminemia. - bumetanide 3mg q8h - Need Powell to accurately measure output - BMP to re-dose diuretic if needed. - as per family at bedside it is improving. 2. Chronic kidney disease, stage 3. Creatinine is at baseline after 3 days if diuresis. 3. 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 - decompensated with fluid overload - continue present management - LFT - on empiric Ceftriaxone 4. Recent right knee septic arthritis, status post incision and drainage, on ceftriaxone. Last date is for Abx 5. Pancytopenia secondary to underlying liver disease. Monitor for signs of bleeding. 6. Hypothyroidism. - Levothyroxine. 7. Deconditioning. Continue the PT and OT. 8. Acute hepatic encephalopathy. - improved Continue the lactulose. FULL CODE Interval History HPI Patient's is at bedside. She says he was very confused yesterday and today he is much improved.He engages in conversation well. Has simple sentence answers and says he is feeling good and has no complaints. According to the anasarca has come down significantly. Review of Systems Review of Systems Constitutional: Positive for fatigue. Negative for chills and fever. HENT: Negative for rhinorrhea, sore throat and trouble swallowing. Eyes: Negative for photophobia, pain and visual disturbance. Respiratory: Negative for cough, chest tightness and shortness of breath. Cardiovascular: Negative for chest pain and leg swelling. Gastrointestinal: Negative for abdominal distention, abdominal pain, blood in stool, diarrhea, nausea and vomiting. Endocrine: Negative for polydipsia and polyphagia. Genitourinary: Negative for difficulty urinating and frequency. Musculoskeletal: Positive for joint swelling. Negative for arthralgias and neck stiffness. Skin: Negative for color change, pallor and rash. Allergic/Immunologic: Negative for food allergies and immunocompromised state. Neurological: Negative for dizziness, syncope and headaches. Hematological: Negative for adenopathy. Does not bruise/bleed easily. Psychiatric/Behavioral: Negative for agitation and sleep disturbance. Physical Exam Vital Signs: Temp: 97.6 F (36.4 C) | BP: 199/142 | Pulse: 86 | Resp: 18 | Pain Ratin (out of10) | Weight: 118 kg (260 lb 2.3 oz) | O2 Device: Room Air | SpO2: 96 % Maximum Temperatures (last 24 hours) Temperature Maximum Max Temp 98.2 F (36.8 C) Intake and Output: 02/04 0700 - 02/05 0659 In: - Out: 1350 [Urine:1350] Physical Exam Constitutional: He appears well-developed. No distress. HENT: Head: Normocephalic and atraumatic. Mouth/Throat: Oropharynx is clear and moist. Eyes: Pupils are equal, round, and reactive to light. Conjunctivae are normal. Neck: Normal range of motion. Neck supple. No JVD present. Cardiovascular: Normal rate, regular rhythm and intact distal pulses. No murmur heard. Pulmonary/Chest: Effort normal and breath sounds normal. He has no wheezes. Abdominal: Soft. Bowel sounds are normal. He exhibits distension. Large abdomen with fluid wave and pitting edema at axillae. Genitourinary: Rectal exam shows guaiac negative stool. Musculoskeletal: Normal range of motion. He exhibits edema. He exhibits no deformity. Anasarca to bilateral axillae. Lymphadenopathy: He has no cervical adenopathy. Neurological: He is alert. No cranial nerve deficit. person Skin: Skin is warm and dry. Capillary refill takes less than 2 seconds. No rash noted. No erythema. Psychiatric: He has a normal mood and affect. Thought content normal. Labs Labs (Last day) 02/06/20 1139 - 02/05/202048 GLUCOSE POINT OF CARE 02/06/20 1139 02/06/20 0609 02/05/202048 GLUCOSE POINT OF CARE Glucose POC 70-100 (mg/dL) 158 103 142 Medical Decision making Medical Decision Making Vik Blanca MD - 02/05/2020 1:00 AM PATIENT NAME: LAZARA OROZCO DATE OF SERVICE: 02/05/2020 HEIDY: [id number] Patient is somewhat of a poor historian and is drowsy. Denies chest pain, shortness of breath, abdominal pain, bowel changes or urinary changes. PHYSICAL EXAMINATION: GENERAL: Patient is alert. RESPIRATORY: No respiratory distress. EXTREMITIES: Bilateral pedal edema. ABDOMEN: Abdominal distention. SKIN: No rash. LABORATORY DATA: Reviewed. ASSESSMENT AND PLAN: 1. Anasarca with significant abdominal distention and bilateral pedal edema secondary to end-stage liver disease with severe hypoalbuminemia. Continue with current diuresis. 2. Chronic kidney disease, stage 3. Creatinine is at baseline. 3. 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 Continue the Bumex. Monitor the electrolytes and creatinine. Blood pressures are stable. 4. Recent right knee septic arthritis, status post incision and drainage, on ceftriaxone. Last date is 02/15/2020. 5. Pancytopenia secondary to underlying liver disease. Monitor for signs of bleeding. 6. Hypothyroidism. Levothyroxine. 7. Deconditioning. Continue the PT and OT. 8. Acute hepatic encephalopathy. Continue the lactulose. The patient seems to have bowel movements. Vik Escalante MD Receipt: [id number] Trans ID: [id number] DENTAL INSURANCE COORDINATOR CST Celestino Allison MD - 02/04/2020 2:20 PM CDT [facility] Daily Progress Note Chief Complaint: Patient admitted to the hospital on 02/02/2020 with complaints of worsening whole-body swelling particularly in the lower extremities. Patient has a history of liver cirrhosis continues to drink alcohol, chronic kidney disease secondary to recent vancomycin-induced ATN presented to the emergency room with significant pedal edema. Assessment/Plan: 1. Anasarca with significant bilateral pedal edema secondary to 2. Chronic kidney disease stage III 3. Hypoalbuminemia secondary to alcoholic liver disease with cirrhosis with portal hypertension Patient responding well to diuresis with Bumex. We will increase the dose. Creatinine stable. Blood pressure stable. Monitor. 4. Recent right knee septic arthritis status post incision and drainage: On ceftriaxone. Last date02/15/2020. 5. Anemia thrombocytopenia.: Secondary to underlying liver disease: Monitor for signs of bleeding. 6. Hypothyroidism: On levothyroxin 7. Deconditioning: PT and OT Disposition: Awaiting improvement DVT prophylaxis: Heparin Class 2 obesity Body mass index is 36.14 kg/m. Tobacco abuse: Social History Tobacco Use Smoking Status Former Smoker Last attempt to quit: 06/20/1968 Years since quittin.6 Smokeless Tobacco Never Used Tobacco Comment Never bought a pack of cigarettes Patient chart, x-rays, EKG, labs, medications reviewed. Subjective: No acute events reported overnight. ROS: Patient denies any chest pain, dyspnea, abdominal pain, nausea, vomiting, headache or dizziness. Objective: Vital signs in last 24 hours: Vitals: 02/03/20 1927 02/04/20 0040 02/04/20 0500 02/04/20 0800 BP: 153/138 118/90 121/117 Pulse: 85 85 89 Resp: 16 18 17 Temp: 98.3 F (36.8 C) 97.7 F (36.5 C) 97.9 F (36.6 C) SpO2: 95% 95% 95% Weight: 120.9 kg (266 lb 8 oz) Height: Weight change: 1.134 kg (2 lb 8 oz) Vitals Min/Max Last 24 Hours Vital Signs Min/Max (last 24 hours) Flowsheet Row Name Min Max Temp 97.7 F (36.5 C) 98.5 F (36.9 C) BP: Systolic 104 153 BP: Diastolic 42 138 Pulse 85 100 Resp 16 18 SpO2 93 % 95 % MAP (mm Hg) 101 mm Hg 101 mm Hg Intake and Output Last 24 Hours 02/02 0700 - 02/03 0659 In: 690 Out: 1650 Physical Exam: General Appearance: alert, well appearing, and in no distress Mental Status: oriented to person, place, and time Chest: b/l good air entry, clear to auscultation, no wheezes, rales or rhonchi, symmetric air entry Heart: normal rate, regular rhythm, normal S1, S2, no murmur Abdomen: soft, nontender, slightly distended, bowel sounds heard Neurological: normal speech, no gross sensory or motor deficits noted Extremities: Significant pedal edema noted MD Celestino Yang MD Rudolph Cameron MD - 02/03/2020 11:34 AM CDT DAILY PROGRESS NOTE Lazara Orozco Jr. is a 74yr old male admitted on 02/02/2020 3:22 PM. Impression / Plan Active Problems: Cirrhosis of liver (HCC) Anemia Chronic diastolic heart failure (HCC) Gastric varices Obesity, morbid, BMI 40.0-49.9 (HCC) Thrombocytopenia (HCC) Knee pain, right H/O alcohol abuse Septic arthritis of knee, right (HCC) Fluid overload Resolved Problems: * No resolved hospital problems. * Acute Medical Conditions: # Anasarca, likely 2/2 acute kidney injury and third spacing from hypoalbuminemia # Hypoalbuminemia, albumin 1.7 # Acute kidney injury. Most recent creatinine 2.3. # Mild aortic regurgitation and mild to moderate mitral regurgitation, echo October 2019. Plan: - Monitor on telemetry. - Continue Bumex 2 mg TID, pt is tolerating this - Hold Spironolactone - Strict I&O with daily weights - Recheck labs in a.m. - Patient's baseline weight around 240 LB. Current weight around 267 LB. (encourage standing weights if possible) # Recent acute kidney injury 2/2 septic ATN and vancomycin use # Right knee septic arthritis, w/ E. coli. Status post I&D. Plan: - Wound healing well, wound care following - Continue Rocephin, end date 02/15/2020. - Pain regimen in place, see below - Creatinine appears to have stabilized around 2.3. Recheck labs in a.m. # Alcoholic liver disease # Alcohol use disorder, patient was using alcohol up until his recent hospital admission on 01/18/2020 # Anemia and thrombocytopenia likely 2/2 liver disease and ongoing acute illnes # Known gastric varices # Mild hyponatremia (stable) Plan: - No hypotension. No tachycardia. Has anemia and thrombocytopenia. Has hyponatremia. Has hypoalbuminemia. Recent INR 2.1. Bilirubin 2.4, alk phos 125, ALT 48, and AST 86. Ammonia 89. - Ultrasound abdomen doppler 2016 suggested cirrhotic liver. Hepatitis panel 2013 -ve. EGD July 2017 showed portal gastropathy with moderate sized fundic varices. - Continue home lactulose - Recheck labs. Continue lactulose. On diuretics. - Patient has been sober at least for 2 weeks. No risk for withdrawals. # Lactic acidosis, likely 2/2 liver disease (resolved) Stable Chronic Medical Conditions: - Hypothyroidism. On levothyroxine. - Low back pain - Hx of frequent falls - S/P total reverse shoulder replacement, left - Hx of compression fracture of spine - Impaired fasting glucose - Osteopenia - Obesity, BMI 36.30 - Chronic diastolic CHF CODE STATUS: Full Code Pain medication: Acetaminophen for mild pain, oxycodone for moderate/severe pain, dilaudid for breakthrough pain DVT Prophylaxis: Hold off on DVT prophylaxis. Patient will not tolerate SCD secondary to lower extremity pain. Will hold off on chemical DVT prophylaxis secondary to low hemoglobin, low platelets, and elevated INR on recent check. Therapies: PT/OT Disposition: TBD Diet: Regular diet Interval History No acute events overnight. Pt denies any new concerns this AM. Afebrile, pulse in the 90s, blood pressure 110/40s mmHg, saturating well on room air. He is having persistent right knee pain, would likehis ice machine applied. Review of Systems Review of Systems Constitutional: Negative. Respiratory: Negative. Cardiovascular: Negative. Gastrointestinal: Negative. Musculoskeletal: Positive for gait problem and joint swelling. Right knee pain, bilateral leg swelling, severe Skin: Negative. Physical Exam Vital Signs: Temp: 98.3 F (36.8 C) | BP: 153/138 | Pulse: 85 | Resp: 16 | Pain Ratin (out of10) | Weight: 121.4 kg (267 lb 10.2 oz) | O2 Device: Room Air | SpO2: 95 % Maximum Temperatures (last 24 hours) Temperature Maximum Max Temp 98.6 F (37 C) Intake and Output: 02/01 0700 - 02/02 0659 In: 700 [Oral:700] Out: 1500 [Urine:1500] Physical Exam Constitutional: He is oriented to person, place, and time. No distress. Unkept male, appears his stated age HENT: Head: Normocephalic and atraumatic. Neck: Normal range of motion. Neck supple. Cardiovascular: Normal rate and regular rhythm. Pulmonary/Chest: Effort normal and breath sounds normal. Abdominal: Soft. Musculoskeletal: Anasarca, 3+ pitting Neurological: He is alert and oriented to person, place, and time. Skin: Skin is warm and dry. He is not diaphoretic. Nursing note and vitals reviewed. Labs Labs (Last day) 02/03/20 0653 - 02/03/20 0653 CBC 02/03/20 0653 CBC WBC 4.0-11.0 (K/uL) 5.2 RBC 4.40-5.80 (M/uL) 1.86 Hemoglobin 13.5-17.5 (g/dL) 7.3 Hematocrit 40.0-50.0 (%) 22.2 MCV 80.0-98.0 (fL) 119.4 MCH 25.5-34.0 (pg) 39.2 MCHC 31.5-36.5 (g/dL) 32.9 RDW-CV 11.5-15.5 (%) 18.5 RDW-SD 35.5-50.0 (fl) 82.2 Platelet Count 140-400 (K/uL) 114 MPV 8.5-12.0 (fL) 9.9 02/03/20 0653 - 02/03/20 0653 CHEMISTRY 02/03/20 0653 02/03/20 0653 02/03/20 0653 02/03/20 0653 CHEMISTRY Glucose 70-100 (mg/dL) 106 Sodium 135-145 (meq/L) 134 Potassium 3.5-5.3 (meq/L) 4.4 Chloride 99-110 (meq/L) 101 CO2 20-29 (meq/L) 26 Anion Gap with K 6-20 (meq/L) 11 BUN 6-22 (mg/dL) 59 Creatinine 0.80-1.30 (mg/dL) 2.20 BUN/Creatinine Ratio 10.0-25.0 26.8 Calcium 8.5-10.5 (mg/dL) 8.1 Corrected Calcium 8.5-10.5 (mg/dL) 9.9 Phosphorus 2.5-4.5 (mg/dL) 3.8 Magnesium 1.8-2.4 (mg/dL) 1.5 Bilirubin Total 0.2-1.2 (mg/dL) 2.7 Bilirubin Direct 0.0-0.4 (mg/dL) 1.8 Bilirubin Indirect 0.0-0.8 (mg/dL) 0.9 Alkaline Phosphatase 30-150 (U/L) 111 ALT - SGPT 0-55 (U/L) 39 AST - SGOT 0-35 (U/L) 69 Protein Total 6.0-8.2 (g/dL) 6.0 Albumin 3.5-5.0 (g/dL) 1.7 1.7 Lactic Acid 0.5-2.2 (mmol/L) 1.3 eGFR >=60 (mL/min/1.73m2) 36 eGFR Non- >=60 (mL/min/1.73m2) 30 02/03/20 0653 - 02/03/20 0653 OTHER 02/03/20 0653 OTHER Age (Years) 74 Medical Decision making Medical Decision Making documented in this encounter Plan of Treatment Date Type Specialty Care Team Description 03/27/2020 Office Visit Orthopedics Se Hernandez MD [address] [place] [id number] [phone] documented as of this encounter Implants Implanted Type Area Building Performance Specialist Device Shelf Model / Identifier Expiration Serial / Date Lot Screw Cncls Full Thrd 4x20mm N 206.020 Ea - Sn/A Ortho Left: J [employer]J DEPUY 206.020 / Implanted: Qty: 1 on 09/23/2014 by Jeffry Peck MD at [facility] Other FIB[employer]A [employer] N/A / N/A Description:Implant verified by Dr. Umang silverman and OR staff Screw Cncls Full Thrd 4x20mm N 206.020 Ea - Sn/A Ortho Other Left: FIBULA J[employer]J DEPUY SYNTHES 206.020 / Implanted: Qty: 1 on 09/23/2014 by Jeffry Peck MD at [facility] N/A / N/A Description:Implant verified by Dr. Umang silverman and OR staff Screw Cncls Full Thrd 4x20mm N 206.020 Ea - Sn/A Ortho Other Left: FIBULA J[employer]J DEPUY SYNTHES 206.020 / Implanted: Qty: 1 on 09/23/2014 by Jeffry Peck MD at [facility] N/A / N/A Description:Implant veriried by Dr. Umang silverman and OR staff Screw Cncls Full Thrd 4x24mm N 206.024 Ea - Sn/A Ortho Other Left: FIBULA J[employer] DEPUY SYNTHES 206.024 / Implanted: Qty: 1 on 09/23/2014 by Jeffry Peck MD at [facility] N/A / N/A Description:Implant verified by Dr. Umang silverman and OR staff Screw Collin Slftp 3.5x14mm N 204.814 Ea - Sn/A Ortho Other Le ft: FIBULA J[employer]J DEPUY SYNTHES 204.814 / Implanted: Qty: 1 on 09/23/2014 by Jeffry Peck MD at [facility] N/A / N/A Description:Implant verified by Dr. Umang silverman and OR staff Screw Collin Slftp 3.5x14mm N 204.814 Ea - Sn/A Ortho Other Le ft: FIBULA J[employer]J DEPUY SYNTHES 204.814 / Implanted: Qty: 1 on 09/23/2014 by Jeffry Peck MD at [facility] N/A / N/A Description:Implant verified by Dr. Umang silverman and OR staff Screw Collin Slftp 3.5x14mm N 204.814 Ea - Sn/A Ortho Other Le ft: FIBULA J[employer]J DEPUY SYNTHES 204.814 / Implanted: Qty: 1 on 09/23/2014 by Jeffry Peck MD at [facility] N/A / N/A Description:Implant verified by Dr. Umang silverman and OR staff Plate Tublr Synt 7hl 81mm N 241.371 Ea - Sn/A Ortho Other Le ft: FIBULA J[employer]J DEPUY SYNTHES 241.371 / Implanted: Qty: 1 on 09/23/2014 by Jeffry Peck MD at [facility] N/A / N/A Description:Implant verified by Dr. Umang silverman and OR staff Shldr Metaglene Depu N 130-60-000 Ea1 - Sn/A Total Jt Le ft: SHOULDER J&J DEPUY, 04/19/2023 13060000 / Implanted: Qty: 1 on 02/07/2019 by Se Hernandez MD at [facility] Shoulder [employer] N/A / [id number] Description:Ordered and verified by Dr. Hernandez. Verified by surgical team. Shldr Screw Metaglene Lk4.5x36 N 130 Ea1 - Sn/A Total Jt Left: SHOULDER J[employer]J DEPUY, 04/19/2023 130 / Implanted: Qty: 1 on 02/07/2019 by Se Hernandez MD at [facility] Shoulder [facility] N/A / [id number] Description:Ordered and verified by Dr. Hernandez. Verified by surgical team. Shldr Screw Metaglene Lk4.5x36 N 036 Ea1 - Sn/A Total Jt Left: SHOULDER J[employer]J DEPUY, 02/17/2023 130-036 / Implanted: Qty: 1 on 02/07/2019 by Se Hernandez MD at [facility] Shoulder [facility] N/A / [id number] Description:Ordered and verified by Dr. Hernandez. Verified by surgical team. Shldr Screw Metaglene Nl4.5x18 N 70-018 Ea1 - Sn/A Total Jt Left: SHOULDER J&J DEPUY, 03/19/2023 130018 / Implanted: Qty: 1 on 02/07/2019 by Se Hernandez MD at [facility] N/A / [id number] Description:Ordered and verified by Dr. Hernandez. Verified by surgical team. Shldr Screw Metaglene Nl4.5x18 N 018 Ea1 - Sn/A Total Jt Left: SHOULDER J[employer]J DEPUY, 03/19/2023 130-018 / Implanted: Qty: 1 on 02/07/2019 by Se Hernandez MD at [facility] N/A / [id number] Description:Ordered and verified by Dr. Hernandez. Verified by surgical team. Shldr Glenospher Std Depu 42mm N Ea1 - Sn/A Total Jt Left: SHOULDER J[employer]J DEPUY, 02/17/2023 130142 / Implanted: Qty: 1 on 02/07/2019 by Se Hernandez MD at [facility] N/A / [id number] Description:Ordered and verified by Dr. Hernandez. Verified by surgical team. Shldr Epip Depu Lft Sz2 N Ea1 - Sn/A Total Jt Left: SHOULDER J[employer]J DEPUY, 03/19/2022 / Implanted: Qty: 1 on 02/07/2019 by Se Hernandez MD at [facility] Shoulder [facility] N/A / [id number] Description:Ordered and verified by Dr. Hernandez. Verified by surgical team. Shldr Humr Stem Kraus 14mm N 130000 Ea1 - Sn/A Total Jt Left: SHOULDER J[employer]J DEPUY, 03/19/2023 1307-000 / Implanted: Qty: 1 on 02/07/2019 by Se Hernandez MD at [facility] N/A / [id number] Description:Ordered and verified by Dr. Hernandez. Verified by surgical team. Shldr Humr Cup Depu +6 42mm N Ea1 - Sn/A Total Jt Left: SHOULDER J&J DEPUY, 12/17/2022 130 / Implanted: Qty: 1 on 02/07/2019 by Se Hernandez MD at [facility] N/A / [id number] Description:Ordered and verified by Dr. Hernandez. Verified by surgical team. Vertaplex Hv-10/19/2017 VERTEBRAE 02/18/20 19 [id number] / Implanted: Qty: 1 on 10/19/2017 by Aquilino Mckinney MD / [id number] Description:Used for T9 and T10 vertebro plasties documented as of this encounter Procedures Procedure Name Priority Date/Time Associated Comments Diagnosis BASIC METABOLIC PANEL Routine 02/13/2020 5:58 Re sults for this AM CDT procedure are i n the results section. BASIC METABOLIC PANEL Routine 02/12/2020 5:50 Re sults for this AM CDT procedure are i n the results section. COVID-19 SCREEN TO STAT 02/10/2020 4:06 Resul ts for this RULE OUT INFECTIVE PM CDT procedure are in STATUS the results section. RENAL FUNCTION PANEL Routine 02/10/2020 5:30 Res ults for this AM CDT procedure are i n the results section. GLUCOSE BY METER, POCT Routine 02/09/2020 6:32 R esults for this AM CDT procedure are i n the results section. BASIC METABOLIC PANEL Routine 02/09/2020 4:40 Re sults for this AM CDT procedure are i n the results section. GLUCOSE BY METER, POCT Routine 02/08/2020 9:09 R esults for this PM CDT procedure are i n the results section. MAGNESIUM Routine 02/08/2020 6:27 Results for this AM CDT procedure are i n the results section. COMPREHENSIVE Routine 02/08/2020 6:27 Results fo r this METABOLIC PANEL AM CDT procedure ar e in the results section. COMPLETE BLOOD COUNT Routine 02/08/2020 6:25 Res ults for this WITHOUT DIFFERENTIAL AM CDT procedu re are in the results section. AMMONIA Routine 02/08/2020 6:24 Results for this AM CDT procedure are i n the results section. EKG STAT 02/07/2020 6:32 Results for this PM CDT procedure are i n the results section. COMPLETE BLOOD COUNT Routine 02/07/2020 6:48 Res ults for this WITHOUT DIFFERENTIAL AM CDT procedu re are in the results section. COMPREHENSIVE Routine 02/07/2020 6:48 Results fo r this METABOLIC PANEL AM CDT procedure ar e in the results section. GLUCOSE BY METER, POCT Routine 02/06/2020 11:39 R esults for this AM CDT procedure are i n the results section. GLUCOSE BY METER, POCT Routine 02/06/2020 6:09 R esults for this AM CDT procedure are i n the results section. GLUCOSE BY METER, POCT Routine 02/05/2020 8:49 R esults for this PM CDT procedure are i n the results section. COMPLETE BLOOD COUNT Routine 02/05/2020 5:00 Res ults for this WITHOUT DIFFERENTIAL AM CDT procedu re are in the results section. RENAL FUNCTION PANEL Routine 02/05/2020 5:00 Res ults for this AM CDT procedure are i n the results section. COMPLETE BLOOD COUNT Routine 02/04/2020 5:45 Res ults for this WITHOUT DIFFERENTIAL AM CDT procedu re are in the results section. COMPREHENSIVE Routine 02/04/2020 5:45 Results fo r this METABOLIC PANEL AM CDT procedure ar e in the results section. COMPLETE BLOOD COUNT Routine 02/03/2020 6:53 Res ults for this WITHOUT DIFFERENTIAL AM CDT procedu re are in the results section. HEPATIC FUNCTION PANEL Routine 02/03/2020 6:53 R esults for this AM CDT procedure are i n the results section. MAGNESIUM Routine 02/03/2020 6:53 Results for this AM CDT procedure are i n the results section. LACTIC ACID Routine 02/03/2020 6:53 Results for this AM CDT procedure are i n the results section. RENAL FUNCTION PANEL Routine 02/03/2020 6:53 Res ults for this AM CDT procedure are i n the results section. PROCALCITONIN Routine 02/02/2020 9:11 Results fo r this PM CDT procedure are i n the results section. PROTIME/INR STAT 02/02/2020 9:11 Results for this PM CDT procedure are i n the results section. C-REACTIVE PROTEIN Routine 02/02/2020 9:11 Resul ts for this (INFLAMMATION) PM CDT procedure are in the results section. HEPATIC FUNCTION PANEL STAT 02/02/2020 9:11 R esults for this PM CDT procedure are i n the results section. MAGNESIUM STAT 02/02/2020 9:11 Results for this PM CDT procedure are i n the results section. LACTIC ACID STAT 02/02/2020 9:11 Results for this PM CDT procedure are i n the results section. RENAL FUNCTION PANEL STAT 02/02/2020 9:11 Res ults for this PM CDT procedure are i n the results section. BRAIN NATRIURETIC STAT 02/02/2020 9:11 Result s for this PEPTIDE PM CDT procedure are i n the results section. LAB ONLY-COMPLETE STAT 02/02/2020 9:10 Result s for this BLOOD COUNT WITH PM CDT procedure a re in DIFFERENTIAL the results section. LAB ONLY-COMPLETE STAT 02/02/2020 9:10 Result s for this BLOOD COUNT WITH PM CDT procedure a re in DIFFERENTIAL the results section. AMMONIA Routine 02/02/2020 9:09 Results for this PM CDT procedure are i n the results section. documented in this encounter Results BASIC METABOLIC PANEL (02/13/2020 5:58 AM CDT) Pathologist Sig nature Glucose 118 (H) 70 - 100 mg/dL [facility] BUN 37 (H) 6 - 22 mg/dL [facility] Creatinine 1.64 (H) 0.80 - 1.30 [facility] mg/dL [facility] BUN/Creatinine Ratio 22.6 10.0 - 25.0 [facility] Sodium 135 135 - 145 meq/L [facility] Potassium 3.8 3.5 - 5.3 meq/L [facility] Chloride 99 99 - 110 meq/L [facility] CO2 34 (H) 20 - 29 meq/L [facility] Anion Gap with K 6 6 - 20 meq/L [facility] Calcium 8.2 (L) 8.5 - 10.5 [facility] [facility] mg/dL [facility] Age 74 Years [facility] eGFR Non- 42 (L) >=60 [facility] mL/min/1.73m2 CLINIC eGFR 50 (L) >=60 [facility] mL/min/1.73m2 CLINIC Specimen Blood Performing Organization Address City/[facility]/Zipcode Phone Number [address] [address] [phone] BASIC METABOLIC PANEL (02/12/2020 5:50 AM CDT) Pathologist [facility] marcelo Glucose 128 (H) 70 - 100 mg/dL [facility] BUN 38 (H) 6 - 22 mg/dL [facility] Creatinine 1.70 (H) 0.80 - 1.30 [facility] mg/dL [facility] BUN/Creatinine Ratio 22.4 10.0 - 25.0 [facility] Sodium 136 135 - 145 meq/L [facility] Potassium 3.8 3.5 - 5.3 meq/L [facility] Chloride 99 99 - 110 meq/L [facility] CO2 32 (H) 20 - 29 meq/L [facility] Anion Gap with K 9 6 - 20 meq/L [facility] Calcium 8.2 (L) 8.5 - 10.5 [facility] mg/dL CLINIC Age 74 Years [facility] eGFR Non- 40 (L) >=60 [facility] [place] mL/min/1.73m2 [facility] eGFR 48 (L) >=60 [facility] mL/min/1.73m2 CLINIC Specimen Blood Performing Organization Address [facility]/Zipcode Phone Number [address] [address] COVID-19 SCREEN TO RULE OUT INFECTIVE STATUS (02/10/2020 4:06 PM CDT) SARS CoV RNA, RT Not Detected Not Detected [facility] [place] Specimen Respiratory Narrative Performed At Testing performed by real-time polymerase [facility] chain reaction (RT-PCR) on the [employer] m2000 instrument. This assay is for in vitro diagnostic use under FDA Emergency Use Authorization on ly. Optimal performance of this test requires appropriate specimen collection, storage, and transport to the test site. Detection of SARS-CoV-2 RNA may be affected by sample collection methods, patient factors (eg, presence of symptoms), and/or stage of infection. False-negative results may arise from degradation of viral RNA during shipping/storage. Results should be interpreted by a trained professional in conjunction with the pat ient s history and clinical signs and symptoms, and epidemiological risk factors. Negative (Not Detected) results do not preclude infection with the SARS-CoV-2 virus and should not be the sole basis of patient treatment/management or public health decision. Follow up testing should be performed according to the current CDC recommendations. Performing Organization Address City/State/Zipcode Phone Number [facility] [address] [place] [address] [place] RENAL FUNCTION PANEL (02/10/2020 5:30 AM CDT) [facility] Glucose 135 (H) 70 - 100 mg/dL [facility] BUN 37 (H) 6 - 22 mg/dL [facility] Creatinine 1.76 (H) 0.80 - 1.30 [facility] mg/dL [facility] BUN/Creatinine Ratio 21.0 10.0 - 25.0 [facility] Sodium 135 135 - 145 meq/L [facility] Potassium 3.8 3.5 - 5.3 meq/L [facility] Chloride 98 (L) 99 - 110 meq/L [facility] CO2 32 (H) 20 - 29 meq/L [facility] Anion Gap with K 9 6 - 20 meq/L [facility] Calcium 8.1 (L) 8.5 - 10.5 [facility] mg/dL [facility] Phosphorus 3.2 2.5 - 4.5 mg/dL [facility] Albumin 1.6 (L) 3.5 - 5.0 g/dL [facility] Corrected Calcium 10.0 8.5 - 10.5 [facility] mg/dL [facility] Age 74 Years [facility] eGFR Non- 38 (L) >=60 [facility] mL/min/1.73m2 CLINIC eGFR 46 (L) >=60 [facility] mL/min/1.73m2 CLINIC Specimen Blood Performing Organization Address [facility] Phone Number [address] [address] GLUCOSE BY METER, POCT (02/09/2020 6:32 AM CDT) Pathologist Sig nature Glucose POC 99 70 - 100 mg/dL [facility] Specimen Blood Performing Organization Address [facility] Phone Number [address] [address] BASIC METABOLIC PANEL (02/09/2020 4:40 AM CDT) Pathologist Sig nature Glucose 116 (H) 70 - 100 mg/dL [facility] BUN 36 (H) 6 - 22 mg/dL [facility] Creatinine 1.63 (H) 0.80 - 1.30 [facility] mg/dL [facility] BUN/Creatinine Ratio 22.1 10.0 - 25.0 [facility] Sodium 133 (L) 135 - 145 meq/L [facility] Potassium 3.9 3.5 - 5.3 meq/L [facility] Chloride 96 (L) 99 - 110 meq/L [facility] CO2 32 (H) 20 - 29 meq/L [facility] Anion Gap with K 9 6 - 20 meq/L [facility] Calcium 8.2 (L) 8.5 - 10.5 [facility] mg/dL [facility] Age 74 Years [facility] eGFR Non- 42 (L) >=60 [facility] mL/min/1.73m2 CLINIC eGFR 51 (L) >=60 [facility] mL/min/1.73m2 CLINIC Specimen Blood Performing Organization Address [facility] Phone Number [address] [address] GLUCOSE BY METER, POCT (02/08/2020 9:09 PM CDT) Pathologist Sig nature Glucose POC 145 (H) 70 - 100 mg/dL [facility] Specimen Blood Performing Organization Address City/[facility]/Zipcode Phone Number [facility] [address] [place] [address] [phone] COMPREHENSIVE METABOLIC PANEL (02/08/2020 6:27 AM CDT) Pathologist Sig nature Glucose 112 (H) 70 - 100 mg/dL [facility] BUN 38 (H) 6 - 22 mg/dL [facility] Creatinine 1.68 (H) 0.80 - 1.30 [facility] mg/dL [facility] BUN/Creatinine Ratio 22.6 10.0 - 25.0 [facility] Sodium 136 135 - 145 meq/L [facility] Potassium 3.6 3.5 - 5.3 meq/L [facility] Chloride 99 99 - 110 meq/L [facility] CO2 32 (H) 20 - 29 meq/L [facility] Anion Gap with K 9 6 - 20 meq/L [facility] Calcium 8.2 (L) 8.5 - 10.5 [facility] mg/dL [facility] Protein Total 6.0 6.0 - 8.2 g/dL [facility] Albumin 1.6 (L) 3.5 - 5.0 g/dL [facility] Alkaline Phosphatase 105 30 - 150 U/L [facility] AST - SGOT 46 (H) 0 - 35 U/L [facility] ALT - SGPT 30 0 - 55 U/L [facility] Bilirubin Total 2.0 (H) 0.2 - 1.2 mg/dL [facility] Corrected Calcium 10.1 8.5 - 10.5 [facility] mg/dL [facility] Age 74 Years [facility] eGFR Non- 40 (L) >=60 [facility] [place] mL/min/1.73m2 [facility] eGFR 49 (L) >=60 [facility] mL/min/1.73m2 CLINIC Specimen Blood Performing Organization Address City/[facility]/Zipcode Phone Number [facility] [address] [place] [address] MAGNESIUM (02/08/2020 6:27 AM CDT) Pathologist Sig nature Magnesium 1.9 1.8 - 2.4 mg/dL [facility] Specimen Blood Performing Organization Address [facility] Phone Number [address] [address] [phone] COMPLETE BLOOD COUNT WITHOUT DIFFERENTIAL (02/08/2020 6:25 AM CDT) WBC 4.0 4.0 - 11.0 [facility] K/uL [facility] RBC 1.94 (L) 4.40 - 5.80 [facility] M/uL [facility] Hemoglobin 7.8 (L) 13.5 - 17.5 [facility] g/dL CLINIC Hematocrit 22.8 (L) 40.0 - 50.0 % [facility] MCV 117.5 (H)Comment: 80.0 - 98.0 [facility] Macrocytosis present. [facility] MCH 40.2 (H) 25.5 - 34.0 [facility] MCHC 34.2 31.5 - 36.5 [facility] g/dL CLINIC RDW-CV 17.7 (H) 11.5 - 15.5 % [facility] RDW-SD 76.5 (H) 35.5 - 50.0 [facility] Platelet Count 80 (L) 140 - 400 [facility] K/[facility] MPV 10.4 8.5 - 12.0 Specimen Blood Performing Organization Address [facility] Phone Number [address] [address] [phone] AMMONIA (02/08/2020 6:24 AM CDT) Pathologist Sig nature Ammonia 49 (H) 10 - 45 uMol/L [facility] Specimen Blood Performing Organization Address [facility] Phone Number [address] [address] EKG (02/07/2020 6:32 PM CDT) Pathologist Sig nature EKG [employer] Wide QRS tachycardia Consider Atrial flutter with 2 to 1 block Right bundle branch block Abnormal ECG Ventricular Rate: 137 BPM Atrial Rate: 129 BPM QRS Duration: 124 ms Q-T Interval: 364 ms QTc Calculation(Bazett): 549 ms Calculated R Cotter: -26 degrees Calculated T Cotter: -15 degrees Specimen Narrative Performed At This result has an attachment that is no t available. Performing Organization Address City/[facility]/Zipcode Phone Number KATARINA THOMPSON COMPREHENSIVE METABOLIC PANEL (02/07/2020 6:48 AM CDT) Pathologist Sig nature Glucose 134 (H) 70 - 100 mg/dL [facility] BUN 45 (H) 6 - 22 mg/dL [facility] Creatinine 1.79 (H) 0.80 - 1.30 [facility] mg/dL [facility] BUN/Creatinine Ratio 25.1 (H) 10.0 - 25.0 [facility] Sodium 138 135 - 145 meq/L [facility] Potassium 3.6 3.5 - 5.3 meq/L [facility] Chloride 100 99 - 110 meq/L [facility] CO2 34 (H) 20 - 29 meq/L [facility] Anion Gap with K 8 6 - 20 meq/L [facility] Calcium 8.0 (L) 8.5 - 10.5 [facility] mg/dL [facility] Protein Total 6.1 6.0 - 8.2 g/dL [facility] Albumin 1.7 (L) 3.5 - 5.0 g/dL [facility] Alkaline Phosphatase 112 30 - 150 U/L [facility] AST - SGOT 56 (H) 0 - 35 U/L [facility] ALT - SGPT 35 0 - 55 U/L [facility] Bilirubin Total 2.4 (H) 0.2 - 1.2 mg/dL [facility] Corrected Calcium 9.8 8.5 - 10.5 [facility] mg/dL [facility] Age 74 Years [facility] eGFR Non- 38 (L) >=60 [facility] [place] mL/min/1.73m2 CLINIC eGFR 45 (L) >=60 [facility] mL/min/1.73m2 CLINIC Specimen Blood Performing Organization Address City/[facility] Phone Number [facility] [address] [place] [address] [phone] COMPLETE BLOOD COUNT WITHOUT DIFFERENTIAL (02/07/2020 6:48 AM CDT) WBC 3.8 (L) 4.0 - 11.0 [facility] K/uL CLINIC RBC 1.86 (L) 4.40 - 5.80 [facility] M/uL [facility]INIC Hemoglobin 7.6 (L) 13.5 - 17.5 [facility] g/dL [facility] Hematocrit 21.8 (L) 40.0 - 50.0 % [facility] MCV 117.2 (H)Comment: 80.0 - 98.0 [facility] Macrocytosis present. [facility] MCH 40.9 (H) 25.5 - 34.0 [facility] pg [facility] MCHC 34.9 31.5 - 36.5 [facility] g/dL [facility] RDW-CV 17.9 (H) 11.5 - 15.5 % [facility] RDW-SD 77.6 (H) 35.5 - 50.0 [facility] Platelet Count 81 (L) 140 - 400 [facility] K/uL [facility] MPV 9.9 8.5 - 12.0 Specimen Blood Performing Organization Address [facility] Phone Number [address] [address] GLUCOSE BY METER, POCT (02/06/2020 11:39 AM CDT) Pathologist Sig nature Glucose POC 158 (H) 70 - 100 mg/dL [facility] Specimen Blood Performing Organization Address [facility] Phone Number [address] [address] GLUCOSE BY METER, POCT (02/06/2020 6:09 AM CDT) Pathologist Sig nature Glucose POC 103 (H) 70 - 100 mg/dL [facility] Specimen Blood Performing Organization Address [facility] Phone Number [address] [address] GLUCOSE BY METER, POCT (02/05/2020 8:49 PM CDT) Pathologist Sig nature Glucose POC 142 (H) 70 - 100 mg/dL [facility] Specimen Blood Performing Organization Address [facility] Phone Number [address] [address] RENAL FUNCTION PANEL (02/05/2020 5:00 AM CDT) Pathologist Sig nature Glucose 138 (H) 70 - 100 mg/dL [facility] BUN 57 (H) 6 - 22 mg/dL [facility] Creatinine 2.10 (H) 0.80 - 1.30 [facility] mg/dL [facility] BUN/Creatinine Ratio 27.1 (H) 10.0 - 25.0 [facility] Sodium 135 135 - 145 meq/L [facility] Potassium 4.4 3.5 - 5.3 meq/L [facility] Chloride 100 99 - 110 meq/L [facility] CO2 27 20 - 29 meq/L [facility] Anion Gap with K 12 6 - 20 meq/L [facility] Calcium 8.1 (L) 8.5 - 10.5 [facility] mg/dL [facility] Phosphorus 3.6 2.5 - 4.5 mg/dL [facility] Albumin 1.7 (L) 3.5 - 5.0 g/dL [facility] Corrected Calcium 9.9 8.5 - 10.5 [facility] mg/dL [facility] Age 74 Years [facility] eGFR Non- 31 (L) >=60 [facility] [place] mL/min/1.73m2 [facility] eGFR 38 (L) >=60 [facility] mL/min/1.73m2 [facility] Specimen Blood Performing Organization Address City/State/Zipcode Phone Number [facility] [address] [place] [address] [phone] COMPLETE BLOOD COUNT WITHOUT DIFFERENTIAL (02/05/2020 5:00 AM CDT) WBC 5.5 4.0 - 11.0 [facility] K/uL CLINIC RBC 1.92 (L) 4.40 - 5.80 [facility] M/uL CLINIC Hemoglobin 7.6 (L) 13.5 - 17.5 [facility] g/dL [facility] Hematocrit 22.9 (L) 40.0 - 50.0 % [facility] MCV 119.3 (H)Comment: 80.0 - 98.0 [facility] Macrocytosis present. fL CLINIC MCH 39.6 (H) 25.5 - 34.0 [facility]INIC MCHC 33.2 31.5 - 36.5 [facility] g/dL [facility] RDW-CV 18.8 (H) 11.5 - 15.5 % [facility] RDW-SD 83.4 (H) 35.5 - 50.0 [facility] fl [facility] Platelet Count 122 (L) 140 - 400 [facility] K/uL [facility] MPV 10.0 8.5 - 12.0 fL [facility] Specimen Blood Performing Organization Address City/State/Zipcode Phone Number [facility] [address] [place] [address] [phone] COMPREHENSIVE METABOLIC PANEL (02/04/2020 5:45 AM CDT) Pathologist Sig nature Glucose 119 (H) 70 - 100 mg/dL [facility] BUN 57 (H) 6 - 22 mg/dL [facility] Creatinine 2.18 (H) 0.80 - 1.30 [facility] mg/dL [facility] BUN/Creatinine Ratio 26.1 (H) 10.0 - 25.0 [facility] Sodium 136 135 - 145 meq/L [facility] Potassium 4.2 3.5 - 5.3 meq/L [facility] Chloride 102 99 - 110 meq/L [facility] CO2 28 20 - 29 meq/L [facility] Anion Gap with K 10 6 - 20 meq/L [facility] Calcium 8.1 (L) 8.5 - 10.5 [facility] mg/dL [facility] Protein Total 6.1 6.0 - 8.2 g/dL [facility] Albumin 1.7 (L) 3.5 - 5.0 g/dL [facility] Alkaline Phosphatase 119 30 - 150 U/L [facility] AST - SGOT 75 (H) 0 - 35 U/L [facility] ALT - SGPT 43 0 - 55 U/L [facility] Bilirubin Total 2.3 (H) 0.2 - 1.2 mg/dL [facility] Corrected Calcium 9.9 8.5 - 10.5 [facility] mg/dL [facility] Age 74 Years [facility] eGFR Non- 30 (L) >=60 [facility] [place] mL/min/1.73m2 CLINIC eGFR 36 (L) >=60 [facility] mL/min/1.73m2 CLINIC Specimen Blood Performing Organization Address [facility] Phone Number [address] [phone] COMPLETE BLOOD COUNT WITHOUT DIFFERENTIAL (02/04/2020 5:45 AM CDT) WBC 4.6 4.0 - 11.0 [facility] K/uL CLINIC RBC 1.86 (L) 4.40 - 5.80 [facility] M/uL [facility] Hemoglobin 7.4 (L) 13.5 - 17.5 [facility] g/dL [facility] Hematocrit 21.8 (L) 40.0 - 50.0 % [facility] MCV 117.2 (H)Comment: 80.0 - 98.0 [facility] Macrocytosis present. DE [facility] MCH 39.8 (H) 25.5 - 34.0 [facility] MCHC 33.9 31.5 - 36.5 [facility] g/dL [facility] RDW-CV 18.7 (H) 11.5 - 15.5 % [facility] RDW-SD 81.0 (H) 35.5 - 50.0 [facility] Platelet Count 98 (L) 140 - 400 [facility] MPV 10.1 8.5 - 12.0 Specimen Blood Performing Organization Address [facility] Phone Number [address] [phone] LACTIC ACID (02/03/2020 6:53 AM CDT) Pathologist Sig nature Lactic Acid 1.3 0.5 - 2.2 mmol/L [facility] Specimen Blood Performing Organization Address [facility] Phone Number [address] [phone] HEPATIC FUNCTION PANEL (02/03/2020 6:53 AM CDT) Pathologist Sig nature Alkaline Phosphatase 111 30 - 150 U/L [facility] AST - SGOT 69 (H) 0 - 35 U/L [facility] ALT - SGPT 39 0 - 55 U/L [facility] Bilirubin Total 2.7 (H) 0.2 - 1.2 mg/dL [facility] Bilirubin Indirect 0.9 (H) 0.0 - 0.8 mg/dL [facility] Bilirubin Direct 1.8 (H) 0.0 - 0.4 mg/dL [facility] Albumin 1.7 (L) 3.5 - 5.0 g/dL [facility] Protein Total 6.0 6.0 - 8.2 g/dL [facility] Specimen Blood Performing Organization Address City/[facility] Phone Number [address] [address] MAGNESIUM (02/03/2020 6:53 AM CDT) Pathologist Sig nature Magnesium 1.5 (L) 1.8 - 2.4 mg/dL [facility] Specimen Blood Performing Organization Address [facility] Phone Number [address] [address] RENAL FUNCTION PANEL (02/03/2020 6:53 AM CDT) Pathologist Sig nature Glucose 106 (H) 70 - 100 mg/dL [facility] BUN 59 (H) 6 - 22 mg/dL [facility] Creatinine 2.20 (H) 0.80 - 1.30 [facility] mg/dL [facility] BUN/Creatinine Ratio 26.8 (H) 10.0 - 25.0 [facility] Sodium 134 (L) 135 - 145 meq/L [facility] Potassium 4.4 3.5 - 5.3 meq/L [facility] Chloride 101 99 - 110 meq/L [facility] CO2 26 20 - 29 meq/L [facility] Anion Gap with K 11 6 - 20 meq/L [facility] Calcium 8.1 (L) 8.5 - 10.5 [facility] mg/dL [facility] Phosphorus 3.8 2.5 - 4.5 mg/dL [facility] Albumin 1.7 (L) 3.5 - 5.0 g/dL [facility] Corrected Calcium 9.9 8.5 - 10.5 [facility] mg/dL [facility] Age 74 Years [facility] eGFR Non- 30 (L) >=60 [facility] [place] mL/min/1.73m2 CLINIC eGFR 36 (L) >=60 [facility] mL/min/1.73m2 CLINIC Specimen Blood Performing Organization Address [facility] Phone Number [address] [address] COMPLETE BLOOD COUNT WITHOUT DIFFERENTIAL (02/03/2020 6:53 AM CDT) WBC 5.2 4.0 - 11.0 [facility] K/uL [facility] RBC 1.86 (L) 4.40 - 5.80 [facility] M/uL [facility] Hemoglobin 7.3 (L) 13.5 - 17.5 [facility] g/dL [facility] Hematocrit 22.2 (L) 40.0 - 50.0 % [facility] MCV 119.4 (H)Comment: 80.0 - 98.0 [facility] Macrocytosis present. [facility] MCH 39.2 (H) 25.5 - 34.0 [facility] MCHC 32.9 31.5 - 36.5 [facility] g/dL [facility] RDW-CV 18.5 (H) 11.5 - 15.5 % [facility] RDW-SD 82.2 (H) 35.5 - 50.0 [facility] CL[facility] Platelet Count 114 (L) 140 - 400 [facility] MPV 9.9 8.5 - 12.0 Specimen Blood Performing Organization Address City/[facility] Phone Number [address] [address] PROCALCITONIN (02/02/2020 9:11 PM CDT) Pathologist Sig nature Procalcitonin 0.43 (H) <0.07 ng/mL [facility] Specimen Blood Narrative Performed At Suspected Lower Respiratory Tract Infect ion: [facility] 0.1-0.25: Low risk for bacterial infection; Antibiotic s discouraged. > 0.25: Increased likelihood for bacterial infection; Antibiotics encouraged. Suspected Sepsis: 0.1-0.5: Low likelihood for sepsis; Anti biotics discouraged. > 0.5: Increased Likelihood for sepsis; Antibiotics encouraged. > 2.0: High risk of sepsis/septic shock; Antibiotics s trongly encouraged. Decisions on antibiotic use should not be based solely on procalcitonin levels. If antibiotics are administered, repeat procalcitonin testing should be performed every 2-3 da ys to consider early antibiotic cessation. PCT is a dynamic biomarker and most useful when trends are analyzed ove r time in accompaniment with other clinical data. Performing Organization Address [facility] Phone Number [address] [phone] C-REACTIVE PROTEIN (INFLAMMATION) (02/02/2020 9:11 PM CDT) Pathologist Sig [facility] CRP 42.1 (H) 0.0 - 8.0 mg/L [facility] Specimen Blood Performing Organization Address [facility] Phone Number [address] [address] [phone] BRAIN NATRIURETIC PEPTIDE (02/02/2020 9:11 PM CDT) Pathologist Sig nature BNP 168 (H) 0 - 100 pg/mL [facility] Specimen Blood Performing Organization Address [facility] Phone Number [address] [phone] HEPATIC FUNCTION PANEL (02/02/2020 9:11 PM CDT) Pathologist Sig nature Alkaline Phosphatase 116 30 - 150 U/L [facility] AST - SGOT 85 (H) 0 - 35 U/L [facility] ALT - SGPT 44 0 - 55 U/L [facility] Bilirubin Total 2.3 (H) 0.2 - 1.2 mg/dL [facility] Bilirubin Indirect 0.7 0.0 - 0.8 mg/dL [facility] Bilirubin Direct 1.6 (H) 0.0 - 0.4 mg/dL [facility] Albumin 1.7 (L) 3.5 - 5.0 g/dL [facility] Protein Total 6.1 6.0 - 8.2 g/dL [facility] Specimen Blood Performing Organization Address [facility] Phone Number [address] [phone] MAGNESIUM (02/02/2020 9:11 PM CDT) Pathologist Sig nature Magnesium 1.7 (L) 1.8 - 2.4 mg/dL [facility] Specimen Blood Performing Organization Address [facility] Phone Number [address] [phone] RENAL FUNCTION PANEL (02/02/2020 9:11 PM CDT) Pathologist Sig nature Glucose 121 (H) 70 - 100 mg/dL [facility] BUN 60 (H) 6 - 22 mg/dL [facility] Creatinine 2.20 (H) 0.80 - 1.30 [facility] mg/dL [facility] BUN/Creatinine Ratio 27.3 (H) 10.0 - 25.0 [facility] Sodium 131 (L) 135 - 145 meq/L [facility] Potassium 4.4 3.5 - 5.3 meq/L [facility] Chloride 100 99 - 110 meq/L [facility] CO2 26 20 - 29 meq/L [facility] Anion Gap with K 9 6 - 20 meq/L [facility] Calcium 8.0 (L) 8.5 - 10.5 [facility] mg/dL [facility]IN[facility] Phosphorus 3.9 2.5 - 4.5 mg/dL [facility] Albumin 1.7 (L) 3.5 - 5.0 g/dL [facility] Corrected Calcium 9.8 8.5 - 10.5 [facility] mg/dL CLINIC Age 74 Years [facility] eGFR Non- 30 (L) >=60 [facility] Ug[place] mL/min/1.73m2 [facility] eGFR 36 (L) >=60 [facility] mL/min/1.73m2 [facility] Specimen Blood Performing Organization Address [facility] Phone Number [address] [address] [phone] PROTIME/INR (02/02/2020 9:11 PM CDT) Pathologist Sig nature Protime 18.9 (H) 12.0 - 14.5 secs [facility] INR 1.6 (L) 2.0 - 3.5 [facility] Specimen Blood Narrative Performed At Normal INR reference range (patients not on oral [facility] anticoagulants) 0.9-1.1. INR Standard Intensity = (2.0 - 3.0) INR Higher Intensity = (2.5 - 3.5) Performing Organization Address City/[facility]/Zipcode Phone Number [address] [address] [phone] LACTIC ACID (02/02/2020 9:11 PM CDT) Pathologist Sig nature Lactic Acid 1.1 0.5 - 2.2 mmol/L [facility] Specimen Blood Performing Organization Address [facility]/Zipcode Phone Number [address] [phone] LAB ONLY-COMPLETE BLOOD COUNT WITH DIFFERENTIAL (02/02/2020 9:10 PM CDT) WBC 5.3 4.0 - 11.0 [facility] K/uL CLINIC RBC 1.88 (L) 4.40 - 5.80 [facility] M/uL CLINIC Hemoglobin 7.4 (L) 13.5 - 17.5 [facility] g/dL [facility] Hematocrit 21.5 (L) 40.0 - 50.0 [facility] % [facility] MCV 114.4 (H)Comment: 80.0 - 98.0 [facility] Macrocytosis DE CLINIC present. MCH 39.4 (H) 25.5 - 34.0 [facility] pg [facility] MCHC 34.4 31.5 - 36.5 [facility] g/dL CLINIC RDW-CV 18.2 (H) 11.5 - 15.5 [facility] % [facility] RDW-SD 77.5 (H) 35.5 - 50.0 [facility] Platelet Count 111 (L) 140 - 400 [facility] K/uL [facility] MPV 10.1 8.5 - 12.0 [facility] Seg Neut Absolute 3.6 1.8 - 8.0 [facility] K/uL [facility] Lymphocytes 1.0 0.8 - 4.1 [facility] Absolute K/uL CLINIC Monocytes Absolute 0.5 0.0 - 1.0 [facility] K/uL CLINIC Eosinophils 0.1 0.0 - 0.7 [facility] Absolute K/uL CLINIC Basophil Absolute 0.0 0.0 - 0.2 [facility] K/uL CLINIC Immature 0.01 0.00 - 0.06 [facility] Granulocyte K/uL CLINIC Absolute Neutrophils Abs. 3,600 /uL [facility] (Segs and Bands) [facility] Neutrophils Percent 69.0 % [facility] Lymphocytes Percent 19.6 % [facility] Monocytes Percent 8.7 % [facility] Immature 0.2 % [facility] Granulocyte Percent CLINIC Eosinophils Percent 2.1 % [facility] Basophil Percent 0.4 % [facility] Nucleated RBC 0 /100 WBC's [facility] Specimen Blood Performing Organization Address [facility]/Zipcode Phone Number [address] [address] [phone] AMMONIA (02/02/2020 9:09 PM CDT) Pathologist Sig nature Ammonia 77 (H) 10 - 45 uMol/L [facility] Specimen Blood Performing Organization Address [facility] Phone Number [address] [phone] documented in this encounter Visit Diagnoses Diagnosis Hypervolemia, unspecified hypervolemia t ype - Primary Septic arthritis of knee, right (HCC) Pyogenic arthritis, lower leg Thrombocytopenia (HCC) Thrombocytopenia, unspecified Obesity, morbid, BMI 40.0-49.9 (HCC) Gastric varices Varices of other sites Cirrhosis of liver (HCC) Cirrhosis of liver without mention of al cohol Anemia Anemia, unspecified Chronic diastolic heart failure (HCC) Chronic diastolic heart failure H/O alcohol abuse Nondependent alcohol abuse, in remission Knee pain, right Pain in joint, lower leg documented in this encounter Discharge Diagnoses Not on filedocumented in this encounter Administered Medications Medication Order MAR Action Action Date Dose Rate Site acetaminophen (TYLENOL) tablet Given 02/12/2020 6:11 AM CDT 650 mg 650 mg 650 mg, Oral, Three times a day prn, Starting 02/02/20 at 1726, Until Discontinued, mild pain, If inadequate response [...] of acetaminophen (Never exceeding 4 grams/day)., Given 02/10/2020 9:01 PM CDT 650 mg Given 02/09/2020 10:04 PM CDT 650 mg bisacodyl (DULCOLAX) suppository 10 mg 10 mg, Rectal, One time a day prn, Starting Sat 0 at 1726, Until Discontinued, constipation, Use SECOND for constipatio n. If patient cannot take oral medications, use first for constipation., bumetanide (BUMEX) tablet 0.5 mg Given 02/13/2020 8:24 AM CDT 0.5 mg 0.5 mg, Oral, Daily, First dose on 02/10/20 at 0900, Until Discontinued Given 02/12/2020 8:11 AM CDT 0.5 mg Given 02/11/2020 11:46 AM CDT 0.5 mg cefTRIAXone (ROCEPHIN) 2000 mg/20 mL IV Given 02/12/2020 9:08 P M CDT 2,000 mg syringe in sterile water 2,000 mg, IV, Every twenty four hours, First dose on 02/02/20 at 2130, Until Discontinued, 20 mL, Administer over 5 minutes. Flush IV line with normal saline prior and post administration. Do not administer with calcium containing solutions (example: Lactated Ringer's, TPN with calcium, etc) as these are not compatible with ceftriaxone. Administer over 5 minutes., Given 02/11/2020 9:12 PM CDT 2,000 mg Given 02/10/2020 9:02 PM CDT 2,000 mg docusate sodium (THEREVAC-SB MINI;ENEMEE Z MINI) 283 MG enema 1 enema 1 enema, Rectal, One time a day prn, Starting Sat 02/01 at 1726, Until Discontinued, constipation, Use THIRD for constipation - if no BM 8 hours after ducolax suppository. If patient cannot take oral medic ations, use second for constipation., heparin (porcine) injection solution Given 02/13/2020 6:35 AM C DT 5,000 Units 5,000 Units 5,000 Units, Subcutaneous, Every eight hours, First dose on Tue02/04/20 at 2200, Until Discontinued, 1 mL Given 02/12/2020 9:08 PM CDT 5,000 Units Given 02/12/2020 4:02 PM CDT 5,000 Units hEParin 100 units/ mL injection for Given 02/13/2020 5:59 AM CD T 300 Units heplock FLUSH 300 Units (3 mL), IV, Two times a day and prn, First dose on Tue02/03/20 at 1700, Until Discontinued, 3 mL, Flush PICC lumen with 10 mL sodium chloride 0.9% followed by heparin 300 units (100 units/mL) twice daily at 6725-3402 and after each use, Given 02/12/2020 6:09 PM CDT 300 Units Given 02/12/2020 6:06 AM CDT 300 Units HYDROmorphone (DILAUDID) injection solution Given 01/19 4:10 PM CDT 0.25 mg (conc: 0.5 mg/0.5mL) 0.25 mg 0.25 mg, IV, Every three hours prn, Starting Tue02/03/20 at 1309, Until Discontinued, breakthrough pain, 0.25 mL Given 02/03/2020 11:24 PM CDT 0.25 mg lactulose oral solution (10 gm/15 mL) 15 mL Given 02/13/2020 8:25 AM CDT 15 mL 15 mL, Oral, Daily, First dose on Tue02/10/20 at 0900, Until Discontinued, 15 mL Given 02/12/2020 8:12 AM CDT 15 mL Given 02/11/2020 11:46 AM CDT 15 mL levothyroxine tablet 150 mcg Given 02/13/2020 6:35 AM CDT 150 mcg 150 mcg, Oral, DAILY, First dose on Tue02/03/20 at 0700, Until Discontinued Given 02/12/2020 6:08 AM CDT 150 mcg Given 02/11/2020 6:19 AM CDT 150 mcg magnesium oxide tablet 500 mg Given 02/13/2020 8:24 AM CDT 500 mg 500 mg, Oral, Daily, First dose on Tue02/03/20 at 0900, Until Discontinued Given 02/12/2020 8:11 AM CDT 500 mg Given 02/11/2020 11:46 AM CDT 500 mg melatonin tablet 3 mg Given 02/10/2020 9:01 PM CDT 3 mg 3 mg, Oral, Bedtime prn, Starting 02/02/20 at 1726, Until Discontinued, other (Specify), insomnia, If inadequate response in 60 minutes, may proceed to next choice option or, if no other options, contact provider., Given 02/09/2020 10:04 PM CDT 3 mg nalOXone (NARCAN) injection solution (vi al) 0.2 mg 0.2 mg, IV, Every two minutes prn, Starting Sun 0 at 1309, Until Discontinued, respiratory depression, respiratory arre st, 0.5 mL omeprazole (priLOSEC) capsule 40 mg Given 02/13/2020 6:35 AM CDT 40 mg 40 mg, Oral, Two times a day before meals, First dose on 02/02/20 at 1730, Until Discontinued, Swallow cap whole. Do not crush, chew or open., Given 02/12/2020 6:09 PM CDT 40 mg Given 02/12/2020 6:08 AM CDT 40 mg ondansetron (ZOFRAN ODT) dispersible tab let 4 mg 4 mg, Oral, Every four hours prn, Starti ng Sat 02/02/20 at 1726, Until Discontinued, nausea, vomiting, Use FIRST. If ineffect austen after 30 minutes use ondansetron IV, ondansetron (ZOFRAN) injection solution 4 mg 4 mg, IV, Every four hours prn, Starting 02/02/20 at 1726, Until Discontinued, nausea, vomiting, 2 mL, Use SECOND. If i neffective after 30 minutes and ondansetron ODT used, call physician for alternative . If preference is to further dilute for IV administration: First draw up patient-sp ecific dose, then dilute to 10 mL with 0.9% sodium chloride., oxyCODONE (OXY-IR) tablet 10 mg Given 02/13/2020 4:09 AM CDT 10 mg 10 mg, Oral, Every six hours prn, Starting 02/03/20 at 1308, Until Discontinued, severe pain Given 02/12/2020 8:30 PM CDT 10 mg Given 02/12/2020 8:11 AM CDT 10 mg oxyCODONE (OXY-IR) tablet 5 mg Given 02/12/2020 2:09 AM CDT 5 mg 5 mg, Oral, Every six hours prn, Starting 02/03/20 at 1308, Until Discontinued, moderate pain Given 02/11/2020 1:54 PM CDT 5 mg Given 02/10/2020 9:02 PM CDT 5 mg senna-docusate sodium Given 02/11/2020 6:19 AM CDT 2 tablets (SENOKOT-S;PERICOLACE) tablet 2 tablet 2 tablet, Oral, Two times a day prn, Starting 02/02/20 at 1726, Until Discontinued, constipation, Use FIRST for constipation unless patient cannot take oral medications., Given 02/08/2020 12:44 PM CDT 2 tablets sodium chloride 0.9% flush (adult) 10 mL Given 02/13/2020 8:25 AM CDT 10 mL 10 mL, IV, Two times a day and prn, First dose on 02/02/20 at 2100, Until Discontinued, 10 mL, Flush IV line as scheduled and as often as necessary before and after meds., Given 02/12/2020 9:09 PM CDT 10 mL Given 02/12/2020 8:12 AM CDT 10 mL sodium chloride 0.9% prefilled 10 mL syringe Given 5:59 AM CDT 10 mL (Materials Management Item) 10 mL 10 mL, IV, Two times a day and prn, First dose on 02/03/20 at 1700, Until Discontinued, 10 mL, Flush PICC lumen with 10 mL sodium chloride 0.9% followed by heparin 300 units (100 units/mL) twice daily at 7215-0346 and after each use, Given 02/12/2020 6:09 PM CDT 10 mL Given 02/12/2020 6:06 AM CDT 10 mL Medication Order MAR Action Action Date Dose Rate Site bumetanide (BUMEX) injection Given 02/03/2020 9:16 PM CDT 2 mg solution 2 mg 2 mg, IV, Every eight hours, First dose on 02/02/20 at 1730, Until Discontinued, 10 mL Given 02/03/2020 2:44 PM CDT 2 mg Given 02/03/2020 6:46 AM CDT 2 mg bumetanide (BUMEX) injection solution 2 mg Given 02/04/2020 9:43 AM CDT 2 mg 2 mg, IV, Every eight hours, First dose on 02/04/20 at 0920, Until Discontinued, 8 mL bumetanide (BUMEX) injection solution 3 mg Given 02/07/2020 6:27 AM CDT 3 mg 3 mg, IV, Every eight hours, First dose on 02/04/20 at 1425, Until Discontinued, 20 mL, Administer metolazone 30 minutes prior to bumetanide in order to optimize diuretic effect., Given 02/06/2020 10:37 PM CDT 3 mg Given 02/06/2020 2:52 PM CDT 3 mg lactulose oral solution (10 gm/15 mL) 15 mL Given 02/09/2020 8:29 AM CDT 15 mL 15 mL, Oral, Three times a day, First dose on 02/02/20 at 1730, Until Discontinued, 15 mL Given 02/08/2020 9:16 PM CDT 15 mL Given 02/08/2020 2:09 PM CDT 15 mL magnesium sulfate 2 gm/50 mL IV solution 2 g Given 02/07/2020 11:12 AM CDT 2 g 2 g, IV, One time, 1 dose, Irene 02/07/20 at 1105, 50 mL metOLazone (ZAROXOLYN) tablet 5 mg Given 02/08/2020 12:25 PM CDT 5 mg 5 mg, Oral, Daily, First dose on Irene 02/07/20 at 1330, Until Discontinued, Administer metolazone 30 minutes prior to bumetanide in order to optimize diuretic effect., Given 02/07/2020 1:18 PM CDT 5 mg sodium chloride 0.9% (bolus) IV Given 02/07/2020 6:45 PM CDT 25 0 mL 500 mL/hr solution 250 mL 250 mL, IV, at 500 mL/hr, Bolus, 1 dose, Irene 02/07/20 at 1930, 500 mL traMADol (ULTRAM) tablet 50 mg Given 02/03/2020 9:54 AM CDT 50 mg 50 mg, Oral, Two times a day prn, Starting 02/02/20 at 1721, Until 02/03/20 at 1309, moderate pain, severe pain, Recommended maximum daily dose of tramadol = 400 mg. Recommended maximum daily dose in patients 75 years or older = 300 mg., documented in this encounter"
[2020-02-14] MEDS: cefTRIAXone 2 GM in Sodium Chloride 0.9% 100 ML IV SCH (19:52)
[2020-02-14] MEDS: Sodium Chloride 0.9% 10 ML Syringe IV SCH (19:53)
[2020-02-14] MEDS: Sodium Chloride 0.9% 10 ML Syringe IV PRN (20:29)
[2020-02-14] MEDS: Temazepam 15 MG Cap PO PRN (23:38)
[2020-02-15] MEDS: Spironolactone 25 MG Tab PO SCH (07:44)
[2020-02-15] MEDS: Thiamine 100 MG Tab PO SCH (07:44)
[2020-02-15] MEDS: Cyanocobalamin (Vitamin B12) 100 MCG Tab PO SCH (07:45)
[2020-02-15] MEDS: traMADol 50 MG Tab PO PRN (07:45)
[2020-02-15] MEDS: Bumetanide 1 MG Tab PO SCH (07:45)
[2020-02-15] MEDS: Omeprazole 20 MG Cap.CR PO SCH ×2 (07:45→18:20)
[2020-02-15] MEDS: Levothyroxine 150 MCG Tab PO SCH (07:45)
[2020-02-15] MEDS: Folic Acid 1 MG Tab PO SCH (07:46)
[2020-02-15] MEDS: Lactulose Soln 10 GM/15 ML 30 ML UD Cup PO SCH ×3 (07:46→18:20)
[2020-02-15] MEDS: Acetaminophen 500 MG Tab PO PRN (12:38)
[2020-02-15] MEDS: cefTRIAXone 2 GM in Sodium Chloride 0.9% 100 ML IV SCH (20:09)
[2020-02-15] MEDS: Sodium Chloride 0.9% 10 ML Syringe IV SCH (20:09)
[2020-02-15] MEDS: Sodium Chloride 0.9% 10 ML Syringe IV PRN (20:40)
[2020-02-16] MEDS: Acetaminophen 500 MG Tab PO PRN ×2 (05:09→19:20)
[2020-02-16] MEDS: traMADol 50 MG Tab PO PRN (06:34)
[2020-02-16 08:02] LABS: PTT,PARTIAL THROMBOPLSTIN TIME 38.7 SEC (24.5-32.8)
[2020-02-16] MEDS: Lactulose Soln 10 GM/15 ML 30 ML UD Cup PO SCH ×3 (08:18→18:08)
[2020-02-16] MEDS: Bumetanide 1 MG Tab PO SCH (08:18)
[2020-02-16] MEDS: Thiamine 100 MG Tab PO SCH (08:19)
[2020-02-16] MEDS: Omeprazole 20 MG Cap.CR PO SCH ×2 (08:19→18:08)
[2020-02-16] MEDS: Cyanocobalamin (Vitamin B12) 100 MCG Tab PO SCH (08:19)
[2020-02-16] MEDS: Spironolactone 25 MG Tab PO SCH (08:19)
[2020-02-16] MEDS: Folic Acid 1 MG Tab PO SCH (08:19)
[2020-02-16] MEDS: Levothyroxine 150 MCG Tab PO SCH (08:19)
[2020-02-16] MEDS: Sodium Chloride 0.9% 10 ML Syringe IV PRN ×3 (08:20→18:09)
[2020-02-16 08:59] LABS: CHLORIDE,CL 99 mmol/L (98-107); SODIUM,NA 134 mmol/L (136-145)
--- NOTE | 2020-02-16 09:36 | PCM.PN ---
- General Info Date of Service: 02/16/20 Admission Dx/Problem (Free Text): Admission Diagnosis/Problem Admission Diagnosis/Problem Septic arthritis Subjective Update: Patient has been experiencing increased confusion since admission into our swing bed unit with noncompliance with his Spironolactone therapy. He is an extremely poor historian secondary to his confusion. Functional Status: Reports: Pain Controlled, Tolerating Diet, Urinating, New Symptoms. Denies: Ambulating Pain Score: 5 - Review of Systems General: Reports: Weakness (Stable chronic). Denies: Fever, Fatigue, Malaise, Chills, Night Sweats, Appetite (Adequate) HEENT: Reports: No Symptoms Pulmonary: Reports: No Symptoms. Denies: Shortness of Breath, Cough Cardiovascular: Reports: Edema (Severe anasarca) Gastrointestinal: Reports: No Symptoms. Denies: Abdominal Pain Genitourinary: Reports: No Symptoms Musculoskeletal: Reports: Joint Pain (Right knee), Joint Swelling (Right knee) Skin: Reports: Bruising. Denies: Diaphoresis Neurological: Reports: Confusion, Difficulty Walking, Weakness Psychiatric: Reports: Confusion. Denies: Agitation, Hallucinations, Homicidal Ideation - Patient Data Vitals - Most Recent: Last Vital Signs Temp 36.5 C 02/16/20 08:00 Pulse 75 02/16/20 08:00 Resp 20 02/16/20 08:00 BP 104/47 L 02/16/20 08:00 Pulse Ox 97 02/16/20 08:00 Vital Signs (72 hours) 02/13/20 02/14/20 02/15/20 14:05 08:00 07:50 Temperature [ Oral] Temperature [ 36.3 C 37.2 C 36.4 C Temporal] Pulse, 88 78 82 Peripheral [ Right Pulse Oximetry] Respiratory 16 14 16 Rate Blood Pressure 110/48 L 94/46 L 110/66 [Left Upper Arm ] O2 Sat by Pulse 100 93 L 96 Oximetry 02/16/20 08:00 Temperature [ 36.5 C Oral] Temperature [ Temporal] Pulse, 75 Peripheral [ Right Pulse Oximetry] Respiratory 20 Rate Blood Pressure 104/47 L [Left Upper Arm ] O2 Sat by Pulse 97 Oximetry Weight - Most Recent: 111.13 kg I&O - Last 24 Hours: Intake & Output 02/15/20 02/16/20 02/16/20 22:59 06:59 14:59 Intake Total 100 Balance 100 Imaging Impressions - Last 24 Hours: None Lab Results Last 24 Hours: Laboratory Results - last 24 hr 02/16/20 02/16/20 02/16/20 Range/Units 07:35 07:35 07:35 WBC 2.5 L (4.0-10.2) K/uL RBC 1.93 L (4.33-5.41) M/uL Hgb 7.6 L (13.1-16.8) g/dL Hct 22.9 L* (39.0-49.0) % MCV 118.7 H (84.0-98.0) fL MCH 39.4 H (28.2-33.3) pg MCHC 33.2 (31.7-36.0) g/dL RDW 14.8 H (11.2-14.1) % Plt Count 70 L (150-350) K/uL Neut % (Auto) 59.0 (45.0-80.0) % Lymph % (Auto) 21.5 (10.0-50.0) % [place] % (Auto) 16.3 H (2.0-14.0) % Eos % (Auto) 2.8 (0.0-5.0) % Baso % (Auto) 0.4 (0.0-2.0) % Neut # (Auto) 1.45 (1.40-7.00) K/uL Lymph # (Auto) 0.53 (0.50-3.50) K/uL [place] # (Auto) 0.40 (0.00-1.00) K/uL Eos # (Auto) 0.07 (0.00-0.50) K/uL Baso # (Auto) 0.01 (0.00-0.20) K/uL PT 14.9 H (9.5-12.0) SEC INR 1.5 APTT 38.7 H (24.5-32.8) SEC Sodium 134 L (136-145) mmol/L Potassium 3.6 (3.5-5.1) mmol/L Chloride 99 (98-107) mmol/L Carbon Dioxide 29.1 (21.0-32.0) mmol/L BUN 40 H (7-18) mg/dL Creatinine 1.99 H (0.51-1.17) mg/dL Est Cr Clr Drug Dosing TNP Estimated GFR (MDRD) 33 mL/min Glucose 117 H (74-106) mg/dL Uric Acid 8.9 H (2.6-7.2) mg/dL Calcium 8.5 (8.5-10.1) mg/dL Magnesium 1.9 (1.8-2.4) mg/dL Total Bilirubin 1.9 H (0.2-1.0) mg/dL AST 45 H (15-37) U/L ALT 26 (12-78) U/L Alkaline Phosphatase 80 (46-116) IU/L Ammonia (11-32) umol/L Total Protein 6.3 L (6.4-8.2) g/dL Albumin 1.4 L (3.4-5.0) g/dL Vitamin B12 2313 H (193-986) pg/mL TSH, Ultra Sensitive 3.772 H (0.358-3.740) mIU/mL 02/16/20 Range/Units 07:35 WBC (4.0-10.2) K/uL RBC (4.33-5.41) M/uL Hgb (13.1-16.8) g/dL Hct (39.0-49.0) % MCV (84.0-98.0) fL MCH (28.2-33.3) pg MCHC (31.7-36.0) g/dL RDW (11.2-14.1) % Plt Count (150-350) K/uL Neut % (Auto) (45.0-80.0) % Lymph % (Auto) (10.0-50.0) % [place] % (Auto) (2.0-14.0) % Eos % (Auto) (0.0-5.0) % Baso % (Auto) (0.0-2.0) % Neut # (Auto) (1.40-7.00) K/uL Lymph # (Auto) (0.50-3.50) K/uL [place] # (Auto) (0.00-1.00) K/uL Eos # (Auto) (0.00-0.50) K/uL Baso # (Auto) (0.00-0.20) K/uL PT (9.5-12.0) SEC INR APTT (24.5-32.8) SEC Sodium (136-145) mmol/L Potassium (3.5-5.1) mmol/L Chloride (98-107) mmol/L Carbon Dioxide (21.0-32.0) mmol/L BUN (7-18) mg/dL Creatinine (0.51-1.17) mg/dL Est Cr Clr Drug Dosing Estimated GFR (MDRD) mL/min Glucose (74-106) mg/dL Uric Acid (2.6-7.2) mg/dL Calcium (8.5-10.1) mg/dL Magnesium (1.8-2.4) mg/dL Total Bilirubin (0.2-1.0) mg/dL AST (15-37) U/L ALT (12-78) U/L Alkaline Phosphatase (46-116) IU/L Ammonia 100 H (11-32) umol/L Total Protein (6.4-8.2) g/dL Albumin (3.4-5.0) g/dL Vitamin B12 (193-986) pg/mL TSH, Ultra Sensitive (0.358-3.740) mIU/mL [place] Results Last 24 Hours: None Med Orders - Current: Current Medications Acetaminophen (Tylenol Extra Strength) 1,000 mg PO Q6HR PRN PRN Reason: Pain (moderate 4-6) Last Admin: 02/16/20 05:09 Dose: 1,000 mg Documented by: Bisacodyl (Dulcolax) 5 mg PO DAILY PRN PRN Reason: Constipation Bumetanide (Bumex) 0.5 mg PO DAILY [facility] Last Admin: 02/16/20 08:18 Dose: 0.5 mg Documented by: Cyanocobalamin (Vitamin B12) 100 mcg PO DAILY [facility] Last Admin: 02/16/20 08:19 Dose: 100 mcg Documented by: Folic Acid (Folic Acid) 1 mg PO DAILY [facility] Last Admin: 02/16/20 08:19 Dose: 1 mg Documented by: Heparin Sodium (Porcine) (Heparin Lock Flush 100 Units/Ml) 300 units IVPUSH DAILY@2030 [facility] Last Admin: 02/15/20 20:40 Dose: 300 units Documented by: Heparin Sodium (Porcine) (Heparin Lock Flush 100 Units/Ml) 300 units IVPUSH ASDIRECTED PRN PRN Reason: Keep Vein Open Last Admin: 02/16/20 08:19 Dose: 300 units Documented by: Lactulose (Cephulac) 10 gm PO TID [facility] Last Admin: 02/16/20 08:18 Dose: 10 gm Documented by: Levothyroxine Sodium (Levothyroxine) 150 mcg PO ACBREAKFAST [facility] Last Admin: 02/16/20 08:19 Dose: 150 mcg Documented by: Omeprazole (Omeprazole) 20 mg PO BIDAC [facility] Last Admin: 02/16/20 08:19 Dose: 20 mg Documented by: Sodium Chloride (Saline Flush) 10 ml IV ASDIRECTED PRN PRN Reason: IV Use Last Admin: 02/16/20 08:20 Dose: 10 ml Documented by: Sodium Chloride (Saline Flush) 10 ml IV DAILY@1999 [facility] Last Admin: 02/15/20 20:09 Dose: 10 ml Documented by: Spironolactone (Aldactone) 50 mg PO DAILY [facility] Last Admin: 02/16/20 08:19 Dose: 50 mg Documented by: Temazepam (Restoril) 15 mg PO BEDTIME PRN PRN Reason: Insomnia Last Admin: 02/14/20 23:38 Dose: 15 mg Documented by: Thiamine HCl (Vitamin B-1) 100 mg PO DAILY [facility] Last Admin: 02/16/20 08:19 Dose: 100 mg Documented by: Tramadol HCl (Ultram) 50 mg PO BID PRN PRN Reason: Pain (severe 7-10) Last Admin: 02/16/20 06:34 Dose: 50 mg Documented by: Discontinued Medications Ceftriaxone Sodium 2 gm/ (Sodium Chloride) 100 mls @ 200 mls/hr IV Q24H [facility] Stop: 02/15/20 20:29 Last Admin: 02/15/20 20:09 Dose: 200 mls/hr Documented by: - Exam Quality Assessment: Central Line/PICC, DVT Prophylaxis. No: Supplemental Oxygen, Urine Catheter, Skin Breakdown, Restraints General: Cooperative, Sedated, Other (Progressive confusion) HEENT: Pupils Equal, Pupils Reactive, EOMI, Mucous Membr. Moist/[place] Neck: Supple, Trachea Midline, No JVD, No Thyromegaly, Carotid Bruit (Mild bilateral carotid bruits versus transmitted heart sounds). No: Lymphadenopathy, Thyromegaly Lungs: Normal Respiratory Effort, Rales (Mild bilateral basilar). No: Rhonchi, Rub, Wheezing Cardiovascular: Regular Rate, Regular Rhythm, Murmurs (1/6 MYLENE of the aortic and mitral valves). No: Gallops, Rubs GI/Abdominal Exam: Normal Bowel Sounds, Soft, Non-Tender, No Abnormal Bruit, No Mass, Pelvis Stable. No: No Organomegaly (Difficult to assess secondary to his probable abdominal ascites and obesity), Guarding (Male) Exam: Deferred Back Exam: Normal Inspection, Full Range of Motion. No: CVA Tenderness (L), CVA Tenderness (R), Muscle Spasm Extremities: Pedal Edema (Severe lymphedema of all extremities especially in his lower legs with moderate to severe anasarca. Moderate right knee effusion with no erythema, increased warmth, lymphangitis, etc. Laceration site is intact with no evidence of infection.), Joint Swelling (Right knee as above), Limited Range of Motion (Right knee). No: Mami's Sign, Increased Warmth, Redness Peripheral Pulses: 0: Dorsalis Pedis (L) (Difficult to palpate secondary to his lymphedema), Dorsalis Pedis (R) (As above), 2+: Radial (L), Radial (R) (PICC line in antecubital region) Skin: Ecchymosis (Diffuse ecchymosis with no significant petechiae) Wound/Incisions: Healing Well, No Drainage. No: Erythema Neurological: Other (Increased confusion as above) Psy/Mental Status: No: Agitated, Suicidal Ideation, Hallucinations, Withdrawal Symptoms Sepsis Event Note - Evaluation Sepsis Screening Result: No Definite Risk - Focused Exam Vital Signs: Vital Signs Temp Pulse Resp BP Pulse Ox 02/16/20 08:00 36.5 C 75 20 104/47 L 97 - Problem List & Annotations (1) Confusion SNOMED Code(s): 374605974 Code(s): R41.0 - DISORIENTATION, UNSPECIFIED Status: Chronic Priority: High Current Visit: Yes Annotation/Comment:: Progressive confusion since admission to our swing bed unit. Patient has been refusing recommended lactulose therapy. 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 Prognosis is extremely poor as below. Attempt to increase compliance with his lactulose. Note elevated ammonia levels as below with normal vitamin B12 level. Patient is already on thiamine supplementation. UA with culture and sensitivity is still pending. TSH is mildly elevated today with increased Synthroid therapy secondary to additional iron sulfate as below. (2) Septic joint of right knee joint SNOMED Code(s): 117747852, 028598104 Code(s): M00.9 - PYOGENIC ARTHRITIS, UNSPECIFIED Status: Acute Priority: High Current Visit: Yes Qualifiers: Septic arthritis organism: due to other bacteria Qualified Code(s): M00.861 - Arthritis due to other bacteria, right knee Annotation/Comment:: Patient transferred from [facility] after I&D of right knee on 01/18/2020 with initiation of IV Rocephin therapy in that facility. IV Rocephin therapy was completed yesterday. PT and OT are still in effect. No recent fever with occasional decreased blood pressures, however no other clinical evidence of sepsis. No leukocytosis today, however note pancytopenia. Prognosis is extremely poor secondary to multiple health issues as below with patient's family to be contacted once again and reconsider his current FULL CODE STATUS. Likely long-term fci versus swing bed placement will be necessary. Consider hospice. (3) Heart failure SNOMED Code(s): 78824749 Code(s): I50.9 - HEART FAILURE, UNSPECIFIED Status: Chronic Priority: High Current Visit: Yes Qualifiers: Heart failure type: combined systolic and diastolic Annotation/Comment:: No history of chest pain or anginal type symptoms. 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 Note significant anasarca with alcoholic cirrhosis and chronic renal insufficiency contributing factors. Change from oral Bumex to IV Lasix therapy. Prognosis is poor. (4) Hyponatremia SNOMED Code(s): 22364566 Code(s): E87.1 - HYPO-OSMOLALITY AND HYPONATREMIA Status: Chronic Priority: High Current Visit: Yes Annotation/Comment:: Likely secondary to his known CHF with history of cardiomyopathy. No apparent chest pain or anginal type symptoms. Initiate IV Lasix therapy as above. (5) Pancytopenia SNOMED Code(s): 486794748 Code(s): D61.818 - OTHER PANCYTOPENIA Status: Acute Priority: High Current Visit: Yes Onset Date: 02/16/20 Annotation/Comment:: Progressive thrombocytopenia and some moderate leukopenia at this time. No fever. Note recent completion of IV Rocephin as above. Repeat blood work in 5 days. (6) Hyperuricemia SNOMED Code(s): 27746705 Code(s): E79.0 - HYPERURICEMIA W/O SIGNS OF INFLAM ARTHRIT AND TOPHACEOUS DIS Status: Acute Priority: Medium Current Visit: Yes Annotation/Comment:: Continue to observe closely especially in light of change to IV Lasix therapy as above. (7) Hyperammonemia SNOMED Code(s): 6917464 Code(s): E72.20 - DISORDER OF UREA CYCLE METABOLISM, UNSPECIFIED Status: Chronic Priority: High Current Visit: Yes Onset Date: 11/16/19 Annotation/Comment:: Somewhat progressive confusion during his swing bed care, however note lactulose noncompliance. Note history of alcohol abuse and hepatic cirrhosis as above. (8) Hypertension SNOMED Code(s): 12529162 Code(s): I10 - ESSENTIAL (PRIMARY) HYPERTENSION Status: Chronic Priority: Low Current Visit: Yes Qualifiers: Hypertension type: essential hypertension Qualified Code(s): I10 - Essential (primary) hypertension Annotation/Comment:: Some occasional hypotension. Nonsymptomatic for now. Continue to observe closely. (9) Hypoalbuminemia SNOMED Code(s): 475618100 Code(s): E88.09 - OTH DISORDERS OF PLASMA-PROTEIN METABOLISM, NEC Status: Chronic Priority: Medium Current Visit: Yes Onset Date: 11/11/19 Annotation/Comment:: Consider high-protein Glucerna supplements as snacks, however note alcoholic cirrhosis. Consider transfer and/or admission in this facility for IV albumin supplementation. Continue close observation. (10) Hypothyroidism (acquired) SNOMED Code(s): 420443288 Code(s): E03.9 - HYPOTHYROIDISM, UNSPECIFIED Status: Chronic Priority: High Current Visit: Yes Annotation/Comment:: As above. TSH mildly elevated on 02/16/2020. Consider repeat in 4 weeks. (11) Mixed anxiety depressive disorder SNOMED Code(s): 633931715 Code(s): F41.8 - OTHER SPECIFIED ANXIETY DISORDERS Status: Chronic Priority: Medium Current Visit: Yes Annotation/Comment:: Stable by history. Note history of alcohol abuse. (12) Osteoarthritis SNOMED Code(s): 198486244 Code(s): M19.90 - UNSPECIFIED OSTEOARTHRITIS, UNSPECIFIED SITE Status: Chronic Priority: High Current Visit: Yes Qualifiers: Osteoarthritis location: multiple joints Osteoarthritis type: primary Qualified Code(s): M89.49 - Other hypertrophic osteoarthropathy, multiple sites Annotation/Comment:: Stable by history, however moderate control. No history of acute gout attacks. (13) Peptic reflux disease SNOMED Code(s): 793627036 Code(s): K21.9 - GASTRO-ESOPHAGEAL REFLUX DISEASE WITHOUT ESOPHAGITIS Status: Chronic Priority: Medium Current Visit: Yes Annotation/Comment:: History of gastric varices secondary to his alcohol abuse with significant anemia and additional pancytopenia today as above. No direct evidence of acute GI bleed. Initiate iron sulfate with caution. Note current high-dose omeprazole therapy. - Problem List Review Problem List Initiated/Reviewed/Updated: Yes - My Orders Last 24 Hours: My Active Orders 02/15/20 19:13 CULTURE URINE [RM] Routine URINALYSIS W/MICROSCOPIC [UA W/MICROSCOPIC] [URIN] Routine - Assessment Assessment:: As above - Plan Plan:: As above. Extensive precautions were given to the patient, who is in agreement with the treatment plan. Secondary to patient's multiple illnesses as above consider repeat transfer back to [facility] and/or admission to a long-term facility, including swing bed in this facility or [facility]ci on a long-term basis. The patient is still a full code, which needs to be rediscussed with the family. Continue swing bed care for now.
[2020-02-16] MEDS: Furosemide 40 MG/4 ML VIAL IVPUSH SCH ×2 (13:28→18:08)
[2020-02-16] MEDS: Potassium Chloride 20 MEQ Tab.ER PO SCH ×2 (13:28→18:08)
[2020-02-16] MEDS ORDERED: Potassium Chloride 20 MEQ Tab.ER PO SCH (18:00)
[2020-02-16] MEDS: Ferrous Sulfate 325 MG Tab PO SCH (18:08)
[2020-02-16] MEDS: Temazepam 15 MG Cap PO PRN (19:20)
[2020-02-16] MEDS: Sodium Chloride 0.9% 10 ML Syringe IV SCH (19:21)
[2020-02-17] MEDS: Sodium Chloride 0.9% 10 ML Syringe IV PRN ×3 (03:10→12:14)
[2020-02-17] MEDS: Furosemide 40 MG/4 ML VIAL IVPUSH SCH ×3 (03:10→19:38)
[2020-02-17] MEDS: Lactulose Soln 10 GM/15 ML 30 ML UD Cup PO SCH ×3 (08:11→17:16)
[2020-02-17] MEDS: Acetaminophen 500 MG Tab PO PRN ×3 (08:11→20:51)
[2020-02-17] MEDS: Thiamine 100 MG Tab PO SCH (08:12)
[2020-02-17] MEDS: Omeprazole 20 MG Cap.CR PO SCH ×2 (08:12→17:16)
[2020-02-17] MEDS: Spironolactone 25 MG Tab PO SCH (08:12)
[2020-02-17] MEDS: Cyanocobalamin (Vitamin B12) 100 MCG Tab PO SCH (08:12)
[2020-02-17] MEDS: Ferrous Sulfate 325 MG Tab PO SCH ×2 (08:13→17:16)
[2020-02-17] MEDS: Potassium Chloride 20 MEQ Tab.ER PO SCH ×3 (08:13→17:16)
[2020-02-17] MEDS: Folic Acid 1 MG Tab PO SCH (08:13)
[2020-02-17] MEDS: Menthol/Methyl Salicylate 85 GM Tube TOP PRN ×2 (08:44→14:39)
[2020-02-17] MEDS: DULoxetine 30 MG Cap PO SCH (12:14)
[2020-02-17] MEDS: traMADol 50 MG Tab PO PRN ×2 (12:14→19:37)
[2020-02-17] MEDS: Sodium Chloride 0.9% 10 ML Syringe IV SCH (19:38)
[2020-02-17] MEDS: Temazepam 15 MG Cap PO PRN (20:51)
[2020-02-18] MEDS: Sodium Chloride 0.9% 10 ML Syringe IV PRN ×2 (03:17→08:13)
[2020-02-18] MEDS: traMADol 50 MG Tab PO PRN ×2 (03:17→23:17)
[2020-02-18] MEDS: Furosemide 40 MG/4 ML VIAL IVPUSH SCH ×3 (03:17→18:19)
[2020-02-18] MEDS: Ferrous Sulfate 325 MG Tab PO SCH ×2 (07:55→17:46)
[2020-02-18] MEDS: Omeprazole 20 MG Cap.CR PO SCH ×2 (07:56→17:45)
[2020-02-18] MEDS: Lactulose Soln 10 GM/15 ML 30 ML UD Cup PO SCH ×3 (07:56→17:45)
[2020-02-18] MEDS: Potassium Chloride 20 MEQ Tab.ER PO SCH ×3 (07:56→17:46)
[2020-02-18] MEDS: Folic Acid 1 MG Tab PO SCH (07:56)
[2020-02-18] MEDS: Thiamine 100 MG Tab PO SCH (07:56)
[2020-02-18] MEDS: Spironolactone 25 MG Tab PO SCH (07:56)
[2020-02-18] MEDS: Cyanocobalamin (Vitamin B12) 100 MCG Tab PO SCH (07:57)
[2020-02-18] MEDS: DULoxetine 30 MG Cap PO SCH (09:10)
[2020-02-18] MEDS ORDERED: DULoxetine 30 MG Cap PO SCH (12:00)
[2020-02-18] MEDS: Sodium Chloride 0.9% 10 ML Syringe IV SCH (19:52)
[2020-02-18] MEDS: Menthol/Methyl Salicylate 85 GM Tube TOP PRN (23:18)
[2020-02-18] MEDS: Acetaminophen 500 MG Tab PO PRN (23:18)
[2020-02-19] MEDS: Furosemide 40 MG/4 ML VIAL IVPUSH SCH ×3 (03:33→19:44)
[2020-02-19] MEDS: Sodium Chloride 0.9% 10 ML Syringe IV PRN (03:33)
[2020-02-19] MEDS: Lactulose Soln 10 GM/15 ML 30 ML UD Cup PO SCH ×3 (08:28→17:20)
[2020-02-19] MEDS: Spironolactone 25 MG Tab PO SCH (08:28)
[2020-02-19] MEDS: DULoxetine 30 MG Cap PO SCH (08:29)
[2020-02-19] MEDS: Folic Acid 1 MG Tab PO SCH (08:30)
[2020-02-19] MEDS: Thiamine 100 MG Tab PO SCH (08:30)
[2020-02-19] MEDS: Potassium Chloride 20 MEQ Tab.ER PO SCH ×3 (08:30→17:20)
[2020-02-19] MEDS: Omeprazole 20 MG Cap.CR PO SCH ×2 (08:30→17:20)
[2020-02-19] MEDS: Ferrous Sulfate 325 MG Tab PO SCH ×2 (08:30→17:20)
[2020-02-19] MEDS: Cyanocobalamin (Vitamin B12) 100 MCG Tab PO SCH (08:31)
[2020-02-19] MEDS: Acetaminophen 500 MG Tab PO PRN (16:06)
[2020-02-19] MEDS: Sodium Chloride 0.9% 10 ML Syringe IV SCH (19:45)
[2020-02-19] MEDS: traMADol 50 MG Tab PO PRN (21:52)
[2020-02-19] MEDS: Temazepam 15 MG Cap PO PRN (21:53)
[2020-02-20] MEDS: Sodium Chloride 0.9% 10 ML Syringe IV PRN (02:05)
[2020-02-20] MEDS: Furosemide 40 MG/4 ML VIAL IVPUSH SCH (02:05)
[2020-02-20] MEDS: Cyanocobalamin (Vitamin B12) 100 MCG Tab PO SCH (07:42)
[2020-02-20] MEDS: traMADol 50 MG Tab PO PRN ×3 (07:43→21:09)
[2020-02-20] MEDS: Spironolactone 25 MG Tab PO SCH (07:43)
[2020-02-20] MEDS: Thiamine 100 MG Tab PO SCH (07:43)
[2020-02-20] MEDS: Folic Acid 1 MG Tab PO SCH (07:43)
[2020-02-20] MEDS: Potassium Chloride 20 MEQ Tab.ER PO SCH ×3 (07:44→17:19)
[2020-02-20] MEDS: Omeprazole 20 MG Cap.CR PO SCH ×2 (07:45→17:20)
[2020-02-20] MEDS: Ferrous Sulfate 325 MG Tab PO SCH ×2 (07:45→17:20)
[2020-02-20] MEDS: DULoxetine 30 MG Cap PO SCH (07:45)
[2020-02-20] MEDS: Lactulose Soln 10 GM/15 ML 30 ML UD Cup PO SCH ×3 (07:45→17:19)
--- NOTE | 2020-02-20 09:43 | PCM.PN ---
- General Info Date of Service: 02/20/20 - Review of Systems Pulmonary: Reports: Shortness of Breath Cardiovascular: Reports: No Symptoms Gastrointestinal: Reports: No Symptoms Musculoskeletal: Reports: Joint Pain, Joint Swelling Neurological: Reports: No Symptoms - Patient Data Vitals - Most Recent: Last Vital Signs Temp 97.7 F 02/20/20 07:26 Pulse 80 02/20/20 07:26 Resp 16 02/20/20 07:26 BP 98/47 L 02/20/20 07:26 Pulse Ox 99 02/20/20 07:26 Weight - Most Recent: 238 lb 11.2 oz I&O - Last 24 Hours: Intake & Output 02/19/20 02/20/20 02/20/20 18:59 02:59 10:59 Intake Total 1080 776 Output Total 994 653 7936 Balance 480 -400 -324 Med Orders - Current: Current Medications Acetaminophen (Tylenol Extra Strength) 1,000 mg PO Q6HR PRN PRN Reason: Pain (moderate 4-6) Last Admin: 02/19/20 16:06 Dose: 1,000 mg Documented by: Bisacodyl (Dulcolax) 5 mg PO DAILY PRN PRN Reason: Constipation Cyanocobalamin (Vitamin B12) 100 mcg PO DAILY [facility] Last Admin: 02/20/20 07:42 Dose: 100 mcg Documented by: Duloxetine HCl (Cymbalta) 30 mg PO DAILY [facility] Last Admin: 02/20/20 07:45 Dose: 30 mg Documented by: Ferrous Sulfate (Ferrous Sulfate) 325 mg PO BIDMEALS [facility] Last Admin: 02/20/20 07:45 Dose: 325 mg Documented by: Folic Acid (Folic Acid) 1 mg PO DAILY [facility] Last Admin: 02/20/20 07:43 Dose: 1 mg Documented by: Heparin Sodium (Porcine) (Heparin Lock Flush 100 Units/Ml) 300 units IVPUSH DAILY@2030 [facility] Last Admin: 02/19/20 19:44 Dose: 300 units Documented by: Heparin Sodium (Porcine) (Heparin Lock Flush 100 Units/Ml) 300 units IVPUSH ASDIRECTED PRN PRN Reason: Keep Vein Open Last Admin: 02/16/20 08:19 Dose: 300 units Documented by: Lactulose (Cephulac) 20 gm PO TID [facility] Last Admin: 02/20/20 07:45 Dose: 20 gm Documented by: Levothyroxine Sodium (Levothyroxine) 175 mcg PO ACBREAKFAST [facility] Last Admin: 02/20/20 07:44 Dose: 175 mcg Documented by: Methyl Salicylate (Icy Hot Cream) 0 gm TOP QID PRN PRN Reason: Pain (mild 1-3) Last Admin: 02/18/20 23:18 Dose: 1 applic Documented by: Omeprazole (Omeprazole) 20 mg PO BIDAC [facility] Last Admin: 02/20/20 07:45 Dose: 20 mg Documented by: Potassium Chloride (Klor-Con M20) 20 meq PO TID [facility] Last Admin: 02/20/20 07:44 Dose: 20 meq Documented by: Sodium Chloride (Saline Flush) 10 ml IV ASDIRECTED PRN PRN Reason: IV Use Last Admin: 02/20/20 02:05 Dose: 10 ml Documented by: Sodium Chloride (Saline Flush) 10 ml IV DAILY@2000 [facility] Last Admin: 02/19/20 19:45 Dose: 10 ml Documented by: Spironolactone (Aldactone) 50 mg PO DAILY [facility] Last Admin: 02/20/20 07:43 Dose: 50 mg Documented by: Temazepam (Restoril) 15 mg PO BEDTIME PRN PRN Reason: Insomnia Last Admin: 02/19/20 21:53 Dose: 15 mg Documented by: Thiamine HCl (Vitamin B-1) 100 mg PO DAILY [facility] Last Admin: 02/20/20 07:43 Dose: 100 mg Documented by: Tramadol HCl (Ultram) 50 mg PO Q6H PRN PRN Reason: Pain Last Admin: 02/20/20 07:43 Dose: 50 mg Documented by: Discontinued Medications Bumetanide (Bumex) 0.5 mg PO DAILY [facility] Last Admin: 02/16/20 08:18 Dose: 0.5 mg Documented by: Duloxetine HCl (Cymbalta) 30 mg PO DAILY [facility] Furosemide (Lasix) 40 mg IVPUSH Q8H [facility] Last Admin: 02/20/20 02:05 Dose: 40 mg Documented by: Ceftriaxone Sodium 2 gm/ (Sodium Chloride) 100 mls @ 200 mls/hr IV Q24H [facility] Stop: 02/15/20 20:29 Last Admin: 02/15/20 20:09 Dose: 200 mls/hr Documented by: Lactulose (Cephulac) 10 gm PO TID [facility] Last Admin: 02/16/20 08:18 Dose: 10 gm Documented by: Levothyroxine Sodium (Levothyroxine) 150 mcg PO ACBREAKFAST [facility] Last Admin: 02/16/20 08:19 Dose: 150 mcg Documented by: Potassium Chloride (Klor-Con M20) 20 meq PO BID [facility] Tramadol HCl (Ultram) 50 mg PO BID PRN PRN Reason: Pain (severe 7-10) Last Admin: 02/16/20 06:34 Dose: 50 mg Documented by: - Exam Lungs: Decreased Breath Sounds Cardiovascular: Regular Rhythm Extremities: Other (Dressing in place) Sepsis Event Note - Evaluation Sepsis Screening Result: No Definite Risk - Focused Exam Vital Signs: Vital Signs Temp Pulse Resp BP Pulse Ox 02/20/20 07:26 97.7 F 80 16 98/47 L 99 - Problem List Review Problem List Initiated/Reviewed/Updated: Yes - Assessment Assessment:: As above Imp: Septic arthritis - Plan Plan:: As above. Extensive precautions were given to the patient, who is in agreement with the treatment plan. Secondary to patient's multiple illnesses as above consider repeat transfer back to [facility] and/or admission to a long-term facility, including swing bed in this facility or [facility] on a long-term basis. The patient is still a full code, which needs to be rediscussed with the family. Continue swing bed care for now. Plan: Await repeat lab
[2020-02-20] MEDS: Acetaminophen 500 MG Tab PO PRN (12:59)
[2020-02-20] MEDS: Temazepam 15 MG Cap PO PRN (21:09)
[2020-02-20] MEDS: Sodium Chloride 0.9% 10 ML Syringe IV SCH (21:09)
[2020-02-21] MEDS: Folic Acid 1 MG Tab PO SCH (07:37)
[2020-02-21] MEDS: Ferrous Sulfate 325 MG Tab PO SCH ×2 (07:37→16:53)
[2020-02-21] MEDS: Thiamine 100 MG Tab PO SCH (07:37)
[2020-02-21] MEDS: Potassium Chloride 20 MEQ Tab.ER PO SCH ×3 (07:38→18:04)
[2020-02-21] MEDS: Lactulose Soln 10 GM/15 ML 30 ML UD Cup PO SCH ×3 (07:38→18:05)
[2020-02-21] MEDS: Omeprazole 20 MG Cap.CR PO SCH ×2 (07:38→16:53)
[2020-02-21] MEDS: DULoxetine 30 MG Cap PO SCH (07:38)
[2020-02-21] MEDS: Spironolactone 25 MG Tab PO SCH (07:38)
[2020-02-21] MEDS: Cyanocobalamin (Vitamin B12) 100 MCG Tab PO SCH (07:38)
[2020-02-21] MEDS: Sodium Chloride 0.9% 10 ML Syringe IV PRN (07:39)
--- NOTE | 2020-02-21 12:41 | PCM.PN ---
- General Info Date of Service: 02/21/20 Admission Dx/Problem (Free Text): Admission Diagnosis/Problem Admission Diagnosis/Problem Septic arthritis Functional Status: Reports: Pain Controlled, Tolerating Diet, Urinating. Denies: New Symptoms, Incentive Spirometry Pain Score: 5 (Patient is a poor historian) - Review of Systems General: Reports: Weakness (Stable chronic), Fatigue (Stable chronic). Denies: Fever, Malaise, Chills, Night Sweats, Appetite HEENT: Reports: No Symptoms Pulmonary: Reports: No Symptoms. Denies: Shortness of Breath Cardiovascular: Reports: No Symptoms, Edema (Slowly improving). Denies: Chest Pain, Palpitations, Orthopnea, Lightheadedness Gastrointestinal: Reports: Diarrhea (From lactulose with incontinence this morning and yesterday). Denies: Abdominal Pain, Decreased Appetite, Melena, Nausea, Vomiting Genitourinary: Reports: Incontinence Musculoskeletal: Reports: Joint Pain (Right knee), Joint Swelling (Right knee mild) Skin: Reports: Pallor, Bruising (Diffuse especially in upper extremities with additional weeping from his anasarca). Denies: Diaphoresis Neurological: Reports: Confusion (Significantly improved), Difficulty Walking (Stable), Weakness (Stable). Denies: Seizure Psychiatric: Reports: Confusion (As above) - Patient Data Vitals - Most Recent: Last Vital Signs Temp 36.6 C 02/21/20 07:40 Pulse 78 02/21/20 07:40 Resp 16 02/21/20 07:40 BP 87/47 L 02/21/20 07:40 Pulse Ox 92 L 02/21/20 07:40 Vital Signs (72 hours) 02/19/20 02/20/20 02/21/20 08:00 07:26 07:40 Temperature [ 36.6 C 36.5 C 36.6 C Oral] Pulse, 79 80 78 Peripheral [ Right Pulse Oximetry] Respiratory 14 16 16 Rate Blood Pressure 98/42 L 98/47 L 87/47 L [Left Upper Arm ] O2 Sat by Pulse 94 L 99 92 L Oximetry Weight - Most Recent: 108.272 kg I&O - Last 24 Hours: Intake & Output 02/20/20 02/21/20 02/21/20 22:59 06:59 14:59 Intake Total 640 150 920 Output Total 400 300 Balance 240 -150 920 Imaging Impressions - Last 24 Hours: None Lab Results Last 24 Hours: Laboratory Results - last 24 hr 02/21/20 02/21/20 02/21/20 Range/Units 07:25 07:25 07:25 WBC 2.5 L (4.0-10.2) K/uL RBC 1.86 L (4.33-5.41) M/uL Hgb 7.2 L* (13.1-16.8) g/dL Hct 22.2 L* (39.0-49.0) % MCV 119.4 H (84.0-98.0) fL MCH 38.7 H (28.2-33.3) pg MCHC 32.4 (31.7-36.0) g/dL RDW 14.0 (11.2-14.1) % Plt Count 52 L (150-350) K/uL Neut % (Auto) 45.1 (45.0-80.0) % Lymph % (Auto) 41.5 (10.0-50.0) % [place] % (Auto) 11.0 (2.0-14.0) % Eos % (Auto) 2.0 (0.0-5.0) % Baso % (Auto) 0.4 (0.0-2.0) % Neut # (Auto) 1.11 L (1.40-7.00) K/uL Lymph # (Auto) 1.02 (0.50-3.50) K/uL [place] # (Auto) 0.27 (0.00-1.00) K/uL Eos # (Auto) 0.05 (0.00-0.50) K/uL Baso # (Auto) 0.01 (0.00-0.20) K/uL Sodium 134 L (136-145) mmol/L Potassium 4.4 (3.5-5.1) mmol/L Chloride 101 (98-107) mmol/L Carbon Dioxide 30.0 (21.0-32.0) mmol/L BUN 28 H (7-18) mg/dL Creatinine 1.61 H (0.51-1.17) mg/dL Est Cr Clr Drug Dosing 45.52 mL/min Estimated GFR (MDRD) 42 mL/min Glucose 92 (74-106) mg/dL Uric Acid 8.2 H (2.6-7.2) mg/dL Calcium 8.4 L (8.5-10.1) mg/dL Magnesium 1.6 L (1.8-2.4) mg/dL Total Bilirubin 2.3 H (0.2-1.0) mg/dL AST 38 H (15-37) U/L ALT 21 (12-78) U/L Alkaline Phosphatase 76 (46-116) IU/L Ammonia 40 H (11-32) umol/L Total Protein 5.8 L (6.4-8.2) g/dL Albumin 1.4 L (3.4-5.0) g/dL Maximo Results Last 24 Hours: None Med Orders - Current: Current Medications Acetaminophen (Tylenol Extra Strength) 1,000 mg PO Q6HR PRN PRN Reason: Pain (moderate 4-6) Last Admin: 02/20/20 12:59 Dose: 1,000 mg Documented by: Bisacodyl (Dulcolax) 5 mg PO DAILY PRN PRN Reason: Constipation Cyanocobalamin (Vitamin B12) 100 mcg PO DAILY [facility] Last Admin: 02/21/20 07:38 Dose: 100 mcg Documented by: Duloxetine HCl (Cymbalta) 30 mg PO DAILY [facility] Last Admin: 02/21/20 07:38 Dose: 30 mg Documented by: Ferrous Sulfate (Ferrous Sulfate) 325 mg PO BIDMEALS [facility] Last Admin: 02/21/20 07:37 Dose: 325 mg Documented by: Folic Acid (Folic Acid) 1 mg PO DAILY [facility] Last Admin: 02/21/20 07:37 Dose: 1 mg Documented by: Furosemide (Lasix) 20 mg PO BIDDIURETIC [facility] Heparin Sodium (Porcine) (Heparin Lock Flush 100 Units/Ml) 300 units IVPUSH DAILY@2030 [facility] Last Admin: 02/20/20 21:09 Dose: 300 units Documented by: Heparin Sodium (Porcine) (Heparin Lock Flush 100 Units/Ml) 300 units IVPUSH ASDIRECTED PRN PRN Reason: Keep Vein Open Last Admin: 02/21/20 07:38 Dose: 300 units Documented by: Lactulose (Cephulac) 20 gm PO BID [facility] Levothyroxine Sodium (Levothyroxine) 175 mcg PO ACBREAKFAST [facility] Last Admin: 02/21/20 07:37 Dose: 175 mcg Documented by: Methyl Salicylate (Icy Hot Cream) 0 gm TOP QID PRN PRN Reason: Pain (mild 1-3) Last Admin: 02/18/20 23:18 Dose: 1 applic Documented by: Omeprazole (Omeprazole) 20 mg PO BIDAC [facility] Last Admin: 02/21/20 07:38 Dose: 20 mg Documented by: Potassium Chloride (Klor-Con M20) 20 meq PO BID [facility] Sodium Chloride (Saline Flush) 10 ml IV ASDIRECTED PRN PRN Reason: IV Use Last Admin: 02/21/20 07:39 Dose: 10 ml Documented by: Sodium Chloride (Saline Flush) 10 ml IV DAILY@1999 [facility] Last Admin: 02/20/20 21:09 Dose: 10 ml Documented by: Spironolactone (Aldactone) 25 mg PO BID [facility] Temazepam (Restoril) 15 mg PO BEDTIME PRN PRN Reason: Insomnia Last Admin: 02/20/20 21:09 Dose: 15 mg Documented by: Thiamine HCl (Vitamin B-1) 100 mg PO DAILY [facility] Last Admin: 02/21/20 07:37 Dose: 100 mg Documented by: Tramadol HCl (Ultram) 50 mg PO Q6H PRN PRN Reason: Pain Last Admin: 02/20/20 21:09 Dose: 50 mg Documented by: Discontinued Medications Bumetanide (Bumex) 0.5 mg PO DAILY [facility] Last Admin: 02/16/20 08:18 Dose: 0.5 mg Documented by: Duloxetine HCl (Cymbalta) 30 mg PO DAILY [facility] Furosemide (Lasix) 40 mg IVPUSH Q8H [facility] Last Admin: 02/20/20 02:05 Dose: 40 mg Documented by: Ceftriaxone Sodium 2 gm/ (Sodium Chloride) 100 mls @ 200 mls/hr IV Q24H [facility] Stop: 02/15/20 20:29 Last Admin: 02/15/20 20:09 Dose: 200 mls/hr Documented by: Lactulose (Cephulac) 10 gm PO TID [facility] Last Admin: 02/16/20 08:18 Dose: 10 gm Documented by: Lactulose (Cephulac) 20 gm PO TID [facility] Last Admin: 02/21/20 11:47 Dose: Not Given Documented by: Levothyroxine Sodium (Levothyroxine) 150 mcg PO ACBREAKFAST [facility] Last Admin: 02/16/20 08:19 Dose: 150 mcg Documented by: Potassium Chloride (Klor-Con M20) 20 meq PO BID [facility] Potassium Chloride (Klor-Con M20) 20 meq PO TID [facility] Last Admin: 02/21/20 07:38 Dose: 20 meq Documented by: Spironolactone (Aldactone) 50 mg PO DAILY [facility] Last Admin: 02/21/20 07:38 Dose: 50 mg Documented by: Tramadol HCl (Ultram) 50 mg PO BID PRN PRN Reason: Pain (severe 7-10) Last Admin: 02/16/20 06:34 Dose: 50 mg Documented by: - Exam Quality Assessment: Central Line/PICC, DVT Prophylaxis. No: Supplemental Oxygen, Urine Catheter, Skin Breakdown, Restraints General: Alert, No Acute Distress, Other (Improved mild to moderate confusion secondary to his alcoholic encephalopathy) HEENT: Pupils Equal, Pupils Reactive, EOMI, Mucous Membr. Moist/[place]. No: Scleral Icterus Neck: Supple, Trachea Midline, No JVD, No Thyromegaly, Carotid Bruit (Mild bilateral carotids) Lungs: Normal Respiratory Effort, Rales (Mild to moderate bilateral basilar). No: Rhonchi, Rub, Wheezing Cardiovascular: Regular Rate, Regular Rhythm, No Murmurs. No: Gallops, Rubs GI/Abdominal Exam: Normal Bowel Sounds, Soft, Non-Tender, No Organomegaly, No Distention, No Abnormal Bruit, No Mass, Other (Obese). No: Guarding (Male) Exam: Deferred Back Exam: Full Range of Motion, Other (Mild kyphosis). No: CVA Tenderness (L), CVA Tenderness (R), Decreased Range of Motion, Muscle Spasm, Paraspinal Tenderness, Vertebral Tenderness Extremities: Pedal Edema (Slowly improving moderate to severe bilateral lymphedema and generalized anasarca), Joint Swelling (Right kneeimproving slowly). No: Mami's Sign, Leg Pain Peripheral Pulses: 2+: Radial (L), Radial (R) Skin: Ecchymosis (Moderate diffuse with occasional petechiaestable) Wound/Incisions: Healing Well Neurological: No New Focal Deficit, Other (Improved mild to moderate confusion) Psy/Mental Status: No: Agitated, Hallucinations, Withdrawal Symptoms Sepsis Event Note - Evaluation Sepsis Screening Result: No Definite Risk - Focused Exam Vital Signs: Vital Signs Temp Pulse Resp BP Pulse Ox 02/21/20 07:40 36.6 C 78 16 87/47 L 92 L - Problem List & Annotations (1) Confusion SNOMED Code(s): 251544186 Code(s): R41.0 - DISORIENTATION, UNSPECIFIED Status: Chronic Priority: High Current Visit: Yes Annotation/Comment:: Significantly improved confusion and ammonia levels after increasing his lactulose therapy, although he is having some significant diarrhea with this treatment. Attempt to change this to a twice daily regimen especially in light of his somewhat decreased blood pressures. Previous progressive confusion since admission to our swing bed unit. Patient has been refusing recommended lactulose therapy in the past with improved compliance since my last visit. 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 Prognosis is extremely poor as below. Note elevated ammonia levels improving as above with previous normal vitamin B12 level. Patient is already on thiamine supplementation. TSH was mildly elevated with increased Synthroid therapy secondary to additional iron sulfate as below. TSH, TIBC panel, and additional blood work will be repeated on 03/05. (2) Need for comfort care SNOMED Code(s): 918022830, 992210495 Code(s): MBA2850 - Status: Chronic Priority: High Current Visit: Yes Annotation/Comment:: As above. (3) Septic joint of right knee joint SNOMED Code(s): 692727681, 985569075 Code(s): M00.9 - PYOGENIC ARTHRITIS, UNSPECIFIED Status: Acute Priority: High Current Visit: Yes Qualifiers: Septic arthritis organism: due to other bacteria Qualified Code(s): M00.861 - Arthritis due to other bacteria, right knee Annotation/Comment:: Patient transferred from [facility] after I&D of right knee on 01/18/2020 with initiation of IV Rocephin therapy in that facility. IV Rocephin therapy was completed yesterday. PT and OT are still in effect. No recent fever with occasional decreased blood pressures, however no other clinical evidence of sepsis. No leukocytosis today, however note pancytopenia. Prognosis is extremely poor secondary to multiple health issues as below with patient's family arranged to place patient in comfort care only status. The patient still wants to go home, however with consideration of hospice care at discharge. (4) Heart failure SNOMED Code(s): 74734805 Code(s): I50.9 - HEART FAILURE, UNSPECIFIED Status: Chronic Priority: High Current Visit: Yes Qualifiers: Heart failure type: combined systolic and diastolic Heart failure chronicity: chronic Qualified Code(s): I50.42 - Chronic combined systolic (congestive) and diastolic (congestive) heart failure Annotation/Comment:: No history of chest pain or anginal type symptoms. 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 Note significant anasarca with alcoholic cirrhosis and chronic renal insufficiency contributing factors. Changed from oral Bumex to IV Lasix therapy, which was apparently discontinued yesterday by [facility] physician. Initiate oral Lasix therapy today with consideration of change to Bumex depending on his clinical course. Initiate daily weights. Prognosis is poor. (5) Hyponatremia SNOMED Code(s): 33715032 Code(s): E87.1 - HYPO-OSMOLALITY AND HYPONATREMIA Status: Chronic Priority: High Current Visit: Yes Annotation/Comment:: Likely secondary to his known CHF with history of cardiomyopathy. No apparent chest pain or anginal type symptoms. Stable. Observe for now. (6) Pancytopenia SNOMED Code(s): 741208707 Code(s): D61.818 - OTHER PANCYTOPENIA Status: Acute Priority: High Current Visit: Yes Onset Date: 02/16/20 Annotation/Comment:: Progressive thrombocytopenia and some moderate leukopenia at this time. No fever. Somewhat increased thrombocytopenia with additional mildly increased anemia despite iron sulfate supplementation. No evidence of acute GI bleed, return infection, etc.. Note comfort care. Note recent completion of IV Rocephin as above. (7) Hyperuricemia SNOMED Code(s): 93275363 Code(s): E79.0 - HYPERURICEMIA W/O SIGNS OF INFLAM ARTHRIT AND TOPHACEOUS DIS Status: Acute Priority: Medium Current Visit: Yes Annotation/Comment:: Continue to observe closely especially in light of change to IV Lasix therapy with oral Lasix therapy initiated on 02/20 as above. (8) Hyperammonemia SNOMED Code(s): 2428447 Code(s): E72.20 - DISORDER OF UREA CYCLE METABOLISM, UNSPECIFIED Status: Chronic Priority: High Current Visit: Yes Onset Date: 11/16/19 Annotation/Comment:: As above (9) Hypertension SNOMED Code(s): 82266598 Code(s): I10 - ESSENTIAL (PRIMARY) HYPERTENSION Status: Chronic Priority: High Current Visit: Yes Qualifiers: Hypertension type: essential hypertension Qualified Code(s): I10 - Essential (primary) hypertension Annotation/Comment:: Some occasional hypotension. IV Lasix discontinued on 02/19. Change Spironolactone to a lower dose twice daily regimen. Nonsymptomatic for now. Continue to observe closely. (10) Hypoalbuminemia SNOMED Code(s): 404001333 Code(s): E88.09 - [facility] DISORDERS OF PLASMA-PROTEIN METABOLISM, NEC Status: Chronic Priority: Medium Current Visit: Yes Onset Date: 11/11/19 Annotation/Comment:: Consider high-protein Glucerna supplements as snacks, however note alcoholic cirrhosis. Consider transfer and/or admission in this facility for IV albumin supplementation. Continue close observation. (11) Hypothyroidism (acquired) SNOMED Code(s): 393926943 Code(s): E03.9 - HYPOTHYROIDISM, UNSPECIFIED Status: Chronic Priority: High Current Visit: Yes Annotation/Comment:: As above. TSH mildly elevated on 02/16/2020. (12) Mixed anxiety depressive disorder SNOMED Code(s): 063834830 Code(s): F41.8 - OTHER SPECIFIED ANXIETY DISORDERS Status: Chronic Priority: Medium Current Visit: Yes Annotation/Comment:: Stable by history. Note history of alcohol abuse. (13) Osteoarthritis SNOMED Code(s): 617725220 Code(s): M19.90 - UNSPECIFIED OSTEOARTHRITIS, UNSPECIFIED SITE Status: Chronic Priority: High Current Visit: Yes Qualifiers: Osteoarthritis location: multiple joints Osteoarthritis type: primary Qualified Code(s): M89.49 - Other hypertrophic osteoarthropathy, multiple sites Annotation/Comment:: Stable by history, however moderate control. No history of acute gout attacks. (14) Peptic reflux disease SNOMED Code(s): 236275198 Code(s): K21.9 - GASTRO-ESOPHAGEAL REFLUX DISEASE WITHOUT ESOPHAGITIS Status: Chronic Priority: Medium Current Visit: Yes Annotation/Comment:: History of gastric varices secondary to his alcohol abuse with significant anemia and additional pancytopenia today as above. No direct evidence of acute GI bleed. Initiate iron sulfate with caution. Note current high-dose omeprazole therapy. (15) Renal insufficiency SNOMED Code(s): 461373837, 019660780 Code(s): N28.9 - DISORDER OF KIDNEY AND URETER, UNSPECIFIED Status: Chronic Priority: High Current Visit: Yes Annotation/Comment:: Improved creatinine on 02/20 despite previous IV Lasix therapy as above. Repeat blood work on 03/05. Prognosis poor. - Problem List Review Problem List Initiated/Reviewed/Updated: Yes - My Orders Last 24 Hours: My Active Orders 02/21/20 12:21 Daily Weight [Height and Weight] [RC] DAILY 02/21/20 12:22 Communication Order [RC] ROUTINE 02/21/20 12:27 Comfort Measures [OM.PC] Routine 02/21/20 12:30 Furosemide [Lasix] 20 mg PO BIDDIURETIC 02/21/20 18:00 Lactulose [Cephulac] 20 gm PO BID Potassium Chloride [Klor-Con M20] 20 meq PO BID 02/22/20 08:00 Spironolactone [Aldactone] 25 mg PO BID 03/05/20 05:11 AMMONIA VENOUS [CHEM] Stat CBC WITH AUTO DIFF [HEME] Routine COMPREHENSIVE METABOLIC PN,CMP [CHEM] Routine INR,PT,PROTHROMBIN TIME [COAG] Routine IRON/TIBC [CHEM] Routine PTT,PARTIAL THROMBOPLSTIN TIME [COAG] Routine TSH ULTRASENSITIVE [CHEM] Routine - Assessment Assessment:: As above - Plan Plan:: As above. Extensive precautions were given to the patient, who is in agreement with the treatment plan. Note current No CODE STATUS with consideration of hospice care as above. Prognosis is extremely poor. Continue swing bed care for now.
[2020-02-21] MEDS: Furosemide 20 MG Tab PO SCH (13:15)
[2020-02-21] MEDS: Acetaminophen 500 MG Tab PO PRN (16:51)
[2020-02-21] MEDS: Sodium Chloride 0.9% 10 ML Syringe IV SCH (21:22)
[2020-02-21] MEDS: Temazepam 15 MG Cap PO PRN (21:30)
[2020-02-21] MEDS: traMADol 50 MG Tab PO PRN (21:30)
[2020-02-22] MEDS: Ferrous Sulfate 325 MG Tab PO SCH ×2 (07:38→17:27)
[2020-02-22] MEDS: Lactulose Soln 10 GM/15 ML 30 ML UD Cup PO SCH ×2 (07:38→17:28)
[2020-02-22] MEDS: DULoxetine 30 MG Cap PO SCH (07:38)
[2020-02-22] MEDS: Spironolactone 25 MG Tab PO SCH ×2 (07:38→17:27)
[2020-02-22] MEDS: Omeprazole 20 MG Cap.CR PO SCH ×2 (07:40→17:27)
[2020-02-22] MEDS: Cyanocobalamin (Vitamin B12) 100 MCG Tab PO SCH (07:40)
[2020-02-22] MEDS: Folic Acid 1 MG Tab PO SCH (07:40)
[2020-02-22] MEDS: Thiamine 100 MG Tab PO SCH (07:41)
[2020-02-22] MEDS: Acetaminophen 500 MG Tab PO PRN ×2 (07:41→22:17)
[2020-02-22] MEDS: traMADol 50 MG Tab PO PRN ×2 (07:42→22:18)
[2020-02-22] MEDS: Potassium Chloride 20 MEQ Tab.ER PO SCH ×2 (11:29→17:28)
[2020-02-22] MEDS: Furosemide 20 MG Tab PO SCH ×2 (11:29→11:31)
[2020-02-22] MEDS: Temazepam 15 MG Cap PO PRN (22:17)
[2020-02-23] MEDS: Folic Acid 1 MG Tab PO SCH (09:03)
[2020-02-23] MEDS: Furosemide 20 MG Tab PO SCH ×2 (09:03→12:48)
[2020-02-23] MEDS: DULoxetine 30 MG Cap PO SCH (09:03)
[2020-02-23] MEDS: Cyanocobalamin (Vitamin B12) 100 MCG Tab PO SCH (09:03)
[2020-02-23] MEDS: Spironolactone 25 MG Tab PO SCH ×2 (09:04→18:00)
[2020-02-23] MEDS: Potassium Chloride 20 MEQ Tab.ER PO SCH ×2 (09:04→17:59)
[2020-02-23] MEDS: Ferrous Sulfate 325 MG Tab PO SCH ×2 (09:04→17:59)
[2020-02-23] MEDS: Thiamine 100 MG Tab PO SCH (09:04)
[2020-02-23] MEDS: Lactulose Soln 10 GM/15 ML 30 ML UD Cup PO SCH ×2 (09:04→17:59)
[2020-02-23] MEDS: Omeprazole 20 MG Cap.CR PO SCH ×2 (09:04→17:59)
[2020-02-23] MEDS: Acetaminophen 500 MG Tab PO PRN (12:49)
[2020-02-24] MEDS: Acetaminophen 500 MG Tab PO PRN ×2 (04:30→12:36)
[2020-02-24] MEDS: Omeprazole 20 MG Cap.CR PO SCH ×2 (07:28→17:41)
[2020-02-24] MEDS: Ferrous Sulfate 325 MG Tab PO SCH ×2 (07:28→17:41)
[2020-02-24] MEDS: Folic Acid 1 MG Tab PO SCH (07:28)
[2020-02-24] MEDS: Furosemide 20 MG Tab PO SCH ×2 (07:28→12:14)
[2020-02-24] MEDS: DULoxetine 30 MG Cap PO SCH (07:28)
[2020-02-24] MEDS: Potassium Chloride 20 MEQ Tab.ER PO SCH (07:28)
[2020-02-24] MEDS: Thiamine 100 MG Tab PO SCH (07:29)
[2020-02-24] MEDS: Cyanocobalamin (Vitamin B12) 100 MCG Tab PO SCH (07:29)
[2020-02-24] MEDS: Spironolactone 25 MG Tab PO SCH ×2 (07:30→17:41)
[2020-02-24] MEDS: traMADol 50 MG Tab PO PRN ×2 (07:33→23:10)
[2020-02-24] MEDS: Lactulose Soln 10 GM/15 ML 30 ML UD Cup PO SCH (11:05)
[2020-02-24] MEDS: Menthol/Methyl Salicylate 85 GM Tube TOP PRN (12:37)
[2020-02-24] MEDS: Temazepam 15 MG Cap PO PRN (23:10)
[2020-02-25] MEDS: Furosemide 20 MG Tab PO SCH ×2 (08:16→12:12)
[2020-02-25] MEDS: Potassium Chloride 20 MEQ Tab.ER PO SCH (08:16)
[2020-02-25] MEDS: Spironolactone 25 MG Tab PO SCH ×2 (08:16→17:50)
[2020-02-25] MEDS: Cyanocobalamin (Vitamin B12) 100 MCG Tab PO SCH (08:16)
[2020-02-25] MEDS: Folic Acid 1 MG Tab PO SCH (08:16)
[2020-02-25] MEDS: Thiamine 100 MG Tab PO SCH (08:16)
[2020-02-25] MEDS: DULoxetine 30 MG Cap PO SCH (08:16)
[2020-02-25] MEDS: Omeprazole 20 MG Cap.CR PO SCH ×2 (08:16→17:50)
[2020-02-25] MEDS: Ferrous Sulfate 325 MG Tab PO SCH ×2 (08:16→17:50)
[2020-02-25] MEDS: traMADol 50 MG Tab PO PRN ×2 (13:10→21:25)
[2020-02-25] MEDS: Temazepam 15 MG Cap PO PRN (21:25)
[2020-02-26] MEDS: Furosemide 20 MG Tab PO SCH ×2 (07:43→11:59)
[2020-02-26] MEDS: DULoxetine 30 MG Cap PO SCH (07:43)
[2020-02-26] MEDS: Potassium Chloride 20 MEQ Tab.ER PO SCH (07:43)
[2020-02-26] MEDS: Thiamine 100 MG Tab PO SCH (07:43)
[2020-02-26] MEDS: Spironolactone 25 MG Tab PO SCH ×2 (07:43→17:25)
[2020-02-26] MEDS: Cyanocobalamin (Vitamin B12) 100 MCG Tab PO SCH (07:43)
[2020-02-26] MEDS: Ferrous Sulfate 325 MG Tab PO SCH ×2 (07:43→17:25)
[2020-02-26] MEDS: Omeprazole 20 MG Cap.CR PO SCH ×2 (07:43→17:25)
[2020-02-26] MEDS: Folic Acid 1 MG Tab PO SCH (07:44)
[2020-02-26] MEDS: Acetaminophen 500 MG Tab PO PRN ×2 (11:59→17:24)
[2020-02-26] MEDS: Lactulose Soln 10 GM/15 ML 30 ML UD Cup PO SCH (17:25)
[2020-02-27] MEDS: Lactulose Soln 10 GM/15 ML 30 ML UD Cup PO SCH ×2 (07:09→17:30)
[2020-02-27] MEDS: Omeprazole 20 MG Cap.CR PO SCH ×2 (07:10→17:30)
[2020-02-27] MEDS: Thiamine 100 MG Tab PO SCH (07:10)
[2020-02-27] MEDS: Cyanocobalamin (Vitamin B12) 100 MCG Tab PO SCH (07:10)
[2020-02-27] MEDS: Ferrous Sulfate 325 MG Tab PO SCH ×2 (07:10→17:30)
[2020-02-27] MEDS: Potassium Chloride 20 MEQ Tab.ER PO SCH (07:10)
[2020-02-27] MEDS: Acetaminophen 500 MG Tab PO PRN (07:10)
[2020-02-27] MEDS: DULoxetine 30 MG Cap PO SCH (07:10)
[2020-02-27] MEDS: Folic Acid 1 MG Tab PO SCH (07:10)
[2020-02-27] MEDS: Furosemide 20 MG Tab PO SCH ×3 (07:10→13:43)
[2020-02-27] MEDS: Spironolactone 25 MG Tab PO SCH ×3 (07:10→17:30)
[2020-02-27] MEDS: traMADol 50 MG Tab PO PRN (16:38)
[2020-02-27] MEDS: Menthol/Methyl Salicylate 85 GM Tube TOP PRN (16:39)
[2020-02-27] MEDS: Menthol/Methyl Salicylate 85 GM Tube TOP SCH (20:25)
[2020-02-27] MEDS: Temazepam 15 MG Cap PO PRN (20:25)
[2020-02-28] MEDS: DULoxetine 30 MG Cap PO SCH (07:27)
[2020-02-28] MEDS: Cyanocobalamin (Vitamin B12) 100 MCG Tab PO SCH (07:27)
[2020-02-28] MEDS: Omeprazole 20 MG Cap.CR PO SCH ×2 (07:27→17:22)
[2020-02-28] MEDS: traMADol 50 MG Tab PO PRN (07:27)
[2020-02-28] MEDS: Folic Acid 1 MG Tab PO SCH (07:28)
[2020-02-28] MEDS: Ferrous Sulfate 325 MG Tab PO SCH ×2 (07:28→17:21)
[2020-02-28] MEDS: Thiamine 100 MG Tab PO SCH (07:28)
[2020-02-28] MEDS: Potassium Chloride 20 MEQ Tab.ER PO SCH (07:28)
[2020-02-28] MEDS: Lactulose Soln 10 GM/15 ML 30 ML UD Cup PO SCH ×2 (07:29→17:22)
[2020-02-28] MEDS: Acetaminophen 500 MG Tab PO PRN (07:29)
[2020-02-28] MEDS: Menthol/Methyl Salicylate 85 GM Tube TOP SCH ×2 (07:36→19:46)
[2020-02-28] MEDS: Furosemide 20 MG Tab PO SCH ×2 (07:52→11:08)
[2020-02-28] MEDS: Spironolactone 25 MG Tab PO SCH ×2 (07:52→17:21)
--- NOTE | 2020-02-28 16:49 | PCM.DCSUM1 ---
Discharge Summary - Hospital Course Brief History: Patient admitted to [facility] for continued IV antibiotic treatment of right knee septic arthritis. Also has ongoing issues with end stage cirrhosis/confusion. Diagnosis: Stroke: No - Discharge Data Discharge Date: 02/29/20 Discharge Disposition: DC/Tfer to SNF 03 Condition: Good - Referral to Home Health Primary Care Physician: PCP None - Discharge Diagnosis/Problem(s) (1) Septic joint of right knee joint SNOMED Code(s): 616762097, 619379234 ICD Code: M00.9 - PYOGENIC ARTHRITIS, UNSPECIFIED Status: Acute Priority: High Current Visit: Yes Problem Details: Patient transferred from [facility] in [place] after I&D of right knee on 01/18/2020 with initiation of IV Rocephin therapy in that facility. IV Rocephin therapy was completed as [facility] patient as directed. PT and OT continued. No recent fever or clinical evidence of sepsis. Qualifiers: Septic arthritis organism: due to other bacteria Qualified Code(s): M00.861 - Arthritis due to other bacteria, right knee (2) Cirrhosis of liver SNOMED Code(s): 10467429 ICD Code: K74.60 - UNSPECIFIED CIRRHOSIS OF LIVER Status: Chronic Priority: Low Current Visit: No Problem Details: Chronic and progressive. Poor prognosis. Qualifiers: Hepatic cirrhosis type: alcoholic cirrhosis (3) Confusion SNOMED Code(s): 962171881 ICD Code: R41.0 - DISORIENTATION, UNSPECIFIED Status: Chronic Priority: High Current Visit: Yes Problem Details: Confusion and ammonia levels improve significantly with lactulose. However patient in past has not wished to be compliant with this due to the loose stools. Changed to BID given the decreased BPs observed, however Ammonia level is now increasing again. Continue to observe. 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 Prognosis is extremely poor. (4) Pancytopenia SNOMED Code(s): 097818549 ICD Code: D61.818 - OTHER PANCYTOPENIA Status: Acute Priority: High Current Visit: Yes Onset Date: 02/16/20 Problem Details: Progressive thrombocytopenia and some moderate leukopenia at this time. No fever. Somewhat increased thrombocytopenia with additional mildly increased anemia despite iron sulfate supplementation. No evidence of acute GI bleed, return infection, etc.. Note comfort care. Note recent completion of IV Rocephin as above. Continued follow up with primary provider. (5) Hyperuricemia SNOMED Code(s): 15376522 ICD Code: E79.0 - HYPERURICEMIA W/O SIGNS OF INFLAM ARTHRIT AND TOPHACEOUS DIS Status: Acute Priority: Medium Current Visit: Yes Problem Details: Continued follow up with primary provider. (6) Heart failure SNOMED Code(s): 85953518 ICD Code: I50.9 - HEART FAILURE, UNSPECIFIED Status: Chronic Priority: High Current Visit: Yes Problem Details: No history of chest pain or anginal type symptoms. 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 Note significant anasarca with alcoholic cirrhosis and chronic renal insufficiency contributing factors. Changed from oral Bumex to IV Lasix therapy by previous MD. Initiate oral Lasix therapy today with consideration of change to Bumex depending on his clinical course. Very poor prognosis. Qualifiers: Heart failure type: combined systolic and diastolic Heart failure chronicity: chronic Qualified Code(s): I50.42 - Chronic combined systolic (congestive) and diastolic (congestive) heart failure (7) Hyperammonemia SNOMED Code(s): 7078742 ICD Code: E72.20 - DISORDER OF UREA CYCLE METABOLISM, UNSPECIFIED Status: Chronic Priority: High Current Visit: Yes Onset Date: 11/16/19 Problem Details: As above (8) Hypertension SNOMED Code(s): 64682963 ICD Code: I10 - ESSENTIAL (PRIMARY) HYPERTENSION Status: Chronic Priority: High Current Visit: Yes Problem Details: Some occasional hypotension. IV Lasix discontinued on 02/19. Change Spironolactone to a lower dose twice daily regimen. Nonsymptomatic for now. Continue to observe closely. Qualifiers: Hypertension type: essential hypertension Qualified Code(s): I10 - Essential (primary) hypertension (9) Hyponatremia SNOMED Code(s): 27475776 ICD Code: E87.1 - HYPO-OSMOLALITY AND HYPONATREMIA Status: Chronic Priority: High Current Visit: Yes Problem Details: Likely secondary to his known CHF with history of cardiomyopathy. No apparent chest pain or anginal type symptoms. Stable. Observe for now. (10) Hypothyroidism (acquired) SNOMED Code(s): 001688079 ICD Code: E03.9 - HYPOTHYROIDISM, UNSPECIFIED Status: Chronic Priority: High Current Visit: Yes Problem Details: As above. TSH mildly elevated on 02/16/2020. (11) Mixed anxiety depressive disorder SNOMED Code(s): 195666237 ICD Code: F41.8 - OTHER SPECIFIED ANXIETY DISORDERS Status: Chronic Priority: Medium Current Visit: Yes Problem Details: Stable by history. Note history of alcohol abuse. (12) Need for comfort care SNOMED Code(s): 845374548, 435434050 ICD Code: HHY6095 - Status: Chronic Priority: High Current Visit: Yes Problem Details: As above. (13) Osteoarthritis SNOMED Code(s): 236832933 ICD Code: M19.90 - UNSPECIFIED OSTEOARTHRITIS, UNSPECIFIED SITE Status: Chronic Priority: High Current Visit: Yes Problem Details: Stable by history, however moderate control. No history of acute gout attacks. Qualifiers: Osteoarthritis location: multiple joints Osteoarthritis type: primary Qualified Code(s): M89.49 - Other hypertrophic osteoarthropathy, multiple sites (14) Peptic reflux disease SNOMED Code(s): 229901568 ICD Code: K21.9 - GASTRO-ESOPHAGEAL REFLUX DISEASE WITHOUT ESOPHAGITIS Status: Chronic Priority: Medium Current Visit: Yes Problem Details: History of gastric varices secondary to his alcohol abuse with significant anemia and additional pancytopenia today as above. No direct evidence of acute GI bleed. Initiate iron sulfate with caution. Note current high-dose omeprazole therapy. (15) Renal insufficiency SNOMED Code(s): 298819370, 023643715 ICD Code: N28.9 - DISORDER OF KIDNEY AND URETER, UNSPECIFIED Status: Chronic Priority: High Current Visit: Yes Problem Details: Improved creatinine on 02/20 despite previous IV Lasix therapy as above. Repeat blood work tomorrow. Prognosis poor. (16) Edema of both lower legs SNOMED Code(s): 660744796 ICD Code: R60.0 - LOCALIZED EDEMA Status: Chronic Priority: Medium Current Visit: No Problem Details: Significant issues with lower leg edema, usually left worse than right per patient. Has gotten noticably worse since admission this past week. Weeping noted through skin. Has been wearing SCDs. (17) Weakness SNOMED Code(s): 46272011 ICD Code: R53.1 - WEAKNESS Status: Chronic Priority: High Current Visit: No Problem Details: Generalized chronic weakness with patient transferred to [facility] care for further PT and OT. Patient noted to not want to participate in therapy at times. Poor prognosis. - Patient Summary/Data Consults: Consultations 02/13/20 14:04 OT Evaluation and Treatment [CONS] Routine PT Evaluation and Treatment [CONS] Routine 02/16/20 18:06 Consult to Case Management/Senior Developer [CONS] Routine Hospital Course: Antibiotic therapy for treatment of knee infection completed. Patient continued to receive PT and OT but it was noted that no significant progression was being made overall given patient's multiple medical issues, liver failure, weakness, and confusion. Ultimately family worked with patient care trainer and it was decided to have patient transferred to a [facility] facility, [facility]. They are to arrange close follow up by his primary providers/[facility] for continued care. - Patient Instructions Diet: Regular Diet as Tolerated Fluid Restriction: 1500 mL Activity: As Tolerated Driving: Do Not Drive Other/Special Instructions: Have patient be followed up by primary provider and have plan reviewed within one week of admission. Follow up with [facility] specialists as recommended. - Discharge Plan *PRESCRIPTION DRUG MONITORING PROGRAM REVIEWED*: Not Applicable *COPY OF PRESCRIPTION DRUG MONITORING REPORT IN PATIENT CRISTO: Not Applicable Prescriptions/Med Rec: DULoxetine [Cymbalta] 30 mg PO DAILY #30 cap Ferrous Sulfate 325 mg PO BIDMEALS #30 tablet Levothyroxine 175 mcg PO ACBREAKFAST #30 tablet Home Medications: Home Meds Bumetanide [Bumex] 0.5 mg PO DAILY 02/20/19 [History] Cyanocobalamin (Vitamin B-12) [Vitamin B-12] 100 mcg PO DAILY 02/20/19 [History] Folic Acid 1 mg PO DAILY 02/20/19 [History] Omeprazole 20 mg PO BIDAC 02/20/19 [History] Lactulose [Cephulac] 15 ml PO TID 11/10/19 [History] Spironolactone 50 mg PO DAILY 11/10/19 [History] Thiamine [Vitamin B-1] 100 mg PO DAILY 11/10/19 [History] traMADol [Ultram] 50 mg PO BID PRN 11/10/19 [History] Acetaminophen 1,000 mg PO Q6HR PRN 01/30/20 [History] Temazepam [Restoril] 15 mg PO BEDTIME PRN 02/13/20 [History] DULoxetine [Cymbalta] 30 mg PO DAILY #30 cap 02/28/20 [Rx] Ferrous Sulfate 325 mg PO BIDMEALS #30 tablet 02/28/20 [Rx] Levothyroxine 175 mcg PO ACBREAKFAST #30 tablet 02/28/20 [Rx] Menthol/Methyl Salicylate [Icy Hot] 1 gm TOP Q12HR tube 02/28/20 [Rx] - Discharge Summary/Plan Comment DC Time >30 min.: Yes (discharge to [facility] tomorrow morning) - General Info Date of Service: 02/28/20 Admission Dx/Problem (Free Text: Admission Diagnosis/Problem Admission Diagnosis/Problem Septic arthritis Subjective Update: Patient feels overall ok when asked. Is comfortable. Watching TV. No acute changes/complaints. Functional Status: Reports: Pain Controlled, Tolerating Diet, Urinating - Review of Systems General: Reports: Weakness (chronic), Fatigue (chronic). Denies: Fever, Malaise, Chills, Night Sweats HEENT: Reports: No Symptoms Pulmonary: Reports: No Symptoms Cardiovascular: Reports: No Symptoms Gastrointestinal: Reports: Diarrhea. Denies: Abdominal Pain, Nausea, Vomiting Genitourinary: Reports: Incontinence Musculoskeletal: Reports: Joint Pain (right knee) Skin: Reports: Other (weeping from anasarca/limbs. Bruised appearance to forearms/back of hands) Neurological: Reports: Confusion, Difficulty Walking (due to lower leg edema/chronic weakness), Weakness (chronic) Psychiatric: Reports: Confusion - Patient Data Vitals - Most Recent: Last Vital Signs Temp 36.6 C 02/28/20 07:21 Pulse 78 02/28/20 07:21 Resp 14 02/28/20 07:21 BP 92/72 02/28/20 07:21 Pulse Ox 94 L 02/28/20 07:21 Weight - Most Recent: 107.547 kg I&O - Last 24 hours: Intake & Output 02/28/20 02/28/20 02/28/20 06:59 14:59 22:59 Output Total 700 Balance -700 Med Orders - Current: Current Medications Acetaminophen (Tylenol Extra Strength) 1,000 mg PO Q6HR PRN PRN Reason: Pain (moderate 4-6) Last Admin: 02/28/20 07:29 Dose: 1,000 mg Documented by: Bisacodyl (Dulcolax) 5 mg PO DAILY PRN PRN Reason: Constipation Cyanocobalamin (Vitamin B12) 100 mcg PO DAILY [facility] Last Admin: 02/28/20 07:27 Dose: 100 mcg Documented by: Duloxetine HCl (Cymbalta) 30 mg PO DAILY [facility] Last Admin: 02/28/20 07:27 Dose: 30 mg Documented by: Ferrous Sulfate (Ferrous Sulfate) 325 mg PO BIDMEALS [facility] Last Admin: 02/28/20 07:28 Dose: 325 mg Documented by: Folic Acid (Folic Acid) 1 mg PO DAILY [facility] Last Admin: 02/28/20 07:28 Dose: 1 mg Documented by: Furosemide (Lasix) 20 mg PO BIDDIURETIC [facility] Last Admin: 02/28/20 11:08 Dose: 20 mg Documented by: Lactulose (Cephulac) 20 gm PO BID [facility] Last Admin: 02/28/20 07:29 Dose: 20 gm Documented by: Levothyroxine Sodium (Levothyroxine) 175 mcg PO ACBREAKFAST [facility] Last Admin: 02/28/20 07:28 Dose: 175 mcg Documented by: Methyl Salicylate (Icy Hot Cream) 0 gm TOP QID PRN PRN Reason: Pain (mild 1-3) Last Admin: 02/27/20 16:39 Dose: 1 applic Documented by: Methyl Salicylate (Icy Hot Cream) 1 gm TOP Q12HR [facility] Last Admin: 02/28/20 07:36 Dose: 1 applic Documented by: Omeprazole (Omeprazole) 20 mg PO BIDAC [facility] Last Admin: 02/28/20 07:27 Dose: 20 mg Documented by: Potassium Chloride (Klor-Con M20) 20 meq PO DAILY [facility] Last Admin: 02/28/20 07:28 Dose: 20 meq Documented by: Senna/Docusate Sodium (Senna Plus) 1 tab PO DAILY [facility] Last Admin: 02/28/20 07:28 Dose: 1 tab Documented by: Spironolactone (Aldactone) 25 mg PO BID [facility] Last Admin: 02/28/20 07:52 Dose: Not Given Documented by: Temazepam (Restoril) 15 mg PO BEDTIME PRN PRN Reason: Insomnia Last Admin: 02/27/20 20:25 Dose: 15 mg Documented by: Thiamine HCl (Vitamin B-1) 100 mg PO DAILY [facility] Last Admin: 02/28/20 07:28 Dose: 100 mg Documented by: Tramadol HCl (Ultram) 50 mg PO Q6H PRN PRN Reason: Pain Last Admin: 02/28/20 07:27 Dose: 50 mg Documented by: Discontinued Medications Bumetanide (Bumex) 0.5 mg PO DAILY [facility] Last Admin: 02/16/20 08:18 Dose: 0.5 mg Documented by: Duloxetine HCl (Cymbalta) 30 mg PO DAILY [facility] Furosemide (Lasix) 40 mg IVPUSH Q8H [facility] Last Admin: 02/20/20 02:05 Dose: 40 mg Documented by: Heparin Sodium (Porcine) (Heparin Lock Flush 100 Units/Ml) 300 units IVPUSH DAILY@2030 [facility] Last Admin: 02/21/20 21:22 Dose: 300 units Documented by: Heparin Sodium (Porcine) (Heparin Lock Flush 100 Units/Ml) 300 units IVPUSH ASDIRECTED PRN PRN Reason: Keep Vein Open Last Admin: 02/21/20 07:38 Dose: 300 units Documented by: Ceftriaxone Sodium 2 gm/ (Sodium Chloride) 100 mls @ 200 mls/hr IV Q24H [facility] Stop: 02/15/20 20:29 Last Admin: 02/15/20 20:09 Dose: 200 mls/hr Documented by: Lactulose (Cephulac) 10 gm PO TID [facility] Last Admin: 02/16/20 08:18 Dose: 10 gm Documented by: Lactulose (Cephulac) 20 gm PO TID [facility] Last Admin: 02/21/20 11:47 Dose: Not Given Documented by: Lactulose (Cephulac) 20 gm PO BID [facility] Last Admin: 02/24/20 11:05 Dose: Not Given Documented by: Levothyroxine Sodium (Levothyroxine) 150 mcg PO ACBREAKFAST [facility] Last Admin: 02/16/20 08:19 Dose: 150 mcg Documented by: Potassium Chloride (Klor-Con M20) 20 meq PO BID [facility] Potassium Chloride (Klor-Con M20) 20 meq PO TID [facility] Last Admin: 02/21/20 13:12 Dose: Not Given Documented by: Potassium Chloride (Klor-Con M20) 20 meq PO BID [facility] Last Admin: 02/24/20 07:28 Dose: 20 meq Documented by: Sodium Chloride (Saline Flush) 10 ml IV ASDIRECTED PRN PRN Reason: IV Use Last Admin: 02/21/20 07:39 Dose: 10 ml Documented by: Sodium Chloride (Saline Flush) 10 ml IV DAILY@1999 [facility] Last Admin: 02/21/20 21:22 Dose: 10 ml Documented by: Spironolactone (Aldactone) 50 mg PO DAILY [facility] Last Admin: 02/21/20 07:38 Dose: 50 mg Documented by: Tramadol HCl (Ultram) 50 mg PO BID PRN PRN Reason: Pain (severe 7-10) Last Admin: 02/16/20 06:34 Dose: 50 mg Documented by: - Exam General: Reports: Alert, Cooperative, No Acute Distress HEENT: Reports: Pupils Equal, Pupils Reactive, EOMI, Mucous Membr. Moist/[place] Neck: Reports: Supple Lungs: Reports: Clear to Auscultation, Normal Respiratory Effort Cardiovascular: Reports: Regular Rate, Regular Rhythm GI/Abdominal Exam: Normal Bowel Sounds, Soft, Non-Tender, No Distention (Male) Exam: Deferred Rectal (Males) Exam: Deferred Back Exam: Denies: Muscle Spasm, Paraspinal Tenderness, Vertebral Tenderness Extremities: Other (Significant edema noted both legs/wraps in place. ) Skin: Reports: Warm, Ecchymosis (both forearms/hands) Wound/Incisions: Reports: Healing Well Neurological: Reports: No New Focal Deficit, Strength Equal Bilateral Psy/Mental Status: Reports: Alert, Normal Affect, Normal Mood
[2020-02-28] MEDS ORDERED: Magnesium Oxide 400 MG Tab PO ONE (18:06)
[2020-02-28] MEDS ORDERED: LORazepam 1 MG Tab PO PRN (19:08)
[2020-02-29] MEDS: Temazepam 15 MG Cap PO PRN (00:10)
[2020-02-29] MEDS: traMADol 50 MG Tab PO PRN (01:37)
[2020-02-29] MEDS: Acetaminophen 500 MG Tab PO PRN ×2 (01:37→08:40)
[2020-02-29] MEDS: Cyanocobalamin (Vitamin B12) 100 MCG Tab PO SCH (08:40)
[2020-02-29] MEDS: Folic Acid 1 MG Tab PO SCH (08:40)
[2020-02-29] MEDS: Potassium Chloride 20 MEQ Tab.ER PO SCH (08:41)
[2020-02-29] MEDS: Ferrous Sulfate 325 MG Tab PO SCH (08:41)
[2020-02-29] MEDS: Thiamine 100 MG Tab PO SCH (08:41)
[2020-02-29] MEDS: Furosemide 20 MG Tab PO SCH ×2 (08:41→09:42)
[2020-02-29] MEDS: Omeprazole 20 MG Cap.CR PO SCH (08:41)
[2020-02-29] MEDS: Spironolactone 25 MG Tab PO SCH (08:41)
[2020-02-29] MEDS: DULoxetine 30 MG Cap PO SCH (08:41)
[2020-02-29] MEDS: Menthol/Methyl Salicylate 85 GM Tube TOP SCH (08:43)
[2020-02-29] MEDS: Lactulose Soln 10 GM/15 ML 30 ML UD Cup PO SCH (08:43)
[2020-02-29 08:49] VITALS: BP 103/50; PULSE 85
== END 2020-02-29 10:13 | DRG 549 ==
LOC: LL.MS 02-13 14:05 → UNDOADMIN 02-13 14:06
PROVIDERS: ADMIT Family Medicine; ATTEND Family Medicine
DX: M00.9 Pyogenic arthritis, unspecified (principal); F10.288 Alcohol dependence with other alcohol-induced disorder; D61.818 Other pancytopenia; I50.42 Chronic combined systolic (congestive) and diastolic (congestive) heart failure; Z51.5 Encounter for palliative care; Z20.828 Contact with and (suspected) exposure to other viral communicable diseases; E72.20 Disorder of urea cycle metabolism, unspecified; E87.1 Hypo-osmolality and hyponatremia; I13.0 Hypertensive heart and chronic kidney disease with heart failure and stage 1 through stage 4 chronic kidney disease, or unspecified chronic kidney disease; K70.30 Alcoholic cirrhosis of liver without ascites; R41.0 Disorientation, unspecified; E79.0 Hyperuricemia without signs of inflammatory arthritis and tophaceous disease; E03.9 Hypothyroidism, unspecified; M89.49 Other hypertrophic osteoarthropathy, multiple sites; K21.9 Gastro-esophageal reflux disease without esophagitis; F41.9 Anxiety disorder, unspecified; F32.9 Major depressive disorder, single episode, unspecified; D64.9 Anemia, unspecified; Z79.890 Hormone replacement therapy; Z79.899 Other long term (current) drug therapy; Z79.01 Long term (current) use of anticoagulants
CPT/HCPCS: 36415; 51702; 80048; 80053; 81001; 82140; 82607; 83735; 84443; 84550; 85025; 85610; 85730; 87086; 97110-GO; 97110-GP; 97163-GP; 97165-GO; 97530-GO; 97530-GP; 97535-GO; A9270-GY; J0696; J1642; J1940; J7050

== ENCOUNTER 2020-03-04 15:18 | Emergency (ER) | payer MEDICARE, BC, MEDICAID ==
--- NOTE | 2020-03-04 16:48 | EDM.PDOC ---
ED HPI GENERAL MEDICAL PROBLEM - General Chief Complaint: Laceration Stated Complaint: fall,laceration Time Seen by Provider: 03/04/20 15:31 Source of Information: Reports: EMS, Other (group home call) History Limitations: Reports: Altered Mental Status - History of Present Illness INITIAL COMMENTS - FREE TEXT/NARRATIVE: Patient that was recently discharged from [facility] had unwitnessed fall at [place]. Is chronically confused. More so now that he has been refusing his lactulose therapy which results in higher blood ammonia levels. Has some bleeding on back of head. Was lying on right side on floor of his room when found. No other focal deficits/injuries noted on scene. Patient has chronic generalized pain all over by history. - Related Data Allergies Allergy/AdvReac Type Severity Reaction Status Date / Time No Known Allergies Allergy Verified 03/04/20 15:19 Home Meds: Home Meds Bumetanide [Bumex] 0.5 mg PO DAILY 02/20/19 [History] Cyanocobalamin (Vitamin B-12) [Vitamin B-12] 100 mcg PO DAILY 02/20/19 [History] Folic Acid 1 mg PO DAILY 02/20/19 [History] Omeprazole 20 mg PO BIDAC 02/20/19 [History] Lactulose [Cephulac] 15 ml PO TID 11/10/19 [History] Spironolactone 50 mg PO DAILY 11/10/19 [History] Thiamine [Vitamin B-1] 100 mg PO DAILY 11/10/19 [History] traMADol [Ultram] 50 mg PO BID PRN 11/10/19 [History] Acetaminophen 1,000 mg PO Q6HR PRN 01/30/20 [History] Temazepam [Restoril] 15 mg PO BEDTIME PRN 02/13/20 [History] DULoxetine [Cymbalta] 30 mg PO DAILY #30 cap 02/28/20 [Rx] Ferrous Sulfate 325 mg PO BIDMEALS #30 tablet 02/28/20 [Rx] Levothyroxine 175 mcg PO ACBREAKFAST #30 tablet 02/28/20 [Rx] Magnesium Oxide 400 mg PO DAILY #90 tab 02/28/20 [Rx] Menthol/Methyl Salicylate [Icy Hot] 1 gm TOP Q12HR tube 02/28/20 [Rx] Past Medical History HEENT History: Reports: Cataract, Hard of Hearing Cardiovascular History: Reports: Arrhythmia, Cardiomyopathy, Heart Failure, Hypertension, Other (See Below) Other Cardiovascular History: Sinus tachycardia. Moderate left atrial e nlargement with mild Ralston insufficiency and mild to moderate mitral valve insufficiency by echocardiogram. 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 Upper GI bleed in May 2017. Colonic polyps of unknown character in the ascending and transverse colon. Ventral abdominal hernias. Genitourinary History: Reports: Acute Renal Failure, Chronic Renal Insuffiency, Other (See Below) Other Genitourinary History: History of acute care after left shoulder arthroplasty in January 2019. Musculoskeletal History: Reports: Arthritis, Back Pain, Chronic, Fracture, Neck Pain, Chronic, Osteoarthritis, Osteoporosis, Other (See Below) Other Musculoskeletal History: Multiple thoracic vertebral body compression f ractures at various times from T7-T10 area; left ankle fracture in 2014 with surgery as below. Bilateral rotator cuff tears with left shoulder surgery as below. 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 Borderline alcohol encephalopathy. History of recurrent falls secondary to alcohol use and his arthritis. Psychiatric History: Reports: Addiction, Anxiety, Depression, Other (See Below) Other Psychiatric History: Alcohol abuse. Endocrine/Metabolic History: Reports: Hypomagnesemia, Hypothyroidism, Obesity/BMI 30+, Osteopenia, Other (See Below) Other Endocrine/Metabolic History: Hyperglycemia. Hematologic History: Reports: Anemia, B12 Deficiency, Blood Transfusion(s), Folic Acid, Iron Deficiency, Other (See Below) Other Hematologic History: Macrocytic anemia and thrombocytopenia. Immunologic History: Reports: Immunosuppression, Other (See Below) Other Immunologic History: Alcohol abuse - Infectious Disease History Infectious Disease History: Reports: Other (See Below) - Past Surgical History Head Surgeries/Procedures: Reports: None HEENT Surgical History: Reports: Cataract Surgery, Laser Surgery, Oral Surgery, Other (See Below) Other HEENT Surgeries/Procedures: Bilateral cataract surgery. Apparent laser treatment of posterior capsule subsequent to this surgery. Multiple teeth extractions. Cardiovascular Surgical History: Reports: None Respiratory Surgical History: Reports: None GI Surgical History: Reports: Appendectomy, Cholecystectomy, Colonoscopy, EGD, Polypectomy, Other (See Below) Other GI Surgeries/Procedures: Cholecystectomy per [facility] records. Appendectomy in 1963. EGD on 07/26/17, 06/07/17, and 04/03/14. Colonoscopy on 04/03/14 with polypectomy 2 as above. Neurological Surgical History: Reports: None Musculoskeletal Surgical History: Reports: ORIF, Other (See Below) Other Musculoskeletal Surgeries/Procedures:: Left ankle ORIF on 09/23/14. Left shoulder arthroplasty on 02/07/19. Oncologic Surgical History: Reports: None Dermatological Surgical History: Reports: None, Skin Biopsy - Past Imaging History Past Imaging History: Reports: Cardiac Echo (Last on 11/09/19 with ejection fraction of 60% with previous evaluations on 03/31/14, 12/09/13, and 07/27/13.), CAT Scan (CT of the lumbar spine on 11/07/19 and 10/19/19. CT of the left shoulder on 01/09/19. Head CT on 12/01/13. CT of the thoracic spine and CT of the abdomen and pelvis with stone protocol on 04/27/17.), DEXA Scan (05/17/17.), MRI (Thoracic spine on 10/06/17, 07/11/17, and 04/30/17.), PFT (07/31/13.), Ultrasound (Abdominal on 06/06/17.), Venous Doppler (Right leg venous Doppler study on 11/26/14.) - History Comment History Comment: Patient is a poor historian with majority of history from medical records as above. Social & Family History - Family History Family Medical History: Noncontributory - Tobacco Use Smoking Status *Q: Unknown Ever Smoked Tobacco Use Comment: confusion, unable to answer Second Hand Smoke Exposure: No - Caffeine Use Caffeine Use: Reports: Soda Caffeine Use Comment: 1 cup coffee daily ED ROS GENERAL - Review of Systems Review Of Systems: Unable To Obtain (unable to obtain accurately given patient's dementia.) Reason Not Obtained: patient confused ED EXAM, SKIN/RASH Exam: See Below Exam Limited By: Other (Initially on backboard and in c-collar) General Appearance: Alert, Other (Patient is awake. Unable to say where he is accurately. ) Eye Exam: Bilateral Eye: EOMI, PERRL Ears: Normal External Exam Nose: No: Nasal Deformity, Nasal Swelling, Nasal Drainage Throat/Mouth: Normal Lips, Normal Voice, No Airway Compromise Head: Other (abrasion/contusion with mild swelling back of head). No: Facial Swelling, Facial Tenderness, Sinus Tenderness Neck: No: Non-Tender, Tender Lateral, Tender Midline Respiratory/Chest: No Respiratory Distress, Lungs Clear, Normal Breath Sounds, No Accessory Muscle Use, Chest Non-Tender Cardiovascular: Regular Rate, Rhythm, No Murmur GI/Abdominal: Normal Bowel Sounds, Soft, No Distention (Male) Exam: Deferred Rectal (Males) Exam: Deferred Back Exam: Other (No focal pain complaint with palpation over entire back/spine) Extremities: Other (Patient has significant edema involving both legs. No acute change in tenderness with palpation arms/legs when compared to exam last week when discharged from [facility]). No: Mottled, Pallor, Redness Neurological: Alert, Confused, Other (equal tone/strength bilat arms/legs) Psychiatric: Normal Affect, Normal Mood Skin: Ecchymosis (scattered bruising on back/buttocks/limbs), Other (mild swelling/abrasion back of head). No: Diaphoretic Associated features: No: Warmth, Tenderness, Inflammation Course - Vital Signs Last Recorded V/S: Last Vital Signs Temp 36.6 C 03/04/20 17:03 Pulse 91 03/04/20 17:03 Resp 18 03/04/20 17:03 BP 125/47 L 03/04/20 17:03 Pulse Ox 96 03/04/20 17:03 - Orders/Labs/Meds Orders: Active Orders 24 hr Category Date Time Status C-Spine [Cervical Spine wo Cont] [CT] Stat Exams 03/04/20 16:00 Taken Head wo Cont [CT] Stat Exams 03/04/20 15:59 Taken - Re-Assessments/Exams Free Text/Narrative Re-Assessment/Exam: Patient is well known to staff due to recent swing bed stay. He appears to be at his baseline for mental status/physical exam. CT of head and neck performed as precaution given the unwitnessed fall and contusion on back of head. Radiology did not find any acute changes/bleeds on CT. OK to send patient back to [facility]. They are to continue to observe for changes and have patient rechecked if any concerns arise. Departure - Departure Time of Disposition: 19:00 Disposition: DC/Tfer to SNF 03 Condition: Good Clinical Impression: Unwitnessed fall Scalp contusion Qualifiers: Encounter type: initial encounter Qualified Code(s): S00.03XA - Contusion of scalp, initial encounter - Discharge Information *PRESCRIPTION DRUG MONITORING PROGRAM REVIEWED*: Not Applicable *COPY OF PRESCRIPTION DRUG MONITORING REPORT IN PATIENT CRISTO: Not Applicable Referrals: PCP,None [Primary Care Provider] - Forms: ED Department Discharge Additional Instructions: OK to apply antibiotic ointment on scalp abrasion twice daily while healing. Observe for additional acute changes and follow up as needed if any concerns arise. Sepsis Event Note (ED) - Focused Exam Vital Signs: Vital Signs Temp Pulse Resp BP Pulse Ox 03/04/20 17:03 36.6 C 91 18 125/47 L 96 03/04/20 16:37 91 16 129/44 L 95 03/04/20 16:15 91 20 113/58 L 96 03/04/20 16:00 89 20 123/60 98 03/04/20 15:45 88 18 122/61 96 03/04/20 15:30 36.6 C 88 20 107/54 L 98 - My Orders Last 24 Hours: My Active Orders 03/04/20 15:59 Head wo Cont [CT] Stat 03/04/20 16:00 C-Spine [Cervical Spine wo Cont] [CT] Stat - Assessment/Plan Last 24 Hours: My Active Orders 03/04/20 15:59 Head wo Cont [CT] Stat 03/04/20 16:00 C-Spine [Cervical Spine wo Cont] [CT] Stat
== END 2020-03-04 18:00 ==
LOC: LL.ED 15:18
DX: S00.03XA Contusion of scalp, initial encounter (principal); S30.0XXA Contusion of lower back and pelvis, initial encounter; R60.0 Localized edema; I42.9 Cardiomyopathy, unspecified; K21.9 Gastro-esophageal reflux disease without esophagitis; I13.0 Hypertensive heart and chronic kidney disease with heart failure and stage 1 through stage 4 chronic kidney disease, or unspecified chronic kidney disease; I50.9 Heart failure, unspecified; N18.9 Chronic kidney disease, unspecified; M81.0 Age-related osteoporosis without current pathological fracture; M19.90 Unspecified osteoarthritis, unspecified site; F32.9 Major depressive disorder, single episode, unspecified; F41.9 Anxiety disorder, unspecified; E03.9 Hypothyroidism, unspecified; E66.9 Obesity, unspecified; W19.XXXA Unspecified fall, initial encounter
CPT/HCPCS: 70450; 72125; 99283; 99285-25